=== PATIENT | female | born 1970 | race Caucasian/White ===

== ENCOUNTER 2017-12-19 11:21 | Emergency (ER) | payer OTHER ==
--- NOTE | 2017-12-19 12:16 | RAD REPORT ---
EXAM DESCRIPTION: RAD - Chest Single View - 12/19/2017 11:56 am CLINICAL HISTORY: Syncope COMPARISON: None. TECHNIQUE: AP portable chest image was obtained 1145 hours . FINDINGS: Lungs are clear. Heart and vasculature are normal. No measurable pleural effusion and no p neumothorax. No acute bone finding. Prominent thoracolumbar scoliosis is present only partially asses sed on this study. No acute aortic findings suspected. IMPRESSION: No acute cardiopulmonary process.
[2017-12-19 12:32] LABS: Absolute Lymphocytes (CBC) 1.4 K/uL (0.7-4.9); Absolute Monocytes 0.3 K/uL (0.1-1.3); Absolute Neutrophil 1.3 K/uL (1.8-8.0); Basophils % 1.4 % (0-1.3); Eosinophils % 1.2 % (0-4.4); Hematocrit 42.4 % (36.0-45.0); Lymphocytes % 44.2 % (15.3-44.8); MCV 96.6 fL (80-100); Monocytes % 9.7 % (3.3-12.3); RBC Red Blood Cell Count 4.39 M/uL (3.86-4.86)
[2017-12-19 12:33] LABS: Protime INR 0.95
[2017-12-19 12:41] LABS: Bicarbonate 27 mEq/L (21-31); Glucose Level 103 mg/dL (65-120); Potassium 3.7 mEq/L (3.6-5.0); Sodium Level 138 mEq/L (135-145)
[2017-12-19 12:47] LABS: ALT/SGPT 37 IU/L (10-60); AST/SGOT 40 IU/L (10-42); Albumin 3.5 g/dL (3.2-5.5); Alkaline Phosphatase 79 IU/L (42-121); BUN Blood Urea Nitrogen 8 mg/dL (6-20); Bilirubin Direct 0.1 mg/dL (0-0.2); Bilirubin Total 0.9 mg/dL (0.3-1.2); Magnesium 1.6 mg/dL (1.8-2.5); Protein, Total 6.9 g/dL (6.0-8.3)
[2017-12-19] MEDS ORDERED: MAGNESIUM SULFATE 1 gm IVPB 1 GM/100 ML BAG IV ONE (13:32)
--- NOTE | 2017-12-19 13:36 | RAD REPORT ---
EXAM DESCRIPTION: CT - Head Brain W/Wo Con - 12/19/2017 1:23 pm CLINICAL HISTORY: Seizures COMPARISON: None. TECHNIQUE: Axial 5 mm thick images of the head were obtained prior to and following non-ionic IV con trast. All CT scans are performed using dose optimization technique as appropriate and may include automated exposure control or mA/KV adjustment according to patient size. FINDINGS: No intracranial hemorrhage, mass, edema or shift of mid-line structures. No acute cortical based infarction identified. No cortical edema or sulcal effacement. Patient has mild to moderate at rophy changes for the patient's age. There are chronic ischemic type attenuation changes in the cereb ral white matter. Patient has ventriculomegaly asymmetrically prominent to the left. Third ventricle is mildly prominent to a much lesser degree. No definitive fourth ventricle enlargement. No abnormal extra-axial fluid collections. Post-contrast images show no abnormal enhancement. Mastoid air cells and visualized portions of the paranasal sinuses are clear. No acute bony findings. IMPRESSION: No hemorrhage, mass or other acute intracranial finding. Abnormal ventriculomegaly without evidence for transependymal migration of CSF. Patient has mild to moderate atrophy and chronic ischemic type changes both advanced for a patient th is age. Ventricular size is out of proportion to the amount of volume loss.
--- NOTE | 2017-12-19 13:51 | EKG ---
Test Date: 2017-12-19 Test Time: 11:50:28 Joint Cutter Machine: CONSTANCE MEASUREMENT RESULTS: Intervals: Rate: 84 AR: 160 QRSD: 86 QT: 374 QTc: 441 [place]: P: 62 AR: 160 QRS: 67 T: 26 INTERPRETIVE STATEMENTS: Normal sinus rhythm Normal ECG No previous ECG available for comparison Electronically Signed On 12-19-17 13:50:51 CDT by [place]
--- NOTE | 2017-12-19 14:23 | EDPHYS ---
Physician Documentation [facility] Name: Andie Castro Age: 47 yrs Sex: Female : 1970 Arrival Date: 12/19/2017 Time: 11:24 Bed 28 Private MD: ED Physician Severiano Vazquez HPI: 12/19 14:32 This 47 yrs old Female presents to ER via EMS with complaints of Seizure. gs 14:32 The patient presents after having a single isolated seizure. Character of seizure(s): gs Motor activity: generalized. Seizure onset: just prior to arrival. Context: the seizure(s) was witnessed, by family, occurred at home, occurred while the patient was walking, with assistance. Seizure Hx: the patient has no previous seizure history. Associated injury: Other: tongue, abrasion. Current symptoms: confusion. The patient has not experienced similar symptoms in the past. Historical: - Allergies: 11:44 No Known Allergies; dm5 - Home Meds: 11:44 levothyroxine oral [Active]; dm5 - PMHx: 11:44 Down syndrome; Hypothyroidism; dm5 - PSHx: 11:44 None; dm5 - Immunization history:: Adult Immunizations up to date. - Social history:: Smoking status: Patient/guardian denies using tobacco. ROS: 14:32 All other systems are negative. gs Exam: 14:32 Head/Face: Normocephalic, atraumatic. Eyes: Pupils equal round and reactive to light, gs extra-ocular motions intact. Lids and lashes normal. Conjunctiva and sclera are non-icteric and not injected. Cornea within normal limits. Periorbital areas with no swelling, redness, or edema. ENT: Nares patent. No nasal discharge, no septal abnormalities noted. Tympanic membranes are normal and external auditory canals are clear. Oropharynx with no redness, swelling, or masses, exudates, or evidence of obstruction, uvula midline. Mucous membranes moist. Neck: Trachea midline, no thyromegaly or masses palpated, and no cervical lymphadenopathy. Supple, full range of motion without nuchal rigidity, or vertebral point tenderness. No Meningismus. Chest/axilla: Normal chest wall appearance and motion. Nontender with no deformity. No lesions are appreciated. Cardiovascular: Regular rate and rhythm with a normal S1 and S2. No gallops, murmurs, or rubs. Normal PMI, no JVD. No pulse deficits. Respiratory: Lungs have equal breath sounds bilaterally, clear to auscultation and percussion. No rales, rhonchi or wheezes noted. No increased work of breathing, no retractions or nasal flaring. Abdomen/GI: Soft, non-tender, with normal bowel sounds. No distension or tympany. No guarding or rebound. No evidence of tenderness throughout. Back: No spinal tenderness. No costovertebral tenderness. Full range of motion. Skin: Warm, dry with normal turgor. Normal color with no rashes, no lesions, and no evidence of cellulitis. MS/ Extremity: Pulses equal, no cyanosis. Neurovascular intact. Full, normal range of motion. 14:32 Constitutional: The patient appears alert, awake. 14:32 ENT: Mouth: Tongue: abrasion mild. 14:32 Neuro: Orientation: no acute changes, Mentation: no acute changes, Cranial nerves: CN II- XII are normal as tested, Motor: moves all fours, strength is normal, Sensation: no obvious gross deficits, seizure activity, is not displayed by the patient. 14:32 ECG was reviewed by the Attending Physician. gs Vital Signs: 11:36 BP 116 / 77; Pulse 88; Resp 18; Temp 97.4; Pulse Ox 98% on R/A; dm5 12:26 BP 112 / 81; Pulse 72; Resp 16; Temp 98(TE); Pulse Ox 98% on R/A; dm5 12:54 BP 132 / 94; Pulse 87; Resp 16; Temp 97.4; Pulse Ox 97% on R/A; dm5 13:43 BP 111 / 67; Pulse 86; Resp 22; Pulse Ox 100% on R/A; tl3 15:25 BP 116 / 88; Pulse 91; Resp 18; Pulse Ox 100% on R/A; tl3 Yassine Coma Score: 11:37 Eye Response: spontaneous(4). Verbal Response: confused(4). Motor Response: localizes dm5 pain(5). Total: 13. 12:26 Eye Response: spontaneous(4). Verbal Response: confused(4). Motor Response: obeys dm5 commands(6). Total: 14. 14:18 Eye Response: spontaneous(4). Verbal Response: oriented(5). Motor Response: obeys tl3 commands(6). Total: 15. MDM: 11:37 Patient medically screened. 14:32 Differential diagnosis: cerebral vascular accident, cardiac arrhythmia, seizure, tumor. Data reviewed: vital signs, nurses notes. Response to treatment: the patient's symptoms have markedly improved after treatment. 12/19 11:38 Order name: Basic Metabolic Panel; Complete Time: 13:15 12/19 11:38 Order name: CBC with Diff; Complete Time: 13:15 12/19 11:38 Order name: LFT's; Complete Time: 13:15 12/19 11:38 Order name: Magnesium; Complete Time: 13:15 12/19 11:38 Order name: PT-INR; Complete Time: 13:15 12/19 11:38 Order name: Troponin (emerg Dept Use Only); Complete Time: 13:15 12/19 11:38 Order name: XRAY Chest (1 view); Complete Time: 13:15 12/19 11:38 Order name: EKG; Complete Time: 11:39 12/19 11:38 Order name: Cardiac monitoring; Complete Time: 12:22 12/19 11:38 Order name: EKG - Nurse/Tech; Complete Time: 12:22 12/19 11:38 Order name: IV Saline Lock; Complete Time: 12:22 12/19 11:38 Order name: CT Head Brain w/wo Con; Complete Time: 13:41 12/19 11:38 Order name: Test, Serum; Complete Time: 13:15 12/19 11:38 Order name: Labs collected and sent; Complete Time: 12:23 12/19 11:38 Order name: O2 Per Protocol; Complete Time: 12:23 12/19 11:38 Order name: O2 Sat Monitoring; Complete Time: 12:23 12/19 11:38 Order name: Urine Dipstick-Ancillary (obtain specimen); Complete Time: 15:31 gs EC:32 Rate is 84 beats/min. Rhythm is regular. DC interval is normal. QRS interval is normal. gs T waves are Normal. No ST changes noted. Clinical impression: Normal ECG. Interpreted by me. Administered Medications: 13:43 Drug: Magnesium Sulfate 1 grams Route: IVPB; Infused Over: 1 hrs; Site: left tl3 antecubital; Delivery: Primary tubing; 14:43 Follow up: IV Status: Completed infusion; IV Intake: 100ml tl3 Disposition: 12/19/17 14:22 Transfer ordered to [facility]. Diagnosis is Epilepsy, unspecified, not intractable, without status epilepticus. - Reason for transfer: Higher level of care. - Accepting physician is . - Condition is Stable. - Problem is new. - Symptoms have improved. Signatures: Dispatcher [employer] Lakeisha Pederson, RN RN dm5 Severiano Vazquez MD MD gs Lowrey, Tammy, RN RN tl3
--- NOTE | 2017-12-19 14:23 | ER ---
Nurse's Notes [facility] Name: Andie Castro Age: 47 yrs Sex: Female : 1970 Arrival Date: 12/19/2017 Time: 11:24 Bed 28 Private MD: Diagnosis: Epilepsy, unspecified, not intractable, without status epilepticus Presentation: 12/19 11:37 Presenting complaint: EMS states: pt was walking down the luu when she started shaking dm5 and fell to the floor. Pt is reported to appear "post ictal" by EMS. Pt does not have a history of seizure. Transition of care: patient was not received from another setting of care. Onset of symptoms was December 19, 2017 at 10:15. Initial Sepsis Screen: Does the patient meet any 2 criteria? Altered Mental Status. No. Patient's initial sepsis screen is negative. Does the patient have a suspected source of infection? No. Patient's initial sepsis screen is negative. Care prior to arrival: IV initiated. 20 GA, in the right antecubital area. 11:37 Method Of Arrival: EMS: [facility] dm5 11:37 Acuity: MARCEL 3 dm5 Triage Assessment: 11:37 General: Appears in no apparent distress. Behavior is calm, flat. Pain: Unable to use dm5 pain scale. Does not appear to understand pain scale. Neuro: Level of Consciousness is awake, confused, lethargic, Oriented to person, Brick Setter are equal bilaterally Moves all extremities. Full function. Respiratory: Airway is patent Respiratory effort is even, unlabored, relaxed, Respiratory pattern is regular, symmetrical. Derm: Skin is pink, warm \\T\\ dry. Historical: - Allergies: 11:44 No Known Allergies; dm5 - Home Meds: 11:44 levothyroxine oral [Active]; dm5 - PMHx: 11:44 Down syndrome; Hypothyroidism; dm5 - PSHx: 11:44 None; dm5 - Immunization history:: Adult Immunizations up to date. - Social history:: Smoking status: Patient/guardian denies using tobacco. Screenin:26 Abuse screen: Denies threats or abuse. Nutritional screening: No deficits noted. dm5 Tuberculosis screening: No symptoms or risk factors identified. Fall Risk Fall in past 12 months (25 points). No secondary diagnosis (0 pts). No IV (0 pts). Ambulatory Aid- None/Bed Rest/Nurse Assist (0 pts). Gait- Weak (10 pts.). Mental Status- Overestimates/Forgets Limitations (15 pts.). Total Hodgson Fall Scale indicates High Risk Score (45 or more points). Fall prevention measures have been instituted. Side Rails Up X 2 Placed Close to Nursing Station Family Present and informed to notify staff if the need to leave the bedside. Assessment: 12:26 Reassessment: Patient appears in no apparent distress at this time. No changes from dm5 previously documented assessment. Patient and/or family updated on plan of care and expected duration. Pain level reassessed. Neuro: pt appears to be more alert than when she arrived but still is not talking a lot. 13:43 General: Appears in no apparent distress. comfortable, well groomed, well developed, tl3 well nourished, Behavior is calm, cooperative, pt has downs syndrome, verbalizes no discomfort at this time. Pain: Denies pain. Cardiovascular: Heart tones S1 S2 present Capillary refill < 3 seconds in bilateral fingers. Respiratory: Airway is patent Trachea midline Breath sounds are clear bilaterally. GI: No signs and/or symptoms were reported involving the gastrointestinal system. : No signs and/or symptoms were reported regarding the genitourinary system. EENT: No signs and/or symptoms were reported regarding the EENT system. Derm: No signs and/or symptoms reported regarding the dermatologic system. Musculoskeletal: No signs and/or symptoms reported regarding the musculoskeletal system. 14:18 Reassessment: report given to Corry at [facility]. tl3 15:25 Reassessment: Patient appears in no apparent distress at this time. No changes from tl3 previously documented assessment. Patient and/or family updated on plan of care and expected duration. Pain level reassessed. brought in food for patient per family request. 15:30 Reassessment: called report to Sha Luu RN at [facility] in [place]. tl3 Vital Signs: 11:36 BP 116 / 77; Pulse 88; Resp 18; Temp 97.4; Pulse Ox 98% on R/A; dm5 12:26 BP 112 / 81; Pulse 72; Resp 16; Temp 98(TE); Pulse Ox 98% on R/A; dm5 12:54 BP 132 / 94; Pulse 87; Resp 16; Temp 97.4; Pulse Ox 97% on R/A; dm5 13:43 BP 111 / 67; Pulse 86; Resp 22; Pulse Ox 100% on R/A; tl3 15:25 BP 116 / 88; Pulse 91; Resp 18; Pulse Ox 100% on R/A; tl3 Gibbon Coma Score: 11:37 Eye Response: spontaneous(4). Verbal Response: confused(4). Motor Response: localizes dm5 pain(5). Total: 13. 12:26 Eye Response: spontaneous(4). Verbal Response: confused(4). Motor Response: obeys dm5 commands(6). Total: 14. 14:18 Eye Response: spontaneous(4). Verbal Response: oriented(5). Motor Response: obeys tl3 commands(6). Total: 15. ED Course: 11:24 Patient arrived in ED. dm5 11:29 Severiano Vazquez MD is Attending Physician. gs 11:42 Triage completed. dm5 11:55 X-ray completed. Portable x-ray completed in exam room. Patient tolerated procedure ml well. 11:56 XRAY Chest (1 view) In Process Unspecified. EDMS 12:02 EKG done, by fire control technician b. reviewed by Severiano Vazquez MD. at1 12:07 Lakeisha Granda, RN is Primary Nurse. dm5 12:26 Resting quietly. dm5 12:26 No provider procedures requiring assistance completed. Maintain EMS IV. Dressing dm5 intact. Good blood return noted. Site clean \\T\\ dry. Gauge \\T\\ site: 20 gauge R AC. 12:26 Arm band placed on right wrist. Patient placed in an exam room, on a stretcher, on dm5 security monitor, on pulse oximetry. 12:26 Patient has correct armband on for positive identification. Side rails up X2. Seizure dm5 precautions initiated. security monitor on. Pulse ox on. NIBP on. 13:23 CT Head Brain w/wo Con In Process Unspecified. EDMS 15:25 Maintain EMS IV. IV is intact. tl3 Administered Medications: 13:43 Drug: Magnesium Sulfate 1 grams Route: IVPB; Infused Over: 1 hrs; Site: left tl3 antecubital; Delivery: Primary tubing; 14:43 Follow up: IV Status: Completed infusion; IV Intake: 100ml tl3 Intake: 14:43 IV: 100ml; Total: 100ml. tl3 Outcome: 14:22 ER care complete, transfer ordered by MD. tate 16:39 Patient left the ED. tl3 Signatures: Dispatcher [employer] EDLakeisha Clarke, RN RN Erna Soriano Amanda, vice president quality assurance EKG Tat1 Severiano Vazquez MD MD gs Lowrey, Tammy, RN RN tl3 Corrections: (The following items were deleted from the chart) 12:26 11:37 BP 112 / 81; Pulse 72bpm; Resp 16bpm; Pulse Ox 98% RA; Temp 98F Temporal; dm5 dm5
== END 2017-12-19 16:39 | disposition short-term general hospital (02) ==
LOC: ER 11:21
DX: G40.909 Epilepsy, unspecified, not intractable, without status epilepticus (principal); E03.9 Hypothyroidism, unspecified
CPT/HCPCS: 36415; 71045; 80048; 80076; 83735; 84484; 84703; 85025; 85610; 93005; 96365; 99284; J3475

== ENCOUNTER 2018-01-26 10:53 | Emergency (ER) | payer OTHER ==
--- OUTSIDE RECORDS SUMMARY | 2018-01-26 11:02 | XMS REPORT | Clinical Summary ---
:1970 Author Organization [facility] Address [address] [place] [address] Phone Care Team Providers Name Role Phone Unavailable Primary Care Provider Unavailable Allergies No Known Allergies Current Medications Prescription Sig. Disp. Refills Start Date End Date Status levothyroxine (SYNTHROID, Take 125 mcg by Active LEVOTHROID) 125 MCG mouth Every morning tablet on an empty stomach. Active Problems Problem Noted Date Seizure (HCC) 12/19/2017 Cerebral ventriculomegaly 12/19/2017 Acquired hypothyroidism 12/19/2017 Down syndrome 12/19/2017 Encounters Date Type Specialty Care Team Description 12/19/2017 [facility] Ac[facility] 12/23/2017 Delilah Lee MD hypothyroidism;Cerebra izabela Oseguera MD ventriculomegaly;Down syndrome;Seizure (HCC) after 01/25/2017 Social History Tobacco Use Types Packs/Day Years Used Date Never Smoker Smokeless Tobacco: Never Used Alcohol Use Drinks/Week oz/Week Comments No Sex Assigned at Date Recorded Not on file Last Filed Vital Signs Vital Sign Reading Time Taken Blood Pressure 108/64 12/23/2017 8:05 AM CDT Pulse 73 12/23/2017 8:05 AM CDT Temperature 36.7 C (98 F) 12/23/2017 8:05 AM CDT Respiratory Rate 18 12/23/2017 8:05 AM CDT Oxygen Saturation 97% 12/23/2017 8:05 AM CDT Inhaled Oxygen Concentration - - Weight 81.4 kg (179 lb 8 oz) 12/23/2017 7:00 AM CDT Height 144.8 cm (4' 9") 12/19/2017 6:22 PM CDT Body Mass Index 38.84 12/23/2017 7:00 AM CDT Plan of Treatment Not on file Results RHYTHM STRIP - SCAN (12/27/2017 8:13 AM)MR brain without IV contrast (2017 3:19 PM) Specimen Performing Laboratory [facility] Narrative FINAL REPORT MRI Brain without contrast Clinical History: Seizures, hydrocephalus Technique: MRI of the brain utilizing axial T2, FLAIR, GRE, DWI; sagittal and coronal T1-weighted images. Comparisons: None Findings: There is no evidence of acute infarct or hemorrhage. 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 There is generalized parenchymal volume loss with disproportionate ventriculomegaly. The hydrocephalus is likely long-standing as there is no significant appearing transependymal resorption of CSF. There is no midline shift. There is periventricular and subcortical white matter T2 hyperintensity, which is nonspecific but compatible with chronic microvascular ischemic change. There are no extra-axial fluid collections. The craniocervical junction is preserved. The major intracranial flow-voids appear patent. IMPRESSION: No evidence of acute infarct or hemorrhage. Communicating hydrocephalus. Signed: Irwin Leblanc MD Report Verified Date/Time:12/22/2017 17:54:57 Reading Location: [facility] Radiology Reading Room Procedure Note Interface, External Ris In - 12/22/2017 5:57 PM CDT FINAL REPORT MRI Brain without contrast Clinical History: Seizures, hydrocephalus Technique: MRI of the brain utilizing axial T2, FLAIR, GRE, DWI; sagittal and coronal T1-weighted images. Comparisons: None Findings: There is no evidence of acute infarct or hemorrhage. 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 There is generalized parenchymal volume loss with disproportionate ventriculomegaly. The hydrocephalus is likely long-standing as there is no significant appearing transependymal resorption of CSF. There is no midline shift. There is periventricular and subcortical white matter T2 hyperintensity, which is nonspecific but compatible with chronic microvascular ischemic change. There are no extra-axial fluid collections. The craniocervical junction is preserved. The major intracranial flow-voids appear patent. IMPRESSION: No evidence of acute infarct or hemorrhage. Communicating hydrocephalus. Signed: Irwin Leblanc MD Report Verified Date/Time: 12/22/2017 17:54:57 Reading Location: [facility] Radiology Reading Room AWAKE AND DROWSY (12/21/2017 8:59 AM) Specimen Performing Laboratory GE RIS Narrative Date(s) of EE12/21/17 ACC: [id number] EEG Number: [id number] Test Location: Inpatient Room Start time: 08:38 Stop time: 08:59 ICD-10: R56.9 CPT Code: 65750 HISTORY:47 y.o. female who presented with a history of Down's syndrome and a witnessed seizure that occurred at home today. She apparently was in the [place] when suddenly the right leg faltered and then she began to shake violently MEDICATIONS THAT COULD AFFECT EEG: Xanax TECHNICAL SUMMARY: This is a digital video-EEG recorded with 32 input channels reviewed with bipolar and referential montages using the modified combinatorial system nomenclature. DESCRIPTION OF RECORD: During the stimulated state, the background is generally symmetric, continuous, and demonstrates spontaneous variabilities. The frequency spectrum consists primarily of diffuse, moderate amplitude 4-5 Hz theta, 1.5-3 Hz delta, which are further admixed with some diffuse beta. There are occasional broad based, bi-synchronous discharges with a triphasic morphology, and occur either singly or in brief periodic trains. These discharges demonstrate an anterior predominance, with anterior to posterior phase lag. Neither an occipital dominant rhythm, nor an organized frequency amplitude gradient is well demonstrable. SLEEP:There is no evidence of sleep architectures in this study. SIGNIFICANT VIDEO EVENTS: None SIGNIFICANT ELECTROCARDIOGRAM EVENTS: None IMPRESSION: Abnormal Awake EEG 1. Moderate diffuse slowing There is no evidence for epileptiform abnormality, including absence of electrographic seizure. CLINICAL CORRELATION: The composite findings of diffuse slowingand tirphasic sharp transients as evident in this record support an underlying moderate encephalopathy, possibly with metabolic contribution. The absence of epileptiform abnormality does not necessarily preclude the clinical diagnosis of epilepsy. Gary Tejeda M.D. Neurophysiology Fellow, PGY5 Fernando Méndez M.D. Clinical Neurophysiology/Epilepsy Attending Procedure Note Interface, External Ris In - 12/21/2017 1:47 PM CDT Date(s) of EE12/21/17 ACC: [id number] EEG Number: [id number] Test Location: Inpatient Room Start time: 08:38 Stop time: 08:59 ICD-10: R56.9 CPT Code: 16519 HISTORY: 47 y.o. female who presented with a history of Down's syndrome and a witnessed seizure that occurred at home today. She apparently was in the [place] when suddenly the right leg faltered and then she began to shake violently MEDICATIONS THAT COULD AFFECT EEG: Xanax TECHNICAL SUMMARY: This is a digital video-EEG recorded with 32 input channels reviewed with bipolar and referential montages using the modified combinatorial system nomenclature. DESCRIPTION OF RECORD: During the stimulated state, the background is generally symmetric, continuous, and demonstrates spontaneous variabilities. The frequency spectrum consists primarily of diffuse, moderate amplitude 4-5 Hz theta, 1.5-3 Hz delta, which are further admixed with some diffuse beta. There are occasional broad based, bi-synchronous discharges with a triphasic morphology, and occur either singly or in brief periodic trains. These discharges demonstrate an anterior predominance, with anterior to posterior phase lag. Neither an occipital dominant rhythm, nor an organized frequency amplitude gradient is well demonstrable. SLEEP: There is no evidence of sleep architectures in this study. SIGNIFICANT VIDEO EVENTS: None SIGNIFICANT ELECTROCARDIOGRAM EVENTS: None IMPRESSION: Abnormal Awake EEG 1. Moderate diffuse slowing There is no evidence for epileptiform abnormality, including absence of electrographic seizure. CLINICAL CORRELATION: The composite findings of diffuse slowing and tirphasic sharp transients as evident in this record support an underlying moderate encephalopathy, possibly with metabolic contribution. The absence of epileptiform abnormality does not necessarily preclude the clinical diagnosis of epilepsy. Gary Tejeda M.D. Neurophysiology Fellow, PGY5 Fernando Méndez M.D. Clinical Neurophysiology/Epilepsy Attending /Free T4 If Indicated (12/20/2017 5:43 AM) Component Value Ref Range TSH 0.15 (L) 0.35 - 4.94 uIU/mL Specimen Performing Laboratory Blood [facility] [address] [address] Calcium, Ionized (12/20/2017 5:43 AM) Component Value Ref Range Calcium, Ion 1.01 (L) 1.12 - 1.27 mmol/L pH, Blood 7.49 Specimen Performing Laboratory Blood [address] [address] CBC with platelet count + automated diff (12/20/2017 5:43 AM) Component Value Ref Range WBC 3.7 3.5 - 10.5 K/L RBC 3.92 (L) 3.93 - 5.22 M/L Hemoglobin 13.0 11.2 - 15.7 GM/DL Hematocrit 37.7 34.1 - 44.9 % MCV 96.2 (H) 79.4 - 94.8 fL MCH 33.2 (H) 25.6 - 32.2 pg MCHC 34.5 32.2 - 35.5 GM/DL RDW 13.8 11.7 - 14.4 % Platelets 163 150 - 450 K/CU MM MPV 9.8 9.4 - 12.3 fL nRBC 0 0 - 0 /100 WBC % Neutros 41 % % Lymphs 46 % % Monos 11 % % Eos 1 % % Baso 1 % # Neutros 1.52 (L) 1.56 - 6.13 K/L # Lymphs 1.72 1.18 - 3.74 K/L # Monos 0.40 (H) 0.24 - 0.36 K/L # Eos 0.04 0.04 - 0.36 K/L # Baso 0.04 0.01 - 0.08 K/L Immature Granulocytes-Relative 0 0 - 1 % Specimen Performing Laboratory Blood [address] [address] CBC with platelet count + automated diff (12/20/2017 5:43 AM) Specimen Performing Laboratory Blood Narrative The following orders were created for panel order CBC with platelet count + automated diff. Procedure Abnormality Status --------- ------ CBC with platelet count ...[[id number]]AbnormalFinal result Please view results for these tests on the individual orders. T4, free (12/20/2017 5:43 AM) Component Value Ref Range Free T4 1.46 0.70 - 1.48 ng/dL Specimen Performing Laboratory Blood [address] [address] Phosphorus (12/20/2017 5:43 AM) Component Value Ref Range Phosphorus 4.1 2.3 - 4.7 mg/dL Specimen Performing Laboratory Blood [address] [address] Magnesium (12/20/2017 5:43 AM) Component Value Ref Range Magnesium 2.3 1.6 - 2.6 mg/dL Specimen Performing Laboratory Blood [address] [address] Hemoglobin A1c (12/20/2017 5:43 AM) Component Value Ref Range Hemoglobin A1C 4.5 4.3 - 6.1 % Specimen Performing Laboratory Blood [address] [address] Lipid panel (12/20/2017 5:43 AM) Component Value Ref Range Triglycerides 86 mg/dL Cholesterol 246 mg/dL HDL 54 mg/dL LDL Calculated 175 mg/dL Specimen Performing Laboratory Blood [address] [address] Narrative Triglyceride Reference Range: Low Risk <150 [id number] High Risk 200-499 Very High Risk>=500 Cholesterol Reference Range: Low Risk <200 [id number] High Risk>240 HDL Cholesterol Reference Range: Low Risk >=60 High Risk <40 LDL Cholesterol Reference Range: Optimal<100 Near [id number] Zjsadcmsev788-522 Ivgl147-141 Very High >=190 Basic Metabolic Panel (12/20/2017 5:43 AM) Component Value Ref Range Sodium 139 136 - 145 meq/L Potassium 3.9 3.5 - 5.1 meq/L Chloride 107 98 - 107 meq/L CO2 26 22 - 29 meq/L BUN 11 7 - 21 mg/dL Creatinine 0.79 0.57 - 1.25 mg/dL Glucose 97 70 - 105 mg/dL Calcium 8.8 8.4 - 10.2 mg/dL EGFR 78Comment: ESTIMATED GFR IS NOT ACCURATE mL/min/1.73 sq m CREATININE CLEARANCE IN PREDICTING GLOMERULAR FILTRATION RATE. ESTIMATED GFR IS NOT APPLICABLE FOR DIALYSIS PATIENTS. Specimen Performing Laboratory Blood [address] [address] after 01/25/2017
--- OUTSIDE RECORDS SUMMARY | 2018-01-26 11:02 | XMS REPORT ---
:1970 Author Organization [facility] Address [address] [place] [address] Dr. Foster [address] [place] [address] Care Team Providers Name Role Phone YESSENIA DANIELSON Unavailable Unavailable Problems This patient has no known problems. Allergies, Adverse Reactions, Alerts This patient has no known allergies or adverse reactions. Medications This patient has no known medications. Results Test Description Test Time Test Comments Text Results Atomic Results Result Comments , BRAIN, 2017-12-22 Reason for FINAL REPORT PATIENT WITHOUT 17:54:00 exam:->sseizures/hydrocephalusWhat is ID: [id number] MRI CONTRAST the patient's sedation Brain without requirement?->No SedationIs the contrast Clinical patient claustrophobic?->NoIs the History: Seizures, patient ?->Unknown hydrocephalus Technique: MRI of the brain utilizing [...] or hemorrhage. Communicating hydrocephalus. Signed: Irwin Leblanc MDReport Verified Date/Time: 12/22/2017 17:54:57 Reading Location: [facility] Radiology Reading Room AWAKE 2017-12-21 Reason for exam:->seizuresShould this Date(s) of EEG: AND DROWSY 13:47:00 be performed at the bedside?->Yes 12/21/17ACC: [id number] Number: [id number] Location: Inpatient RoomStart time: 08:38Stop time: 08:59ICD-10: R56.9CPT Code: 69924 HISTORY: 47 y.o. female who presented with [...] IMPRESSION: Abnormal Awake EEG 1. Moderate diffuse slowingThere is no evidence for epileptiform abnormality, including absence of electrographic seizure. CLINICAL CORRELATION: The composite findings of diffuse slowing and tirphasic sharp transients as evident in this record support an underlying moderate encephalopathy, possibly with metabolic contribution. The absence of epileptiform abnormality does not necessarily preclude the clinical diagnosis of epilepsy. Gary Tejeda M.D.Neurophysiology Fellow, PGY5 Fernando Méndez M.D.Clinical Neurophysiology/Epil epsy Attending GLOBIN A1C 2017-12-20 16:10:00 Test Item Value Reference Range Comments HEMOGLOBIN A1C (BEAKER) (test uaxh=817) 4.5 % 4.3-6.1 T4, [id number] 07:45:00 Test Item Value Reference Range Comments FREE T4 (BEAKER) (test khqs=103) 1.46 ng/dL 0.70-1.48 TSH/FREE T4 IF [id number] 06:53:00 Test Item Value Reference Range Comments THYROID STIMULATING HORMONE (BEAKER) (test 0.15 uIU/mL 0.35-4.94 tulj=013) CALCIUM, [id number] 06:51:00 Test Item Value Reference Range Comments CALCIUM IONIZED (BEAKER) (test nfre=379) 1.01 mmol/L 1.12-1.27 PH, BLOOD (BEAKER) (test buva=1789) 7.49 [id number] 06:31:00 Test Item Value Reference Range Comments PHOSPHORUS (BEAKER) (test gjcs=335) 4.1 mg/dL 2.3-4.7 [id number] 06:31:00 Test Item Value Reference Range Comments MAGNESIUM (BEAKER) (test hovi=444) 2.3 mg/dL 1.6-2.6 BASIC METABOLIC [id number] 06:31:00 Test Item Value Reference Range Comments SODIUM (BEAKER) (test 139 meq/L 136-145 waqj=779) POTASSIUM (BEAKER) (test 3.9 meq/L 3.5-5.1 bzgi=139) CHLORIDE (BEAKER) (test 107 meq/L 98-107 oiyv=870) CO2 (BEAKER) (test 26 meq/L 22-29 wcoo=124) BLOOD UREA NITROGEN 11 mg/dL 7-21 (BEAKER) (test bilu=428) CREATININE (BEAKER) (test 0.79 mg/dL 0.57-1.25 lkdz=739) GLUCOSE RANDOM (BEAKER) 97 mg/dL 70-105 (test xosh=278) CALCIUM (BEAKER) (test 8.8 mg/dL 8.4-10.2 acpr=509) EGFR (BEAKER) (test 78 mL/min/1.73 sq m ESTIMATED GFR IS NOT sjum=7481) ACCURATE CREATININE CLEARANCE IN PREDICTING GLOMERULAR FILTRATION RATE. ESTIMATED GFR IS NOT APPLICABLE FOR DIALYSIS PATIENTS. LIPID [id number] 06:31:00 Test Item Value Reference Range Comments TRIGLYCERIDES (BEAKER) (test ahgq=061) 86 mg/dL CHOLESTEROL (BEAKER) (test pzgf=828) 246 mg/dL HDL CHOLESTEROL (BEAKER) (test jqod=144) 54 mg/dL LDL CHOLESTEROL CALCULATED (BEAKER) (test 175 mg/dL nylt=146) Triglyceride Reference Range: Low Risk <150 Borderline 150- 199 High Risk 200-499 Very High Risk >=500Cholesterol Reference Range: Low Risk <200 Borderline 200-239 High Risk > 240HDL Cholesterol Reference Range: Low Risk >=60 High Risk <40LDL Cholesterol Reference Range: Optimal <100 Near Optimal 100-129 Borderline 130-159 High 160-189 Very High >=190CBC W/PLT COUNT & AUTO [id number] 06:09:00 Test Item Value Reference Range Comments WHITE BLOOD CELL COUNT (BEAKER) (test hylo=379) 3.7 K/ L 3.5-10.5 RED BLOOD CELL COUNT (BEAKER) (test yalt=954) 3.92 M/ L 3.93-5.22 HEMOGLOBIN (BEAKER) (test szez=832) 13.0 GM/DL 11.2-15.7 HEMATOCRIT (BEAKER) (test xzzq=798) 37.7 % 34.1-44.9 MEAN CORPUSCULAR VOLUME (BEAKER) (test lrzi=450) 96.2 fL 79.4-94.8 MEAN CORPUSCULAR HEMOGLOBIN (BEAKER) (test 33.2 pg 25.6-32.2 pwda=852) MEAN CORPUSCULAR HEMOGLOBIN CONC (BEAKER) (test 34.5 GM/DL 32.2-35.5 jgwd=204) RED CELL DISTRIBUTION WIDTH (BEAKER) (test 13.8 % 11.7-14.4 uhbt=054) PLATELET COUNT (BEAKER) (test gktm=020) 163 K/CU MM 150-450 MEAN PLATELET VOLUME (BEAKER) (test dzhd=369) 9.8 fL 9.4-12.3 NUCLEATED RED BLOOD CELLS (BEAKER) (test 0 /100 WBC 0-0 rklh=280) NEUTROPHILS RELATIVE PERCENT (BEAKER) (test 41 % yifk=162) LYMPHOCYTES RELATIVE PERCENT (BEAKER) (test 46 % ysia=244) MONOCYTES RELATIVE PERCENT (BEAKER) (test 11 % cbwp=114) EOSINOPHILS RELATIVE PERCENT (BEAKER) (test 1 % umvo=019) BASOPHILS RELATIVE PERCENT (BEAKER) (test 1 % mfub=382) NEUTROPHILS ABSOLUTE COUNT (BEAKER) (test 1.52 K/ L 1.56-6.13 nrar=607) LYMPHOCYTES ABSOLUTE COUNT (BEAKER) (test 1.72 K/ L 1.18-3.74 mcyw=965) MONOCYTES ABSOLUTE COUNT (BEAKER) (test 0.40 K/ L 0.24-0.36 lxdq=094) EOSINOPHILS ABSOLUTE COUNT (BEAKER) (test 0.04 K/ L 0.04-0.36 ivyj=421) BASOPHILS ABSOLUTE COUNT (BEAKER) (test 0.04 K/ L 0.01-0.08 pkzi=081) IMMATURE GRANULOCYTES-RELATIVE PERCENT (BEAKER) 0 % 0-1 (test emog=1936)
--- NOTE | 2018-01-26 11:39 | RAD REPORT ---
EXAM DESCRIPTION: CT - Head C Spine Mpr Wo Con - 01/26/2018 11:20 am CLINICAL HISTORY: Seizure Head and neck injury status post fall. Head and neck pain COMPARISON: November [address] TECHNIQUE: Computed axial tomography of the head and cervical spine was obtained. Sagittal and coronal reconstruction was performed. All CT scans are performed using dose optimization technique as appropriate and may include automated exposure control or mA/KV adjustment according to patient size. FINDINGS: A right frontal scalp swelling is seen without an underlying skull fracture. An intracranial bleed is not seen. The ventricles remain dilated. Mild to moderate low-density areas are present in periventricular deep white matter. An extra-axial fluid collection is not noted.Fluid within the visualized sinuses and mastoids is not seen A cervical fracture is not visualized. Mild anterior subluxation of C 5 on C6 is seen. Mild anterior subluxation of C7 on T1 is noted. Significant soft tissue swelling is not seen. IMPRESSION: Dilatation of the ventricles without change from the prior exam may indicate normal pres sure hydrocephalus. White matter atrophy is another consideration. This should be correlated clinical ly. A cervical fracture is not visualized. If the patient continues to have symptoms to suggest intracra nial /spinal cord/ligamentous pathology then MRI would be recommended
[2018-01-26 11:45] LABS: Absolute Lymphocytes (CBC) 2.3 K/uL (0.7-4.9); Absolute Monocytes 0.4 K/uL (0.1-1.3); Absolute Neutrophil 1.3 K/uL (1.8-8.0); Basophils % 1.1 % (0-1.3); Eosinophils % 1.2 % (0-4.4); Hematocrit 43.4 % (36.0-45.0); Lymphocytes % 56.1 % (15.3-44.8); MCH 32.4 pg (27.0-35.0); MCV 99.2 fL (80-100); MPV 8.5 fL (7.6-11.3); Monocytes % 10.8 % (3.3-12.3); RBC Red Blood Cell Count 4.37 M/uL (3.86-4.86)
[2018-01-26 11:50] LABS: Potassium 3.7 mEq/L (3.6-5.0)
--- NOTE | 2018-01-26 13:00 | ER ---
Nurse's Notes [facility] Name: Andie Castro Age: 47 yrs Sex: Female : 1970 Arrival Date: 01/26/2018 Time: 10:56 Bed 2 Private MD: Mesha Hopper Z Diagnosis: Epilepsy and recurrent seizures Presentation: 01/26 10:57 Presenting complaint: EMS states: pt has hx of Downs syndrome, had first seizure at the iw beginning of December, was seen at [facility], was not put on seizure medication, pt had tonic clonic seizure, lasting approx 3 minutes according to application spec while pt was in bathroom, pt fell to ground and hit head, hematoma noted to right side of forehead, pt was incontinent of urine, pt arrives to ER, not verbal but normally is verbal, tracking with eyes, alert, VSS. Care prior to arrival: IV initiated. 18 GA, in the right antecubital area, Glucose check: 113. Mechanism of Injury: Fall Trauma event details: Injury occurred in the [facility], Injury occurred: at home. Injury occurred: January 26, 2018 Injury occurred at: 10:05. 10:57 Acuity: MARCEL 2 iw 10:57 Method Of Arrival: EMS: [facility] iw 11:02 Transition of care: patient was not received from another setting of care. Onset of iw symptoms was January 26, 2018. Risk Assessment: Do you want to hurt yourself or someone else? Patient reports no desire to harm self or others. Initial Sepsis Screen: Does the patient meet any 2 criteria? No. Patient's initial sepsis screen is negative. Does the patient have a suspected source of infection? No. Patient's initial sepsis screen is negative. CONVEYOR MAN: 13:35 LMP N/A - iw Trauma Activation: Alert Physician: ED Physician; Name: ; Notified At: ; Arrived At: Physician: General Surgeon; Name: ; Notified At: ; Arrived At: Physician: Radiology; Name: ; Notified At: ; Arrived At: Physician: Respiratory; Name: ; Notified At: ; Arrived At: Physician: Lab; Name: ; Notified At: ; Arrived At: Historical: - Allergies: 11:05 NKA; iw - PMHx: 11:05 down syndrome; Hypothyroidism; Seizures; iw - PSHx: 11:05 None; iw - Immunization history: Last tetanus immunization: unknown. - Social history:: Smoking status: Patient/guardian denies using tobacco. - Ebola Screening: : Patient negative for fever greater than or equal to 101.5 degrees Fahrenheit, and additional compatible Ebola Virus Disease symptoms Patient denies exposure to infectious person Patient denies travel to an Ebola-affected area in the 21 days before illness onset No symptoms or risks identified at this time. Screenin:16 Abuse screen: Denies threats or abuse. Denies injuries from another. Tuberculosis iw screening: No symptoms or risk factors identified. 11:16 Nutritional screening: No deficits noted. Fall Risk Fall in past 12 months (25 points). iw IV access (20 points). Primary Survey: 11:00 A: Airway: patent. Breathing/Chest: Respiratory pattern: regular, Respiratory effort: iw spontaneous, unlabored, Breath sounds: clear, bilaterally. Chest inspection: symmetrical rise and fall of the chest. Circulation: Cardiac rhythm: sinus rhythm Heart tones present. Pulses: palpable right radial artery and left radial artery. Skin color:. Disability Alert. 12:00 Reassessment Breathing/Chest Respiratory pattern Regular Respiratory effort Spontaneous iw Unlabored Breath sounds Clear Chest inspection Symmetrical. Assessment: 11:00 General: Appears in no apparent distress. well developed, Behavior is quiet. Pain: iw Unable to use pain scale. Does not appear to understand pain scale. FLACC scale score is 4 out of 10. Neuro: Level of Consciousness is awake, confused, Oriented to none Mixing Roll Operator are equal bilaterally pt gripping hand rails but does not follow command to squeeze my hand. EENT: fried blood noted to mouth, pt very resistant to opening mouth at this time . Cardiovascular: Patient's skin is warm and dry. Respiratory: Respiratory effort is even, unlabored, Respiratory pattern is regular, symmetrical, Breath sounds are clear bilaterally. GI: Abdomen is non-distended. Derm: Skin is normal. Injury Description: Bruise sustained to forehead is purple. 11:12 Reassessment: pt transported to CT via stretcher, with Devan EVANS and airplane technician. iw 11:24 Reassessment: pt transported back to ER bed 2, via stretcher, family at bedside. iw 12:03 Reassessment: Patient and/or family updated on plan of care and expected duration. Pain sg level reassessed. pt and pt family updated on POC, awaiting results at this time. 12:40 Reassessment: pt sitting up, awake, alert, pt smiling, making eye contact, kissing iw mother, awaiting dispo. Vital Signs: 11:01 BP 120 / 70; Pulse 80; Resp 18 S; Temp 98.2; Pulse Ox 100% on R/A; Weight 74.84 kg; iw Height 5 ft. 2 in. (157.48 cm); Pain 0/10; 11:52 BP 112 / 79; Pulse 88; Resp 15 S; Pulse Ox 100% on R/A; Pain 0/10; iw 11:01 Body Mass Index 30.18 (74.84 kg, 157.48 cm) iw [place] Coma Score: 11:01 Eye Response: spontaneous(4). Verbal Response: inappropriate words(3). Motor Response: iw localizes pain(5). Total: 12. 11:16 Eye Response: spontaneous(4). Verbal Response: none(1). Motor Response: localizes iw pain(5). Total: 10. 11:16 Eye Response: spontaneous(4). Verbal Response: incomprehensible(2). Motor Response: iw localizes pain(5). Total: 11. Trauma Score (Adult): 11:01 Eye Response: spontaneous(1); Verbal Response: incomprehensible(0); Motor Response: iw localizes pain(1); Systolic BP: > 89 mm Hg(4); Respiratory Rate: 10 to 29 per min(4); Yassine Score: 11; Trauma Score: 10 ED Course: 10:56 Patient arrived in ED. iw 11:00 Thermoregulation: warm blanket given to patient. iw 11:00 Arm band placed on. iw 11:00 Seizure precautions initiated. iw 11:01 Triage completed. iw 11:02 Harley Strong MD is Attending Physician. kdr 11:04 Ale Marquez RN is Primary Nurse. iw 11:13 Maintain EMS IV. Dressing intact. Good blood return noted. Site clean \T\ dry. Gauge \T\ iw site: 18 RAC. Patient maintains SpO2 saturation greater than 95% on room air. 11:16 Patient has correct armband on for positive identification. Placed in gown. Bed in low iw position. Call light in reach. Side rails up X2. Adult w/ patient. 11:20 Head C Spine Mpr Wo Con In Process Unspecified. EDMS 11:50 Mesha Hopper MD is Private Physician. rg4 12:03 Awaiting re-evaluation by ER provider. sg 12:59 Eduardo Medina MD is Referral Physician. kdr 13:34 No provider procedures requiring assistance completed. IV discontinued, intact, iw bleeding controlled, No redness/swelling at site. Pressure dressing applied. Administered Medications: No medications were administered Intake: 13:35 PO: 0ml; Total: 0ml. iw Outcome: 12:59 Discharge ordered by MD. kdr 13:34 Discharged to home via wheelchair, with family. iw 13:34 Condition: good 13:34 Patient's length of stay in the Emergency Department was greater than 2 hours. Patient's length of stay extended due to 13:34 Discharge instructions given to family, Instructed on discharge instructions, follow up iw and referral plans. Demonstrated understanding of instructions, follow-up care. 13:36 Patient left the ED. iw Signatures: Dispatcher [employer] EDMS Devan Yun, CRISTINA RN Harley Alcocer MD MD kdr Williams, Irene, RN RN Carmelita Nguyen rg4
--- NOTE | 2018-01-26 13:00 | EDPHYS ---
Physician Documentation [facility] Name: Andie Castro Age: 47 yrs Sex: Female : 1970 Arrival Date: 01/26/2018 Time: 10:56 Bed 2 Private MD: Mesha Hopper Z ED Physician Harley Strong HPI: 01/26 14:35 This 47 yrs old Female presents to ER via EMS with complaints of Seizure, kdr Fall Injury. 14:35 The patient presents with a history of multiple seizures, a total of 2. Character of kdr seizure(s): Loss of consciousness: the patient experienced loss of consciousness, Motor activity: generalized, shaking all over, Incontinence: none, Apnea: the patient did not experience apnea, Circulation: the patient did not experience evidence of pulse disturbance. Seizure onset: just prior to arrival, today. Context: the seizure(s) was witnessed, by family, occurred at home, occurred while the patient was sitting, On toilet. Seizure Hx: Last seizure: The patient's last seizure was approximately 1 month(s) ago, Seizure medications: none, This si the second seizure. Associated injury: Head/face: forehead. Current symptoms: confusion, The patient has Downs Syndrome and appears to be at or near baseline per family. The patient has experienced a previous episode, last month. The patient has been recently seen by a physician: the patient's primary care provider. BALANCE WHEEL HAND FILER: 13:35 LMP N/A - iw Historical: - Allergies: 11:05 NKA; iw - PMHx: 11:05 down syndrome; Hypothyroidism; Seizures; iw - PSHx: 11:05 None; iw - Immunization history: Last tetanus immunization: unknown. - Social history:: Smoking status: Patient/guardian denies using tobacco. - Ebola Screening: : Patient negative for fever greater than or equal to 101.5 degrees Fahrenheit, and additional compatible Ebola Virus Disease symptoms Patient denies exposure to infectious person Patient denies travel to an Ebola-affected area in the 21 days before illness onset No symptoms or risks identified at this time. ROS: 14:35 Constitutional: Unobtainable secondary tothe patient's prior medical issues kdr Exam: 21:29 Constitutional: This is a well developed, well nourished patient who is awake and kdr appears to be at baseline but in no acute distress. Head/Face: Normocephalic, atraumatic except for small contusion to the left forehead Eyes: Pupils equal round and reactive to light, extra-ocular motions intact. Lids and lashes normal. Conjunctiva and sclera are non-icteric and not injected. Cornea within normal limits. Periorbital areas with no swelling, redness, or edema. Neck: Trachea midline, no thyromegaly or masses palpated, and no cervical lymphadenopathy. Supple, full range of motion without nuchal rigidity, or vertebral point tenderness. No Meningismus. Chest/axilla: Normal chest wall appearance and motion. Nontender with no deformity. No lesions are appreciated. Cardiovascular: Regular rate and rhythm with a normal S1 and S2. No gallops, murmurs, or rubs. Normal PMI, no JVD. No pulse deficits. Respiratory: Lungs have equal breath sounds bilaterally, clear to auscultation and percussion. No rales, rhonchi or wheezes noted. No increased work of breathing, no retractions or nasal flaring. Abdomen/GI: Soft, non-tender, with normal bowel sounds. No distension or tympany. No guarding or rebound. No evidence of tenderness throughout. Back: No spinal tenderness. No costovertebral tenderness. Full range of motion. Skin: Warm, dry with normal turgor. Normal color with no rashes, no lesions, and no evidence of cellulitis. MS/ Extremity: Pulses equal, no cyanosis. Neurovascular intact. Full, normal range of motion. Vital Signs: 11:01 BP 120 / 70; Pulse 80; Resp 18 S; Temp 98.2; Pulse Ox 100% on R/A; Weight 74.84 kg; iw Height 5 ft. 2 in. (157.48 cm); Pain 0/10; 11:52 BP 112 / 79; Pulse 88; Resp 15 S; Pulse Ox 100% on R/A; Pain 0/10; iw 11:01 Body Mass Index 30.18 (74.84 kg, 157.48 cm) iw [place] Coma Score: 11:01 Eye Response: spontaneous(4). Verbal Response: inappropriate words(3). Motor Response: iw localizes pain(5). Total: 12. 11:16 Eye Response: spontaneous(4). Verbal Response: none(1). Motor Response: localizes iw pain(5). Total: 10. 11:16 Eye Response: spontaneous(4). Verbal Response: incomprehensible(2). Motor Response: iw localizes pain(5). Total: 11. Trauma Score (Adult): 11:01 Eye Response: spontaneous(1); Verbal Response: incomprehensible(0); Motor Response: iw localizes pain(1); Systolic BP: > 89 mm Hg(4); Respiratory Rate: 10 to 29 per min(4); [place] Score: 11; Trauma Score: 10 MDM: 12:59 Patient medically screened. kdr 21:29 Data reviewed: vital signs, nurses notes, lab test result(s), radiologic studies. kdr Counseling: I had a detailed discussion with the patient and/or guardian regarding: the historical points, exam findings, and any diagnostic results supporting the discharge/admit diagnosis, lab results, radiology results, the need for outpatient follow up. 01/26 11:16 Order name: CBC with Diff; Complete Time: 12:18 kdr 01/26 11:16 Order name: Chem 7; Complete Time: 12:18 kdr 01/26 11:14 Order name: Head C Spine Mpr Wo Con; Complete Time: 12:18 EDMS Administered Medications: No medications were administered Disposition: 01/26/18 12:59 Discharged to Home. Impression: Epilepsy and recurrent seizures. - Condition is Stable. - Discharge Instructions: Seizure, Adult, [id number]. - Medication Reconciliation Form, Thank You Letter form. - Follow up: Private Physician; When: 2 - 3 days; Reason: If symptoms return, Further diagnostic work-up, Recheck today's complaints, Continuance of care, Re-evaluation by your physician. Follow up: Eduardo Medina MD; When: 2 - 3 days; Reason: If symptoms return, Further diagnostic work-up, Recheck today's complaints, Continuance of care, Re-evaluation by your physician. - Problem is an acute exacerbation. - Symptoms are resolved. Signatures: Dispatcher [employer] EDMS Harley Strong MD MD kdr Ale Marquez RN RN iw Corrections: (The following items were deleted from the chart) 13:36 12:59 01/26/2018 12:59 Discharged to Home. Impression: Epilepsy and recurrent seizures. iw Condition is Stable. Forms are Medication Reconciliation Form, Thank You Letter, Antibiotic Education, Prescription Opioid Use. Follow up: Private Physician; When: 2 - 3 days; Reason: If symptoms return, Further diagnostic work-up, Recheck today's complaints, Continuance of care, Re-evaluation by your physician. Follow up: Eduardo Medina; When: 2 - 3 days; Reason: If symptoms return, Further diagnostic work-up, Recheck today's complaints, Continuance of care, Re-evaluation by your physician. Problem is an acute exacerbation. Symptoms are resolved. kdr
== END 2018-01-26 13:36 | disposition home or self-care (01) ==
LOC: ER 10:53
DX: G40.802 Other epilepsy, not intractable, without status epilepticus (principal); Q90.9 Down syndrome, unspecified; W18.11XA Fall from or off toilet without subsequent striking against object, initial encounter; Y93.9 Activity, unspecified; Y92.002 Bathroom of unspecified non-institutional (private) residence as the place of occurrence of the external cause
CPT/HCPCS: 36415; 70450; 72125; 80048; 85025; 99284

== ENCOUNTER 2018-02-05 11:15 | Emergency (ER) | payer OTHER ==
--- OUTSIDE RECORDS SUMMARY | 2018-02-05 11:16 | XMS REPORT | Clinical Summary ---
:1970 [facility] Address [address] [place] [address] Phone Care Team Providers Name Role Phone [...] Team Description 12/19/2017 - [facility] Ac[facility] 12/23/2017 Delilah Lee MD hypothyroidism;Cerebra izabela Oseguera MD ventriculomegaly;Down syndrome;Seizure (HCC) after 02/04/2017 Social History Tobacco Use Types Packs/Day Years [...] contrast (2017 3:19 PM) Specimen Performing Laboratory [facility] Narrative FINAL REPORT MRI Brain without contrast [...] MD Report Verified Date/Time:12/22/2017 17:54:57 Reading Location: [facility] Radiology Reading Room Procedure Note Interface, External [...] Report Verified Date/Time: 12/22/2017 17:54:57 Reading Location: [facility] Radiology Reading Room AWAKE AND DROWSY (12/21/2017 8:59 AM) Specimen Performing Laboratory GE RIS Narrative Date(s) of EE12/21/17 ACC: [id number] EEG Number: [id number] Test Location: Inpatient Room Start time: 08:38 Stop time: 08:59 ICD-10: R56.9 CPT Code: 82854 HISTORY:47 y.o. female who presented with a [...] 1:47 PM CDT Date(s) of EE12/21/17 ACC: [id number] EEG Number: [id number] Test Location: Inpatient Room Start time: 08:38 Stop time: 08:59 ICD-10: R56.9 CPT Code: 90557 HISTORY: 47 y.o. female who presented with [...] 4.94 uIU/mL Specimen Performing Laboratory Blood [facility] [address] [address] Calcium, Ionized (12/20/2017 5:43 AM) Component Value Ref Range Calcium, Ion 1.01 (L) 1.12 - 1.27 mmol/L pH, Blood 7.49 Specimen Performing Laboratory Blood [address] [address] CBC with platelet count + automated diff [...] - 1 % Specimen Performing Laboratory Blood [address] [address] CBC with platelet count + automated diff (12/20/2017 5:43 AM) Specimen Performing Laboratory Blood Narrative The following orders were created for panel order CBC with platelet count + automated diff. Procedure Abnormality Status --------- ------ CBC with platelet count ...[[id number]]AbnormalFinal result Please view results for these tests on the individual orders. T4, free (12/20/2017 5:43 AM) Component Value Ref Range Free T4 1.46 0.70 - 1.48 ng/dL Specimen Performing Laboratory Blood [address] [address] Phosphorus (12/20/2017 5:43 AM) Component Value Ref Range Phosphorus 4.1 2.3 - 4.7 mg/dL Specimen Performing Laboratory Blood [address] [address] Magnesium (12/20/2017 5:43 AM) Component Value Ref Range Magnesium 2.3 1.6 - 2.6 mg/dL Specimen Performing Laboratory Blood [address] [address] Hemoglobin A1c (12/20/2017 5:43 AM) Component Value Ref Range Hemoglobin A1C 4.5 4.3 - 6.1 % Specimen Performing Laboratory Blood [address] [address] Lipid panel (12/20/2017 5:43 AM) Component Value Ref Range Triglycerides 86 mg/dL Cholesterol 246 mg/dL HDL 54 mg/dL LDL Calculated 175 mg/dL Specimen Performing Laboratory Blood [address] [address] Narrative Triglyceride Reference Range: Low Risk <150 Kwbxualhma050-148 High Risk 200-499 Very High Risk>=500 Cholesterol Reference Range: Low Risk <200 Ahzevbhmwk935-482 High Risk>240 HDL Cholesterol Reference Range: Low Risk >=60 High Risk <40 LDL Cholesterol Reference Range: Optimal<100 Near Wrffvui602-560 Glbfkvaltn768-330 Rcfm908-538 Very High >=190 Basic Metabolic Panel (12/20/2017 [...] FOR DIALYSIS PATIENTS. Specimen Performing Laboratory Blood [address] [address] after 02/04/2017
--- OUTSIDE RECORDS SUMMARY | 2018-02-05 11:16 | XMS REPORT ---
:1970 [facility] [address] [place] [address] Dr. Foster [address] [place] [id number] Care Team Providers Name Role Phone YESSENIA DANIELSON Unavailable Unavailable Problems This patient has no known problems. Allergies, Adverse Reactions, Alerts This patient has no known allergies or adverse reactions. Medications This patient has no known medications. Results Test Description Test Time Test Comments Text Results Atomic Results Result Comments , BRAIN, 2017-12-22 Reason for FINAL REPORT PATIENT WITHOUT 17:54:00 exam:->sseizures/hydrocephalusWhat is ID: [id number] MRI CONTRAST the patient's sedation Brain without [...] MDReport Verified Date/Time: 12/22/2017 17:54:57 Reading Location: [facility] Radiology Reading Room AWAKE 2017-12-21 Reason for exam:->seizuresShould this Date(s) of EEG: AND DROWSY 13:47:00 be performed at the bedside?->Yes 12/21/17ACC: [id number] Number: [id number] Location: Inpatient RoomStart time: 08:38Stop time: 08:59ICD-10: R56.9CPT Code: 91187 HISTORY: 47 y.o. female who presented with [...] Reference Range Comments HEMOGLOBIN A1C (BEAKER) (test hece=838) 4.5 % 4.3-6.1 T4, [id number] 07:45:00 Test Item Value Reference Range Comments FREE T4 (BEAKER) (test imyb=159) 1.46 ng/dL 0.70-1.48 TSH/FREE T4 IF [id number] 06:53:00 Test Item Value Reference Range Comments THYROID STIMULATING HORMONE (BEAKER) (test 0.15 uIU/mL 0.35-4.94 ioma=925) CALCIUM, [id number] 06:51:00 Test Item Value Reference Range Comments CALCIUM IONIZED (BEAKER) (test ktop=532) 1.01 mmol/L 1.12-1.27 PH, BLOOD (BEAKER) (test dnbm=4193) 7.49 [id number] 06:31:00 Test Item Value Reference Range Comments PHOSPHORUS (BEAKER) (test iwmn=614) 4.1 mg/dL 2.3-4.7 [id number] 06:31:00 Test Item Value Reference Range Comments MAGNESIUM (BEAKER) (test mvjc=679) 2.3 mg/dL 1.6-2.6 BASIC METABOLIC [id number] 06:31:00 Test Item Value Reference Range Comments SODIUM (BEAKER) (test 139 meq/L 136-145 koeo=958) POTASSIUM (BEAKER) (test 3.9 meq/L 3.5-5.1 puwl=812) CHLORIDE (BEAKER) (test 107 meq/L 98-107 iuic=015) CO2 (BEAKER) (test 26 meq/L 22-29 vdan=385) BLOOD UREA NITROGEN 11 mg/dL 7-21 (BEAKER) (test zwdh=173) CREATININE (BEAKER) (test 0.79 mg/dL 0.57-1.25 kdfa=146) GLUCOSE RANDOM (BEAKER) 97 mg/dL 70-105 (test vscf=674) CALCIUM (BEAKER) (test 8.8 mg/dL 8.4-10.2 nhag=627) EGFR (BEAKER) (test 78 mL/min/1.73 sq m ESTIMATED GFR IS NOT oman=6383) ACCURATE CREATININE CLEARANCE IN PREDICTING GLOMERULAR FILTRATION RATE. ESTIMATED GFR IS NOT APPLICABLE FOR DIALYSIS PATIENTS. LIPID [id number] 06:31:00 Test Item Value Reference Range Comments TRIGLYCERIDES (BEAKER) (test sxsq=520) 86 mg/dL CHOLESTEROL (BEAKER) (test gfpi=054) 246 mg/dL HDL CHOLESTEROL (BEAKER) (test rdsw=773) 54 mg/dL LDL CHOLESTEROL CALCULATED (BEAKER) (test 175 mg/dL qezj=409) Triglyceride Reference Range: Low Risk <150 Borderline 150- 199 High Risk 200-499 Very High Risk >=500Cholesterol Reference Range: Low Risk <200 Borderline 200-239 High Risk > 240HDL Cholesterol Reference Range: Low Risk >=60 High Risk <40LDL Cholesterol Reference Range: Optimal <100 Near Optimal 100-129 Borderline 130-159 High 160-189 Very High >=190CBC W/PLT COUNT & AUTO [id number] 06:09:00 Test Item Value Reference Range Comments WHITE BLOOD CELL COUNT (BEAKER) (test edji=578) 3.7 K/ L 3.5-10.5 RED BLOOD CELL COUNT (BEAKER) (test jqsq=308) 3.92 M/ L 3.93-5.22 HEMOGLOBIN (BEAKER) (test sedk=947) 13.0 GM/DL 11.2-15.7 HEMATOCRIT (BEAKER) (test xsco=863) 37.7 % 34.1-44.9 MEAN CORPUSCULAR VOLUME (BEAKER) (test vqjw=729) 96.2 fL 79.4-94.8 MEAN CORPUSCULAR HEMOGLOBIN (BEAKER) (test 33.2 pg 25.6-32.2 jmiu=417) MEAN CORPUSCULAR HEMOGLOBIN CONC (BEAKER) (test 34.5 GM/DL 32.2-35.5 eylr=734) RED CELL DISTRIBUTION WIDTH (BEAKER) (test 13.8 % 11.7-14.4 etbs=406) PLATELET COUNT (BEAKER) (test ftts=459) 163 K/CU MM 150-450 MEAN PLATELET VOLUME (BEAKER) (test opmx=981) 9.8 fL 9.4-12.3 NUCLEATED RED BLOOD CELLS (BEAKER) (test 0 /100 WBC 0-0 pieu=696) NEUTROPHILS RELATIVE PERCENT (BEAKER) (test 41 % iegr=352) LYMPHOCYTES RELATIVE PERCENT (BEAKER) (test 46 % llue=470) MONOCYTES RELATIVE PERCENT (BEAKER) (test 11 % jchf=016) EOSINOPHILS RELATIVE PERCENT (BEAKER) (test 1 % yqqn=459) BASOPHILS RELATIVE PERCENT (BEAKER) (test 1 % doob=802) NEUTROPHILS ABSOLUTE COUNT (BEAKER) (test 1.52 K/ L 1.56-6.13 vhfe=554) LYMPHOCYTES ABSOLUTE COUNT (BEAKER) (test 1.72 K/ L 1.18-3.74 ymcw=167) MONOCYTES ABSOLUTE COUNT (BEAKER) (test 0.40 K/ L 0.24-0.36 gbfr=246) EOSINOPHILS ABSOLUTE COUNT (BEAKER) (test 0.04 K/ L 0.04-0.36 zdhz=304) BASOPHILS ABSOLUTE COUNT (BEAKER) (test 0.04 K/ L 0.01-0.08 rhxi=398) IMMATURE GRANULOCYTES-RELATIVE PERCENT (BEAKER) 0 % 0-1 (test mmgg=8618)
[2018-02-05 12:00] LABS: Absolute Lymphocytes (CBC) 1.4 K/uL (0.7-4.9); Absolute Monocytes 0.3 K/uL (0.1-1.3); Absolute Neutrophil 1.1 K/uL (1.8-8.0); Basophils % 1.8 % (0-1.3); Eosinophils % 1.2 % (0-4.4); Hematocrit 41.8 % (36.0-45.0); Lymphocytes % 49.5 % (15.3-44.8); MCV 98.6 fL (80-100); MPV 8.6 fL (7.6-11.3); Monocytes % 10.8 % (3.3-12.3); RBC Red Blood Cell Count 4.24 M/uL (3.86-4.86)
[2018-02-05 12:08] LABS: Potassium 3.9 mEq/L (3.6-5.0)
[2018-02-05 12:09] LABS: Barbiturates NEGATIVE (NEGATIVE); Benzodiazepines NEGATIVE (NEGATIVE); Cocaine NEGATIVE (NEGATIVE); METHAMPHETAM NEGATIVE (NEGATIVE); Opiates NEGATIVE (NEGATIVE); Phencyclidine NEGATIVE (NEGATIVE); THC Cannibis NEGATIVE (NEGATIVE)
[2018-02-05 12:14] LABS: Albumin 3.5 g/dL (3.2-5.5); Bilirubin Direct 0.1 mg/dL (0-0.2); Bilirubin Total 0.9 mg/dL (0.3-1.2); Protein, Total 6.8 g/dL (6.0-8.3)
[2018-02-05] MEDS ORDERED: levETIRAcetam 500 MG in NA CHLORIDE 0.9% 100 ML IV SCH (12:15)
--- NOTE | 2018-02-05 12:55 | ER ---
Nurse's Notes [facility] Name: Andie Castro Age: 47 yrs Sex: Female : 1970 Arrival Date: 02/05/2018 Time: 11:20 Bed 6 Private MD: Diagnosis: Epilepsy and recurrent seizures Presentation: 02/05 11:20 Presenting complaint: EMS states: Pt does not have a hx of seizures but has had 3 now jl7 in the past 60 days. Pt did bite her tongue. Postictal on arrival. Transition of care: patient was not received from another setting of care. Onset of symptoms was February 05, 2018 at 10:55. Risk Assessment: Do you want to hurt yourself or someone else? Patient reports no desire to harm self or others. Initial Sepsis Screen: Does the patient meet any 2 criteria? No. Patient's initial sepsis screen is negative. Does the patient have a suspected source of infection? No. Patient's initial sepsis screen is negative. Care prior to arrival: IV initiated. 20 GA, in the left hand. 11:20 Method Of Arrival: EMS: [facility] 11:20 Acuity: MARCEL 3 jl7 Triage Assessment: 11:23 General: Appears in no apparent distress. uncomfortable, Behavior is calm, cooperative. jl7 Pain: Denies pain. EENT: No signs and/or symptoms were reported regarding the EENT system. Neuro: Level of Consciousness is awake, alert, obeys commands. Cardiovascular: Patient's skin is warm and dry. Respiratory: Airway is patent Respiratory effort is even, unlabored, Respiratory pattern is regular, symmetrical. GI: No signs and/or symptoms were reported involving the gastrointestinal system. : No signs and/or symptoms were reported regarding the genitourinary system. Derm: Skin is pink, warm \T\ dry. Historical: - Allergies: 11:23 NKA; jl7 - Home Meds: 11:23 levothyroxine oral [Active]; jl7 - PMHx: 11:23 down syndrome; Hypothyroidism; Seizures; jl7 - PSHx: 11:23 None; jl7 - Immunization history:: Adult Immunizations up to date. - Social history:: Smoking status: Patient/guardian denies using tobacco. - Ebola Screening: : No symptoms or risks identified at this time. Screenin:27 Abuse screen: Denies threats or abuse. Denies injuries from another. Nutritional jl7 screening: No deficits noted. Tuberculosis screening: No symptoms or risk factors identified. Fall Risk Fall in past 12 months (25 points). Secondary diagnosis (15 points) seizures, IV access (20 points). Ambulatory Aid- None/Bed Rest/Nurse Assist (0 pts). Gait- Weak (10 pts.). Mental Status- Overestimates/Forgets Limitations (15 pts.). Total Hodgson Fall Scale indicates High Risk Score (45 or more points). Fall prevention measures have been instituted. Side Rails Up X 2 Placed Close to Nursing Station Frequent Obs/Assessments Occuring Family Present and informed to notify staff if the need to leave the bedside As available patient and family educated on Fall Prevention Program and Strategies. Assessment: 11:27 General: See triage assessment. jl7 12:30 Reassessment: No changes from previously documented assessment. Patient and/or family jl7 updated on plan of care and expected duration. Pain level reassessed. Patient is alert, oriented x 3, equal unlabored respirations, skin warm/dry/pink. Family remains at bedside. 13:04 Reassessment: Pt will be discharged once Keppra infusion is complete. jl7 14:00 Reassessment: No changes from previously documented assessment. Patient and/or family jl7 updated on plan of care and expected duration. Pain level reassessed. Vital Signs: 11:23 BP 111 / 88; Pulse 76; Resp 18; Pulse Ox 98% ; jl7 11:32 Temp 98.8(TE); jl7 14:00 BP 113 / 85; Pulse 71; Resp 16; Pulse Ox 98% ; jl7 [place] Coma Score: 11:23 Eye Response: spontaneous(4). Verbal Response: none(1). Motor Response: obeys jl7 commands(6). Total: 11. 11:23 Per family pt is more sluggish but near baseline at this time. jl7 ED Course: 11:20 Patient arrived in ED. jl7 11:20 Aston Diaz PA is PHCP. jr8 11:20 Dipesh Kc MD is Attending Physician. jr8 11:22 Triage completed. jl7 11:23 Arm band placed on right wrist. jl7 11:27 Patient has correct armband on for positive identification. Placed in gown. Bed in low jl7 position. Call light in reach. Side rails up X2. Adult w/ patient. Seizure precautions initiated. shelter monitor on. Pulse ox on. NIBP on. Warm blanket given. 11:27 Maintain EMS IV. Dressing intact. Good blood return noted. Site clean \T\ dry. Gauge \T\ jl 7 site: 20 L hand. 11:30 Aguila Abel, RN is Primary Nurse. jl7 11:37 EKG done, by ED staff, reviewed by Aston ALBERTS. jb1 11:50 Straight cath inserted, using sterile technique, 16 Fr. Specimen obtained. Returned aa5 annabel urine. Patient tolerated well. 12:55 Eduardo Medina MD is Referral Physician. jr8 14:14 No provider procedures requiring assistance completed. IV discontinued, intact, jl7 bleeding controlled, No redness/swelling at site. Pressure dressing applied. Administered Medications: 12:58 Drug: Keppra 500 mg Route: IV; Rate: calculated rate; Site: left hand; jl7 14:00 Follow up: Response: No adverse reaction; IV Status: Completed infusion jl7 Point of Care Testing: Blood Glucose: 11:40 Blood Glucose: 84 mg/dL; aa5 Ranges: Outcome: 12:55 Discharge ordered by MD. jr8 14:14 Discharged to home ambulatory. jl7 14:14 Condition: stable 14:14 Discharge instructions given to patient, family, Instructed on discharge instructions, follow up and referral plans. medication usage, Demonstrated understanding of instructions, follow-up care, medications, Prescriptions given X 1. 14:16 Patient left the ED. jl7 Signatures: Quintin Tomas jb1 Marybeth Gaspar, RN RN aa5 Aston Diaz PA PA jr8 Aguila Abel, CRISTINA EVANS jl7
[2018-02-05 12:56] LABS: Urine Blood NEGATIVE (NEG); Urine Glucose NEGATIVE (NEG); Urine Protein NEGATIVE (NEG)
--- NOTE | 2018-02-05 12:56 | EDPHYS ---
Physician Documentation [facility] Name: Andie Castro Age: 47 yrs Sex: Female : 1970 Arrival Date: 02/05/2018 Time: 11:20 Bed 6 Private MD: ED Physician Dipesh Kc HPI: 02/05 11:38 This 47 yrs old Female presents to ER via EMS with complaints of Probable jr8 Seizure. 11:38 The patient presents after having a single isolated seizure, the episode(s) was jr8 witnessed, by family, mother. Character of seizure(s): Loss of consciousness: the patient experienced loss of consciousness, Motor activity: generalized, Incontinence: none, Apnea: the patient did not experience apnea, Circulation: the patient did not experience evidence of pulse disturbance, Eye movements: are unknown. Seizure onset: just prior to arrival. Current symptoms: Currently, the patient is not experiencing any symptoms. The patient has experienced similar episodes in the past, a few times. The patient has not recently seen a physician. Family stated that patient up until about 6 weeks ago has never had seizure history. Noted to have slow mental decline from her baseline over the past 6 months. History of Down syndrome. Since 6 weeks ago has now had a total of three seizures. Has yet to be able to see a neurologist . Historical: - Allergies: 11:23 NKA; jl7 - Home Meds: 11:23 levothyroxine oral [Active]; jl7 - PMHx: 11:23 down syndrome; Hypothyroidism; Seizures; jl7 - PSHx: 11:23 None; jl7 - Immunization history:: Adult Immunizations up to date. - Social history:: Smoking status: Patient/guardian denies using tobacco. - Ebola Screening: : No symptoms or risks identified at this time. ROS: 11:38 Unable to obtain ROS due to patient's speech is incomprehensible, Developmentally jr8 Delayed . Exam: 11:35 Head/Face: Normocephalic. Old bruising noted to right side of face from previous fall jr8 from seizure two weeks ago Eyes: Pupils equal round and reactive to light, extra-ocular motions intact. Lids and lashes normal. Conjunctiva and sclera are non-icteric and not injected. Cornea within normal limits. Periorbital areas with no swelling, redness, or edema. ENT: Nares patent. No nasal discharge, no septal abnormalities noted. Tympanic membranes are normal and external auditory canals are clear. Oropharynx with no redness, swelling, or masses, exudates, or evidence of obstruction, uvula midline. Mucous membranes moist. Neck: Trachea midline, no thyromegaly or masses palpated, and no cervical lymphadenopathy. Supple, full range of motion without nuchal rigidity, or vertebral point tenderness. No Meningismus. Chest/axilla: Normal chest wall appearance and motion. Nontender with no deformity. No lesions are appreciated. Cardiovascular: Regular rate and rhythm with a normal S1 and S2. No gallops, murmurs, or rubs. Normal PMI, no JVD. No pulse deficits. Respiratory: Lungs have equal breath sounds bilaterally, clear to auscultation and percussion. No rales, rhonchi or wheezes noted. No increased work of breathing, no retractions or nasal flaring. Abdomen/GI: Soft, non-tender, with normal bowel sounds. No distension or tympany. No guarding or rebound. No evidence of tenderness throughout. Back: No spinal tenderness. No costovertebral tenderness. Full range of motion. Skin: Warm, dry with normal turgor. Normal color with no rashes, no lesions, and no evidence of cellulitis. MS/ Extremity: Pulses equal, no cyanosis. Neurovascular intact. Full, normal range of motion. 11:35 ECG was reviewed by the Attending Physician. 11:35 Neuro: Orientation: unable to test, the patient is developmentally delayed, Mentation: able to follow commands, slow to respond, Memory: unable to test, the patient is developmentally delayed, Cranial nerves: extraocular movements are intact, Tongue strength is normal, Motor: moves all fours, Sensation: no obvious gross deficits, seizure activity, is not currently displayed, but the patient is post-ictal, Abnormal movements: there are no abnormal movements. Vital Signs: 11:23 BP 111 / 88; Pulse 76; Resp 18; Pulse Ox 98% ; jl7 11:32 Temp 98.8(TE); jl7 14:00 BP 113 / 85; Pulse 71; Resp 16; Pulse Ox 98% ; jl7 [place] Coma Score: 11:23 Eye Response: spontaneous(4). Verbal Response: none(1). Motor Response: obeys jl7 commands(6). Total: 11. 11:23 Per family pt is more sluggish but near baseline at this time. jl7 MDM: 11:20 Patient medically screened. jr8 11:53 ED course: Spoke to mother who just arrived. Witnessed seizure. Patient was in bed. No jr8 trauma. Had CT about 10 days ago with no acute finding. Talked to Dr. Haynes. Agrees that we should start on Keppra 250 mg BID . 12:54 Data reviewed: vital signs, nurses notes, lab test result(s), and as a result, I will jr8 discharge patient. Data interpreted: Pulse oximetry: on room air is 98 %. Interpretation: normal. Counseling: I had a detailed discussion with the patient and/or guardian regarding: the historical points, exam findings, and any diagnostic results supporting the discharge/admit diagnosis, lab results, the need for outpatient follow up, a neurologist, to return to the emergency department if symptoms worsen or persist or if there are any questions or concerns that arise at home. ED course: No seizures while in ED. To follow up with Dr. Medina . 02/05 11:30 Order name: Basic Metabolic Panel; Complete Time: 12:52 02/05 11:30 Order name: CBC with Diff; Complete Time: 13:02/05 11:30 Order name: Hepatic Function; Complete Time: 12:52 02/05 11:30 Order name: PT-INR; Complete Time: 12:52 02/05 11:30 Order name: Urine Drug Screen; Complete Time: 12:52 02/05 11:31 Order name: Magnesium; Complete Time: 12:52 02/05 11:30 Order name: EKG; Complete Time: 11:30 02/05 11:30 Order name: EKG - Nurse/Tech; Complete Time: 11:38 02/05 11:30 Order name: IV Saline Lock; Complete Time: 11:02/05 12:04 Order name: Manual Differential; Complete Time: 13:17 EDMS 02/05 12:12 Order name: Urine Dipstick--Ancillary (enter results); Complete Time: 13: bd 02/05 12:54 Order name: Urine --Ancillary (enter results); Complete Time: 13: bd 02/05 11:30 Order name: Labs collected and sent; Complete Time: 11:38 02/05 11:30 Order name: Urine Dipstick-Ancillary (obtain specimen); Complete Time: :48 02/05 11:30 Order name: Straight Cath - Urine; Complete Time: 48 02/05 11:31 Order name: Glucose Level; Complete Time: 48 EC:35 Rate is 76 beats/min. Rhythm is regular, Normal Sinus Rhythm. QRS [place] is Normal. MD jr8 interval is normal at 166 msec. QRS interval is normal at 80 msec. QT interval is normal at 425 msec. No Q waves. T waves are Flattened in lead III. No ST changes noted. Clinical impression: Normal ECG. Interpreted by me. Reviewed by me. Administered Medications: 12:58 Drug: Keppra 500 mg Route: IV; Rate: calculated rate; Site: left hand; [facility] 14:00 Follow up: Response: No adverse reaction; IV Status: Completed infusion jl7 Point of Care Testing: Blood Glucose: 11:40 Blood Glucose: 84 mg/dL; aa5 Ranges: Critical Glucose Levels:Adult <50 mg/dl or >400 mg/dl <40 mg/dl or >180 mg/dl Disposition: 02/06 09:06 Co-signature as Attending Physician, Dipesh Kc MD I agree with the assessment and [facility] plan of care. Disposition: 02/05/18 12:55 Discharged to Home. Impression: Epilepsy and recurrent seizures. - Condition is Stable. - Discharge Instructions: Seizure, Adult. - Prescriptions for Keppra 250 mg Oral tablet - take 1 tablet by ORAL route 2 times per day; 30 tablet. - Medication Reconciliation Form, Thank You Letter, Antibiotic Education, Prescription Opioid Use form. - Follow up: Eduardo Medina MD; When: 2 - 3 days; Reason: Recheck today's complaints, Continuance of care, Re-evaluation by your physician. - Problem is new. - Symptoms have improved. Signatures: Dispatcher [employer] Dipesh Gill MD MD cha Roszak, Josh, PA PA jr8 Aguila Abel, RN RN jl7 Corrections: (The following items were deleted from the chart) 02/05 11:57 11:31 Head C Spine MPR Wo Con+CT.RAD.BRZ ordered. [facility] 14:16 12:55 02/05/2018 12:55 Discharged to Home. Impression: Epilepsy and recurrent seizures. jl7 Condition is Stable. Forms are Medication Reconciliation Form, Thank You Letter, Antibiotic Education, Prescription Opioid Use. Follow up: Eduardo Medina; When: 2 - 3 days; Reason: Recheck today's complaints, Continuance of care, Re-evaluation by your physician. Problem is new. Symptoms have improved. jr8
[2018-02-05 13:13] LABS: Blood Morphology Comment NOT SEEN (NOT SEEN); Platelet Estimate ADEQ
--- NOTE | 2018-02-06 06:31 | EKG ---
Test Date: 2018-02-05 Test Time: 11:30:32 Vacuum Furnace Operator: OBBO MEASUREMENT RESULTS: Intervals: Rate: 76 MO: 166 QRSD: 80 QT: 378 QTc: 425 [place]: P: 65 MO: 166 QRS: 75 T: 43 INTERPRETIVE STATEMENTS: Normal sinus rhythm Normal ECG Compared to ECG 12/19/2017 11:50:28 No significant changes Electronically Signed On 02-06-18 06:29:51 CDT by [place]
== END 2018-02-05 14:16 | disposition home or self-care (01) ==
LOC: ER 11:15
DX: G40.909 Epilepsy, unspecified, not intractable, without status epilepticus (principal)
CPT/HCPCS: 36415; 51702; 80048; 80076; 80307; 81003; 81025; 82962; 83735; 85025; 85610; 93005; 96365; 99284; J1953

== ENCOUNTER 2018-07-07 13:00 | Emergency (ER) | payer OTHER ==
--- OUTSIDE RECORDS SUMMARY | 2018-07-07 13:02 | XMS REPORT | Clinical Summary ---
:1970 Author Organization [facility] Address [address] [place] [address] Care Team Providers Name Role Phone Unavailable Primary Care Provider Unavailable Allergies No Known Allergies Medications Medication Sig Dispensed Refills Start Date End Date Status levothyroxine Take 125 mcg by 0 Active (SYNTHROID, LEVOTHROID) mouth Every 125 MCG tablet morning on an empty stomach. Active Problems Problem Noted Date Seizure 12/19/2017 Cerebral ventriculomegaly 12/19/2017 Acquired hypothyroidism 12/19/2017 Down syndrome 12/19/2017 Encounters Date Type Specialty Care Team Description 12/19/2017 - Hospital Encounter Cardiology Chelo Mcduffie, Acquired hypothyroidism; 12/23/2017 Delilah Lee MD Cerebral ventriculomegaly; Oumar, Down syndrome; MD Evangelista Seizure (HCC) after 07/06/2017 Social History Tobacco Use Types Packs/Day Years Used Date Never Smoker Smokeless Tobacco: Never Used Alcohol Use Drinks/Week oz/Week Comments No Sex Assigned at Date Recorded Not on file Job Start Date Occupation Industry Not on file Not on file Not on file Travel History Travel Start Travel End No recent travel history available. Last Filed Vital Signs Vital Sign Reading [...] CDT Plan of Treatment Not on file Procedures Procedure Name Priority Date/Time Associated Comments Diagnosis RHYTHM STRIP - SCAN 12/27/2017 8:13 AM CDT MR BRAIN WITHOUT IV Routine 12/22/2017 3:19 Results for this CONTRAST PM CDT procedure are in the results section. EEG AWAKE AND DROWSY Routine 12/21/2017 8:59 Results for this AM CDT procedure are in the results section. CBC W/PLT COUNT & Routine 12/20/2017 5:43 Results for this AUTO DIFFERENTIAL AM CDT procedure are in the results section. T4, FREE Routine 12/20/2017 5:43 Results for this AM CDT procedure are in the results section. TSH/FREE T4 IF Routine 12/20/2017 5:43 Results for this INDICATED AM CDT procedure are in the results section. CBC W/PLT COUNT & Routine 12/20/2017 5:43 Results for this AUTO DIFFERENTIAL AM CDT procedure are in the results section. CALCIUM, IONIZED Routine 12/20/2017 5:43 Results for this AM CDT procedure are in the results section. BASIC METABOLIC PANEL Routine 12/20/2017 5:43 Results for this (7) AM CDT procedure are in the results section. PHOSPHORUS Routine 12/20/2017 5:43 Results for this AM CDT procedure are in the results section. MAGNESIUM Routine 12/20/2017 5:43 Results for this AM CDT procedure are in the results section. LIPID PANEL Routine 12/20/2017 5:43 Results for this AM CDT procedure are in the results section. HEMOGLOBIN A1C AP Routine 12/20/2017 5:43 Results for this AM CDT procedure are in the results section. after 07/06/2017 Results RHYTHM STRIP - SCAN (12/27/2017 8:13 AM CDT) Narrative Performed At MR brain without IV contrast (12/22/2017 3:19 PM CDT) Narrative Performed At FINAL REPORT [facility] MRI Brain without contrast Clinical History: Seizures, [...] MD Report Verified Date/Time:12/22/2017 17:54:57 Reading Location: [facility] Radiology Reading Room Procedure Note Interface, [...] Report Verified Date/Time: 12/22/2017 17:54:57 Reading Location: [facility] Radiology Reading Room Performing Organization Address City/State/Zipcode Phone Number Context Relevant EEG AWAKE AND DROWSY (12/21/2017 8:59 AM CDT) Narrative Performed At Date(s) of EE12/21/17 Zoondy RIS ACC: [id number] EEG Number: [id number] Test Location: Inpatient Room Start time: 08:38 Stop time: 08:59 ICD-10: R56.9 CPT Code: 65951 HISTORY:47 y.o. female who presented with a [...] 1:47 PM CDT Date(s) of EE12/21/17 ACC: [id number] EEG Number: [id number] Test Location: Inpatient Room Start time: 08:38 Stop time: 08:59 ICD-10: R56.9 CPT Code: 22592 HISTORY: 47 y.o. female who presented with [...] PGY5 Fernando Méndez M.D. Clinical Neurophysiology/Epilepsy Attending Performing Organization Address [facility] Phone Number GE RIS TSH/Free T4 If Indicated (12/20/2017 5:43 AM CDT) TSH 0.15 (L) 0.35 - 4.94 uIU/mL [facility] Specimen Blood Performing Organization Address [facility] Cent[facility]ode Phone Number [address] [address] [phone] CENTER Calcium, Ionized (12/20/2017 5:43 AM CDT) Calcium, Ion 1.01 (L) 1.12 - 1.27 mmol/L [facility] pH, Blood 7.49 [facility] Specimen Blood Performing Organization Address [facility] Centercomt Phone Number [address] [place] [address] CENTER CBC with platelet count + automated diff (12/20/2017 5:43 AM CDT) WBC 3.7 3.5 - 10.5 K/L [facility] RBC 3.92 (L) 3.93 - 5.22 M/L [facility] Hemoglobin 13.0 11.2 - 15.7 GM/DL [facility] Hematocrit 37.7 34.1 - 44.9 % [facility] MCV 96.2 (H) 79.4 - 94.8 fL [facility] MCH 33.2 (H) 25.6 - 32.2 pg [facility] MCHC 34.5 32.2 - 35.5 GM/DL [facility] RDW 13.8 11.7 - 14.4 % [facility] Platelets 163 150 - 450 K/CU MM [facility] MPV 9.8 9.4 - 12.3 fL [facility] nRBC 0 0 - 0 /100 WBC [facility] % Neutros 41 % [facility] % Lymphs 46 % [facility] % Monos 11 % [facility] % Eos 1 % [facility] % Baso 1 % [facility] # Neutros 1.52 (L) 1.56 - 6.13 K/L [facility] # Lymphs 1.72 1.18 - 3.74 K/L [facility] # Monos 0.40 (H) 0.24 - 0.36 K/L [facility] # Eos 0.04 0.04 - 0.36 K/L [facility] # Baso 0.04 0.01 - 0.08 K/L [facility] Immature Granulocytes-Relative 0 0 - 1 % [facility] Specimen Blood Performing Organization Address City/[facility]/Zipcode Phone Number [address] [address] [place] T4, free (12/20/2017 5:43 AM CDT) Free T4 1.46 0.70 - 1.48 ng/dL [facility] Specimen Blood Performing Organization Address City/[facility] Centercode Phone Number [address] [address] [place] Phosphorus (12/20/2017 5:43 AM CDT) Phosphorus 4.1 2.3 - 4.7 mg/dL [facility] Specimen Blood Performing Organization Address City/[facility] Centercode Phone Number [address] [address] [phone] CENTER Magnesium (12/20/2017 5:43 AM CDT) Magnesium 2.3 1.6 - 2.6 mg/dL [facility] Specimen Blood Performing Organization Address City/[facility] Centercode Phone Number [address] [address] [phone] [place] Hemoglobin A1c (12/20/2017 5:43 AM CDT) Hemoglobin A1C 4.5 4.3 - 6.1 % [facility] Specimen Blood Performing Organization Address City/[facility]/Zipcode Phone Number [address] [address] [phone] [place] Lipid panel (12/20/2017 5:43 AM CDT) Triglycerides 86 mg/dL [facility] Cholesterol 246 mg/dL [facility] HDL 54 mg/dL [facility] LDL Calculated 175 mg/dL [facility] Specimen Blood Narrative Performed At [facility] Triglyceride Reference Range: Low Risk <150 [id number] High Risk 200-499 Very High Risk>=500 Cholesterol Reference Range: Low Risk <200 [id number] High Risk>240 HDL Cholesterol Reference Range: Low Risk >=60 High Risk <40 LDL Cholesterol Reference Range: Optimal<100 Near [id number] [id number] Very High >=190 Performing Organization Address City/State/Zipcode Phone Number [facility] [address] [place] [address] [place] Basic Metabolic Panel (12/20/2017 5:43 AM CDT) Sodium 139 136 - 145 meq/L [facility] Potassium 3.9 3.5 - 5.1 meq/L [facility] Chloride 107 98 - 107 meq/L [facility] CO2 26 22 - 29 meq/L [facility] BUN 11 7 - 21 mg/dL [facility] Creatinine 0.79 0.57 - 1.25 mg/dL [facility] Glucose 97 70 - 105 mg/dL [facility] Calcium 8.8 8.4 - 10.2 mg/dL [facility] EGFR 78Comment: ESTIMATED GFR IS mL/min/1.73 sq m [facility] NOT ACCURATE CREATININE [facility] CENTER CLEARANCE IN PREDICTING GLOMERULAR FILTRATION RATE. ESTIMATED GFR IS NOT APPLICABLE FOR DIALYSIS PATIENTS. Specimen Blood Performing Organization Address City/[facility]/Zipcode Phone Number [address] [address] [place] after 07/06/2017 Insurance Payer Benefit Plan / Group Subscriber ID Type Phone Address [employer] - [employer] CARE C[employer] HMO/POS/OPEN ACCESS xxxxxxxxx HMO/POS (Home) [place] [address] Advance Directives For more information, please contact:[address] [phone] Code Status Date Activated Date Inactivated Comments Full Code 12/19/2017 7:03 PM 12/23/2017 4:14 PM This code status was determined by: Patient
--- OUTSIDE RECORDS SUMMARY | 2018-07-07 13:02 | XMS REPORT ---
:1970 Author Organization [facility] Address [address] [place] [address] Dr. Foster [address] [place] [id number] Care Team Providers Name Role Phone YESSENIA DANIELSON Unavailable Unavailable Problems This patient has no known problems. Allergies, Adverse Reactions, Alerts This patient has no known allergies or adverse reactions. Medications This patient has no known medications. Results Test Description Test Time Test Comments Text Results Atomic Results Result Comments , BRAIN, 2017-12-22 Reason for FINAL REPORT PATIENT WITHOUT 17:54:00 exam:->sseizures/hydrocephalusWhat is ID: [id number] MRI CONTRAST the patient's sedation Brain without [...] MDReport Verified Date/Time: 12/22/2017 17:54:57 Reading Location: [facility] Radiology Reading Room AWAKE 2017-12-21 Reason for exam:->seizuresShould this Date(s) of EEG: AND DROWSY 13:47:00 be performed at the bedside?->Yes 12/21/17ACC: [id number] Number: [id number] Location: Inpatient RoomStart time: 08:38Stop time: 08:59ICD-10: R56.9CPT Code: 60643 HISTORY: 47 y.o. female who presented with [...] Reference Range Comments HEMOGLOBIN A1C (BEAKER) (test ywtt=761) 4.5 % 4.3-6.1 T4, [id number] 07:45:00 Test Item Value Reference Range Comments FREE T4 (BEAKER) (test dcih=841) 1.46 ng/dL 0.70-1.48 TSH/FREE T4 IF [id number] 06:53:00 Test Item Value Reference Range Comments THYROID STIMULATING HORMONE (BEAKER) (test 0.15 uIU/mL 0.35-4.94 wzpr=519) CALCIUM, [id number] 06:51:00 Test Item Value Reference Range Comments CALCIUM IONIZED (BEAKER) (test cpct=029) 1.01 mmol/L 1.12-1.27 PH, BLOOD (BEAKER) (test npsr=1146) 7.49 [id number] 06:31:00 Test Item Value Reference Range Comments PHOSPHORUS (BEAKER) (test psos=218) 4.1 mg/dL 2.3-4.7 [id number] 06:31:00 Test Item Value Reference Range Comments MAGNESIUM (BEAKER) (test iabz=071) 2.3 mg/dL 1.6-2.6 BASIC METABOLIC [id number] 06:31:00 Test Item Value Reference Range Comments SODIUM (BEAKER) (test 139 meq/L 136-145 unnm=780) POTASSIUM (BEAKER) (test 3.9 meq/L 3.5-5.1 advr=823) CHLORIDE (BEAKER) (test 107 meq/L 98-107 ktht=638) CO2 (BEAKER) (test 26 meq/L 22-29 qgaz=512) BLOOD UREA NITROGEN 11 mg/dL 7-21 (BEAKER) (test eogo=753) CREATININE (BEAKER) (test 0.79 mg/dL 0.57-1.25 glly=923) GLUCOSE RANDOM (BEAKER) 97 mg/dL 70-105 (test stgc=371) CALCIUM (BEAKER) (test 8.8 mg/dL 8.4-10.2 ttmu=595) EGFR (BEAKER) (test 78 mL/min/1.73 sq m ESTIMATED GFR IS NOT hpnw=6701) ACCURATE CREATININE CLEARANCE IN PREDICTING GLOMERULAR FILTRATION RATE. ESTIMATED GFR IS NOT APPLICABLE FOR DIALYSIS PATIENTS. LIPID [id number] 06:31:00 Test Item Value Reference Range Comments TRIGLYCERIDES (BEAKER) (test psbw=293) 86 mg/dL CHOLESTEROL (BEAKER) (test aocv=468) 246 mg/dL HDL CHOLESTEROL (BEAKER) (test qwwl=695) 54 mg/dL LDL CHOLESTEROL CALCULATED (BEAKER) (test 175 mg/dL kgre=661) Triglyceride Reference Range: Low Risk <150 Borderline 150- 199 High Risk 200-499 Very High Risk >=500Cholesterol Reference Range: Low Risk <200 Borderline 200-239 High Risk > 240HDL Cholesterol Reference Range: Low Risk >=60 High Risk <40LDL Cholesterol Reference Range: Optimal <100 Near Optimal 100-129 Borderline 130-159 High 160-189 Very High >=190CBC W/PLT COUNT & AUTO [id number] 06:09:00 Test Item Value Reference Range Comments WHITE BLOOD CELL COUNT (BEAKER) (test rfuy=220) 3.7 K/ L 3.5-10.5 RED BLOOD CELL COUNT (BEAKER) (test iedo=921) 3.92 M/ L 3.93-5.22 HEMOGLOBIN (BEAKER) (test towb=052) 13.0 GM/DL 11.2-15.7 HEMATOCRIT (BEAKER) (test lldv=972) 37.7 % 34.1-44.9 MEAN CORPUSCULAR VOLUME (BEAKER) (test sozl=234) 96.2 fL 79.4-94.8 MEAN CORPUSCULAR HEMOGLOBIN (BEAKER) (test 33.2 pg 25.6-32.2 frjn=143) MEAN CORPUSCULAR HEMOGLOBIN CONC (BEAKER) (test 34.5 GM/DL 32.2-35.5 wock=004) RED CELL DISTRIBUTION WIDTH (BEAKER) (test 13.8 % 11.7-14.4 mvsm=907) PLATELET COUNT (BEAKER) (test jpjj=466) 163 K/CU MM 150-450 MEAN PLATELET VOLUME (BEAKER) (test mdeh=273) 9.8 fL 9.4-12.3 NUCLEATED RED BLOOD CELLS (BEAKER) (test 0 /100 WBC 0-0 psxl=038) NEUTROPHILS RELATIVE PERCENT (BEAKER) (test 41 % ofkq=158) LYMPHOCYTES RELATIVE PERCENT (BEAKER) (test 46 % muow=689) MONOCYTES RELATIVE PERCENT (BEAKER) (test 11 % yjux=082) EOSINOPHILS RELATIVE PERCENT (BEAKER) (test 1 % ezuf=872) BASOPHILS RELATIVE PERCENT (BEAKER) (test 1 % rzdf=631) NEUTROPHILS ABSOLUTE COUNT (BEAKER) (test 1.52 K/ L 1.56-6.13 ysry=379) LYMPHOCYTES ABSOLUTE COUNT (BEAKER) (test 1.72 K/ L 1.18-3.74 fggw=183) MONOCYTES ABSOLUTE COUNT (BEAKER) (test 0.40 K/ L 0.24-0.36 fgmj=193) EOSINOPHILS ABSOLUTE COUNT (BEAKER) (test 0.04 K/ L 0.04-0.36 mpcu=724) BASOPHILS ABSOLUTE COUNT (BEAKER) (test 0.04 K/ L 0.01-0.08 fsbf=401) IMMATURE GRANULOCYTES-RELATIVE PERCENT (BEAKER) 0 % 0-1 (test mwnd=4786)
[2018-07-07] MEDS ORDERED: LORAZEPAM 1 MG TABLET ONE (13:56)
[2018-07-07 14:56] LABS: Absolute Lymphocytes (CBC) 1.1 K/uL (0.7-4.9); Absolute Monocytes 0.4 K/uL (0.1-1.3); Absolute Neutrophil 3.4 K/uL (1.8-8.0); Basophils % 0.3 % (0-1.3); Eosinophils % 0.3 % (0-4.4); Hematocrit 44.8 % (36.0-45.0); Lymphocytes % 22.1 % (15.3-44.8); MCH 34.4 pg (27.0-35.0); MCV 98.7 fL (80-100); MPV 8.9 fL (7.6-11.3); Monocytes % 7.6 % (3.3-12.3); RBC Red Blood Cell Count 4.54 M/uL (3.86-4.86)
[2018-07-07] MEDS ORDERED: NA CHLORIDE 0.9% 1,000 ML ONE (14:57)
[2018-07-07 15:14] LABS: Albumin 3.5 g/dL (3.4-5.0); Bilirubin Direct 0.2 mg/dL (0-0.2); Bilirubin Total 0.7 mg/dL (0.2-1.0); Potassium 4.2 mmol/L (3.5-5.1); Protein, Total 7.5 g/dL (6.4-8.2)
[2018-07-07 15:35] LABS: Urine Blood NEGATIVE (NEG); Urine Glucose NEGATIVE (NEG); Urine Protein NEGATIVE (NEG); Urine pH 5.5 (5.0-7.0)
[2018-07-07 15:48] LABS: Urine Culture Reflex Order NOT NEEDED; Urine RBC <5 /HPF (NONE SEEN)
[2018-07-07 15:49] LABS: Urine Bacteria <20 /HPF (<20); Urine Mucus 1+ /HPF (NONE SEEN)
--- NOTE | 2018-07-07 16:45 | RAD REPORT ---
EXAM DESCRIPTION: CT - Abdomen Pelvis W Contrast - 07/07/2018 4:10 pm CLINICAL HISTORY: Abdominal pain, decreased bowel activity COMPARISON: None. TECHNIQUE: Biphasic, helical CT imaging of the abdomen and pelvis was performed following 100 ml non -ionic IV contrast. Oral contrast was given. All CT scans are performed using dose optimization technique as appropriate and may include automated exposure control or mA/KV adjustment according to patient size. FINDINGS: No suspicious findings in the lung bases. The liver, spleen, and pancreas show no suspicious findings. Gallbladder and biliary tree are also wi thout suspicious finding. Symmetric renal function is seen with no hydronephrosis or suspicious renal mass. Contracted urinary bladder shows no suspicious finding. Atrophic uterus is present. No ovarian abnormality. No acute gastric or small bowel finding. A large amount of stool is present dilating the rectum. Ther e is moderate stool volume elsewhere in the colon. No colon wall thickening or mass. No free air, free fluid or inflammatory stranding. No hernia, mass or bulky lymphadenopathy. The u rinary bladder is without significant finding. No adrenal abnormality. No acute bony findings. Prominent scoliotic changes are present. IMPRESSION: Large stool volume causing mild dilation of the rectum. No bowel obstruction, free air or surgically emergent finding.
[2018-07-07] MEDS ORDERED: FLEET ENEMA ADULT PR ONE (16:58)
[2018-07-07] MEDS ORDERED: LORazepam 2 MG/ML VIAL ONE (18:05)
--- NOTE | 2018-07-07 18:46 | ER ---
Nurse's Notes [facility] Name: Andie Castro Age: 47 yrs Sex: Female : 1970 Arrival Date: 07/07/2018 Time: 13:08 Bed 26 Private MD: Diagnosis: Constipation Presentation: 07/07 13:08 Presenting complaint: EMS states: no BM in 2 weeks. Caregiver reports that it is ss patient's baseline to only have a BM once a week. Transition of care: patient was not received from another setting of care. Onset of symptoms was July 24, 2018. Risk Assessment: Do you want to hurt yourself or someone else? Patient reports no desire to harm self or others. Initial Sepsis Screen: Does the patient meet any 2 criteria? No. Patient's initial sepsis screen is negative. Does the patient have a suspected source of infection? No. Patient's initial sepsis screen is negative. Care prior to arrival: None. 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 - Social history:: Smoking status: Patient/guardian denies using tobacco. - Ebola Screening: : Patient denies exposure to infectious person Patient denies travel to an Ebola-affected area in the 21 days before illness onset. Screenin:11 Abuse screen: Denies threats or abuse. Nutritional screening: No deficits noted. tl3 Tuberculosis screening: No symptoms or risk factors identified. Fall Risk Secondary diagnosis (15 points) seizures, down syndrome. Assessment: 13:30 General: Appears in no apparent distress. uncomfortable, well groomed, well developed, tl3 well nourished, Behavior is appropriate for age. Pain: Complains of pain in abdomen. Neuro: Level of Consciousness is awake, alert, down syndrome. Cardiovascular: Patient's skin is warm and dry. Respiratory: Airway is patent. GI: Bowel sounds diminished in right upper quadrant, left upper quadrant, right lower quadrant and left lower quadrant. : No signs and/or symptoms were reported regarding the genitourinary system. EENT: No signs and/or symptoms were reported regarding the EENT system. Derm: No signs and/or symptoms reported regarding the dermatologic system. Musculoskeletal: No signs and/or symptoms reported regarding the musculoskeletal system. 15:11 Reassessment: No changes from previously documented assessment. Patient and/or family tl3 updated on plan of care and expected duration. Pain level reassessed. Patient is alert, oriented x 3, equal unlabored respirations, skin warm/dry/pink. pt tolerated straight cath well. 18:31 Reassessment: Patient and/or family updated on plan of care and expected duration. Pain tl3 level reassessed. Patient is alert, oriented x 3, equal unlabored respirations, skin warm/dry/pink. positive results from enema, large amount of stool passed, VP BIOLOGY digitally removed several smaller balls of stool, pt tolerated very well, pt cleaned and new brief put on. 18:35 Reassessment: EMS called for pt transport. tl3 19:24 GI: Abd is non tender X 4 quads. tl3 Vital Signs: 13:09 BP 140 / 87; Pulse 120; Resp 17; Temp 98.6(A); Pulse Ox 100% on R/A; Weight 57.15 kg; ss Height 4 ft. 10 in. (147.32 cm); 13:30 BP 108 / 84; Pulse 84; Resp 18; Pulse Ox 99% ; tl3 15:11 BP 104 / 52; Pulse 99; Resp 16; Pulse Ox 100% on R/A; tl3 18:31 BP 91 / 61; Pulse 97; Resp 18; Pulse Ox 100% on R/A; tl3 13:09 Body Mass Index 26.33 (57.15 kg, 147.32 cm) ED Course: 13:08 Patient arrived in ED. ss 13:09 Triage completed. ss 13:09 Arm band placed on left wrist. ss 13:10 Aston Diaz PA is PHCP. jr8 13:10 Dipesh Kc MD is Attending Physician. jr8 13:46 X-ray completed. Portable x-ray completed in exam room. Patient tolerated procedure ml well. 13:48 XRAY Abdomen 1 View (KUB) In Process Unspecified. EDMS 14:45 Inserted saline lock: 22 gauge in right antecubital area, using aseptic technique. tl3 Blood collected. 14:46 Jossie, Brooklynn, RN is Primary Nurse. tl3 15:11 Patient has correct armband on for positive identification. Bed in low position. Side tl3 rails up X2. Adult w/ patient. compliance monitor on. Pulse ox on. NIBP on. Warm blanket given. Pillow given. 15:11 No provider procedures requiring assistance completed. tl3 16:34 CT Abd/Pelvis - W/Contrast In Process Unspecified. EDMS 19:17 IV discontinued, intact, bleeding controlled, No redness/swelling at site. Pressure tl3 dressing applied. Administered Medications: 13:53 CANCELLED (other route used): Ativan 1 mg IVP once dm5 13:54 Drug: Ativan 1 mg Route: PO; dm5 15:06 Follow up: Response: Marked relief of symptoms tl3 14:50 Drug: NS 0.9% 1000 ml Route: IV; Rate: 1000 ml; Site: right antecubital; Delivery: tl3 Primary tubing; 16:00 Follow up: IV Intake: 1000ml tl3 16:25 Drug: Fleet Enema 133 ml Route: AL; tl3 18:34 Follow up: Response: Marked relief of symptoms tl3 18:34 Not Given (not required): Ativan 1 mg IVP once tl3 Intake: 16:00 IV: 1000ml; Total: 1000ml. tl3 Outcome: 18:45 Discharge ordered by . pm1 19:17 Discharged to home via ambulance. tl3 19:17 Condition: improved 19:17 Discharge instructions given to family, Instructed on discharge instructions, follow up and referral plans. medication usage, Demonstrated understanding of instructions, follow-up care, medications, Prescriptions given X 1. 19:25 Patient left the ED. tl3 Signatures: Dispatcher [employer] EDMS Lakeisha Granda, RN RN Erna Soriano Shelby, RN RN ss Aston Diaz PA PA jr8 Esteban Dover, VP BIOLOGY VP BIOLOGY pm1 Brooklynn Sethi, CRISTINA RN tl3
--- NOTE | 2018-07-07 18:46 | EDPHYS ---
Physician Documentation [facility] Name: Andie Castro Age: 47 yrs Sex: Female : 1970 Arrival Date: 07/07/2018 Time: 13:08 Bed 26 Private MD: ED Physician Dipesh Kc HPI: 07/07 16:35 This 47 yrs old Female presents to ER via Ambulatory with complaints of jr8 Constipation. 16:35 Patient with history of Down Syndrome. Family stated that she has not had a bowel jr8 movement in two weeks. Normally goes at least one time in a week. Feels that she has not been eating as much and has been more withdrawn . Severity of symptoms: At their worst the symptoms were moderate in the emergency department the symptoms are unchanged. It is unknown whether or not the patient has had similar symptoms in the past. The patient has not recently seen a physician. 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 - Social history:: Smoking status: Patient/guardian denies using tobacco. - Ebola Screening: : Patient denies exposure to infectious person Patient denies travel to an Ebola-affected area in the 21 days before illness onset. ROS: 16:35 Eyes: Negative for injury, pain, redness, and discharge, ENT: Negative for injury, jr8 pain, and discharge, Neck: Negative for injury, pain, and swelling, Cardiovascular: Negative for chest pain, palpitations, and edema, Respiratory: Negative for shortness of breath, cough, wheezing, and pleuritic chest pain, Back: Negative for injury and pain, MS/Extremity: Negative for injury and deformity, Skin: Negative for injury, rash, and discoloration, Neuro: Negative for headache, weakness, numbness, tingling, and seizure. 16:35 Abdomen/GI: Positive for constipation, Negative for diarrhea, hematemesis, black/tarry stool, rectal bleeding, bowel incontinence, flatulence. Exam: 17:00 Eyes: Pupils equal round and reactive to light, extra-ocular motions intact. Lids and jr8 lashes normal. Conjunctiva and sclera are non-icteric and not injected. Cornea within normal limits. Periorbital areas with no swelling, redness, or edema. ENT: Nares patent. No nasal discharge, no septal abnormalities noted. Tympanic membranes are normal and external auditory canals are clear. Oropharynx with no redness, swelling, or masses, exudates, or evidence of obstruction, uvula midline. Mucous membranes moist. Neck: Trachea midline, no thyromegaly or masses palpated, and no cervical lymphadenopathy. Supple, full range of motion without nuchal rigidity, or vertebral point tenderness. No Meningismus. Cardiovascular: Regular rate and rhythm with a normal S1 and S2. No gallops, murmurs, or rubs. Normal PMI, no JVD. No pulse deficits. Respiratory: Lungs have equal breath sounds bilaterally, clear to auscultation and percussion. No rales, rhonchi or wheezes noted. No increased work of breathing, no retractions or nasal flaring. Abdomen/GI: Soft, non-tender, with normal bowel sounds. No distension or tympany. No guarding or rebound. No evidence of tenderness throughout. Back: No spinal tenderness. No costovertebral tenderness. Full range of motion. Skin: Warm, dry with normal turgor. Normal color with no rashes, no lesions, and no evidence of cellulitis. MS/ Extremity: Pulses equal, no cyanosis. Neurovascular intact. Full, normal range of motion. Neuro: Awake and alert, GCS 15, oriented to person, place, time, and situation. Cranial nerves II-XII grossly intact. Motor strength 5/5 in all extremities. Sensory grossly intact. Cerebellar exam normal. Normal gait. Vital Signs: 13:09 BP 140 / 87; Pulse 120; Resp 17; Temp 98.6(A); Pulse Ox 100% on R/A; Weight 57.15 kg; ss Height 4 ft. 10 in. (147.32 cm); 13:30 BP 108 / 84; Pulse 84; Resp 18; Pulse Ox 99% ; tl3 15:11 BP 104 / 52; Pulse 99; Resp 16; Pulse Ox 100% on R/A; tl3 18:31 BP 91 / 61; Pulse 97; Resp 18; Pulse Ox 100% on R/A; tl3 13:09 Body Mass Index 26.33 (57.15 kg, 147.32 cm) Procedures: 18:47 Fecal disimpaction: digital disimpaction was performed, with a large amount of stool pm1 expressed. The patient tolerated the intervention well, Patient with large bowel movement after enema. After bowel movement, Carmen DOLL WIG MAKER student examined rectum and 5 small balls of stool removed and no further stool felt in the rectum. MDM: 13:10 Patient medically screened. [facility] 18:43 Data reviewed: vital signs. Data interpreted: Pulse oximetry: on room air is 100 %. pm1 Interpretation: normal. Counseling: I had a detailed discussion with the patient and/or guardian regarding: the historical points, exam findings, and any diagnostic results supporting the discharge/admit diagnosis, lab results, radiology results, the need for outpatient follow up, to return to the emergency department if symptoms worsen or persist or if there are any questions or concerns that arise at home. 07/07 13:33 Order name: Basic Metabolic Panel; Complete Time: 15:39 [facility] 07/07 13:33 Order name: CBC with Diff; Complete Time: 15:39 [facility] 07/07 13:33 Order name: Creatinine for Radiology; Complete Time: 15:39 [facility] 07/07 13:33 Order name: Hepatic Function; Complete Time: 15:39 [facility] 07/07 13:33 Order name: Lipase; Complete Time: 15:39 [facility] 07/07 13:33 Order name: Urine Microscopic Only; Complete Time: 16:04 [facility] 07/07 13:13 Order name: XRAY Abdomen 1 View (KUB) [facility] 07/07 15:32 Order name: Urine Dipstick--Ancillary (enter results); Complete Time: 15:39 07/07 15:32 Order name: Urine --Ancillary (enter results); Complete Time: 15:39 07/07 15:41 Order name: CT Abd/Pelvis - W/Contrast; Complete Time: 17:00 [facility] 07/07 13:33 Order name: IV Saline Lock; Complete Time: 14:47 [facility] 07/07 13:33 Order name: Labs collected and sent; Complete Time: 14:47 [facility] 07/07 13:33 Order name: Urine Test (obtain specimen); Complete Time: 15:07 [facility] 07/07 13:33 Order name: Urine Dipstick-Ancillary (obtain specimen); Complete Time: 15:07 [facility] 07/07 13:33 Order name: Straight Cath - Urine; Complete Time: 15:06 jr8 Administered Medications: 13:53 CANCELLED (other route used): Ativan 1 mg IVP once dm5 13:54 Drug: Ativan 1 mg Route: PO; dm5 15:06 Follow up: Response: Marked relief of symptoms tl3 14:50 Drug: NS 0.9% 1000 ml Route: IV; Rate: 1000 ml; Site: right antecubital; Delivery: tl3 Primary tubing; 16:00 Follow up: IV Intake: 1000ml tl3 16:25 Drug: Fleet Enema 133 ml Route: CO; tl3 18:34 Follow up: Response: Marked relief of symptoms tl3 18:34 Not Given (not required): Ativan 1 mg IVP once tl3 Disposition: 07/07/18 18:45 Discharged to Home. Impression: Constipation. - Condition is Stable. - Discharge Instructions: Constipation, Adult. - Prescriptions for Miralax 17 gram/dose Oral - take 1 packet by ORAL route once daily dilute powder in 8 ounces of water or juice; 1 box. - Medication Reconciliation Form, Thank You Letter, Antibiotic Education, Prescription Opioid Use form. - Follow up: Emergency Department; When: As needed; Reason: Worsening of condition. Follow up: Private Physician; When: 2 - 3 days; Reason: Recheck today's complaints, Continuance of care, Re-evaluation by your physician. - Problem is new. - Symptoms have improved. Addendum: 07/10/2018 09:38 Co-signature as Attending Physician, Dipesh Kc MD I agree with the assessment and c bobby plan of care. Signatures: Dispatcher [employer] Lakeisha Pederson, RN RN dm5 Dipesh Kc MD MD cha Smirch, Shelby, RN RN Aston Levy PA PA jr8 Esteban Dover, DOLL WIG MAKER DOLL WIG MAKER pm1 Brooklynn Sethi RN RN tl3 Corrections: (The following items were deleted from the chart) 07/07 13:53 13:34 Ativan 1 mg IVP once ordered. jr8 dm5 19:25 18:45 07/07/2018 18:45 Discharged to Home. Impression: Constipation. Condition is tl3 Stable. Discharge Instructions: Constipation, Adult. Prescriptions for Miralax 17 gram/dose Oral - take 1 packet by ORAL route once daily dilute powder in 8 ounces of water or juice; 1 box. and Forms are Medication Reconciliation Form, Thank You Letter, Antibiotic Education, Prescription Opioid Use. Follow up: Emergency Department; When: As needed; Reason: Worsening of condition. Follow up: Private Physician; When: 2 - 3 days; Reason: Recheck today's complaints, Continuance of care, Re-evaluation by your physician. Problem is new. Symptoms have improved. pm1
--- NOTE | 2018-07-08 09:20 | RAD REPORT ---
EXAM DESCRIPTION: RAD - Abdomen 1 View (KUB) - 07/07/2018 1:47 pm CLINICAL HISTORY: Abdomen pain. Constipation FINDINGS: The bowel gas pattern is unremarkable. A large amount stool is present throughout the colon. Marked rotoscoliosis of the thoracolumbar spine
== END 2018-07-07 19:25 | disposition home or self-care (01) ==
LOC: ER 13:00
DX: K59.00 Constipation, unspecified (principal); Q90.9 Down syndrome, unspecified; Z88.0 Allergy status to penicillin; Z88.2 Allergy status to sulfonamides
CPT/HCPCS: 36415; 74018; 74177; 80048; 80076; 81003; 81015; 81025; 83690; 85025; 99284; J7030; Q9967

== ENCOUNTER 2019-02-06 11:44 | Emergency (ER) | payer OTHER ==
--- OUTSIDE RECORDS SUMMARY | 2019-02-06 11:47 | XMS REPORT | Clinical Summary ---
:1970 Author Organization [facility] Address [address] [place] [id number] Care Team Providers Name Role Phone Unavailable Primary Care Provider Unavailable Allergies No Known Allergies Medications Medication Sig Dispensed Refills Start Date End Date Status levothyroxine Take 125 mcg by 0 Active (SYNTHROID, LEVOTHROID) mouth Every 125 MCG tablet morning on an empty stomach. Active Problems Problem Noted Date Seizure 12/19/2017 Cerebral ventriculomegaly 12/19/2017 Acquired hypothyroidism 12/19/2017 Down syndrome 12/19/2017 Social History Tobacco Use Types Packs/Day Years Used Date Never Smoker Smokeless Tobacco: Never Used Alcohol Use Drinks/Week oz/Week Comments No Sex Assigned at Date Recorded Not on file Job Start Date Occupation Industry Not on file Not on file Not on file Travel History Travel Start Travel End No recent travel history available. Last Filed Vital Signs Not on file Plan of Treatment Not on file Results Not on fileafter 02/05/2018 Insurance Payer Benefit Plan / Group Subscriber ID Type Phone Address [employer] - [employer] CARE CIGNA HMO/POS/OPEN ACCESS xxxxxxxxx HMO/POS [place] (Home) [place] [address] Advance Directives For more information, please contact:[facility] [employer] [address] [phone] Code Status Date Activated Date Inactivated Comments Full Code 12/19/2017 7:03 PM 12/23/2017 4:14 PM This code status was determined by: Patient
--- OUTSIDE RECORDS SUMMARY | 2019-02-06 11:47 | XMS REPORT ---
:1970 [facility] Address [address] [place] [address] Dr. Foster [address] [place] [id number] Care Team Providers Name Role Phone YESSENIA DANIELSONArmani Unavailable Unavailable Problems This patient has no known problems. Allergies, Adverse Reactions, Alerts This patient has no known allergies or adverse reactions. Medications This patient has no known medications. Results Test Description Test Time Test Comments Text Results Atomic Results Result Comments MR, BRAIN, 2017-12-22 Reason for FINAL REPORT PATIENT WITHOUT 17:54:00 exam:->sseizures/hydrocephalusWhat is ID: [id number] MRI CONTRAST the patient's sedation Brain without [...] MDReport Verified Date/Time: 12/22/2017 17:54:57 Reading Location: [facility] Radiology Reading Room AWAKE 2017-12-21 Reason for exam:->seizuresShould this Date(s) of EEG: AND DROWSY 13:47:00 be performed at the bedside?->Yes 12/21/17ACC: [id number] Number: [id number] Location: Inpatient RoomStart time: 08:38Stop time: 08:59ICD-10: R56.9CPT Code: 02876 HISTORY: 47 y.o. female who presented with [...] Reference Range Comments HEMOGLOBIN A1C (BEAKER) (test ppsa=068) 4.5 % 4.3-6.1 T4, [id number] 07:45:00 Test Item Value Reference Range Comments FREE T4 (BEAKER) (test pcsa=748) 1.46 ng/dL 0.70-1.48 TSH/FREE T4 IF [id number] 06:53:00 Test Item Value Reference Range Comments THYROID STIMULATING HORMONE (BEAKER) (test 0.15 uIU/mL 0.35-4.94 grsm=144) CALCIUM, [id number] 06:51:00 Test Item Value Reference Range Comments CALCIUM IONIZED (BEAKER) (test vyea=390) 1.01 mmol/L 1.12-1.27 PH, BLOOD (BEAKER) (test ptqn=3171) 7.49 [id number] 06:31:00 Test Item Value Reference Range Comments PHOSPHORUS (BEAKER) (test ljjw=950) 4.1 mg/dL 2.3-4.7 [id number] 06:31:00 Test Item Value Reference Range Comments MAGNESIUM (BEAKER) (test fkcw=694) 2.3 mg/dL 1.6-2.6 BASIC METABOLIC [id number] 06:31:00 Test Item Value Reference Range Comments SODIUM (BEAKER) (test 139 meq/L 136-145 gqpr=571) POTASSIUM (BEAKER) (test 3.9 meq/L 3.5-5.1 jebz=670) CHLORIDE (BEAKER) (test 107 meq/L 98-107 ogis=451) CO2 (BEAKER) (test 26 meq/L 22-29 jbld=310) BLOOD UREA NITROGEN 11 mg/dL 7-21 (BEAKER) (test mpvi=691) CREATININE (BEAKER) (test 0.79 mg/dL 0.57-1.25 khfc=503) GLUCOSE RANDOM (BEAKER) 97 mg/dL 70-105 (test niog=797) CALCIUM (BEAKER) (test 8.8 mg/dL 8.4-10.2 dhpo=756) EGFR (BEAKER) (test 78 mL/min/1.73 sq m ESTIMATED GFR IS NOT lhps=6521) ACCURATE CREATININE CLEARANCE IN PREDICTING GLOMERULAR FILTRATION RATE. ESTIMATED GFR IS NOT APPLICABLE FOR DIALYSIS PATIENTS. LIPID [id number] 06:31:00 Test Item Value Reference Range Comments TRIGLYCERIDES (BEAKER) (test dcsb=968) 86 mg/dL CHOLESTEROL (BEAKER) (test vvxf=978) 246 mg/dL HDL CHOLESTEROL (BEAKER) (test khmb=936) 54 mg/dL LDL CHOLESTEROL CALCULATED (BEAKER) (test 175 mg/dL cbon=732) Triglyceride Reference Range: Low Risk <150 Borderline 150- 199 High Risk 200-499 Very High Risk >=500Cholesterol Reference Range: Low Risk <200 Borderline 200-239 High Risk > 240HDL Cholesterol Reference Range: Low Risk >=60 High Risk <40LDL Cholesterol Reference Range: Optimal <100 Near Optimal 100-129 Borderline 130-159 High 160-189 Very High >=190CBC W/PLT COUNT & AUTO [id number] 06:09:00 Test Item Value Reference Range Comments WHITE BLOOD CELL COUNT (BEAKER) (test hjsz=533) 3.7 K/ L 3.5-10.5 RED BLOOD CELL COUNT (BEAKER) (test cwxt=550) 3.92 M/ L 3.93-5.22 HEMOGLOBIN (BEAKER) (test kulu=823) 13.0 GM/DL 11.2-15.7 HEMATOCRIT (BEAKER) (test lnyj=591) 37.7 % 34.1-44.9 MEAN CORPUSCULAR VOLUME (BEAKER) (test hvip=053) 96.2 fL 79.4-94.8 MEAN CORPUSCULAR HEMOGLOBIN (BEAKER) (test 33.2 pg 25.6-32.2 utye=643) MEAN CORPUSCULAR HEMOGLOBIN CONC (BEAKER) (test 34.5 GM/DL 32.2-35.5 yvgt=848) RED CELL DISTRIBUTION WIDTH (BEAKER) (test 13.8 % 11.7-14.4 rdbs=556) PLATELET COUNT (BEAKER) (test jbyt=524) 163 K/CU MM 150-450 MEAN PLATELET VOLUME (BEAKER) (test wusp=980) 9.8 fL 9.4-12.3 NUCLEATED RED BLOOD CELLS (BEAKER) (test 0 /100 WBC 0-0 nrpp=829) NEUTROPHILS RELATIVE PERCENT (BEAKER) (test 41 % qpcd=698) LYMPHOCYTES RELATIVE PERCENT (BEAKER) (test 46 % vjkj=327) MONOCYTES RELATIVE PERCENT (BEAKER) (test 11 % vsiw=600) EOSINOPHILS RELATIVE PERCENT (BEAKER) (test 1 % owts=406) BASOPHILS RELATIVE PERCENT (BEAKER) (test 1 % mool=593) NEUTROPHILS ABSOLUTE COUNT (BEAKER) (test 1.52 K/ L 1.56-6.13 eycl=859) LYMPHOCYTES ABSOLUTE COUNT (BEAKER) (test 1.72 K/ L 1.18-3.74 nhln=303) MONOCYTES ABSOLUTE COUNT (BEAKER) (test 0.40 K/ L 0.24-0.36 ootl=962) EOSINOPHILS ABSOLUTE COUNT (BEAKER) (test 0.04 K/ L 0.04-0.36 xnau=735) BASOPHILS ABSOLUTE COUNT (BEAKER) (test 0.04 K/ L 0.01-0.08 yixc=062) IMMATURE GRANULOCYTES-RELATIVE PERCENT (BEAKER) 0 % 0-1 (test cwan=5723)
--- NOTE | 2019-02-06 12:02 | EKG ---
Test Date: 2019-02-06 Test Time: 11:54:23 Digital Color Press Operator: ARIEL MEASUREMENT RESULTS: Intervals: Rate: 92 DE: 168 QRSD: 80 QT: 344 QTc: 425 [place]: P: 62 DE: 168 QRS: 84 T: 61 INTERPRETIVE STATEMENTS: Normal sinus rhythm Normal ECG Compared to ECG 02/05/2018 11:30:32 No significant changes Electronically Signed On 02-06-19 12:01:55 CDT by Harpreet Minor
[2019-02-06] MEDS ORDERED: NA CHLORIDE 0.9% 1,000 ML ONE (12:13)
[2019-02-06] MEDS ORDERED: levETIRAcetam 1,000 MG in NA CHLORIDE 0.9% 100 ML IV ONE (12:15)
--- NOTE | 2019-02-06 12:48 | RAD REPORT ---
EXAM DESCRIPTION: RAD - Chest Single View - 02/06/2019 12:43 pm CLINICAL HISTORY: Cough, shortness of breath COMPARISON: November 2017 TECHNIQUE: AP portable chest image was obtained 1237 hours . FINDINGS: Lungs are clear. Heart and vasculature are normal. No measurable pleural effusion and no p neumothorax. No acute bone finding. Very pronounced thoracolumbar scoliotic curvature again noted. No acute aortic findings suspected. IMPRESSION: No acute cardiopulmonary process.
[2019-02-06 13:36] LABS: ALT/SGPT 59 U/L (12-78); AST/SGOT 38 U/L (15-37); Alkaline Phosphatase 90 U/L (45-117); BUN Blood Urea Nitrogen 12 mg/dL (7-18); Bicarbonate 30 mmol/L (21-32); Bilirubin Direct 0.2 mg/dL (0-0.2); Bilirubin Total 0.5 mg/dL (0.2-1.0); Glucose Level 84 mg/dL (74-106); Potassium 4.1 mmol/L (3.5-5.1); Sodium Level 141 mmol/L (136-145)
--- NOTE | 2019-02-06 14:08 | EDPHYS ---
Physician Documentation [facility] Name: Andie Castro Age: 48 yrs Sex: Female : 1970 Arrival Date: 02/06/2019 Time: 11:42 Bed 7 Private MD: LINA Physician Dipesh Kc HPI: 02/06 13:16 This 48 yrs old Female presents to ER via EMS with complaints of Seizure. sreedhar 13:16 The patient presents after having a single isolated seizure, that lasted 2 minute(s). sreedhar Character of seizure(s): Motor activity: generalized, Incontinence: none, Apnea: the patient did not experience apnea, Circulation: the patient did not experience evidence of pulse disturbance. Seizure onset: just prior to arrival. Context: the seizure(s) was witnessed, by a daycare worker. Seizure Hx: the patient has no previous seizure history. Associated injury: The patient did not suffer any apparent associated injury. The patient has not experienced similar symptoms in the past. 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 - Social history:: Smoking status: Patient/guardian denies using tobacco. - Ebola Screening: : No symptoms or risks identified at this time. - Family history:: not pertinent. ROS: 13:16 Constitutional: Negative for fever, chills, and weight loss, Eyes: Negative for injury, sreedhar pain, redness, and discharge, ENT: Negative for injury, pain, and discharge, Neck: Negative for injury, pain, and swelling, Cardiovascular: Negative for chest pain, palpitations, and edema, Respiratory: Negative for shortness of breath, cough, wheezing, and pleuritic chest pain, Abdomen/GI: Negative for abdominal pain, nausea, vomiting, diarrhea, and constipation, Back: Negative for injury and pain, : Negative for injury, bleeding, discharge, and swelling, MS/Extremity: Negative for injury and deformity, Skin: Negative for injury, rash, and discoloration, Psych: Negative for depression, anxiety, suicide ideation, homicidal ideation, and hallucinations, Allergy/Immunology: Negative for hives, rash, and allergies, Endocrine: Negative for neck swelling, polydipsia, polyuria, polyphagia, and marked weight changes. 13:16 Neuro: Positive for seizure activity. Exam: 13:16 Constitutional: This is a well developed, well nourished patient who is awake, alert, sreedhar and in no acute distress. Head/Face: Normocephalic, atraumatic. Eyes: Pupils equal round and reactive to light, extra-ocular motions intact. Lids and lashes normal. Conjunctiva and sclera are non-icteric and not injected. Cornea within normal limits. Periorbital areas with no swelling, redness, or edema. ENT: Nares patent. No nasal discharge, no septal abnormalities noted. Tympanic membranes are normal and external auditory canals are clear. Oropharynx with no redness, swelling, or masses, exudates, or evidence of obstruction, uvula midline. Mucous membranes moist. Neck: Trachea midline, no thyromegaly or masses palpated, and no cervical lymphadenopathy. Supple, full range of motion without nuchal rigidity, or vertebral point tenderness. No Meningismus. Chest/axilla: Normal chest wall appearance and motion. Nontender with no deformity. No lesions are appreciated. Cardiovascular: Regular rate and rhythm with a normal S1 and S2. No gallops, murmurs, or rubs. Normal PMI, no JVD. No pulse deficits. Respiratory: Lungs have equal breath sounds bilaterally, clear to auscultation and percussion. No rales, rhonchi or wheezes noted. No increased work of breathing, no retractions or nasal flaring. Abdomen/GI: Soft, non-tender, with normal bowel sounds. No distension or tympany. No guarding or rebound. No evidence of tenderness throughout. Back: No spinal tenderness. No costovertebral tenderness. Full range of motion. Skin: Warm, dry with normal turgor. Normal color with no rashes, no lesions, and no evidence of cellulitis. MS/ Extremity: Pulses equal, no cyanosis. Neurovascular intact. Full, normal range of motion. Neuro: Awake and alert, GCS 15, oriented to person, place, time, and situation. Cranial nerves II-XII grossly intact. Motor strength 5/5 in all extremities. Sensory grossly intact. Cerebellar exam normal. Normal gait. Psych: Awake, alert, with orientation to person, place and time. Behavior, mood, and affect are within normal limits. Vital Signs: 11:48 BP 119 / 56; Pulse 96; Resp 18; Temp 98(A); Pulse Ox 96% ; Weight 57 kg; Height 4 ft. sv 10 in. (147.32 cm); Pain 0/10; 12:47 BP 118 / 89; Pulse 73; Resp 16; Pulse Ox 98% ; sv 14:44 BP 136 / 80; Pulse 91; Resp 18; Temp 98.0(TE); Pulse Ox 98% on R/A; mh5 15:04 BP 100 / 72; Pulse 94; Resp 19; Pulse Ox 96% on R/A; ae4 11:48 Body Mass Index 26.26 (57.00 kg, 147.32 cm) sv Erie Coma Score: 11:37 Eye Response: spontaneous(4). Verbal Response: confused(4). Motor Response: obeys sv commands(6). Total: 14. MDM: 11:44 Patient medically screened. [facility] 13:18 Data reviewed: vital signs, nurses notes, lab test result(s), EKG, radiologic studies, [facility] CT scan, plain films. 02/06 11:47 Order name: Acetaminophen [facility] 02/06 11:47 Order name: Basic Metabolic Panel [facility] 02/06 11:47 Order name: CBC with Diff [facility] 02/06 11:47 Order name: ETOH Level; Complete Time: 15:10 [facility] 02/06 11:47 Order name: Hepatic Function; Complete Time: 14:05 [facility] 02/06 11:47 Order name: Salicylate; Complete Time: 15:10 [facility] 02/06 11:47 Order name: Urine Drug Screen; Complete Time: 15:10 [facility] 02/06 11:48 Order name: Urine Culture [facility] 02/06 11:50 Order name: Acetaminophen Level; Complete Time: 14:05 EDOR 02/06 11:50 Order name: Basic Metabolic Panel; Complete Time: 14:05 EDOR 02/06 11:50 Order name: CBC with Automated Diff; Complete Time: 15:10 EDMS 02/06 11:51 Order name: Blood Culture Adult (2) [facility] 02/06 11:47 Order name: EKG; Complete Time: 11:51 [facility] 02/06 11:47 Order name: EKG - Nurse/Tech; Complete Time: 11:55 [facility] 02/06 11:47 Order name: IV Saline Lock; Complete Time: 11:54 [facility] 02/06 11:47 Order name: Labs collected and sent; Complete Time: 11:54 [facility] 02/06 11:47 Order name: Urine Dipstick-Ancillary (obtain specimen); Complete Time: 15:04 [facility] 02/06 11:47 Order name: Seizure Precautions; Complete Time: 11:54 [facility] 02/06 11:51 Order name: Chest Single View XRAY; Complete Time: 13:16 [facility] 02/06 12:35 Order name: Labs - recollect needed; Complete Time: 14:03 02/06 13:19 Order name: CT Head Brain wo Cont; Complete Time: 15:10 [facility] 02/06 13:19 Order name: TSH; Complete Time: 15:10 [facility] 02/06 13:38 Order name: Diet Soft; Complete Time: 13:41 sv 02/06 15:12 Order name: Urinalysis ae4 Administered Medications: 12:18 Drug: NS 0.9% 1000 ml Route: IV; Rate: 1 bolus; Site: right antecubital; sv 14:10 Follow up: Response: No adverse reaction; IV Status: Completed infusion; IV Intake: sv 1000ml 12:19 Drug: Keppra 1000 mg Route: IV; Rate: per protocol; Site: right antecubital; sv 12:35 Follow up: Response: No adverse reaction; IV Status: Completed infusion; IV Intake: sv 100ml Disposition: 02/06/19 14:05 Discharged to Home. Impression: Epileptic seizures related to external causes, Down syndrome. - Condition is Stable. - Discharge Instructions: Seizure, Adult, Seizure, Adult, [id number]. - Prescriptions for Keppra 500 mg Oral Tablet - take 1 tablet by ORAL route every 12 hours; 40 tablet. - Medication Reconciliation Form, Thank You Letter, Antibiotic Education, Prescription Opioid Use form. - Follow up: Private Physician; When: 2 - 3 days; Reason: Recheck today's complaints, Continuance of care, Re-evaluation by your physician. Follow up: Eduardo Medina; When: 2 - 3 days; Reason: Recheck today's complaints, Continuance of care, Re-evaluation by your physician. - Problem is new. - Symptoms have improved. Signatures: Dispatcher [employer] EDMS camille TramInés Caruso RN RN sv Anderson, Corey, MD MD cha Vicente, Ronaldo, RN RN rv Corrections: (The following items were deleted from the chart) 13:56 11:51 PROTIME (+INR)+COAG.LAB.BRZ ordered. EDMS EDMS 13:56 11:51 PTT, ACTIVATED+COAG.LAB.BRZ ordered. EDOR EDMS 15:47 14:05 02/06/2019 14:05 Discharged to Home. Impression: Epileptic seizures related to rv external causes; Down syndrome. Condition is Stable. Discharge Instructions: Seizure, Adult, Seizure, Adult, [id number]. Prescriptions for Keppra 500 mg Oral Tablet - take 1 tablet by ORAL route every 12 hours; 40 tablet. and Forms are Medication Reconciliation Form, Thank You Letter, Antibiotic Education, Prescription Opioid Use. Follow up: Private Physician; When: 2 - 3 days; Reason: Recheck today's complaints, Continuance of care, Re-evaluation by your physician. Follow up: Eduardo Medina; When: 2 - 3 days; Reason: Recheck today's complaints, Continuance of care, Re-evaluation by your physician. Problem is new. Symptoms have improved. sreedhar
--- NOTE | 2019-02-06 14:08 | ER ---
Nurse's Notes [facility] Name: Andie Castro Age: 48 yrs Sex: Female : 1970 Arrival Date: 02/06/2019 Time: 11:42 Bed 7 Private MD: Diagnosis: Epileptic seizures related to external causes;Down syndrome Presentation: 02/06 11:37 Presenting complaint: EMS states: tonic clonic seizure witnessed by family, lasted sv about 2 mins, normally her seizures are a mild shaking. On EMS arrival pt was post ictal. BP 125/70 HR-90 SR, RR-14 98.3 96% RA, BS-114 20 G R AC started. Transition of care: patient was not received from another setting of care. Onset of symptoms was February 06, 2019. Risk Assessment: Do you want to hurt yourself or someone else? Patient reports no desire to harm self or others. Initial Sepsis Screen: Does the patient meet any 2 criteria? No. Patient's initial sepsis screen is negative. Does the patient have a suspected source of infection? No. Patient's initial sepsis screen is negative. Care prior to arrival: IV initiated. 20 GA, in the right antecubital area, Glucose check: 114. 11:37 Method Of Arrival: EMS: [facility] sv 11:37 Acuity: MARCEL 3 sv Triage Assessment: 11:37 General: Appears in no apparent distress. well developed, Behavior is cooperative, sv anxious. Pain: Denies pain. Neuro: Level of Consciousness is awake, confused, Oriented to none will look at you when name is called. Respiratory: Respiratory effort is even, unlabored, Respiratory pattern is regular, symmetrical. Derm: Skin is pink, warm \T\ dry. 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 - Social history:: Smoking status: Patient/guardian denies using tobacco. - Ebola Screening: : No symptoms or risks identified at this time. - Family history:: not pertinent. Screenin:51 Abuse screen: Denies threats or abuse. Denies injuries from another. Nutritional sv screening:. Tuberculosis screening: No symptoms or risk factors identified. Fall Risk No fall in past 12 months (0 pts). Secondary diagnosis (15 points) seizures, impaired mobility, IV access (20 points). Ambulatory Aid- None/Bed Rest/Nurse Assist (0 pts). Gait- Impaired (20 pts.). Mental Status- Overestimates/Forgets Limitations (15 pts.). Total Hodgson Fall Scale indicates High Risk Score (45 or more points). Fall prevention measures have been instituted. Side Rails Up X 2 Placed Close to Nursing Station Frequent Obs/Assessments Occuring Family Present and informed to notify staff if the need to leave the bedside As available patient and family educated on Fall Prevention Program and Strategies. Assessment: 12:18 Reassessment: Patient appears in no apparent distress at this time. No changes from sv previously documented assessment. Patient and/or family updated on plan of care and expected duration. Pain level reassessed. 13:02 Reassessment: Sara from inside lab at the bedside attempting to recollect bloodwork. sv 13:35 Reassessment: Patient appears in no apparent distress at this time. No changes from sv previously documented assessment. Patient and/or family updated on plan of care and expected duration. Pain level reassessed. Inside lab remains at bedside attempting to get labs redrawn. 15:04 Reassessment: Patient appears in no apparent distress at this time. Patient and/or ae4 family updated on plan of care and expected duration. Pain level reassessed. Vital Signs: 11:48 BP 119 / 56; Pulse 96; Resp 18; Temp 98(A); Pulse Ox 96% ; Weight 57 kg; Height 4 ft. sv 10 in. (147.32 cm); Pain 0/10; 12:47 BP 118 / 89; Pulse 73; Resp 16; Pulse Ox 98% ; sv 14:44 BP 136 / 80; Pulse 91; Resp 18; Temp 98.0(TE); Pulse Ox 98% on R/A; mh5 15:04 BP 100 / 72; Pulse 94; Resp 19; Pulse Ox 96% on R/A; ae4 11:48 Body Mass Index 26.26 (57.00 kg, 147.32 cm) sv Yassine Coma Score: 11:37 Eye Response: spontaneous(4). Verbal Response: confused(4). Motor Response: obeys sv commands(6). Total: 14. ED Course: 11:37 Maintain EMS IV. Dressing intact. Site clean \T\ dry. Gauge \T\ site: 20G R AC. sv 11:42 Patient arrived in ED. sv 11:44 Dipesh Kc MD is Attending Physician. sreedhar 11:44 Triage completed. sv 11:49 Arm band placed on. sv 11:49 Patient has correct armband on for positive identification. Bed in low position. Call sv light in reach. Adult w/ patient. 11:51 Seizure precautions initiated. sv 11:51 Warm blanket given. cafeteria monitor on. Pulse ox on. NIBP on. mh5 11:53 Inés Lopez RN is Primary Nurse. sv 12:05 EKG done, by strain technician. reviewed by Dipesh Kc MD. sm3 12:09 Radiology exam delayed due to IV insertion attempt and/or patient not having ls3 appropriate IV at this time. 12:45 Chest Single View XRAY In Process Unspecified. EDMS 13:29 Acetaminophen Sent. sv 13:29 Basic Metabolic Panel Sent. sv 13:29 CBC with Diff Sent. sv 13:[address] Scan. sv 14:05 Eduardo Medina MD is Referral Physician. sreedhar 14:19 CT Head Brain wo Cont In Process Unspecified. EDMS 15:02 Report given to Allen EVANS. sv 15:08 Primary Nurse role handed off by Inés Lopez RN sv 15:15 Allen Henley RN is Primary Nurse. rv 15:16 No provider procedures requiring assistance completed. IV discontinued, intact, rv bleeding controlled, No redness/swelling at site. Pressure dressing applied. Administered Medications: 12:18 Drug: NS 0.9% 1000 ml Route: IV; Rate: 1 bolus; Site: right antecubital; sv 14:10 Follow up: Response: No adverse reaction; IV Status: Completed infusion; IV Intake: sv 1000ml 12:19 Drug: Keppra 1000 mg Route: IV; Rate: per protocol; Site: right antecubital; sv 12:35 Follow up: Response: No adverse reaction; IV Status: Completed infusion; IV Intake: sv 100ml Intake: 12:35 IV: 100ml; Total: 100ml. sv 14:10 IV: 1000ml; Total: 1100ml. sv Outcome: 14:05 Discharge ordered by MD. eli 15:17 Discharged to home via ambulance. rv 15:17 Condition: good 15:17 Discharge instructions given to family, lei seller, Instructed on discharge instructions, follow up and referral plans. medication usage, Demonstrated understanding of instructions, follow-up care, medications, Prescriptions given X 1. 15:47 Patient left the ED. rv Signatures: Dispatcher [employer] EDMS Inés Lopez RN RN sv Anderson, Corey, MD MD cha Martinez, Maria 5 Marlyn tSerling 3 Allen Henley RN RN rv Pool Christensen 3 Humberto Thorpe RN RN ae4 Corrections: (The following items were deleted from the chart) 13:37 11:48 BP 119 / 56; Pulse 96bpm; Resp 18bpm; Pulse Ox 96%; Temp 98F Axillary; Pain 0/10; sv sv
[2019-02-06 14:22] LABS: Absolute Lymphocytes (CBC) 1.5 K/uL (0.7-4.9); Absolute Monocytes 0.3 K/uL (0.1-1.3); Absolute Neutrophil 1.3 K/uL (1.8-8.0); Basophils % 1.1 % (0-1.3); Eosinophils % 0.8 % (0-4.4); Lymphocytes % 48.5 % (15.3-44.8); MPV 8.8 fL (7.6-11.3); Monocytes % 10.2 % (3.3-12.3); RBC Red Blood Cell Count 4.19 M/uL (3.86-4.86)
--- NOTE | 2019-02-06 14:31 | RAD REPORT ---
EXAM DESCRIPTION: CT - Head Brain Wo Cont - 02/06/2019 2:09 pm CLINICAL HISTORY: Seizure COMPARISON: November 2017 TECHNIQUE: Computed axial tomography of the head was obtained. IV contrast was not requested. All CT scans are performed using dose optimization technique as appropriate and may include automated exposure control or mA/KV adjustment according to patient size. FINDINGS: An intracranial bleed is not seen . Moderate hydrocephalus is unchanged. Fourth, third and lateral ventricles are all dilated. No extra-axial fluid collection is noted. Mild low-density areas within periventricular, deep and sub cortical white matter Fluid within the sinuses/ mastoids is not seen. IMPRESSION: Moderate communicating hydrocephalus without significant change from the prior exam. No acute abnormality displayed
[2019-02-06 15:05] LABS: Barbiturates NEGATIVE (NEGATIVE); Benzodiazepines NEGATIVE (NEGATIVE); Cocaine NEGATIVE (NEGATIVE); METHAMPHETAM NEGATIVE (NEGATIVE); Methadone NEGATIVE (NEGATIVE); Opiates NEGATIVE (NEGATIVE); Phencyclidine NEGATIVE (NEGATIVE); THC Cannibis NEGATIVE (NEGATIVE)
[2019-02-06 15:20] LABS: Urine Appearance CLEAR; Urine Bilirubin NEGATIVE (NEG); Urine Blood NEGATIVE (NEG); Urine Color YELLOW; Urine Glucose NEGATIVE (NEG); Urine Protein NEGATIVE (NEG); Urine Urobilinogen 0.2 mg/dL (0.2-1.0); Urine pH 6.5 (5.0-7.0)
[2019-02-06 15:27] LABS: Urine Microscopic Reflex NO UMIC
== END 2019-02-06 15:47 | disposition home or self-care (01) ==
LOC: ER 11:44
DX: G40.509 Epileptic seizures related to external causes, not intractable, without status epilepticus (principal); Q90.9 Down syndrome, unspecified; E03.9 Hypothyroidism, unspecified; Z88.0 Allergy status to penicillin; Z88.1 Allergy status to other antibiotic agents; Z88.2 Allergy status to sulfonamides; Z88.3 Allergy status to other anti-infective agents; Z88.8 Allergy status to other drugs, medicaments and biological substances
CPT/HCPCS: 36415; 70450; 71045; 80048; 80076; 80307; 80320; 80329; 81003; 84443; 85025; 87040; 87086; 87088; 93005; 96361; 96365; 99285; J1953; J7030

== ENCOUNTER 2019-05-14 11:30 | Emergency (ER) | payer OTHER ==
--- OUTSIDE RECORDS SUMMARY | 2019-05-14 11:50 | XMS REPORT | Clinical Summary ---
:1970 Author [facility] Address [address] [place] [id number] Care Team Providers Name Role Phone Unavailable [...] Not on file Results Not on fileafter 05/13/2018 Insurance Payer Benefit Plan / Group Subscriber ID Type Phone Address [employer] - [employer] CARE CIGNA HMO/POS/OPEN ACCESS xxxxxxxxx HMO/POS [place] (Home) [place] [address] Advance Directives For more information, please contact:[facility] [employer] [address] [phone] Code Status Date Activated Date Inactivated Comments Full Code 12/19/2017 7:03 PM 12/23/2017 4:14 PM This code status was determined by: Patient
--- OUTSIDE RECORDS SUMMARY | 2019-05-14 11:50 | XMS REPORT ---
:1970 [facility] Address [address] [place] [address] Dr. Foster [address] [place] [id number] Care Team Providers Name Role Phone YESSENIA DANIELSONArmani Unavailable Unavailable Problems This patient has no known problems. Allergies, Adverse Reactions, Alerts This patient has no known allergies or adverse reactions. Medications This patient has no known medications. Results Test Description Test Time Test Comments Text Results Atomic Results Result Comments MR, BRAIN, 2017-12-22 Reason for FINAL REPORT PATIENT WITHOUT 17:54:00 exam:->sseizures/hydrocephalusWhat is ID: [id number] MRI CONTRAST the patient's sedation Brain without [...] MDReport Verified Date/Time: 12/22/2017 17:54:57 Reading Location: [facility] Radiology Reading Room AWAKE 2017-12-21 Reason for exam:->seizuresShould this Date(s) of EEG: AND DROWSY 13:47:00 be performed at the bedside?->Yes 12/21/17ACC: [id number] Number: [id number] Location: Inpatient RoomStart time: 08:38Stop time: 08:59ICD-10: R56.9CPT Code: 59096 HISTORY: 47 y.o. female who presented with [...] Reference Range Comments HEMOGLOBIN A1C (BEAKER) (test zgne=928) 4.5 % 4.3-6.1 T4, [id number] 07:45:00 Test Item Value Reference Range Comments FREE T4 (BEAKER) (test aotz=774) 1.46 ng/dL 0.70-1.48 TSH/FREE T4 IF [id number] 06:53:00 Test Item Value Reference Range Comments THYROID STIMULATING HORMONE (BEAKER) (test 0.15 uIU/mL 0.35-4.94 xfkk=732) CALCIUM, [id number] 06:51:00 Test Item Value Reference Range Comments CALCIUM IONIZED (BEAKER) (test ggxr=421) 1.01 mmol/L 1.12-1.27 PH, BLOOD (BEAKER) (test ogxz=7596) 7.49 [id number] 06:31:00 Test Item Value Reference Range Comments PHOSPHORUS (BEAKER) (test yehr=974) 4.1 mg/dL 2.3-4.7 [id number] 06:31:00 Test Item Value Reference Range Comments MAGNESIUM (BEAKER) (test bseq=834) 2.3 mg/dL 1.6-2.6 BASIC METABOLIC [id number] 06:31:00 Test Item Value Reference Range Comments SODIUM (BEAKER) (test 139 meq/L 136-145 zeps=506) POTASSIUM (BEAKER) (test 3.9 meq/L 3.5-5.1 errw=825) CHLORIDE (BEAKER) (test 107 meq/L 98-107 yzmi=158) CO2 (BEAKER) (test 26 meq/L 22-29 zgii=278) BLOOD UREA NITROGEN 11 mg/dL 7-21 (BEAKER) (test ytxc=696) CREATININE (BEAKER) (test 0.79 mg/dL 0.57-1.25 sxva=404) GLUCOSE RANDOM (BEAKER) 97 mg/dL 70-105 (test npxb=882) CALCIUM (BEAKER) (test 8.8 mg/dL 8.4-10.2 bcim=805) EGFR (BEAKER) (test 78 mL/min/1.73 sq m ESTIMATED GFR IS NOT ymmp=0964) ACCURATE CREATININE CLEARANCE IN PREDICTING GLOMERULAR FILTRATION RATE. ESTIMATED GFR IS NOT APPLICABLE FOR DIALYSIS PATIENTS. LIPID [id number] 06:31:00 Test Item Value Reference Range Comments TRIGLYCERIDES (BEAKER) (test bwlt=950) 86 mg/dL CHOLESTEROL (BEAKER) (test dmks=925) 246 mg/dL HDL CHOLESTEROL (BEAKER) (test lcio=126) 54 mg/dL LDL CHOLESTEROL CALCULATED (BEAKER) (test 175 mg/dL ahty=352) Triglyceride Reference Range: Low Risk <150 Borderline 150- 199 High Risk 200-499 Very High Risk >=500Cholesterol Reference Range: Low Risk <200 Borderline 200-239 High Risk > 240HDL Cholesterol Reference Range: Low Risk >=60 High Risk <40LDL Cholesterol Reference Range: Optimal <100 Near Optimal 100-129 Borderline 130-159 High 160-189 Very High >=190CBC W/PLT COUNT & AUTO [id number] 06:09:00 Test Item Value Reference Range Comments WHITE BLOOD CELL COUNT (BEAKER) (test pwgq=661) 3.7 K/ L 3.5-10.5 RED BLOOD CELL COUNT (BEAKER) (test lhpu=062) 3.92 M/ L 3.93-5.22 HEMOGLOBIN (BEAKER) (test eqae=883) 13.0 GM/DL 11.2-15.7 HEMATOCRIT (BEAKER) (test wmul=848) 37.7 % 34.1-44.9 MEAN CORPUSCULAR VOLUME (BEAKER) (test uwud=298) 96.2 fL 79.4-94.8 MEAN CORPUSCULAR HEMOGLOBIN (BEAKER) (test 33.2 pg 25.6-32.2 xjur=141) MEAN CORPUSCULAR HEMOGLOBIN CONC (BEAKER) (test 34.5 GM/DL 32.2-35.5 qscq=495) RED CELL DISTRIBUTION WIDTH (BEAKER) (test 13.8 % 11.7-14.4 wnzw=416) PLATELET COUNT (BEAKER) (test jqtf=491) 163 K/CU MM 150-450 MEAN PLATELET VOLUME (BEAKER) (test nnmy=737) 9.8 fL 9.4-12.3 NUCLEATED RED BLOOD CELLS (BEAKER) (test 0 /100 WBC 0-0 ekma=876) NEUTROPHILS RELATIVE PERCENT (BEAKER) (test 41 % dqib=430) LYMPHOCYTES RELATIVE PERCENT (BEAKER) (test 46 % tcdo=505) MONOCYTES RELATIVE PERCENT (BEAKER) (test 11 % qkdf=042) EOSINOPHILS RELATIVE PERCENT (BEAKER) (test 1 % bbkk=440) BASOPHILS RELATIVE PERCENT (BEAKER) (test 1 % rdgw=801) NEUTROPHILS ABSOLUTE COUNT (BEAKER) (test 1.52 K/ L 1.56-6.13 ryvu=591) LYMPHOCYTES ABSOLUTE COUNT (BEAKER) (test 1.72 K/ L 1.18-3.74 hijt=826) MONOCYTES ABSOLUTE COUNT (BEAKER) (test 0.40 K/ L 0.24-0.36 gnhl=067) EOSINOPHILS ABSOLUTE COUNT (BEAKER) (test 0.04 K/ L 0.04-0.36 vmdz=601) BASOPHILS ABSOLUTE COUNT (BEAKER) (test 0.04 K/ L 0.01-0.08 hjks=054) IMMATURE GRANULOCYTES-RELATIVE PERCENT (BEAKER) 0 % 0-1 (test bupd=2509)
[2019-05-14] MEDS ORDERED: CEFTRIAXONE/SWI 1gm 1 GM/10 ML SYR ONE (12:12)
[2019-05-14] MEDS ORDERED: NA CHLORIDE 0.9% 1,000 ML ONE (12:12)
[2019-05-14] MEDS ORDERED: levETIRAcetam 1,000 MG in NA CHLORIDE 0.9% 100 ML IV ONE (12:15)
[2019-05-14 12:35] LABS: Absolute Lymphocytes (CBC) 1.4 K/uL (0.7-4.9); Basophils % 1.4 % (0-1.3); Hematocrit 41.6 % (36.0-45.0); Lymphocytes % 41.7 % (15.3-44.8); MPV 8.4 fL (7.6-11.3); RBC Red Blood Cell Count 4.19 M/uL (3.86-4.86)
[2019-05-14 12:47] LABS: Albumin 3.2 g/dL (3.4-5.0); Bilirubin Direct 0.2 mg/dL (0-0.2); Bilirubin Total 0.6 mg/dL (0.2-1.0); Potassium 4.2 mmol/L (3.5-5.1); Protein, Total 7.3 g/dL (6.4-8.2)
[2019-05-14 13:01] LABS: Blood Morphology Comment NOT SEEN (NOT SEEN); Platelet Estimate ADEQ; Urine White Blood Cell Casts OK
[2019-05-14 13:48] LABS: Urine Blood TRACE (NEG); Urine Glucose NEGATIVE (NEG); Urine Protein NEGATIVE (NEG); Urine Specific Gravity 1.025 (1.005-1.030); Urine pH 5.5 (5.0-7.0)
--- NOTE | 2019-05-14 14:44 | ER ---
Nurse's Notes [facility] Name: Andie Castro Age: 48 yrs Sex: Female : 1970 Arrival Date: 05/14/2019 Time: 11:33 Bed 16 Private MD: Diagnosis: Epilepsy and recurrent seizures Presentation: 05/14 11:38 Presenting complaint: EMS states: Has hx of seizures, takes levetiracetam, caregiver ph did not give pt morning dose because she was asleep, pt then had seizure, VSS, post-ictal on scene. Transition of care: patient was not received from another setting of care. Onset of symptoms was May 14, 2019. Risk Assessment: Do you want to hurt yourself or someone else? Patient reports no desire to harm self or others. Initial Sepsis Screen: Does the patient meet any 2 criteria? No. Patient's initial sepsis screen is negative. Does the patient have a suspected source of infection? No. Patient's initial sepsis screen is negative. Care prior to arrival: None. 11:38 Method Of Arrival: EMS: [facility] 11:38 Acuity: MARCEL 3 ph Triage Assessment: 15:59 General: Appears in no apparent distress. Behavior is calm. iw 16:00 Pain: Unable to use pain scale. FLACC scale score is 0 out of 10. Neuro: Level of iw Consciousness is awake, alert. 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 - Social history:: Smoking status: Patient/guardian denies using tobacco, Patient/guardian denies using alcohol, street drugs, The patient lives with family. - Ebola Screening: : Patient negative for fever greater than or equal to 101.5 degrees Fahrenheit, and additional compatible Ebola Virus Disease symptoms Patient denies exposure to infectious person Patient denies travel to an Ebola-affected area in the 21 days before illness onset No symptoms or risks identified at this time. - Family history:: not pertinent. Screenin:09 Abuse screen: Denies threats or abuse. Denies injuries from another. Tuberculosis iw screening: No symptoms or risk factors identified. Fall Risk Secondary diagnosis (15 points) seizures, impaired mobility. 15:36 Nutritional screening: No deficits noted. iw Assessment: 12:40 Reassessment: Patient appears in no apparent distress at this time. caregiver at iw bedside, states she appears to be coming around more, pt is NAD, VSS, pt making eye contact, urine specimen obtain via straight cath, pt tolerated procedure well, family at bedside. 15:36 Reassessment: Patient appears in no apparent distress at this time. Patient and/or iw family updated on plan of care and expected duration. Pain level reassessed. no seizure activity noted during visit Patient states symptoms have improved. Vital Signs: 11:41 BP 95 / 75; Pulse 71; Resp 18; Temp 97.8; Pulse Ox 100% on R/A; iw 13:18 BP 97 / 65; Pulse 72; Resp 16; Pulse Ox 100% on R/A; Pain 0/10; iw 14:38 BP 91 / 57; Pulse 72; Resp 16; Pulse Ox 97% on R/A; Pain 0/10; iw 15:36 BP 95 / 73; Pulse 69; Resp 16; Pulse Ox 98% on R/A; Pain 0/10; iw [place] Coma Score: 16:00 Eye Response: spontaneous(4). Verbal Response: oriented(5). Motor Response: localizes iw pain(5). Total: 14. ED Course: 11:33 Patient arrived in ED. ph 11:38 Ale Marquez, RN is Primary Nurse. iw 11:41 Triage completed. ph 11:41 Arm band placed on. iw 11:41 Seizure precautions initiated. iw 11:46 Diana Tidwell MD is Attending Physician. ma2 12:20 Initial lab(s) drawn, by ca, sent to lab. Inserted saline lock: 22 gauge in right 5 antecubital area, using aseptic technique. Blood collected. 12:21 Basic Metabolic Panel Sent. 5 12:21 CBC with Diff Sent. m[facility]5 12:21 Creatinine for Radiology Sent. [facility] 12:21 Hepatic Function Sent. [facility] 12:21 Lipase Sent. [facility] 12:22 Patient has correct armband on for positive identification. Bed in low position. Call [facility] light in reach. Side rails up X2. Adult w/ patient. Warm blanket given. child monitor on. Pulse ox on. NIBP on. 15:39 No provider procedures requiring assistance completed. IV discontinued, intact, iw bleeding controlled, No redness/swelling at site. Pressure dressing applied. Administered Medications: 12:27 Drug: NS 0.9% 1000 ml Route: IV; Rate: 1 bolus; Site: right antecubital; 12:27 Drug: Rocephin 1 grams Route: IV; Rate: calculated rate; Site: right antecubital; 12:55 Drug: Keppra 1000 mg Route: IV; Rate: calculated rate; Site: right antecubital; Outcome: 14:44 Discharge ordered by MD. sandoval 15:58 Discharged to home via ambulance, with family. 15:58 Condition: good 15:58 Discharge instructions given to family, Instructed on discharge instructions, follow up and referral plans. Demonstrated understanding of instructions, follow-up care. 15:59 Patient left the ED. Signatures: Ale Marquez RN RN Marybeth Gaspar RN RN aa5 Hall, Patricia, RN RN ph Martinez, Maria [facility] Diana Tidwell MD MD ma2 Corrections: (The following items were deleted from the chart) 12: 11:41 Allergies: EES; iw 12:08 11:41 BP 95 / 7; Pulse 71bpm; Resp 18bpm; Pulse Ox 100% RA; Temp 97.8F; ph iw
--- NOTE | 2019-05-14 14:45 | EDPHYS ---
Physician Documentation [facility] Name: Andie Castro Age: 48 yrs Sex: Female : 1970 Arrival Date: 05/14/2019 Time: 11:33 Bed 16 Private MD: ED Physician Diana Tidwell HPI: 05/14 13:04 This 48 yrs old Female presents to ER via EMS with complaints of Seizure. ma2 13:04 The patient presents after having a single isolated seizure. Context: occurred. Seizure ma2 Hx: the patient has no previous seizure history. Associated injury: The patient did not suffer any apparent associated injury. Current symptoms: Currently, the patient is not experiencing any symptoms. The patient has experienced similar episodes in the past. 1 episode of usual seizure lasted 1 min, no other symptoms . 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 - Social history:: Smoking status: Patient/guardian denies using tobacco, Patient/guardian denies using alcohol, street drugs, The patient lives with family. - Ebola Screening: : Patient negative for fever greater than or equal to 101.5 degrees Fahrenheit, and additional compatible Ebola Virus Disease symptoms Patient denies exposure to infectious person Patient denies travel to an Ebola-affected area in the 21 days before illness onset No symptoms or risks identified at this time. - Family history:: not pertinent. ROS: 13:04 Constitutional: Negative for fever, chills, and weight loss. ma2 13:04 All other systems are negative. Exam: 13:04 Constitutional: This is a well developed, well nourished patient who is awake, alert, ma2 and in no acute distress. ENT: Nares patent. No nasal discharge, no septal abnormalities noted. Tympanic membranes are normal and external auditory canals are clear. Oropharynx with no redness, swelling, or masses, exudates, or evidence of obstruction, uvula midline. Mucous membranes moist. Neck: Trachea midline, no thyromegaly or masses palpated, and no cervical lymphadenopathy. Supple, full range of motion without nuchal rigidity, or vertebral point tenderness. No Meningismus. Chest/axilla: Normal chest wall appearance and motion. Nontender with no deformity. No lesions are appreciated. Cardiovascular: Regular rate and rhythm with a normal S1 and S2. No gallops, murmurs, or rubs. Normal PMI, no JVD. No pulse deficits. Respiratory: Lungs have equal breath sounds bilaterally, clear to auscultation and percussion. No rales, rhonchi or wheezes noted. No increased work of breathing, no retractions or nasal flaring. Abdomen/GI: Soft, non-tender, with normal bowel sounds. No distension or tympany. No guarding or rebound. No evidence of tenderness throughout. Skin: Warm, dry with normal turgor. Normal color with no rashes, no lesions, and no evidence of cellulitis. MS/ Extremity: Pulses equal, no cyanosis. Neurovascular intact. Full, normal range of motion. Neuro: unchanged from baseline she is Awake and alert, GCS 15, MR and does not follow commands at baseline, yet moving all 4 extremities unable to test gait. Vital Signs: 11:41 BP 95 / 75; Pulse 71; Resp 18; Temp 97.8; Pulse Ox 100% on R/A; iw 13:18 BP 97 / 65; Pulse 72; Resp 16; Pulse Ox 100% on R/A; Pain 0/10; iw 14:38 BP 91 / 57; Pulse 72; Resp 16; Pulse Ox 97% on R/A; Pain 0/10; iw 15:36 BP 95 / 73; Pulse 69; Resp 16; Pulse Ox 98% on R/A; Pain 0/10; iw [place] Coma Score: 16:00 Eye Response: spontaneous(4). Verbal Response: oriented(5). Motor Response: localizes iw pain(5). Total: 14. MDM: 11:47 Patient medically screened. ma2 13:04 Differential diagnosis: seizure, uti, cap . ma2 14:36 Data reviewed: vital signs, nurses notes. Counseling: I had a detailed discussion with [facility] the patient and/or guardian regarding: the historical points, exam findings, and any diagnostic results supporting the discharge/admit diagnosis, the presence of at least one elevated blood pressure reading (>120/80) during this emergency department visit, the need for outpatient follow up. Response to treatment: the patient's symptoms have resolved after treatment. ED course: Due to a diagnosis of down syndrome and dementia the patient is bed bound. Transfer between a bed and chair, wheelchair, or commode are required. without the use of a lift the patient would be bed confined. Due to neuromuscular condition affecting motor strength and balance the patient requires supine positioning for transfers. A sling lift was considered and ruled out. a supine patient transfer system is required. In my medical openion that Andie Castro would benefit from supine transfer as the suffers from balance issue dementia, she is bed bound. . ED course: dr. Kc, has seen the patient within the last 6 months and saw her today. He is working clinically with me and has confirmed to me that her clinical condition today has not changed. . 15:43 ED course: I recommend a Human Care Convertible Chair with no lift lateral patient [facility] transfer sustem due to: as above . 05/14 12:00 Order name: Basic Metabolic Panel [facility] 05/14 12:00 Order name: CBC with Diff [facility] 05/14 12:00 Order name: Creatinine for Radiology [facility] 05/14 12:00 Order name: Hepatic Function [facility] 05/14 12:00 Order name: Lipase [facility] 05/14 12:49 Order name: Basic Metabolic Panel; Complete Time: 13: [facility] 05/14 12:49 Order name: Liver (Hepatic) Function; Complete Time: 13:01 [facility] 05/14 12:49 Order name: Lipase; Complete Time: 13:01 [facility] 05/14 12:49 Order name: Urine Dipstick--Ancillary (enter results) mo 05/14 12:50 Order name: Creatinine (Radiology Only); Complete Time: 13:01 [facility] 05/14 13:01 Order name: CBC with Automated Diff; Complete Time: 13:02 [facility] 05/14 13:02 Order name: CBC Smear Scan; Complete Time: 13: [facility] 05/14 13:51 Order name: Urine Dipstick-Ancillary [facility] 05/14 12:00 Order name: IV Saline Lock; Complete Time: 12:21 [facility] 05/14 12:00 Order name: Labs collected and sent; Complete Time: 12:21 [facility] 05/14 12:00 Order name: Urine Dipstick-Ancillary (obtain specimen); Complete Time: 12:40 [facility] 05/14 13:05 Order name: Diet Regular; Complete Time: 13:06 Administered Medications: 12:27 Drug: NS 0.9% 1000 ml Route: IV; Rate: 1 bolus; Site: right antecubital; 12:27 Drug: Rocephin 1 grams Route: IV; Rate: calculated rate; Site: right antecubital; 12:55 Drug: Keppra 1000 mg Route: IV; Rate: calculated rate; Site: right antecubital; Disposition: 05/14/19 14:44 Discharged to Home. Impression: Epilepsy and recurrent seizures. - Condition is Stable. - Discharge Instructions: Seizure, Adult. - Medication Reconciliation Form, Thank You Letter, Antibiotic Education, Prescription Opioid Use form. - SBAR form (05/14/19 17:10). aa5 - Follow up: Private Physician; When: Tomorrow; Reason: Continuance of care. Signatures: Dispatcher [employer] Ale Villafuerte RN RN Marybeth Gaspar RN RN aa5 Diana Tidwell MD MD ma2 Corrections: (The following items were deleted from the chart) 12:08 11:41 Allergies: EES; iw 15:59 14:44 05/14/2019 14:44 Discharged to Home. Impression: Epilepsy and recurrent seizures. iw Condition is Stable. Forms are Medication Reconciliation Form, Thank You Letter, Antibiotic Education, Prescription Opioid Use. Follow up: Private Physician; When: Tomorrow; Reason: Continuance of care. ma2
[2019-05-14 16:15] VITALS: TEMP 97.8
[2019-05-14 16:20] VITALS: BP 95/73; O2SAT 98
== END 2019-05-14 15:59 | disposition home or self-care (01) ==
LOC: ER 11:30
DX: G40.802 Other epilepsy, not intractable, without status epilepticus (principal); E03.9 Hypothyroidism, unspecified; Z88.0 Allergy status to penicillin; Z88.1 Allergy status to other antibiotic agents; Z88.2 Allergy status to sulfonamides; Z88.3 Allergy status to other anti-infective agents; Z88.8 Allergy status to other drugs, medicaments and biological substances; Z91.030 Bee allergy status
CPT/HCPCS: 85025; 80048; 36415; 80076; 81003; 83690; 96375; 96374; 99284; J1953; J0696; J7030

== ENCOUNTER 2020-04-23 16:21 | Inpatient (IN) | payer BC, OTHER ==
--- OUTSIDE RECORDS SUMMARY | 2020-04-23 16:23 | XMS REPORT | Clinical Summary ---
:1970 Author Organization [facility] Address [address] [place] [id number] Care Team Providers Name Role Phone Unavailable [...] Not on file Results Not on fileafter 04/23/2019 Insurance Payer Benefit Plan / Group Subscriber ID Type Phone A ddress [employer] - MGD CARE CIGNA HMO/POS/OPEN ACCESS xxxxxxxxx HMO/POS Advance Directives For more information, please contact[facility] [address] [phone] Code Status Date Activated Date Inactivated Comments Full Code 12/19/2017 7:03 PM 12/23/2017 4:14 PM This code status was determined by: Patient
--- OUTSIDE RECORDS SUMMARY | 2020-04-23 16:24 | XMS REPORT | Continuity of Care Document ---
:1970 Author Organization [facility] t Address [address] [place] [address] Care Team Providers Name Role Phone EDWARDO DANIELSON Attending Clinician Unavailable EDWARDO DANIELSON Admitting Clinician Unavailable Problems Condition Condition Condition Status Onset Resolution Last Treating Co mments Source Name Details Category Date Date Treatment Clinician Date Seizure Seiz[facility] Disease [facility] [place] Cerebral [facility]bral [facility]ika kes - megaly megaly [facility]:00: Medical 00 [place] Acquired Acquired Disease [facility] hyp[facility]roi [facility] Tamika kes - dism dism 00:00: Medical 00 [place] Down Down Disease Active [facility] syndrome syndrome [facility] 00 [place] Allergies, Adverse Reactions, Alerts This patient has no known allergies or adverse reactions. Social History Social Habit Start Date Stop Date Quantity Comments Source Sex Assigned At [facility] Smoking Status Start Date Stop Date Source [place] [facility] [place] Ordered Filled Start Stop Current Ordering Indication Dosage Frequency Signature Comments Components Source Medication Medication Date Date Medication? Clinician (SIG) Name Name levothyroxi Yes 125ug Take [address] ne 4-23 mcg by [facility] - (SYNTHROID, 18:42: mouth Medic al LEVOTHROID) 42 Every [facility] 125 MCG morning on tablet an empty stomach. Procedures This patient has no known procedures. Results Test Description Test Time Test Comments Results Result [facility] e Comments MR, BRAIN, 2017-12-22 Reason for FINAL REPORT PATIENT WITHOUT CONTRAST 17:54:00 exam:->sseizures ID: [id number] MRI /hydrocephalusWh Brain without contrast at is the Clinical History: patient's Seizures, sedation hydrocephalus requirement?->No Technique: MRI of the SedationIs the brain utilizing axial patient T2, FLAIR, GRE, DWI; claustrophobic?- sagittal and coronal >NoIs the T1-weighted images. patient Comparisons: None ?->Unkno Findings: There is no wn evidence of acute infarct or hemorrhage. There [...] MDReport Verified Date/Time: 12/22/2017 17:54:57 Reading Location: [facility] Radiology Reading Room AWAKE AND 2017-12-21 Reason for Date(s) of EEG: DROWSY 13:47:00 exam:->seizuresS 12/21/17ACC: hould this be [id number] Number: performed at the 2017-730Test Location: bedside?->Yes Inpatient RoomStart time: 08:38Stop time: 08:59ICD-10: R56.9CPT Code: 65692 HISTORY: 47 y.o. female who presented with [...] Tejeda M.D.Neurophysiology Fellow, PGY5 Fernando Méndez M.D.Clinical Neurophysiology/Epilep sy Attending GLOBIN A1C 2017-12-20 16:10:00 Test Item Value Reference Range Interpretation Comme nts HEMOGLOBIN A1C (BEAKER) (test code = 368) 4.5 % 4.3-6.1 T4, [id number] 07:45:00 Test Item Value Reference Range Interpretation Comments FREE T4 (BEAKER) (test code = 655) 1.46 ng/dL 0.70-1.48 TSH/FREE T4 IF [id number] 06:53:00 Test Item Value Reference Range Interpretation Comments THYROID STIMULATING HORMONE 0.15 uIU/mL 0.35-4.94 L (BEAKER) (test code = 772) CALCIUM, [id number] 06:51:00 Test Item Value Reference Range Interpretation Comments CALCIUM IONIZED (BEAKER) (test 1.01 mmol/L 1.12-1.27 L code = 698) PH, BLOOD (BEAKER) (test code = 7.49 1810) [id number] 06:31:00 Test Item Value Reference Range Interpretation Comments PHOSPHORUS (BEAKER) (test code = 4.1 mg/dL 2.3-4.7 604) [id number] 06:31:00 Test Item Value Reference Range Interpretation Comments MAGNESIUM (BEAKER) (test code = 2.3 mg/dL 1.6-2.6 627) BASIC METABOLIC [id number] 06:31:00 Test Item Value Reference Range Interpretation Comments SODIUM (BEAKER) 139 meq/L 136-145 (test code = 381) POTASSIUM (BEAKER) 3.9 meq/L 3.5-5.1 (test code = 379) CHLORIDE (BEAKER) 107 meq/L 98-107 (test code = 382) CO2 (BEAKER) (test 26 meq/L 22-29 code = 355) BLOOD UREA NITROGEN 11 mg/dL 7-21 (BEAKER) (test code = 354) CREATININE (BEAKER) 0.79 mg/dL 0.57-1.25 (test code = 358) GLUCOSE RANDOM 97 mg/dL 70-105 (BEAKER) (test code = 652) CALCIUM (BEAKER) 8.8 mg/dL 8.4-10.2 (test code = 697) EGFR (BEAKER) (test 78 mL/min/1.73 ESTIMA RASHEED GFR IS code = 1092) sq m NOT ACCURATE CREATININE CLEARANCE IN PREDICTING GLOMERULAR FILTRATION RATE . ESTIMATED GFR I S NOT APPLICABLE FOR DIALYSIS PATIEN TS. LIPID [id number] 06:31:00 Test Item Value Reference Range Interpretation Comments TRIGLYCERIDES (BEAKER) (test code = 86 mg/dL 540) CHOLESTEROL (BEAKER) (test code = 246 mg/dL 631) HDL CHOLESTEROL (BEAKER) (test code 54 mg/dL = 976) LDL CHOLESTEROL CALCULATED (BEAKER) 175 mg/dL (test code = 633) Triglyceride Reference Range: Low Risk <150 Borderline 150-199 High Risk 200-499 Very High Risk >=500Cholesterol Reference Range: Low Risk <200 Borderline 200-239 High Risk >240HDL Cholesterol Reference Range: Low Risk >=60 High Risk <40LDL Cholesterol Reference Range: Optimal <100 Near Optimal 100-129 Borderline 130-159 High 160-189 Very High >=190CBC W/PLT COUNT & AUTO [id number] 06:09:00 Test Item Value Reference Range Interpretation Comments WHITE BLOOD CELL COUNT (BEAKER) 3.7 K/ L 3.5-10.5 (test code = 775) RED BLOOD CELL COUNT (BEAKER) 3.92 M/ L 3.93-5.22 L (test code = 761) HEMOGLOBIN (BEAKER) (test code = 13.0 GM/DL 11.2-15.7 410) HEMATOCRIT (BEAKER) (test code = 37.7 % 34.1-44.9 411) MEAN CORPUSCULAR VOLUME (BEAKER) 96.2 fL 79.4-94.8 H (test code = 753) MEAN CORPUSCULAR HEMOGLOBIN 33.2 pg 25.6-32.2 H (BEAKER) (test code = 751) MEAN CORPUSCULAR HEMOGLOBIN CONC 34.5 GM/DL 32.2-35.5 (BEAKER) (test code = 752) RED CELL DISTRIBUTION WIDTH 13.8 % 11.7-14.4 (BEAKER) (test code = 412) PLATELET COUNT (BEAKER) (test 163 K/CU MM 150-450 code = 756) MEAN PLATELET VOLUME (BEAKER) 9.8 fL 9.4-12.3 (test code = 754) NUCLEATED RED BLOOD CELLS 0 /100 WBC 0-0 (BEAKER) (test code = 413) NEUTROPHILS RELATIVE PERCENT 41 % (BEAKER) (test code = 429) LYMPHOCYTES RELATIVE PERCENT 46 % (BEAKER) (test code = 430) MONOCYTES RELATIVE PERCENT 11 % (BEAKER) (test code = 431) EOSINOPHILS RELATIVE PERCENT 1 % (BEAKER) (test code = 432) BASOPHILS RELATIVE PERCENT 1 % (BEAKER) (test code = 437) NEUTROPHILS ABSOLUTE COUNT 1.52 K/ L 1.56-6.13 L (BEAKER) (test code = 670) LYMPHOCYTES ABSOLUTE COUNT 1.72 K/ L 1.18-3.74 (BEAKER) (test code = 414) MONOCYTES ABSOLUTE COUNT (BEAKER) 0.40 K/ L 0.24-0.36 H (test code = 415) EOSINOPHILS ABSOLUTE COUNT 0.04 K/ L 0.04-0.36 (BEAKER) (test code = 416) BASOPHILS ABSOLUTE COUNT (BEAKER) 0.04 K/ L 0.01-0.08 (test code = 417) IMMATURE GRANULOCYTES-RELATIVE 0 % 0-1 PERCENT (BEAKER) (test code = 2801)
--- NOTE | 2020-04-23 18:13 | RAD REPORT ---
EXAM DESCRIPTION: Efrain Single View04/23/2020 5:59 pm CLINICAL HISTORY: Chest pain COMPARISON: 2018 FINDINGS: The lungs appear clear of acute infiltrate. The heart is normal size IMPRESSION: No acute abnormalities displayed
[2020-04-23 18:16] LABS: Absolute Lymphocytes (CBC) 1.4 K/uL (0.7-4.9); Basophils % 0.3 % (0-1.3); Hematocrit 37.3 % (36.0-45.0); Lymphocytes % 12.6 % (15.3-44.8); RBC Red Blood Cell Count 3.76 M/uL (3.86-4.86)
[2020-04-23 18:41] LABS: ALT/SGPT 60 U/L (12-78); AST/SGOT 35 U/L (15-37); Albumin 1.9 g/dL (3.4-5.0); Alkaline Phosphatase 93 U/L (45-117); BUN Blood Urea Nitrogen 13 mg/dL (7-18); Bicarbonate 31 mmol/L (21-32); Bilirubin Direct 0.2 mg/dL (0-0.2); Bilirubin Total 0.4 mg/dL (0.2-1.0); Creatine Phosphokinase 22 U/L (26-192); Glucose Level 108 mg/dL (74-106); Potassium 3.5 mmol/L (3.5-5.1); Protein, Total 7.8 g/dL (6.4-8.2); Sodium Level 145 mmol/L (136-145)
[2020-04-23 19:34] LABS: Urine Blood NEGATIVE (NEG); Urine Glucose NEGATIVE (NEG); Urine Protein NEGATIVE (NEG); Urine Specific Gravity >1.030 (1.005-1.030); Urine pH 5.5 (5.0-7.0)
[2020-04-23] MEDS ORDERED: VANCOMYCIN 1 GM/VIAL ONE (20:12)
[2020-04-23] MEDS ORDERED: NA CHLORIDE 0.9% 250 ML ONE (20:12)
[2020-04-23] MEDS ORDERED: ACETAMINOPHEN 500 MG TAB PO PRN (20:22)
--- NOTE | 2020-04-23 20:37 | P.HP ---
Certification for Inpatient With expected LOS: >2 Midnights Patient will require the following post-hospital care: Long Term Practitioner: I am a practitioner with admitting privileges, knowledge of patient current condition, hospital course, and medical plan of care. Services: Services provided to patient in accordance with Admission requirements found in Title 42 Section 412.3 of the Code of Federal Regulations <Marshall Bolanos - Last Filed: 04/23/20 20:31> Patient History Date of Service: 04/23/20 Reason for admission: Cellulitis of sacral pressure ulcer History of Present Illness: 49-year-old female with a past medical history of seizures, Down syndrome, bed ridden since 2017 and hypothyroidism who is brought to the emergency room by her brother who is her main adolescent counselor with complaints of worsening sacral pressure ulcer. Brother states that he has taking care of his sister his whole life. Approximately a year ago he noticed a small skin tear on the sacral region. That has developed into a large pressure ulcer and it looks infected. Also states that it is getting increasingly difficult to take care of his sister and would like to have case management help with transitioning patient in to a longterm facility. In the emergency room patient is alert. She does not communicate due to her Down syndrome. She is at her baseline per her brother. She is pleasant and cooperative and in no distress. Blood work shows slightly elevated white cell count at 11.4. Patient has been on oral antibiotics for the last 2 weeks. Pressure ulcer on the sacral region is large and extensive. Has significant eschar and will likely require surgical debridement. There may be osteomyelitis as well. Patient will be admitted and further evaluated. - Past Medical/Surgical History Diabetic: No -: History of seizures -: Down syndrome -: Bed ridden since 2016 -: Sacral pressure ulcer present on admission -: Hypothyroidism Past Surgical History: Unable to obtain Psychosocial/ Personal History: Taking care of by her brother at home, has a night adolescent counselor - Social History Smoking Status: Never smoker Alcohol use: No CD- Drugs: No Caffeine use: No Place of Residence: Home <Marshall Bolanos - Last Filed: 04/23/20 20:31> Date of Service: 04/24/20 <Stone Bhatti - Last Filed: 04/24/20 15:42> Allergies erythromycin base Allergy (Verified 04/23/20 22:37) unknown Sulfa (Sulfonamide Antibiotics) Allergy (Verified 04/23/20 22:37) unknown sulfamethoxazole [From Bactrim] Allergy (Verified 04/23/20 22:37) eye swelling trimethoprim [From Bactrim] Allergy (Verified 04/23/20 22:37) eye swelling peliosole Allergy (Uncoded 04/23/20 22:37) unknown Home Medications: Atorvastatin Calcium [Lipitor*] 20 mg PO BEDTIME 04/24/20 Levetiracetam [Keppra] 500 mg PO BID 04/24/20 Levocetirizine Dihydrochloride [Allergy Relief] 1 tab PO BEDTIME 04/24/20 Levothyroxine [Synthroid*] 0.075 mg PO DAILY 04/24/20 Review of Systems is unable to be obtained <Marshall Bolanos - Last Filed: 04/23/20 20:31> Physical Examination - Physical Exam General: Alert, In no apparent distress, Cooperative, Other (Mental retardation, nonverbal) HEENT: Atraumatic, Normocephalic, PERRLA, Mucous membr. moist/pink Neck: Supple, Other (Trachea midline) Respiratory: Clear to auscultation bilaterally, Normal air movement Cardiovascular: No edema, Normal pulses, Regular rate/rhythm, Normal S1 S2 Capillary refill: <2 Seconds Gastrointestinal: Normal bowel sounds, Soft and benign, Non-distended Musculoskeletal: No clubbing, No swelling, Contractures Integumentary: Pressure ulcer (Sacral stage III) Neurological: Other (Generalized muscle atrophy), Abnormal gait, Abnormal speech, Abnormal strength, Abnormal tone - Studies Laboratory Data (last 24 hrs) 04/23/20 18:07: WBC 11.4 H, Hgb 12.2, Hct 37.3, Plt Count 253 04/23/20 18:07: Sodium 145, Potassium 3.5, BUN 13, Creatinine 0.66, Glucose 108 H, Total Bilirubin 0.4, AST 35, ALT 60, Alkaline Phosphatase 93 <Marshall Bolanos - Last Filed: 04/23/20 20:31> - Studies Laboratory Data (last 24 hrs) 04/23/20 18:07: WBC 11.4 H, Hgb 12.2, Hct 37.3, Plt Count 253 04/23/20 18:07: Sodium 145, Potassium 3.5, BUN 13, Creatinine 0.66, Glucose 108 H, Total Bilirubin 0.4, AST 35, ALT 60, Alkaline Phosphatase 93 Microbiology Data (last 24 hrs): 04/23/20 18:17 Blood - Blood Anaerobic Blood Culture - Final <Stone Bhatti - Last Filed: 04/24/20 15:42> Assessment and Plan - Plan Impression: Sacral ulcer cellulitis: Sacral pressure ulcer, stage IV present on admission: History of seizures: Hypothyroidism: Down syndrome: Severe protein calorie malnutrition: Plan: Sacral ulcer cellulitis: Patient has a sacral pressure ulcer that is red and erythematous. Patient has been on oral antibiotics as an outpatient. Lab work shows a slightly elevated white cell count and a brother who is patient's main caregiver states patient was riding a fever at home. Will start IV vancomycin. Patient will need a wound care consult and a surgical consult for debridement. Continue gentle IV hydration P Sacral pressure ulcer, stage IV present on admission: Pressure ulcer has progressively worsened over the past year. Patient is bed ridden since 2017. Pressure ulcer require likely surgical debridement and wound care. History of seizures: Patient takes Keppra at home. Will resume home medications once verified. Hypothyroidism: Tsh elevated at 6.45. Will resume home medications once verified. Down syndrome: Patient is bed ridden. Her brother has been taking care of her her whole life. States that he is not able to care for the patient adequately and would like case management to help with transitioning patient to a longterm facility. Severe protein calorie malnutrition: Patient has generalized muscle atrophy, weakness and body fat loss. Dietary console recommended. Discharge Plan: Group Home Plan to discharge in: Greater than 2 days - Advance Directives Does patient have a Living Will: No Does patient have a Durable POA for Healthcare: No - Code Status/Comfort Care Code Status Assessed: Yes Time Spent Managing Pts Care (In Minutes): 55 <Marshall Bolanos - Last Filed: 04/23/20 20:31> Physician Review Additional Text: Plan of care was reviewed with Marshall Bolanos, I agree with the management as noted above. Consult general surgery for debridement and ID for osteomyelitis. <Stone Bhatti - Last Filed: 04/24/20 15:42>
--- NOTE | 2020-04-23 20:40 | ER ---
Nurse's Notes [facility] Name: Andie Castro Age: 49 yrs Sex: Female : 1970 Arrival Date: 04/23/2020 Time: 16:24 Bed 16 Private MD: Diagnosis: Infected decubitus - failed outpatient therapy Presentation: 04/23 16:31 Chief complaint: EMS states: Pt has Down Syndrome and other developmental delays. ca1 Baseline: Pt's is awake but only responds to pain and sometimes on verbal. On bedrest for some time, has a 10-inch bedsore at the sacral region, debrided 3x and receiving wound car 2x a week. Last wound care by HH done on Tuesday. Bedsore has drainage. Coronavirus screen: Client denies travel out of the [place] in the last 14 days. At this time, the client does not indicate any symptoms associated with coronavirus-19. Ebola Screen: Patient negative for fever greater than or equal to 101.5 degrees Fahrenheit, and additional compatible Ebola Virus Disease symptoms Patient denies exposure to infectious person. Patient denies travel to an Ebola-affected area in the 21 days before illness onset. No symptoms or risks identified at this time. Risk Assessment: Do you want to hurt yourself or someone else? Patient reports no desire to harm self or others. Onset of symptoms was April 23, 2020. 16:31 Method Of Arrival: EMS: [facility] ca1 16:31 Acuity: MARCEL 3 ca1 16:41 Initial Sepsis Screen: Does the patient meet any 2 criteria? No. Patient's initial ca1 sepsis screen is negative. Does the patient have a suspected source of infection? No. Patient's initial sepsis screen is negative. 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 - Social history:: Smoking status: Patient denies any tobacco usage or history of. Screenin:00 Abuse screen: Denies threats or abuse. Denies injuries from another. Nutritional ca1 screening: No deficits noted. Tuberculosis screening: No symptoms or risk factors identified. Fall Risk Secondary diagnosis (15 points) seizures, IV access (20 points). Ambulatory Aid- None/Bed Rest/Nurse Assist (0 pts). Total Hodgson Fall Scale indicates High Risk Score (45 or more points). Fall prevention measures have been instituted. Side Rails Up X 2 Family Present and informed to notify staff if the need to leave the bedside As available patient and family educated on Fall Prevention Program and Strategies. Assessment: 17:00 General: Appears in no apparent distress. slender, Behavior is inappropriate for age. ca1 Pain: Unable to use pain scale. Does not appear to understand pain scale. 17:00 Neuro: Level of Consciousness is awake, Oriented to none. ca1 17:00 Cardiovascular: Heart tones S1 S2 present Capillary refill < 3 seconds Patient's skin ca1 is warm and dry. Rhythm is sinus rhythm. Respiratory: Airway is patent Respiratory effort is even, unlabored, Respiratory pattern is regular, symmetrical, Breath sounds are clear bilaterally. GI: Abdomen is flat, non-distended, Bowel sounds present X 4 quads. Abd is soft and non tender X 4 quads. : No signs and/or symptoms were reported regarding the genitourinary system. EENT: No signs and/or symptoms were reported regarding the EENT system. Derm: Skin is intact, is healthy with good turgor, Skin is pink, warm \T\ dry. Decubitus located on sacrum approximately 7.6 cm to 20 cm is stage IV. Musculoskeletal: Circulation, motion, and sensation intact. Capillary refill < 3 seconds. 17:12 Reassessment: cleaned of bowel incontinence. Repositioned with total assist. Family ss member remains at bedside. JUDY Dean at bedside to assess patient. 18:00 Reassessment: Patient appears in no apparent distress at this time. No changes from ca1 previously documented assessment. Patient and/or family updated on plan of care and expected duration. Pain level reassessed. 18:58 Reassessment: Patient appears in no apparent distress at this time. No changes from ca1 previously documented assessment. Patient and/or family updated on plan of care and expected duration. Pain level reassessed. 19:11 General: Appears comfortable, Behavior is calm. Neuro: Level of Consciousness is awake. mg2 Cardiovascular: Capillary refill < 3 seconds Patient's skin is warm and dry. Respiratory: Airway is patent Respiratory effort is even, unlabored, Respiratory pattern is regular, symmetrical. 19:40 Reassessment: meal served to the patient assisted by the brother. mg2 20:32 Reassessment: hospitalist came and advised for admission. family agreed. mg2 20:33 Derm: Decubitus located on sacrum approximately 7.6 cm to 20 cm is stage IV has denuded mg2 edges bed has eschar present is draining moderate amount green purulent serosanguinous. 20:40 Reassessment: patient sent to ct scan via stretcher. mg2 Vital Signs: 16:41 Pulse 111; Resp 17 S; Temp 98.6(TE); Pulse Ox 100% on R/A; ca1 16:53 BP 106 / 78; ss 18:00 BP 90 / 66; Pulse 95; Resp 16 S; Pulse Ox 99% on R/A; ca1 19:04 BP 96 / 75; Pulse 73; Resp 16 S; Pulse Ox 97% on R/A; ca1 20:20 Temp 99.8(A); mg2 21:10 BP 129 / 91; Pulse 71; Resp 18; Temp 99.5(A); Pulse Ox 100% on R/A; mg2 ED Course: 16:24 Patient arrived in ED. ca1 16:29 Dianne Arteaga FNP-C is PHCP. snw 16:29 Shaun Bhatti MD is Attending Physician. snw 16:29 Arm band placed on right wrist. ca1 16:35 Triage completed. ca1 16:48 Sharon Thompson, CRISTINA is Primary Nurse. ca1 17:00 Patient has correct armband on for positive identification. Placed in gown. Bed in low ca1 position. Call light in reach. Side rails up X2. welder machine operator on. Pulse ox on. NIBP on. Warm blanket given. 18:00 Chest Single View XRAY In Process Unspecified. EDMS 18:00 Inserted saline lock: 22 gauge in right antecubital area, using aseptic technique. ca1 ,using aseptic technique. harvey Sheehan RN Blood collected. 18:00 Initial lab(s) drawn, by ED staff, sent to lab. ca1 18:56 No provider procedures requiring assistance completed. ca1 20:36 Marshall Bolanos PA is Hospitalizing Provider. snw 20:44 CT Pelvis wo Cont In Process Unspecified. EDMS 21:34 Patient admitted, IV remains in place. mg2 Administered Medications: 20:20 Drug: vancoMYCIN 1 grams Route: IVPB; Infused Over: 2 hrs; Site: left hand; mg2 Outcome: 20:40 Decision to Hospitalize by Provider. snw 21:34 Admitted to Med/surg accompanied by tech, via wheelchair, room 204, with chart, Report mg2 called to CRISTINA Estes 21:34 Condition: stable 21:34 Instructed on the need for admit, Demonstrated understanding of instructions. 21:35 Patient left the ED. mg2 Signatures: Dispatcher [employer] EDNE Dianne Arteaga, CAR DRIVER-C CAR DRIVER-Csnw Alena Scott RN RN Dread Valdivia RN RN mg2 Sharon Thompson RN RN ca1 Corrections: (The following items were deleted from the chart) 16:31 16:29 Allergies: NKA; ca1 ca1 18:58 17:00 Neuro: Level of Consciousness is awake, ca1 ca1 19:02 17:00 Derm: Skin is intact, is healthy with good turgor, Skin is pink, warm \T\ dry. ca1 ca1 21:34 21:10 BP 129 / 91; Pulse 71bpm; Resp 18bpm; Pulse Ox 100% RA; mg2 mg2
--- NOTE | 2020-04-23 20:40 | EDPHYS ---
[facility] Name: Andie Castro Age: 49 yrs Sex: Female : 1970 Arrival Date: 04/23/2020 Time: 16:24 Bed 16 Private MD: ED Physician Shaun Bhatti HPI: 04/23 17:27 This 49 yrs old Female presents to ER via EMS with complaints of Decubitus. snw 17:27 Onset: The symptoms/episode began/occurred 1 month(s) ago, and became worse and became snw persistent. Modifying factors: The patient symptoms are alleviated by nothing. The patient has not experienced similar symptoms in the past. pt saw Dr. Hopper x 28yrs. Has seen Dr. Burrell x 2yrs. Brother story reader is having an increasingly difficult time getting help for his Sister and is considering [facility]. . 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 - Social history:: Smoking status: Patient denies any tobacco usage or history of. ROS: 17:27 Constitutional: Negative for fever, chills, and weight loss, Eyes: Negative for injury, snw pain, redness, and discharge, ENT: Negative for injury, pain, and discharge, Neck: Negative for injury, pain, and swelling, Cardiovascular: Negative for chest pain, palpitations, and edema, Respiratory: Negative for shortness of breath, cough, wheezing, and pleuritic chest pain, Abdomen/GI: Negative for abdominal pain, nausea, vomiting, diarrhea, and constipation, Back: Negative for injury and pain, : Negative for injury, bleeding, discharge, and swelling, MS/Extremity: Negative for injury and deformity, Neuro: Negative for headache, weakness, numbness, tingling, and seizure, Psych: Negative for depression, anxiety, suicide ideation, homicidal ideation, and hallucinations. 17:27 Skin: Positive for sacral decub. Exam: 17:23 Constitutional: This is a well developed, well nourished patient who is awake, alert, snw and in no acute distress. Head/Face: Normocephalic, atraumatic. Eyes: Pupils equal round and reactive to light, extra-ocular motions intact. Lids and lashes normal. Conjunctiva and sclera are non-icteric and not injected. Cornea within normal limits. Periorbital areas with no swelling, redness, or edema. ENT: Nares patent. No nasal discharge, no septal abnormalities noted. Tympanic membranes are normal and external auditory canals are clear. Oropharynx with no redness, swelling, or masses, exudates, or evidence of obstruction, uvula midline. Mucous membranes moist. Neck: Trachea midline, no thyromegaly or masses palpated, and no cervical lymphadenopathy. Supple, full range of motion without nuchal rigidity, or vertebral point tenderness. No Meningismus. Chest/axilla: Normal chest wall appearance and motion. Nontender with no deformity. No lesions are appreciated. 17:23 Respiratory: Lungs have equal breath sounds bilaterally, clear to auscultation and percussion. No rales, rhonchi or wheezes noted. No increased work of breathing, no retractions or nasal flaring. Abdomen/GI: Soft, non-tender, with normal bowel sounds. No distension or tympany. No guarding or rebound. No evidence of tenderness throughout. Back: No spinal tenderness. No costovertebral tenderness. Scoliosis MS/ Extremity: Pulses equal, no cyanosis. Neurovascular intact. Full, normal range of motion. 17:23 Cardiovascular: Rate: tachycardic, Rhythm: regular, Pulses: no pulse deficits are appreciated, Heart sounds: normal. 17:23 Skin: Appearance: Color: pale, Temperature: warm, Moisture: normal moisture, lesion(s), noted, and can be described as sacral decubitus with depth to bone, x 1 month. Pt has had IPH 2/wk x 2 wks, finished course of abx. Area began to have an odor and story reader states the area looks larger and less viable than before.. 17:23 Neuro: Exam negative for acute changes. Vital Signs: 16:41 Pulse 111; Resp 17 S; Temp 98.6(TE); Pulse Ox 100% on R/A; ca1 16:53 BP 106 / 78; ss 18:00 BP 90 / 66; Pulse 95; Resp 16 S; Pulse Ox 99% on R/A; ca1 19:04 BP 96 / 75; Pulse 73; Resp 16 S; Pulse Ox 97% on R/A; ca1 20:20 Temp 99.8(A); mg2 21:10 BP 129 / 91; Pulse 71; Resp 18; Temp 99.5(A); Pulse Ox 100% on R/A; mg2 MDM: 16:29 Patient medically screened. snw 20:00 Physician consultation: Marshall ALBERTS was called at 20:00, was contacted at snw 20:00, regarding admission, to the medical/surgical unit. patient's condition, would like medications started, Vancomycin. 20:40 Data reviewed: vital signs, nurses notes. Data interpreted: Pulse oximetry: on room air snw is 97 %. Interpretation: normal. Counseling: I had a detailed discussion with the patient and/or guardian regarding: the historical points, exam findings, and any diagnostic results supporting the discharge/admit diagnosis, lab results, radiology results, the need for further work-up and treatment in the hospital. 04/23 17:21 Order name: T\T\S; Complete Time: 19:27 snw 04/23 17:21 Order name: Basic Metabolic Panel; Complete Time: 19:06 snw 04/23 17:21 Order name: Blood Culture Adult (2) snw 04/23 17:21 Order name: CBC with Diff; Complete Time: 18:22 snw 04/23 17:21 Order name: CPK; Complete Time: 19:06 snw 04/23 17:21 Order name: Lactate; Complete Time: 18:33 snw 04/23 17:21 Order name: LFT's; Complete Time: 19:06 snw 04/23 17:21 Order name: Procalcitonin; Complete Time: 18:59 snw 04/23 17:21 Order name: TSH; Complete Time: 19:07 snw 04/23 18:47 Order name: T4 Free; Complete Time: 19:07 EDMS 04/23 18:50 Order name: Glucose, Ancillary Testing; Complete Time: 18:51 EDMS 04/23 19:28 Order name: Urine Dipstick--Ancillary (enter results); Complete Time: 19:53 ar5 04/23 19:58 Order name: ABO/RH no charge; Complete Time: 20:21 EDMS 04/23 20:24 Order name: Lactate EDMS 04/23 17:21 Order name: Chest Single View XRAY; Complete Time: 18:15 snw 04/23 17:21 Order name: Accucheck; Complete Time: 18:18 snw 04/23 17:21 Order name: Cardiac monitoring; Complete Time: 18:18 snw 04/23 20:24 Order name: [facility] Cons EDMS 04/23 20:24 Order name: Regular EDMS 04/23 20:25 Order name: Urinalysis EDMS 04/23 20:25 Order name: Basic Metabolic Panel EDMS 04/23 20:25 Order name: Basic Metabolic Panel EDMS 04/23 20:25 Order name: CBC with Automated Diff EDMS 04/23 20:25 Order name: CBC with Automated Diff EDMS 04/23 20:25 Order name: Magnesium EDMS 04/23 20:25 Order name: Magnesium EDMS 04/23 20:26 Order name: Vancomycin Level Trough EDMS 04/23 20:27 Order name: CT Pelvis wo Cont; Complete Time: 21:11 snw 04/23 17:21 Order name: EKG - Nurse/Tech; Complete Time: 18:18 snw 04/23 17:21 Order name: IV Saline Lock - Large Bore; Complete Time: 18:18 snw 04/23 17:21 Order name: Labs collected and sent; Complete Time: 18:18 snw 04/23 17:21 Order name: O2 Per Protocol; Complete Time: 18:18 snw 04/23 17:21 Order name: O2 Sat Monitoring; Complete Time: 18:18 snw 04/23 17:21 Order name: Urine Dipstick-Ancillary (obtain specimen); Complete Time: 18:56 snw EC:15 Rate is 113 beats/min. Rhythm is regular. QRS [place] is Normal. Clinical impression: NSR snw w/ Non-specific ST/T Changes. Administered Medications: 20:20 Drug: vancoMYCIN 1 grams Route: IVPB; Infused Over: 2 hrs; Site: left hand; mg2 Disposition: 04/24 06:57 Co-signature as Attending Physician, Shaun Bhatti MD. rn Disposition: 04/23/20 20:40 Hospitalization ordered by Marshall Bolanos for Inpatient Admission. Preliminary diagnosis is Infected decubitus - failed outpatient therapy. - Bed requested for Telemetry/MedSurg (Inpatient). - Status is Inpatient Admission. mg2 - Condition is Stable. - Problem is an acute exacerbation. - Symptoms have worsened. Signatures: Dispatcher [employer] EDMS Dianne Arteaga, 911 EMERGENCY SERVICES DISPATCHER-C 911 EMERGENCY SERVICES DISPATCHER-Csnw Shaun Bhatti MD MD rn Radha Hernandez RN RN tl1 Dread Valdivia RN RN mg2 Sharon Thompson RN RN ca1 Corrections: (The following items were deleted from the chart) 04/23 16:31 16:29 Allergies: NKA; ca1 ca1 20:43 20:26 Vancomycin Peak ordered. EDOR EDMS 21:00 20:40 Hospitalization Ordered by Marshall ALBERTS for Inpatient Admission. tl1 Preliminary diagnosis is Infected decubitus - failed outpatient therapy. Bed requested for Telemetry/MedSurg (Inpatient). Status is Inpatient Admission. Condition is Stable. Problem is an acute exacerbation. Symptoms have worsened. snw 21:35 21:00 04/23/2020 20:40 Hospitalization Ordered by Marshall ALBERTS for Inpatient mg2 Admission. Preliminary diagnosis is Infected decubitus - failed outpatient therapy. Bed requested for Telemetry/MedSurg (Inpatient). Status is Inpatient Admission. Condition is Stable. Problem is an acute exacerbation. Symptoms have worsened. tl1
--- NOTE | 2020-04-23 21:08 | RAD REPORT ---
EXAM DESCRIPTION: CT - Pelvis Wo Cont - 04/23/2020 8:45 pm CLINICAL HISTORY: Pelvic pain. Ulceration COMPARISON: None. TECHNIQUE: Computed axial tomography of the pelvis was obtained. Coronal and sagittal reconstruction performed All CT scans are performed using dose optimization technique as appropriate and may include automated exposure control or mA/KV adjustment according to patient size. FINDINGS: An ulceration involves the right posterior soft tissue. Cortical irregularity and lucency is present within the right posterior sacrum compatible with osteomyelitis. A fluid-filled soft tissue abscess is not seen. The rectum is distended with stool measuring 8 centimeters IMPRESSION: Osteomyelitis involving the lower sacrum
[2020-04-23 22:19] VITALS: BMI 17.4
[2020-04-23] MEDS: NA CHLORIDE 0.9% 1,000 ML IV SCH (23:18)
[2020-04-24 02:55] LABS: Urine Appearance CLEAR; Urine Blood NEGATIVE (NEG); Urine Color DK YELLOW; Urine Glucose NEGATIVE (NEG); Urine Protein NEGATIVE (NEG); Urine Specific Gravity >=1.030 (1.005-1.030); Urine pH 5.5 (5.0-7.0)
[2020-04-24 03:41] LABS: Urine Microscopic Reflex NO UMIC
[2020-04-24 03:47] LABS: Urine Bilirubin NEGATIVE (NEG)
[2020-04-24 05:13] LABS: Absolute Lymphocytes (CBC) 1.9 K/uL (0.7-4.9); Basophils % 0.6 % (0-1.3); Hematocrit 31.4 % (36.0-45.0); Lymphocytes % 21.2 % (15.3-44.8); MPV 8.9 fL (7.6-11.3)
[2020-04-24 05:36] LABS: BUN Blood Urea Nitrogen 13 mg/dL (7-18); Bicarbonate 28 mmol/L (21-32); Glucose Level 111 mg/dL (74-106); Magnesium 1.9 mg/dL (1.8-2.4); Potassium 3.4 mmol/L (3.5-5.1); Sodium Level 149 mmol/L (136-145)
[2020-04-24] MEDS: ENOXAPARIN 40 MG/0.4 ML SQ SCH ×2 (09:00→09:02)
[2020-04-24] MEDS: NA CHLORIDE 0.9% 1,000 ML IV SCH ×2 (09:06→17:57)
[2020-04-24] MEDS: KCL 20 MEQ/100 mL IVPB 20 MEQ/100 ML BAG IV SCH ×2 (09:06→12:28)
[2020-04-24] MEDS: VANCOMYCIN 750 MG in NA CHLORIDE 0.9% 150 ML IVPB SCH ×2 (10:04→21:49)
--- NOTE | 2020-04-24 11:08 | RAD REPORT ---
EXAM DESCRIPTION: MRI - Sacrum/Coccyx Wo Cont - 04/24/2020 10:59 am CLINICAL HISTORY: Back pain/ulceration COMPARISON: Cat scan April 23, 2020 TECHNIQUE: Axial, sagittal coronal magnetic resonance imaging sacrum obtained FINDINGS: Buttock ulceration is present Abnormal signal is present within the distal sacrum/coccyx compatible with osteomyelitis. A soft tissue abscess is not seen IMPRESSION: Osteomyelitis involving the distal sacrum/coccyx
--- NOTE | 2020-04-24 12:04 | CON ---
Date of Consultation: 04/24/2020 Brief History Of Present Illness: The patient is a 49-year-old female with past medical history of s eizures, Down syndrome bed ridden since 2017, hypothyroidism, brought to the emergency room by her br other who is her main transitional care liaison with complaints of worsening sacral pressure ulcer. He has been taki ng care of his sister's whole life. She had a skin tear to the sacral region over a year ago, which is getting progressively worse. She has been transition to a snf facility due to her sig nificant increased nursing requirements. The patient is alert but not communicating due to her basel ine Down syndrome, which is her baseline per her brother report. Nobody is available for my consulta tion other than the patient and as such the information is obtained from the chart. Past Medical History: Significant for Down syndrome, history of seizures, bedridden since 2017, sacr al pressure ulcer on admission, hypothyroidism. Past Surgical History: Unable to obtain. Review of Systems: 10-point review of systems is unable to obtain. Psychosocial History: As above. Otherwise, unable to obtain, but from chart no smoking, no alcohol, no recreational drug use. Physical Examination: Vital Signs: At the time of my examination her BMI is 17.5. Her blood pressure 195/51, pulse 92, re spiratory rate 16, temperature 98.0, sats are 97% on room air. General: She is awake, alert, non-conversive. Psychiatric: Unable to obtain. HEENT: She appears to have a Down's appearance. Chest: Normal expansion and excursion. Cardiovascular: Regular rate and rhythm. Pulmonary: Clear to auscultation bilaterally. Skin: Focused examination of her sacral area shows a necrotic sacral wound with obvious exposed bone and cellulitic changes in the surrounding soft tissues. This appears to be an osteomyelitic appeara nce by gross examination. Laboratory Data: Reveals a white blood count of 11.4 on admission, now 8.8, hemoglobin 10.6, hematoc rit 31.4, platelet count is 197, neutrophils are 70%, her sodium 149, potassium 3.4, chloride 114, ca rbon dioxide 28, BUN 13, creatinine 0.4, glucose is 111, lactic acid 0.8, calcium 7.9, magnesium 1.9. Her UA was essentially negative. She had imaging performed, which included a pelvic CT, which was officially read osteomyelitis involving the lower sacrum. She had a chest x-ray performed as well, o fficially read as no acute abnormalities displayed. Assessment And Plan: This is a 49-year-old female who comes in with a necrotic sacral ulcer down to bone, indicative and consistent with osteomyelitis. 1.Medical management. 2.Antibiotic coverage. 3.The patient will likely require a PICC line and long-term antibiotics to help treat this infected chronic sacral wound. 4.I recommend debridement of the necrotic tissue on her sacrum. 5.Ongoing wound care. 6.Pressure reduction with rolling every 2 hours. 7.We will discuss wound care going forward with the patient's family. It was unable to obtain conse nt. As such, we will reach out the family's medical power of health care attorney to discuss surgical interventi on and the above stated plan of the patient. Thank you for this interesting consult. VARINDER Voice ID: [id number] Report ID: [id number]
--- NOTE | 2020-04-24 12:25 | P.CNS ---
Date of Consult: 04/24/20 Subjective: Patient is a 49 year old female with history of down syndrome who presents with worsening sacral ulcer. 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 Brother reports patient has been bed ridden since 2016 and developed a pressure ulcer in February of this year. Patient completed a 10 day course of PO antibiotics one week ago for sacral ulcer with no improvement. I was consulted for sacral coccyx ulcer. - Past Medical/Surgical History Diabetic: No -: History of seizures -: Down syndrome -: Bed ridden since 2016 -: Sacral pressure ulcer present on admission -: Hypothyroidism Past Surgical History: Unable to obtain Psychosocial/ Personal History: Taking care of by her brother at home, has a night lucerne farmer - Social History Smoking Status: Never smoker Alcohol use: No CD- Drugs: No Caffeine use: No Place of Residence: Home Allergies: Erythomycin, Sulfa, peliosole Active Medications Acetaminophen (Tylenol -Extra Strength) 500 mg PO Q4HP PRN PRN Reason: TEMP > 101' F Stop: 05/23/20 20:23 Enoxaparin Sodium (Lovenox 40 Mg Inj) 40 mg SQ DAILY [facility] Stop: 05/24/20 09:01 Last Admin: 04/24/20 09:00 Dose: Not Given Documented by: Sodium Chloride (Ns 1000 Ml Ivbag) 1,000 mls @ 100 mls/hr IV .Q10H [facility] Stop: 05/23/20 21:01 Last Admin: 04/24/20 09:06 Dose: 1,000 mls Documented by: Vancomycin HCl 750 mg/ Sodium (Chloride) 150 mls @ 150 mls/hr IVPB Q12HR [facility]; Protocol Stop: 05/24/20 09:01 Last Admin: 04/24/20 10:04 Dose: 150 mls Documented by: Sodium Chloride (Normal Saline Flush) 10 ml IV BID [facility] Stop: 05/23/20 21:01 Last Admin: 04/24/20 09:06 Dose: 10 ml Documented by: ROS: General: Brother reports good oral intake, takes PO medications if crushed GI: Brother denies diarrhea Objective: Temp Pulse Resp BP Pulse Ox 98 F 92 H 16 95/51 L 97 04/24/20 08:00 04/24/20 08:00 04/24/20 08:00 04/24/20 08:00 04/24/20 08:00 Labs: Na 149, K 3.4, BUN 13, Creat 0.48, Albumin, 1.9, WBC 8.8, Hgb 10.6, Hct 31.4 Sacral coccyx MRI 04/24: EXAM DESCRIPTION: MRI - Sacrum/Coccyx Wo Cont - 04/24/2020 10:59 am CLINICAL HISTORY: Back pain/ulceration COMPARISON: Cat scan April 23, 2020 TECHNIQUE: Axial, sagittal coronal magnetic resonance imaging sacrum obtained FINDINGS: Buttock ulceration is present Abnormal signal is present within the distal sacrum/coccyx compatible with osteomyelitis. A soft tissue abscess is not seen IMPRESSION: Osteomyelitis involving the distal sacrum/coccyx ROS: General: Awake, alert, nonverbal which is her baseline CV: S1,S2 RESP: Good breath sounds Skin: Sacral coccyx unstageable pressure ulcer with large amount of slough and necrotic tissue, lamar area with erythema Assessment and plan: Leukocytosis improved Sacral coccyx unstageable pressure ulcer, can do wet to dry dressing changes for now, I&D today Xray shows osteomyelitis Wound and blood cultures pending Anemia, likely from chronic wound Vancomycin day 1, will add Merrem 1g IV Q8h Will continue to monitor Thank you for consult Patient discussed with Dr. Lundberg
[2020-04-24] MEDS ORDERED: BUPIVACA 0.25%/EPI 0.0005%/PF 30 ML VIAL ONE (14:53)
[2020-04-24] MEDS ORDERED: LIDOCAINE 1% MPF 5 ML VIAL ONE (15:00)
[2020-04-24] MEDS ORDERED: propofoL 200 MG/20 ML VIAL IV ONE (15:00)
[2020-04-24] MEDS ORDERED: FENTANYL CITR 100 MCG/2 ML ONE (15:00)
[2020-04-24] MEDS ORDERED: MIDAZOLAM HCL 2 MG/2 ML INJ ONE (15:00)
[2020-04-24] MEDS ORDERED: ONDANSETRON 4 MG/2 ML VIAL ONE (15:00)
[2020-04-24] MEDS ORDERED: dexAMETHasone 4 MG/ML VIAL ONE (15:01)
[2020-04-24] MEDS ORDERED: EPHEDRINE SULF 50 MG/ML VIAL ONE (15:35)
[2020-04-24] MEDS ORDERED: SODIUM HYPOCHLORITE 0.25% 473 ML TOP SCH (15:45)
--- NOTE | 2020-04-24 15:49 | P.PN ---
Subjective Date of Service: 04/24/20 Chief Complaint: Cellulitis of sacral pressure ulcer nonverbal, does not appear in pain Review of Systems is unable to be obtained Physical Examination - Vital Signs Temperature: 98.1 F Blood Pressure: 135/67 Pulse: 107 Respirations: 14 Pulse Ox (%): 95 - Physical Exam General: In no apparent distress, Cachectic, Other (nonverbal) HEENT: Sclerae nonicteric Respiratory: Clear to auscultation bilaterally Cardiovascular: No edema, Regular rate/rhythm, Normal S1 S2 Gastrointestinal: Normal bowel sounds, Soft and benign, No tenderness Integumentary: Other (~8x7 sacral decubitus ulcer with exposed bone) - Studies Laboratory Data (last 24 hrs) 04/23/20 18:07: WBC 11.4 H, Hgb 12.2, Hct 37.3, Plt Count 253 04/23/20 18:07: Sodium 145, Potassium 3.5, BUN 13, Creatinine 0.66, Glucose 108 H, Total Bilirubin 0.4, AST 35, ALT 60, Alkaline Phosphatase 93 Microbiology Data (last 24 hrs): 04/23/20 18:17 Blood - Blood Anaerobic Blood Culture - Final Assessment & Plan Physician Review Additional Text: Sacral pressure ulcer, stage IV present on admission / cellulitis History of seizures: Hypothyroidism: Down syndrome: Severe protein calorie malnutrition: Plan: Sacral pressure ulcer, stage IV present on admission: / cellulitis: -consistent with osteomyelitis on CT pelvis and on exam. bedridden since 2017 -Seen with Dr. Chong (general surgery) - to go to OR for debridement today -consulted ID for osteomyelitis, pt current on IV Vanc, recommended adding Meropenem as well -may need further surgical debridement, ?possible benefit from wound vac -will need SNF placement after acute stay - / notified History of seizures: continue home keppra Hypothyroidism: TSH elevated at 6.45. continue home synthroid Down syndrome: Patient is bed ridden. Her brother has been taking care of her her whole life. States that he is not able to care for the patient adequately and would like case management to help with transitioning patient to a detention facility. Severe protein calorie malnutrition: Patient has generalized muscle atrophy, weakness and body fat loss. Dietary consult recommended. Dispo: anticipate discharge in >72hrs given severity of ulcer, will need SNF placement Time Spent Managing Pts Care (In Minutes): 35
--- NOTE | 2020-04-24 15:50 | P.OP ---
Revolving Field Assembler: NONE,NONE Preoperative diagnosis: Stage IV Sacral Decubitus Ulcer with Ostoemyelitis Postoperative diagnosis: Stage IV Sacral Decubitus Ulcer with Ostoemyelitis Primary procedure: Excisional Debridement of Soft tissue including bone of sacrum Anesthesia: GETA + Local Estimated blood loss: <10cc Specimen: Debridement Tissue Findings: Osteomyelitis with bone necrosis of sacrococcygeal bone Complications: None Transferred to: Recovery Room Condition: Good
[2020-04-24] MEDS ORDERED: Meropenem 1000 MG/VIAL IV SCH (17:00)
[2020-04-24] MEDS: Meropenem 1,000 MG in NA CHLORIDE 0.9% 100 ML IV SCH (17:58)
[2020-04-24] MEDS ORDERED: VANCOMYCIN 0.75 GM in NA CHLORIDE 0.9% 250 ML IVPB SCH (21:00)
[2020-04-24] MEDS: levETIRAcetam 500 MG TAB PO SCH (21:48)
[2020-04-24] MEDS: ATORVASTATIN 20 MG TAB PO SCH (21:48)
--- NOTE | 2020-04-25 01:20 | OP ---
Date of Procedure: 04/24/2020 Surgeon: Rian Chong MD, Preoperative Diagnosis: Stage IV sacral decubitus ulcer with osteomyelitis. Postoperative Diagnosis: Stage IV sacral decubitus ulcer with osteomyelitis. Procedure Performed: Excisional debridement of soft tissue including bone of sacrum and coccygeal ar ea. Anesthesia: General endotracheal plus local with 0.25% Marcaine with epinephrine. Estimated Blood Loss: Less than 10 cc. Specimen: Debridement tissue. Findings: Osteomyelitis with bone necrosis of the sacrococcygeal bone. Complication: None. Disposition: Transferred to recovery room in good condition. Procedure In Detail: After informed consent was obtained by the patient's medical power of aesthetics instructor, the patient was brought to the operating room, prepped and draped in the usual sterile fashion. Aft er adequate anesthesia was achieved, I used a 15 blade to circumferentially dissect out all necrotic tissue as well as a combination of sharp and blunt dissection using scissors, pickups, and simple cur ette to remove all necrotic tissue. Bone chips were evident upon examination and these bone chips we re already flaking off an obviously necrotic. These were removed using sharp dissection of the sacro coccygeal area. These were also sent off for debridement tissue. After all necrotic tissue was bryan mykel, the area was copiously irrigated multiple times and repacked with sterile dressing, damp to dry with Dakin solution and a sterile dressing placed over top. The patient tolerated the procedure well without evidence of complication, transferred to PACU in good condition. All counts were correct at the end of the case. Size of wound was 13 x 14 down to bone of the sacrum. TK/MODL Voice ID: [id number] Report ID: [id number]
[2020-04-25] MEDS: Meropenem 1,000 MG in NA CHLORIDE 0.9% 100 ML IV SCH ×3 (01:24→15:56)
[2020-04-25 04:32] LABS: Absolute Lymphocytes (CBC) 0.9 K/uL (0.7-4.9); Basophils % 0.1 % (0-1.3); Hematocrit 26.2 % (36.0-45.0); Lymphocytes % 15.7 % (15.3-44.8); MPV 9.4 fL (7.6-11.3); RBC Red Blood Cell Count 2.65 M/uL (3.86-4.86)
[2020-04-25 04:44] LABS: BUN Blood Urea Nitrogen 11 mg/dL (7-18); Bicarbonate 26 mmol/L (21-32); Glucose Level 125 mg/dL (74-106); Potassium 3.8 mmol/L (3.5-5.1); Sodium Level 149 mmol/L (136-145)
[2020-04-25] MEDS: NA CHLORIDE 0.9% 1,000 ML IV SCH ×3 (05:40→23:00)
[2020-04-25] MEDS: LEVOTHYROXINE SOD 0.075 MG TAB PO SCH (05:44)
[2020-04-25] MEDS: VANCOMYCIN 750 MG in NA CHLORIDE 0.9% 150 ML IVPB SCH (09:00)
[2020-04-25] MEDS: ENOXAPARIN 40 MG/0.4 ML SQ SCH (09:04)
[2020-04-25] MEDS: levETIRAcetam 500 MG TAB PO SCH ×2 (09:04→21:46)
[2020-04-25] MEDS: CETIRIZINE HCL 5 MG TABLET PO SCH (09:04)
--- NOTE | 2020-04-25 10:53 | P.PN ---
Date of Service: 04/25/20 Subjective: Patient is a 49 year old female with history of down syndrome who presents with worsening sacral ulcer. Patients brother at bedside and is the patients principal network engineer. Brother reports patient has been bed ridden since 2016 and developed a pressure ulcer in February of this year. Patient completed a 10 day course of PO antibiotics one week ago for sacral ulcer with no improvement. I was consulted for sacral coccyx ulcer. Patient examined at bedside. Plans for SNF. Currently being treated for osteomyelitis to sacral coccyx region s/p debridement 04/24 Objective: Temp Pulse Resp BP Pulse Ox 97.3 F 76 16 89/59 L 96 04/25/20 08:00 04/25/20 08:00 04/25/20 08:00 04/25/20 08:00 04/25/20 08:00 Labs: Na 149, K 3.8, BUN 11, Creat 0.36, Albumin, 1.9, WBC 5.8, Hgb 8.6, Hct 26.2 Sacral coccyx MRI 04/24: EXAM DESCRIPTION: MRI - Sacrum/Coccyx Wo Cont - 04/24/2020 10:59 am CLINICAL HISTORY: Back pain/ulceration COMPARISON: Cat scan April 23, 2020 TECHNIQUE: Axial, sagittal coronal magnetic resonance imaging sacrum obtained FINDINGS: Buttock ulceration is present Abnormal signal is present within the distal sacrum/coccyx compatible with osteomyelitis. A soft tissue abscess is not seen IMPRESSION: Osteomyelitis involving the distal sacrum/coccyx ROS: General: Awake, alert, nonverbal which is her baseline CV: S1,S2 RESP: Good breath sounds Skin: Sacral coccyx unstageable pressure ulcer with granulation tissue, slough and exposed bone Assessment and plan: Leukocytosis improved Sacral coccyx unstageable pressure ulcer, continue with wound care orders per Dr. Chong Xray shows osteomyelitis Wound cultures show gram negative rods Blood cultures show no growth to date Anemia, likely from chronic wound Vancomycin and Merrem day 2, continue for total of 6 weeks Will continue to monitor Patient discussed with Dr. Lundberg
[2020-04-25] MEDS: VANCOMYCIN 500 MG in NA CHLORIDE 0.9% 100 ML IVPB SCH (17:24)
--- NOTE | 2020-04-25 20:49 | P.PN ---
Subjective Date of Service: 04/25/20 Chief Complaint: Cellulitis of sacral pressure ulcer nonverbal, does not appear in pain, no new changes. s/p debridement yesterday Review of Systems is unable to be obtained Physical Examination - Vital Signs Temperature: 98 F Blood Pressure: 107/53 Pulse: 97 Respirations: 16 Pulse Ox (%): 98 - Physical Exam General: Other (does not respond to verbal commands) HEENT: Sclerae nonicteric Neck: Supple, No LAD Respiratory: Clear to auscultation bilaterally, Normal air movement Cardiovascular: No edema, Regular rate/rhythm, Normal S1 S2 Gastrointestinal: Soft and benign, Non-distended, No tenderness Musculoskeletal: No tenderness Integumentary: Other (sacral ulcer with dressing intact) - Studies Microbiology Data (last 24 hrs): 04/23/20 18:17 Blood - Blood Anaerobic Blood Culture - Final Assessment & Plan Physician Review Additional Text: Sacral pressure ulcer, stage IV present on admission / cellulitis History of seizures: Hypothyroidism: Down syndrome: Severe protein calorie malnutrition: Plan: Sacral pressure ulcer, stage IV present on admission: / cellulitis: -consistent with osteomyelitis on CT pelvis and on exam. bedridden since 2016 -Seen with Dr. Chong (general surgery) - s/p debridement 04/24 -consulted ID for osteomyelitis, pt current on IV Vanc, added Meropenem as well -will need SNF placement after acute stay - SW/CM notified History of seizures: continue home keppra Hypothyroidism: TSH elevated at 6.45. continue home synthroid Down syndrome: Patient is bed ridden. Her brother has been taking care of her her whole life. States that he is not able to care for the patient adequately and would like case management to help with transitioning patient to a alf facility. Severe protein calorie malnutrition: Patient has generalized muscle atrophy, weakness and body fat loss. Dispo: anticipate discharge in >72hrs given severity of ulcer, will need SNF placement Time Spent Managing Pts Care (In Minutes): 35
--- NOTE | 2020-04-25 21:14 | RAD REPORT ---
EXAM DESCRIPTION: RAD - Chest Single View - 04/25/2020 9:06 pm CLINICAL HISTORY: picc line insertion verification COMPARISON: Chest Single View dated 04/23/2020; Chest Single View dated 02/06/2019; Abdomen 1 View ([facility]) dated 07/07/2018; Chest Single View dated 12/19/2017 FINDINGS: Portable chest was obtained following placement of a right upper extremity PICC line. The catheter tip projects over the SVC.
[2020-04-25] MEDS: ATORVASTATIN 20 MG TAB PO SCH (21:46)
[2020-04-25] MEDS: JUVEN PACKET PO SCH (21:47)
[2020-04-25] MEDS: ENSURE ENLIVE 237 ML CAN PO SCH (21:47)
[2020-04-26] MEDS: Meropenem 1,000 MG in NA CHLORIDE 0.9% 100 ML IV SCH ×3 (00:37→16:32)
[2020-04-26 05:16] LABS: Hematocrit 27.3 % (36.0-45.0); RBC Red Blood Cell Count 2.78 M/uL (3.86-4.86)
[2020-04-26] MEDS: NA CHLORIDE 0.9% 1,000 ML IV SCH ×4 (05:23→19:00)
[2020-04-26] MEDS: LEVOTHYROXINE SOD 0.075 MG TAB PO SCH (05:31)
[2020-04-26] MEDS: VANCOMYCIN 500 MG in NA CHLORIDE 0.9% 100 ML IVPB SCH ×3 (05:35→16:53)
[2020-04-26 05:47] LABS: BUN Blood Urea Nitrogen 9 mg/dL (7-18); Bicarbonate 28 mmol/L (21-32); Glucose Level 87 mg/dL (74-106); Potassium 3.2 mmol/L (3.5-5.1); Sodium Level 145 mmol/L (136-145)
[2020-04-26] MEDS ORDERED: CALCIUM GLUC 10% INJ 4.65 MEQ in NA CHLORIDE 0.9% 100 ML IV ONE ×2 (06:49→09:00)
[2020-04-26] MEDS: KCL 20 MEQ/100 mL IVPB 20 MEQ/100 ML BAG IV SCH ×2 (06:58→10:00)
--- NOTE | 2020-04-26 09:56 | P.PN ---
Subjective Date of Service: 04/26/20 Chief Complaint: Cellulitis of sacral pressure ulcer Subjective: No new changes Review of Systems is unable to be obtained Physical Examination - Vital Signs Temperature: 98.0 F Blood Pressure: 118/67 Pulse: 81 Respirations: 18 Pulse Ox (%): 100 - Physical Exam General: Alert, In no apparent distress HEENT: Atraumatic, Normocephalic Neck: Supple Respiratory: Clear to auscultation bilaterally Cardiovascular: Normal pulses, Regular rate/rhythm Capillary refill: <2 Seconds Gastrointestinal: Soft and benign, W/out hepatosplenomegaly Musculoskeletal: Contractures Integumentary: Pressure ulcer Neurological: Abnormal gait, Abnormal speech, Abnormal strength Lymphatics: No axilla or inguinal lymphadenopathy Assessment & Plan Physician Review Additional Text: Osteomyelitis distal sacrum/coccyx Sacral pressure ulcer, stage IV present on admission / cellulitis History of seizures: Hypothyroidism: Down syndrome: Severe protein calorie malnutrition: Plan: Sacral pressure ulcer, stage IV present on admission: / cellulitis: MRI of the LS spine consistent with osteomyelitis of distal sacrum/coccyx Patient is bedridden since [address] Dr[address] Chong (general surgery) s/p debridement 04/24 ID consult appreciated for osteomyelitis, Currently on IV Vanc, and Meropenem Need SNF placement after acute stay - SW/CM consulted History of seizures: continue home keppra Hypothyroidism: TSH elevated at 6.45. continue home synthroid Down syndrome: Patient is bed ridden. Her brother has been taking care of her her whole life. States that he is not able to care for the patient adequately and would like case management to help with transitioning patient to a senior living facility. Severe protein calorie malnutrition: Patient has generalized muscle atrophy, weakness and body fat loss. Dispo: anticipate discharge in >72hrs given severity of ulcer, will need SNF placement Time Spent Managing Pts Care (In Minutes): 42
[2020-04-26] MEDS: levETIRAcetam 500 MG TAB PO SCH ×2 (09:59→20:47)
[2020-04-26] MEDS: CETIRIZINE HCL 5 MG TABLET PO SCH (09:59)
[2020-04-26] MEDS: ENSURE ENLIVE 237 ML CAN PO SCH ×2 (10:00→20:48)
[2020-04-26] MEDS: ENOXAPARIN 40 MG/0.4 ML SQ SCH (10:01)
[2020-04-26] MEDS: JUVEN PACKET PO SCH ×2 (10:01→20:48)
[2020-04-26] MEDS: ATORVASTATIN 20 MG TAB PO SCH (20:47)
[2020-04-27] MEDS: Meropenem 1,000 MG in NA CHLORIDE 0.9% 100 ML IV SCH ×3 (00:30→16:09)
[2020-04-27] MEDS: NA CHLORIDE 0.9% 1,000 ML IV SCH ×3 (03:58→15:44)
[2020-04-27] MEDS: VANCOMYCIN 500 MG in NA CHLORIDE 0.9% 100 ML IVPB SCH (06:12)
[2020-04-27] MEDS: LEVOTHYROXINE SOD 0.075 MG TAB PO SCH (06:13)
[2020-04-27] MEDS: levETIRAcetam 500 MG TAB PO SCH ×2 (08:51→21:22)
[2020-04-27] MEDS: CETIRIZINE HCL 5 MG TABLET PO SCH (08:51)
[2020-04-27] MEDS: ENOXAPARIN 40 MG/0.4 ML SQ SCH (08:51)
[2020-04-27] MEDS: ENSURE ENLIVE 237 ML CAN PO SCH ×2 (08:52→21:22)
[2020-04-27] MEDS: JUVEN PACKET PO SCH ×2 (08:52→21:22)
--- NOTE | 2020-04-27 09:34 | P.PN ---
Subjective Date of Service: 04/27/20 Chief Complaint: Cellulitis of sacral pressure ulcer Subjective: No new changes Review of Systems is unable to be obtained Physical Examination - Vital Signs Temperature: 97.4 F Blood Pressure: 97/47 Pulse: 74 Respirations: 16 Pulse Ox (%): 97 - Physical Exam General: Alert, In no apparent distress HEENT: Atraumatic, Normocephalic Neck: Supple Respiratory: Clear to auscultation bilaterally Cardiovascular: Regular rate/rhythm, Normal S1 S2 Capillary refill: <2 Seconds Gastrointestinal: Soft and benign, W/out hepatosplenomegaly Musculoskeletal: No clubbing, Contractures Integumentary: Pressure ulcer Neurological: Other (Alert,Awake ,bed bound ) Lymphatics: No axilla or inguinal lymphadenopathy Assessment & Plan Physician Review Additional Text: Osteomyelitis distal sacrum/coccyx Sacral pressure ulcer, stage IV present on admission / cellulitis History of seizures: Hypothyroidism: Down syndrome: Severe protein calorie malnutrition: Plan: Sacral pressure ulcer, stage IV present on admission: / cellulitis: MRI of the LS spine consistent with osteomyelitis of distal sacrum/coccyx Patient is bedridden since [address] Chong (general surgery) s/p debridement 04/24 ID consult appreciated for osteomyelitis, Currently on IV Vanc, and Meropenem Need SNF placement after acute stay - SW/CM consulted History of seizures: continue home keppra Hypothyroidism: TSH elevated at 6.45. continue home synthroid Down syndrome: Patient is bed ridden. Her brother has been taking care of her her whole life. States that he is not able to care for the patient adequately and would like case management to help with transitioning patient to a long-term facility. Severe protein calorie malnutrition: Patient has generalized muscle atrophy, weakness and body fat loss. Disposition : Continue IV antibiotics Wound care Case management consult for placement to SNF for IV antibiotic and wound care Possible Dc to SNF once placement is arranged Time Spent Managing Pts Care (In Minutes): 42
[2020-04-27] MEDS: VANCOMYCIN 750 MG in NA CHLORIDE 0.9% 150 ML IVPB SCH (17:03)
[2020-04-27] MEDS: ATORVASTATIN 20 MG TAB PO SCH (21:22)
[2020-04-28] MEDS: Meropenem 1,000 MG in NA CHLORIDE 0.9% 100 ML IV SCH ×3 (00:57→16:02)
[2020-04-28] MEDS: NA CHLORIDE 0.9% 1,000 ML IV SCH ×3 (00:58→21:00)
[2020-04-28] MEDS: LEVOTHYROXINE SOD 0.075 MG TAB PO SCH (05:42)
[2020-04-28] MEDS: VANCOMYCIN 750 MG in NA CHLORIDE 0.9% 150 ML IVPB SCH ×2 (05:43→17:08)
[2020-04-28] MEDS: ENOXAPARIN 40 MG/0.4 ML SQ SCH (09:25)
[2020-04-28] MEDS: levETIRAcetam 500 MG TAB PO SCH ×2 (09:25→22:15)
[2020-04-28] MEDS: CETIRIZINE HCL 5 MG TABLET PO SCH (09:25)
[2020-04-28] MEDS: ENSURE ENLIVE 237 ML CAN PO SCH ×2 (09:26→22:15)
[2020-04-28] MEDS: JUVEN PACKET PO SCH ×2 (09:26→22:15)
--- NOTE | 2020-04-28 16:15 | P.PN ---
Date of Service: 04/28/20 Subjective: Patient is a 49 year old female with history of down syndrome who presents with worsening sacral ulcer. Patients brother at bedside and is the patients solutions operator. Brother reports patient has been bed ridden since 2016 and developed a pressure ulcer in February of this year. Patient completed a 10 day course of PO antibiotics one week ago for sacral ulcer with no improvement. I was consulted for sacral coccyx ulcer. Patient examined at bedside. Plans for SNF. Currently being treated for osteomyelitis to sacral coccyx region s/p debridement 04/24. No new changes Objective: Temp Pulse Resp BP Pulse Ox 97.7 F 95 H 18 112/53 L 98 04/28/20 12:00 04/28/20 12:00 04/28/20 12:00 04/28/20 12:00 04/28/20 12:00 Labs: Na 145, K 3.2, BUN 9, Creat 0.30, Albumin, 1.9, WBC 5.3, Hgb 9.1, Hct 27.3 Sacral coccyx MRI 04/24: EXAM DESCRIPTION: MRI - Sacrum/Coccyx Wo Cont - 04/24/2020 10:59 am CLINICAL HISTORY: Back pain/ulceration COMPARISON: Cat scan April 23, 2020 TECHNIQUE: Axial, sagittal coronal magnetic resonance imaging sacrum obtained FINDINGS: Buttock ulceration is present Abnormal signal is present within the distal sacrum/coccyx compatible with osteomyelitis. A soft tissue abscess is not seen IMPRESSION: Osteomyelitis involving the distal sacrum/coccyx ROS: General: Awake, alert CV: S1,S2 RESP: Good breath sounds Skin: Sacral coccyx unstageable pressure ulcer with granulation tissue, slough and exposed bone Assessment and plan: Leukocytosis resolved Sacral coccyx unstageable pressure ulcer, continue with Dakins daily Xray shows osteomyelitis Wound culture shows MRSA, Enterococcus Faecalis, E.coli and Pseudomonas aeruginosa Blood cultures show no growth to date Anemia, likely from chronic wound Vancomycin and Merrem day 5, continue for total of 6 weeks Will continue to monitor Patient discussed with Dr. Lundberg
--- NOTE | 2020-04-28 16:53 | P.PN ---
Subjective Date of Service: 04/28/20 Chief Complaint: Cellulitis of sacral pressure ulcer Subjective: Improving nonverbal, does not appear in pain, no new changes Review of Systems is unable to be obtained Physical Examination - Vital Signs Temperature: 97.7 F Blood Pressure: 112/53 Pulse: 95 Respirations: 18 Pulse Ox (%): 98 - Physical Exam General: In no apparent distress HEENT: Mucous membr. moist/pink Neck: Supple, No LAD Respiratory: Clear to auscultation bilaterally, Normal air movement Cardiovascular: No edema, Regular rate/rhythm, Normal S1 S2 Gastrointestinal: Soft and benign, Non-distended, No tenderness Musculoskeletal: No tenderness Integumentary: Pressure ulcer (dressing in place on sacral decubitus, c/d/i) Neurological: Other (nonverbal, does not follow my commands, but interacts with brother) Assessment & Plan Physician Review Additional Text: Osteomyelitis distal sacrum/coccyx Sacral pressure ulcer, stage IV present on admission / cellulitis History of seizures: Hypothyroidism: Down syndrome: Severe protein calorie malnutrition: Plan: Sacral pressure ulcer, stage IV present on admission: / cellulitis: MRI of the LS spine consistent with osteomyelitis of distal sacrum/coccyx Patient is bedridden since [address] Chong (general surgery) s/p debridement 04/24 ID consult appreciated for osteomyelitis, Currently on IV Vanc, and Meropenem - will need 6wks total discussed with brother - does not want SNF or LTAC, interested in [facility] - SW/CM consulted History of seizures: continue home keppra Hypothyroidism: TSH elevated at 6.45. continue home synthroid Down syndrome: Patient is bed ridden. Her brother has been taking care of her her whole life. States that he is not able to care for the patient adequately and would like case management to help with transitioning patient to a personal [facility] Severe protein calorie malnutrition: Patient has generalized muscle atrophy, weakness and body fat loss. Disposition : Continue IV antibiotics Wound care Case management consult for placement DC once placement is arranged Time Spent Managing Pts Care (In Minutes): 35
[2020-04-28] MEDS: ATORVASTATIN 20 MG TAB PO SCH (22:15)
[2020-04-29] MEDS: Meropenem 1,000 MG in NA CHLORIDE 0.9% 100 ML IV SCH ×3 (00:24→16:35)
[2020-04-29] MEDS: NA CHLORIDE 0.9% 1,000 ML IV SCH ×3 (03:26→16:36)
[2020-04-29 05:18] LABS: BUN Blood Urea Nitrogen 7 mg/dL (7-18); Bicarbonate 27 mmol/L (21-32); Glucose Level 90 mg/dL (74-106); Magnesium 1.7 mg/dL (1.8-2.4); Potassium 3.2 mmol/L (3.5-5.1); Sodium Level 146 mmol/L (136-145)
[2020-04-29] MEDS: VANCOMYCIN 750 MG in NA CHLORIDE 0.9% 150 ML IVPB SCH ×2 (05:55→17:44)
[2020-04-29] MEDS: LEVOTHYROXINE SOD 0.075 MG TAB PO SCH (06:01)
[2020-04-29] MEDS ORDERED: MAGNESIUM SULFATE 1 gm IVPB 1 GM/100 ML BAG IV ONE (08:00)
[2020-04-29] MEDS: KCL 20 MEQ/100 mL IVPB 20 MEQ/100 ML BAG IV SCH ×2 (09:40→11:40)
[2020-04-29] MEDS: ENSURE ENLIVE 237 ML CAN PO SCH ×2 (09:40→23:01)
[2020-04-29] MEDS: JUVEN PACKET PO SCH ×2 (09:40→23:01)
[2020-04-29] MEDS: CETIRIZINE HCL 5 MG TABLET PO SCH (09:42)
[2020-04-29] MEDS: levETIRAcetam 500 MG TAB PO SCH ×2 (09:42→23:01)
[2020-04-29] MEDS: ENOXAPARIN 40 MG/0.4 ML SQ SCH (09:43)
--- NOTE | 2020-04-29 10:53 | P.DS ---
Admission Date: 04/23/20 Discharge Date: 05/01/20 Disposition: [place] [facility]/HOME HEALTH CARE Discharge Condition: FAIR Reason for Admission: Cellulitis of sacral pressure ulcer Consultations: General Surgery Procedures: Excisional debridement of soft tissue including bone of sacrum (04/24/20) Problem List Osteomyelitis distal sacrum/coccyx Sacral pressure ulcer, stage IV present on admission / cellulitis History of seizures: Hypothyroidism: Down syndrome: Severe protein calorie malnutrition: Brief History of Present Illness: 49-year-old female with a past medical history of seizures, Down syndrome, bed ridden since 2017 and hypothyroidism who is brought to the emergency room by her brother who is her main wire bender with complaints of worsening sacral pressure ulcer. Brother states that he has taking care of his sister his whole life. Approximately a year ago he noticed a small skin tear on the sacral region. That has developed into a large pressure ulcer and it looks infected. Also states that it is getting increasingly difficult to take care of his sister and would like to have case management help with transitioning patient in to a [place] [facility] facility. In the emergency room patient is alert. She does not communicate due to her Down syndrome. She is at her baseline per her brother. She is pleasant and cooperative and in no distress. Blood work shows slightly elevated white cell count at 11.4. Patient has been on oral antibiotics for the last 2 weeks. Pressure ulcer on the sacral region is large and extensive. Has significant eschar and will likely require surgical debridement. Hospital Course: Patient was admitted and underwent excisional debridement by Dr. Rian Chong without complications. Her decubitus ulcer was managed with wet to dry dressings. Her brother felt he could no longer provide the appropriate level of care for her and recommended discharge to a personal shelter. Unfortunately the discharge was delayed twice due to her personal shelter not being ready for her - cleaning the bedroom, getting furniture, etc. Of note, patient kept mandel after surgery to help her decubitus ulcer stay dry. It was removed prior to transfer. Vital Signs/Physical Exam: Temp Pulse Resp BP Pulse Ox 97.5 F 86 16 116/56 L 100 04/29/20 08:00 04/29/20 08:00 04/29/20 08:00 04/29/20 08:00 04/29/20 08:00 General: In no apparent distress HEENT: EOMI, Sclerae nonicteric Neck: Supple Respiratory: Clear to auscultation bilaterally, Normal air movement Cardiovascular: Regular rate/rhythm, Normal S1 S2 Gastrointestinal: Normal bowel sounds, No tenderness Musculoskeletal: No tenderness Integumentary: No rashes Lymphatics: No axilla or inguinal lymphadenopathy Laboratory Data at Discharge: WBC 5.3 K/uL (4.3-10.9) 04/26/20 04:40 Hgb 9.1 g/dL (12.0-15.0) L 04/26/20 04:40 Hct 27.3 % (36.0-45.0) L 04/26/20 04:40 Plt Count 174 K/uL (152-406) 04/26/20 04:40 Sodium 146 mmol/L (136-145) H 04/29/20 04:45 Potassium 3.2 mmol/L (3.5-5.1) L 04/29/20 04:45 BUN 7 mg/dL (7-18) 04/29/20 04:45 Creatinine 0.28 mg/dL (0.55-1.3) L 04/29/20 04:45 Glucose 90 mg/dL (74-106) 04/29/20 04:45 Magnesium Cancelled 04/29/20 05:00 Total Bilirubin 0.4 mg/dL (0.2-1.0) 04/23/20 18:07 AST 35 U/L (15-37) 04/23/20 18:07 ALT 60 U/L (12-78) 04/23/20 18:07 Alkaline Phosphatase 93 U/L (45-117) 04/23/20 18:07 Home Medications: Atorvastatin Calcium [Lipitor*] 20 mg PO BEDTIME 04/24/20 Levetiracetam [Keppra] 500 mg PO BID 04/24/20 Levocetirizine Dihydrochloride [Allergy Relief] 1 tab PO BEDTIME 04/24/20 Levothyroxine [Synthroid*] 0.075 mg PO DAILY 04/24/20 Ensure Enlive 237 ml PO BID 30 Days #60 can 04/29/20 Jamie [Jamie*] 1 pkt PO BID 30 Days #60 powd.pack 04/29/20 Meropenem-0.9% Sodium Chloride [Meropenem-0.9% NaCl 1 Gram/50] 1 gm IV Q8HR 42 Days piggyback 04/29/20 Vancomycin 750 mg IV Q12HR 42 Days vial 04/29/20 New Medications: Meropenem-0.9% Sodium Chloride [Meropenem-0.9% NaCl 1 Gram/50] 1 gm IV Q8HR 42 Days piggyback Vancomycin 750 mg IV Q12HR 42 Days vial Ensure Enlive 237 ml PO BID 30 Days #60 can Jamie [Jamie*] 1 pkt PO BID 30 Days #60 powd.pack Patient Discharge Instructions: Follow up with PCP within 1 week. Follow up with general surgery-Dr. Vivar within 1-2 weeks. Diet: Regular (Ensure & Jamie ordered to help supplement) Activity: Ad bernardo Followup: Rian Chong MD [ACTIVE - CAN ADMIT] - (Call to make an appointment. ) Time spent managing pt's care (in minutes): 32
--- NOTE | 2020-04-29 15:32 | P.PN ---
Date of Service: 04/29/20 Subjective: Patient is a 49 year old female with history of down syndrome who presents with worsening sacral ulcer. Patients brother at bedside and is the patients jail officer. Brother reports patient has been bed ridden since 2016 and developed a pressure ulcer in February of this year. Patient completed a 10 day course of PO antibiotics one week ago for sacral ulcer with no improvement. I was consulted for sacral coccyx ulcer. Patient examined at bedside. Plans for SNF. Currently being treated for osteomyelitis to sacral coccyx region s/p debridement 04/24. No new changes Objective: Temp Pulse Resp BP Pulse Ox 97.3 F 81 14 118/56 L 94 04/29/20 12:00 04/29/20 12:00 04/29/20 12:04/29/20 12:04/29/20 12:00 Labs: Na 146, K 3.2, BUN 7, Creat 0.28, Albumin, 1.9, WBC 5.3, Hgb 9.1, Hct 27.3 Sacral coccyx MRI 04/24: EXAM DESCRIPTION: MRI - Sacrum/Coccyx Wo Cont - 04/24/2020 10:59 am CLINICAL HISTORY: Back pain/ulceration COMPARISON: Cat scan April 23, 2020 TECHNIQUE: Axial, sagittal coronal magnetic resonance imaging sacrum obtained FINDINGS: Buttock ulceration is present Abnormal signal is present within the distal sacrum/coccyx compatible with osteomyelitis. A soft tissue abscess is not seen IMPRESSION: Osteomyelitis involving the distal sacrum/coccyx ROS: General: Awake, alert CV: S1,S2 RESP: Good breath sounds Skin: Sacral coccyx unstageable pressure ulcer with granulation tissue, slough and exposed bone Assessment and plan: Leukocytosis resolved Sacral coccyx unstageable pressure ulcer, continue with Dakins daily Xray shows osteomyelitis Wound culture shows MRSA, Enterococcus Faecalis, E.coli and Pseudomonas aeruginosa Blood cultures show no growth to date Anemia, likely from chronic wound Vancomycin and Merrem day 6, continue for total of 6 weeks Will continue to monitor Patient discussed with Dr. Lundberg
--- NOTE | 2020-04-29 16:25 | P.PN ---
Subjective Date of Service: 04/29/20 Chief Complaint: Cellulitis of sacral pressure ulcer nonverbal, appears comfortable, no new changes Review of Systems is unable to be obtained Physical Examination - Vital Signs Temperature: 97.3 F Blood Pressure: 118/56 Pulse: 81 Respirations: 14 Pulse Ox (%): 94 - Physical Exam General: In no apparent distress HEENT: Atraumatic, PERRLA, Sclerae nonicteric Neck: Supple, JVD not distended Respiratory: Clear to auscultation bilaterally, Normal air movement Cardiovascular: Regular rate/rhythm, Normal S1 S2 Gastrointestinal: Soft and benign, Non-distended, No tenderness Musculoskeletal: No erythema, No tenderness Integumentary: Pressure ulcer (dressing in place c/d/i) - Studies Microbiology Data (last 24 hrs): 04/23/20 18:15 Blood - Blood Aerobic Blood Culture - Final No growth in 5 days. 04/23/20 18:15 Blood - Blood Anaerobic Blood Culture - Final No growth in 5 days. 04/23/20 18:17 Blood - Blood Aerobic Blood Culture - Final No growth in 5 days. 04/23/20 18:17 Blood - Blood Anaerobic Blood Culture - Final Assessment & Plan Physician Review Additional Text: Osteomyelitis distal sacrum/coccyx Sacral pressure ulcer, stage IV present on admission / cellulitis History of seizures: Hypothyroidism: Down syndrome: Severe protein calorie malnutrition: Plan: Sacral pressure ulcer, stage IV present on admission: / cellulitis: MRI of the LS spine consistent with osteomyelitis of distal sacrum/coccyx Patient is bedridden since [address] Chong (general surgery) s/p debridement 04/24 ID consult appreciated for osteomyelitis, Currently on IV Vanc, and Meropenem - will need 6wks total discussed with brother - does not want SNF or LTAC, [facility] - SW/CM consulted History of seizures: continue home keppra Hypothyroidism: TSH elevated at 6.45. continue home synthroid Down syndrome: Patient is bed ridden. Her brother has been taking care of her her whole life. States that he is not able to care for the patient adequately and would like case management to help with [facility]ing [facility] Severe protein calorie malnutrition: Patient has generalized muscle atrophy, weakness and body fat loss. Disposition : [facility], should have everything set up for discharge tomorrow Time Spent Managing Pts Care (In Minutes): 35
[2020-04-29] MEDS: ATORVASTATIN 20 MG TAB PO SCH (23:01)
[2020-04-30] MEDS: Meropenem 1,000 MG in NA CHLORIDE 0.9% 100 ML IV SCH ×3 (00:57→16:31)
[2020-04-30] MEDS: VANCOMYCIN 750 MG in NA CHLORIDE 0.9% 150 ML IVPB SCH ×2 (05:12→17:49)
[2020-04-30] MEDS: LEVOTHYROXINE SOD 0.075 MG TAB PO SCH (05:17)
[2020-04-30] MEDS: NA CHLORIDE 0.9% 1,000 ML IV SCH ×3 (05:18→23:00)
[2020-04-30 05:27] LABS: BUN Blood Urea Nitrogen 9 mg/dL (7-18); Bicarbonate 31 mmol/L (21-32); Glucose Level 92 mg/dL (74-106); Magnesium 2.3 mg/dL (1.8-2.4); Potassium 3.6 mmol/L (3.5-5.1); Sodium Level 143 mmol/L (136-145)
[2020-04-30] MEDS ORDERED: KCL 20 MEQ/100 mL IVPB 20 MEQ/100 ML BAG IV SCH (07:00)
[2020-04-30] MEDS: CETIRIZINE HCL 5 MG TABLET PO SCH (08:16)
[2020-04-30] MEDS: levETIRAcetam 500 MG TAB PO SCH ×2 (08:17→21:18)
[2020-04-30] MEDS: ENSURE ENLIVE 237 ML CAN PO SCH ×2 (08:17→21:19)
[2020-04-30] MEDS: JUVEN PACKET PO SCH ×2 (08:17→21:19)
[2020-04-30] MEDS: ENOXAPARIN 40 MG/0.4 ML SQ SCH (08:17)
[2020-04-30] MEDS: CALCIUM CARBONATE 500 MG TAB PO SCH ×2 (11:47→21:18)
--- NOTE | 2020-04-30 14:12 | P.PN ---
Date of Service: 04/30/20 Subjective: Patient is a 49 year old female with history of down syndrome who presents with worsening sacral ulcer. Patients brother at bedside and is the patients child psychology teacher. Brother reports patient has been bed ridden since 2016 and developed a pressure ulcer in February of this year. Patient completed a 10 day course of PO antibiotics one week ago for sacral ulcer with no improvement. I was consulted for sacral coccyx ulcer. Patient examined at bedside. Plans for SNF. Currently being treated for osteomyelitis to sacral coccyx region s/p debridement 04/24. Objective: Temp Pulse Resp BP Pulse Ox 98.5 F 94 H 16 90/53 L 93 04/30/20 12:00 04/30/20 12:00 04/30/20 12:00 04/30/20 12:04/30/20 12:00 Labs: Na 143, K 3.6, BUN 9, Creat 0.31, Albumin, 1.9, WBC 5.3, Hgb 9.1, Hct 27.3 Sacral coccyx MRI 04/24: EXAM DESCRIPTION: MRI - Sacrum/Coccyx Wo Cont - 04/24/2020 10:59 am CLINICAL HISTORY: Back pain/ulceration COMPARISON: Cat scan April 23, 2020 TECHNIQUE: Axial, sagittal coronal magnetic resonance imaging sacrum obtained FINDINGS: Buttock ulceration is present Abnormal signal is present within the distal sacrum/coccyx compatible with osteomyelitis. A soft tissue abscess is not seen IMPRESSION: Osteomyelitis involving the distal sacrum/coccyx ROS: General: Awake, alert CV: S1,S2 RESP: Good breath sounds Skin: Sacral coccyx unstageable pressure ulcer with granulation tissue, slough and exposed bone Assessment and plan: Leukocytosis resolved Sacral coccyx unstageable pressure ulcer, continue with Dakins daily Xray shows osteomyelitis Wound culture shows MRSA, Enterococcus Faecalis, E.coli and Pseudomonas aeruginosa Blood cultures show no growth to date Anemia, likely from chronic wound Vancomycin and Merrem day 7, continue for total of 6 weeks Patient would benefit from wound vac Will continue to monitor Patient discussed with Dr. Lundberg
--- NOTE | 2020-04-30 19:43 | P.PN ---
Subjective Date of Service: 04/30/20 Chief Complaint: Cellulitis of sacral pressure ulcer Subjective: No new changes nonverbal, appears comfortable, no new changes Review of Systems is unable to be obtained Physical Examination - Vital Signs Temperature: 99.3 F Blood Pressure: 93/63 Pulse: 107 Respirations: 15 Pulse Ox (%): 97 - Physical Exam General: Alert, In no apparent distress HEENT: Mucous membr. moist/pink Neck: Supple, No LAD Respiratory: Clear to auscultation bilaterally, Normal air movement Cardiovascular: Regular rate/rhythm, Normal S1 S2 Gastrointestinal: Normal bowel sounds, No tenderness Musculoskeletal: No tenderness Integumentary: Other (Sacral decubitus ulcer dressing intact) Assessment & Plan Physician Review Additional Text: Osteomyelitis distal sacrum/coccyx Sacral pressure ulcer, stage IV present on admission / cellulitis History of seizures: Hypothyroidism: Down syndrome: Severe protein calorie malnutrition: Plan: Sacral pressure ulcer, stage IV present on admission: / cellulitis: MRI of the LS spine consistent with osteomyelitis of distal sacrum/coccyx Patient is bedridden since [address] Dr[address] Chong (general surgery) s/p debridement 04/24 ID consult appreciated for osteomyelitis, Currently on IV Vanc, and Meropenem - will need 6wks total History of seizures: continue home keppra Hypothyroidism: TSH elevated at 6.45. continue home synthroid Down syndrome: Patient is bed ridden. Her brother has been taking care of her her whole life. States that he is not able to care for the patient adequately and would like case management to help with transitioning patient to a [facility] Severe protein calorie malnutrition: Patient has generalized muscle atrophy, weakness and body fat loss. Disposition : patient accepted by [facility], plan was to discharge patient today, however [facility] was not ready yet. They are to receive a bed for her today or early tomorrow morning. Wound VAC ordered for patient's decubitus ulcer Time Spent Managing Pts Care (In Minutes): 35
[2020-04-30] MEDS: ATORVASTATIN 20 MG TAB PO SCH (21:18)
[2020-05-01] MEDS: Meropenem 1,000 MG in NA CHLORIDE 0.9% 100 ML IV SCH ×2 (00:32→07:31)
[2020-05-01 03:24] VITALS: O2SAT 96
[2020-05-01 05:10] LABS: ALT/SGPT 136 U/L (12-78); AST/SGOT 78 U/L (15-37); Albumin 1.2 g/dL (3.4-5.0); Alkaline Phosphatase 84 U/L (45-117); BUN Blood Urea Nitrogen 12 mg/dL (7-18); Bicarbonate 33 mmol/L (21-32); Bilirubin Total 0.2 mg/dL (0.2-1.0); Glucose Level 93 mg/dL (74-106); Magnesium 2.2 mg/dL (1.8-2.4); Potassium 3.9 mmol/L (3.5-5.1); Protein, Total 4.9 g/dL (6.4-8.2); Sodium Level 142 mmol/L (136-145)
[2020-05-01] MEDS: LEVOTHYROXINE SOD 0.075 MG TAB PO SCH (05:26)
[2020-05-01] MEDS: VANCOMYCIN 750 MG in NA CHLORIDE 0.9% 150 ML IVPB SCH (05:26)
[2020-05-01] MEDS: CETIRIZINE HCL 5 MG TABLET PO SCH (07:30)
[2020-05-01] MEDS: CALCIUM CARBONATE 500 MG TAB PO SCH (07:30)
[2020-05-01] MEDS: levETIRAcetam 500 MG TAB PO SCH (07:30)
[2020-05-01] MEDS: ENOXAPARIN 40 MG/0.4 ML SQ SCH (07:30)
[2020-05-01] MEDS: ENSURE ENLIVE 237 ML CAN PO SCH (07:46)
[2020-05-01] MEDS: JUVEN PACKET PO SCH (07:46)
[2020-05-01] MEDS: NA CHLORIDE 0.9% 1,000 ML IV SCH (07:49)
[2020-05-01] MEDS ORDERED: POTASSIUM CL SA 10 MEQ TAB PO ONE (09:00)
[2020-05-01 12:22] VITALS: BP 97/66; TEMP 97.6
== END 2020-05-01 13:15 | disposition home health service (06) | DRG 515 ==
LOC: ER 16:21 → ERHOLD 20:17 → 2ND 21:28
PROVIDERS: ADMIT Hospitalist; ATTEND Hospitalist
PROC: 0QB10ZZ Excision of Sacrum, Open Approach (ICD-10-PCS; principal; 2020-04-24 13:15)
PROC: 02HV33Z Insertion of Infusion Device into Superior Vena Cava, Percutaneous Approach (ICD-10-PCS; 2020-04-25)
DX: M86.8X8 Other osteomyelitis, other site (principal); L89.154 Pressure ulcer of sacral region, stage 4; E43 Unspecified severe protein-calorie malnutrition; L03.818 Cellulitis of other sites; Z68.1 Body mass index [BMI] 19.9 or less, adult; D64.9 Anemia, unspecified; E03.9 Hypothyroidism, unspecified; E83.51 Hypocalcemia; Q90.9 Down syndrome, unspecified; B96.20 Unspecified Escherichia coli [E. coli] as the cause of diseases classified elsewhere; B95.2 Enterococcus as the cause of diseases classified elsewhere; B96.5 Pseudomonas (aeruginosa) (mallei) (pseudomallei) as the cause of diseases classified elsewhere; B95.62 Methicillin resistant Staphylococcus aureus infection as the cause of diseases classified elsewhere; Z88.1 Allergy status to other antibiotic agents; Z91.030 Bee allergy status; Z79.890 Hormone replacement therapy; Z74.01 Bed confinement status; Z79.899 Other long term (current) drug therapy; Z88.0 Allergy status to penicillin; Z20.828 Contact with and (suspected) exposure to other viral communicable diseases
CPT/HCPCS: 36415; 71045; 72192; 72195; 80048; 80053; 80076; 80202; 81003; 82550; 82565; 82947; 83605; 83735; 84132; 84145; 84439; 84443; 85025; 85027; 85652; 86140; 86850; 86900; 86901; 87040; 87070; 87077; 87186; 87205; 88304; 88311; 92610; 93005; 96374; 99285; J0610; J1650; J2185; J2250; J2405; J2704; J3010; J3370; J3475; J3480; J7030; J7050; U0002

== ENCOUNTER 2020-07-06 17:05 | Observation (INO) | payer BC ==
--- OUTSIDE RECORDS SUMMARY | 2020-07-06 17:07 | XMS REPORT | Clinical Summary ---
:1970 Author Organization [facility] Address [address] [place] [address] Care Team Providers Name Role Phone Unavailable [...] Not on file Last Filed Vital Signs Not on file Plan of Treatment Health Maintenance Due Date Last Done Comments BREAST CANCER SCREENING 1970 COLON CANCER SCREENING COLONOSCOPY 1970 CERVICAL CANCER SCREENING PAP ONLY (Age 21-65) 1990 INFLUENZA VACCINE (#1) 2020 LIPID PANEL 12/20/2020 12/20/2017 Results Not on fileafter 07/06/2019 Insurance Payer Benefit Plan / Subscriber ID Effective Dates Phone Addre ss Type Group CIGNA - MGD CIGNA [id number] 2016-Present H MO/POS CARE HMO/POS/OPEN ACCESS Advance Directives For more information, please contact: [phone] Code Status Date Activated Date Inactivated Comments Full Code 12/19/2017 7:03 PM 12/23/2017 4:14 PM This code status was determined by: Patient
--- OUTSIDE RECORDS SUMMARY | 2020-07-06 17:08 | XMS REPORT | Continuity of Care Document ---
:1970 Author Organization [facility] t Address [address] [place] [id number] Care Team Providers Name Role Phone EDWARDO DANIELSON Attending Clinician Unavailable EDWARDO DANIELSON Admitting Clinician Unavailable Problems Condition Condition Condition Status Onset Resolution Last Treating Co mments Source Name Details Category Date Date Treatment Clinician Date Seizure Seizure Disease [facility] [place] Cerebral Cerebral Disease [facility] Tamika kes - megaly megaly 00:00: Medical 00 [place] Acquired Acquired Disease [facility] hyp[facility]roi hyp[facility]roi - Tamika kes - dism dism 00:00: Medical 00 [place] Down Down Disease Active [facility] syndrome syndrome -[facility] 00 [place] Allergies, Adverse Reactions, Alerts This patient has no known allergies or adverse reactions. Social History Social Habit Start Date Stop Date Quantity Comments Source Sex Assigned At [facility] Tobacco use and 2017-12-20 2017-12-20 Never [address] [facility] - exposure 00:00:00 00:00:00 [facility] Alcohol intake 2017-12-20 2017-12-20 Current [facility] es - 00:00:00 00:00:00 non-drinker of Medical Ce nter alcohol (finding) Smoking Status Start Date Stop Date Source Never smoker [facility] Medications Ordered Filled Start Stop Current Ordering Indication Dosage Frequency Signature Comments Components Source Medication Medication Date Date Medication? Clinician (SIG) Name Name levothyroxi Yes 125ug Take [address] ne 4-27 mcg [facility] - (SYNTHROID, 14:14: mouth Medic al LEVOTHROID) 05 [facility] 125 MCG morning on tablet an empty stomach. Procedures This patient has no known procedures. Plan of Care Planned Activity Planned Date Details Comments Source Future Scheduled 2020-12-[address] [facility] - Test 00:00:00 (procedure) [code = [facility] [id number]] Future Scheduled 2020-04-[address] [facility] - Test 00:00:00 (#1) [code = [facility] INFLUENZA VACCINE (#1)] Future Scheduled [address] [facility] - Test 00:00:00 malignant neoplasm Medical C enter of cervix (procedure) [code = 268517497] Future Scheduled [address] [facility] - Test 00:00:00 malignant neoplasm Medical C enter of breast (procedure) [code = 365506273] Future Scheduled [address] [facility] - Test 00:00:00 malignant neoplasm Medical C enter of colon (procedure) [code = 874019607] Results Test Description Test Time Test Comments Results Result Sour e Comments MR, BRAIN, 2017-12-22 Reason for FINAL REPORT PATIENT WITHOUT CONTRAST 17:54:00 exam:->sseizures ID: [id number] MRI /hydrocephalusWh Brain without contrast at is [...] MDReport Verified Date/Time: 12/22/2017 17:54:57 Reading Location: [facility] Radiology Reading Room AWAKE AND 2017-12-21 Reason for Date(s) of EEG: DROWSY 13:47:00 exam:->seizuresS 12/21/17ACC: hotom this be [id number] Number: performed at the 730Test Location: bedside?->Yes Inpatient RoomStart time: 08:38Stop time: 08:59ICD-10: R56.9CPT Code: 87817 HISTORY: 47 y.o. female who presented with [...] code = 368) 4.5 % 4.3-6.1 T4, [id number] 07:45:00 Test Item Value Reference Range Interpretation Comments FREE T4 (BEAKER) (test code = 655) 1.46 ng/dL 0.70-1.48 TSH/FREE T4 IF [id number] 06:53:00 Test Item Value Reference Range Interpretation Comments THYROID STIMULATING HORMONE 0.15 uIU/mL 0.35-4.94 L (BEAKER) (test code = 772) CALCIUM, [id number] 06:51:00 Test Item Value Reference Range Interpretation Comments CALCIUM IONIZED (BEAKER) (test 1.01 mmol/L 1.12-1.27 L code = 698) PH, BLOOD (BEAKER) (test code = 7.49 1810) [id number] 06:31:00 Test Item Value Reference Range Interpretation Comments PHOSPHORUS (BEAKER) (test code = 4.1 mg/dL 2.3-4.7 604) [id number] 06:31:00 Test Item Value Reference Range Interpretation Comments MAGNESIUM (BEAKER) (test code = 2.3 mg/dL 1.6-2.6 627) BASIC METABOLIC [id number] 06:31:00 Test Item Value Reference Range Interpretation [...] NOT APPLICABLE FOR DIALYSIS PATIEN TS. LIPID [id number] 06:31:00 Test Item Value Reference Range Interpretation [...] Very High >=190CBC W/PLT COUNT & AUTO [id number] 06:09:00 Test Item Value Reference Range Interpretation [...] % 0-1 PERCENT (BEAKER) (test code = 7609)
[2020-07-06] MEDS ORDERED: ACETAMINOPHEN 650MG/RECT SUPP PR ONE (17:34)
[2020-07-06 18:45] LABS: Basophils % 0.6 % (0-1.3); Lymphocytes % 18.2 % (15.3-44.8); MPV 8.2 fL (7.6-11.3); RBC Red Blood Cell Count 3.32 M/uL (3.86-4.86)
[2020-07-06 18:59] LABS: Protime INR 1.11
[2020-07-06 19:05] LABS: ALT/SGPT 23 U/L (12-78); AST/SGOT 20 U/L (15-37); Albumin 2.4 g/dL (3.4-5.0); Alkaline Phosphatase 82 U/L (45-117); Amylase 14 U/L (25-115); BUN Blood Urea Nitrogen 14 mg/dL (7-18); Bicarbonate 26 mmol/L (21-32); Bilirubin Direct 0.1 mg/dL (0-0.2); Bilirubin Total 0.3 mg/dL (0.2-1.0); CKMB Creatine Kinase MB 1.7 ng/mL (0.3-3.6); Creatine Phosphokinase 164 U/L (26-192); Glucose Level 108 mg/dL (74-106); Lipase 73 U/L (73-393); Potassium 3.6 mmol/L (3.5-5.1); Protein, Total 6.7 g/dL (6.4-8.2); Sodium Level 140 mmol/L (136-145); Troponin (Emerg Dept Use Only) 0.02 ng/mL (0.0-0.045)
--- NOTE | 2020-07-06 19:27 | RAD REPORT ---
EXAM DESCRIPTION: CT - Chest Abdomen Pelvis W Cont - 07/06/2020 6:51 pm CLINICAL HISTORY: Chest and abdomen pain. FEVER COMPARISON: No comparisons TECHNIQUE: Approximately 100 mL nonionic IV contrast was administered to the patient. All CT scans are performed using dose optimization technique as appropriate and may include automated exposure control or mA/KV adjustment according to patient size. FINDINGS: The lungs are clear.No pleural or pericardial effusion.No intrathoracic adenopathy. The liver, spleen, pancreas, adrenal glands and kidneys are within normal limits. No bowel obstruction, free air, free fluid or abscess. Significant stool is retained in the colon. Mi ld wall thickening of the rectum with trace fluid noted. The appendix is not identified as a discrete structure, however, no secondary findings of appendicitis are identified. No pathologic lymphadenop athy in the abdomen or pelvis. Severe scoliosis is present. IMPRESSION: Marked fecal retention is present throughout the colon. Stercoral colitis is a possibili ty.
[2020-07-06] MEDS ORDERED: NA CHLORIDE 0.9% 1,000 ML ONE (19:46)
[2020-07-06 20:19] LABS: Urine Bacteria <20 /HPF (<20); Urine Culture Reflex Order REFLEXED; Urine RBC NONE SEEN /HPF (NONE SEEN); Urine Yeast MANY (NONE SEEN)
[2020-07-06 20:21] LABS: Urine Blood NEGATIVE (NEG); Urine Glucose NEGATIVE (NEG); Urine Protein NEGATIVE (NEG); Urine Specific Gravity 1.025 (1.005-1.030); Urine pH 5.5 (5.0-7.0)
[2020-07-06] MEDS ORDERED: FLUCONAZOLE 100 MG TAB ONE (21:16)
[2020-07-06] MEDS ORDERED: levETIRAcetam 500 MG TAB ONE (21:16)
--- NOTE | 2020-07-06 21:24 | EDPHYS ---
Physician Documentation [facility] Name: Andie Castro Age: 49 yrs Sex: Female : 1970 Arrival Date: 07/06/2020 Time: 17:17 Bed 19 Private MD: ED Physician Dipesh Kc HPI: 07/06 18:03 This 49 yrs old Female presents to ER via EMS with complaints of Fever. pm1 18:03 The patient reports fever, 100.9 Fever according to paperwork provided from nursing pm1 home. No fever on ER arrival. Onset: The symptoms/episode began/occurred today. Modifying factors: there are no obvious modifying factors, Patient recently being treated for UTI for the past 3 days with cipro and cefadroxil. Patient sent to the ER from [facility] without any other complaints than fever. Patient is non-verbal with a history of down's syndrome. Brother is present at bedside to provide current antibiotic treatments for UTI. ROLL PANNER: 18:06 LMP N/A - Post-menopause jl7 Historical: - Allergies: 18:06 Bactrim; jl7 18:06 Bees; jl7 18:06 Erythromycin; jl7 18:06 Nystatin powder; jl7 18:06 Pediozole; jl7 18:06 PENICILLINS; jl7 18:06 Sulfa (Sulfonamide Antibiotics); jl7 - Home Meds: 18:06 levothyroxine 125 mcg tab once daily [Active]; levetiracetam 500 mg Oral tab nightly jl7 [Active]; atorvastatin 20 mg oral tab [Active]; - PMHx: 18:06 down syndrome; Hypothyroidism; Seizures; jl7 - Immunization history:: Adult Immunizations up to date. - Social history:: Smoking status: Patient denies any tobacco usage or history of. ROS: 18:03 Cardiovascular: Negative for chest pain, palpitations, and edema, Respiratory: Negative pm1 for shortness of breath, cough, wheezing, and pleuritic chest pain. 18:03 Back: Negative for injury and pain, MS/Extremity: Negative for injury and deformity, Skin: Negative for injury, rash, and discoloration, Neuro: Negative for headache, weakness, numbness, tingling, and seizure. 18:03 Constitutional: Positive for fever, Negative for poor PO intake. 18:03 Abdomen/GI: Positive for constipation, Negative for vomiting. 18:03 Unable to obtain ROS due to obtained from brother at bedside. Exam: 18:03 Constitutional: This is a well developed, well nourished patient who is awake, alert, pm1 and in no acute distress. Head/Face: Normocephalic, atraumatic. 18:03 Cardiovascular: Rate: normal, initially tachycardic and normal rate after digital pm1 disimpaction, Rhythm: regular, Pulses: no pulse deficits are appreciated, Edema: is not appreciated. 18:03 Respiratory: Exam negative for acute changes, respiratory distress, shortness of breath. 18:03 Abdomen/GI: Exam negative for acute changes, Inspection: abdomen appears normal, Palpation: abdomen is soft and non-tender, in all quadrants. 18:03 Skin: Appearance: normal except for affected area, sacral wound covered with wound vacuum dressing. 18:03 Neuro: Exam negative for acute changes, baseline per brother. Vital Signs: 17:17 BP 123 / 51; Pulse 136; Resp 17; Pulse Ox 100% ; jl7 17:45 Temp 97.6(R); jl7 18:24 Weight 36.29 kg (R); jl7 18:52 Pulse 87; Resp 17; Pulse Ox 100% ; jl7 19:30 BP 102 / 68; Pulse 75; Resp 16; Pulse Ox 98% on R/A; wh 20:30 BP 101 / 65; Pulse 71; Resp 18; Pulse Ox 99% on R/A; wh 22:00 BP 109 / 85; Pulse 70; Resp 18; Pulse Ox 98% on R/A; wh 23:30 BP 101 / 76; Pulse 75; Resp 18; Pulse Ox 96% on R/A; wh MDM: 17:18 Patient medically screened. pm1 17:45 ED course: Patient with wound vacuum tape over anal area and patient with stool trying pm1 to come out. Large hard stool digitally removed from the patient. Chaperoned by Aguila EVANS and Katiana Mattson. Patient's tachycardia resolved after removed and patient defecating on her own. 20:49 Data reviewed: vital signs. Data interpreted: Pulse oximetry: on room air is 100 %. pm1 Interpretation: normal. 20:49 ED course: Patient was not given antipyretic at skilled nursing per EMS and none given by pm1 EMS. Patient without fever in the ER. 21:20 Physician consultation: Rian Chong MD regarding consult, patient's condition, and will pm1 see patient tomorrow, due to wound vacuum dressing contamination, wants wound vacuum dressing removed and Dakin's solution with gauze applied to sacral decubitus. 21:22 Counseling: I had a detailed discussion with the patient and/or guardian regarding: the pm1 historical points, exam findings, and any diagnostic results supporting the discharge/admit diagnosis, lab results, the need for further work-up and treatment in the hospital. 21:24 Physician consultation: Azar De Jesus MD was called at 21:24, was contacted at 21:24, pm1 regarding admission, patient's condition, and will see patient would like medications started, Enema. 07/06 17:28 Order name: Flu pm1 07/06 17:28 Order name: Strep pm 07/06 17:28 Order name: COVID-19 1 07/06 17:29 Order name: Influenza Screen (A EDMD 07/06 17:29 Order name: Group A Streptococcus Rapid Sc EDMD 07/06 17:29 Order [facility]: [facility] 07/06 17:42 Order name: Amylase, Serum; Complete Time: 19:20 pm1 07/06 17:42 Order name: Basic Metabolic Panel; Complete Time: 19:20 pm1 07/06 17:42 Order name: Blood Culture Adult (2) pm1 07/06 17:42 Order name: CBC with Diff; Complete Time: 18:59 pm1 07/06 17:42 Order name: Ckmb; Complete Time: 19:20 pm1 07/06 17:42 Order name: CPK; Complete Time: 19:20 pm1 07/06 17:42 Order name: Lactate; Complete Time: 19:03 pm1 07/06 17:42 Order name: LFT's; Complete Time: 19:20 pm1 07/06 17:42 Order name: CT Chest, Abdomen, Pelvis - W/Contrast; Complete Time: 19:29 pm1 07/06 17:42 Order name: Lipase; Complete Time: 19:20 pm1 07/06 17:42 Order name: Procalcitonin; Complete Time: 19:41 pm1 07/06 17:42 Order name: Protime (+inr); Complete Time: 19:20 pm1 07/06 17:42 Order name: Ptt, Activated; Complete Time: 19:20 pm1 07/06 17:42 Order name: Troponin (emerg Dept Use Only); Complete Time: 19:20 pm1 07/06 17:42 Order name: Urine Microscopic Only; Complete Time: 20:27 pm1 07/06 20:04 Order name: Urine Dipstick--Ancillary (enter results); Complete Time: 20:27 tt3 07/06 20:21 Order name: Urine Culture EDMD 07/06 21:31 Order name: Comprehensive Metabolic Panel EDMD 07/06 22:48 Order name: Thyroid Stimulating Hormone EDMD 07/07 01:08 Order name: SARS-COV-2 RT PCR EDMD 07/07 05:04 Order name: T4 Free EDMD 07/06 17:42 Order name: Cardiac monitoring; Complete Time: 19:27 pm1 07/06 17:42 Order name: EKG - Nurse/Tech; Complete Time: 19:27 pm1 07/06 17:42 Order name: IV Saline Lock - Large Bore; Complete Time: 18:42 pm1 07/06 17:42 Order name: Labs collected and sent; Complete Time: 18:42 pm1 07/06 17:42 Order name: O2 Per Protocol; Complete Time: 18:54 pm1 07/06 17:42 Order name: O2 Sat Monitoring; Complete Time: 18:55 pm1 07/06 17:42 Order name: Urine Dipstick-Ancillary (obtain specimen); Complete Time: 20:00 pm1 07/06 21:31 Order name: CONS Pharmacy Consult EDMD 07/06 21:31 Order name: Regular EDMD 07/06 21:32 Order name: CONS Physician Consult EDMD Administered Medications: 19:32 Not Given (Physician Discretion): NS 0.9% (30 ml/kg) 30 ml/kg IV at bolus once; Sepsis pm1 Protocol 19:36 Drug: NS 0.9% 1000 ml Route: IV; Rate: 1000 ml; Site: right antecubital; wh 23:20 Follow up: Response: No adverse reaction; IV Status: Completed infusion wh 21:30 Drug: Keppra 500 mg Route: PO; rv 23:21 Follow up: Response: No adverse reaction 21:52 Drug: DiFLUcan 150 mg Route: PO; rv 23:20 Follow up: Response: No adverse reaction wh 23:35 Drug: Fleet Enema 133 ml Route: MT; wh 23:35 Follow up: Response: No adverse reaction Disposition: 07/06/20 21:23 Hospitalization ordered by Azar De Jesus for Observation. Preliminary diagnosis is Fecal impaction. - Bed requested for Telemetry/MedSurg (Inpatient). - Status is Observation. tw2 - Condition is Stable. - Problem is new. - Symptoms have improved. Addendum: 07/08/2020 13:45 Co-signature as Attending Physician, Dipesh Kc MD I agree with the assessment and c bobby plan of care. Signatures: Dispatcher [employer] EDMD Kellie Yo, RN CRISTINA Dipesh Kc MD MD cha Pena, Laura, RN RN lp1 Esteban Dover, CERTIFIED TRAVEL COUNSELOR CERTIFIED TRAVEL COUNSELOR pm1 Joan Ward RN RN tw2 Aguila Abel RN RN jl7 Rambo Schneider Allen Henley RN RN rv Corrections: (The following items were deleted from the chart) 07/06 19:08 17:43 Chest Single View+RAD.RAD.BRZ ordered. EDMS EDMS 19:20 17:42 Accucheck ordered. pm1 rv 22:42 21:23 Hospitalization Ordered by Azar De Jesus MD for Observation. Preliminary lp1 diagnosis is Fecal impaction. Bed requested for Telemetry/MedSurg (observation). Status is Observation. Condition is Stable. Problem is new. Symptoms have improved. pm1 23:20 21:28 Dressing - Wound ordered. pm1 07/07 06:02 07/06 22:42 07/06/2020 21:23 Hospitalization Ordered by Azar De Jesus MD for mw Observation. Preliminary diagnosis is Fecal impaction. Bed requested for [facility] ER HOLD. Status is Observation. Condition is Stable. Problem is new. Symptoms have improved. lp1 07/07 12:38 06:02 07/06/2020 21:23 Hospitalization Ordered by Azar De Jesus MD for Observation. tw2 Preliminary diagnosis is Fecal impaction. Bed requested for Telemetry/MedSurg (Inpatient). Status is Observation. Condition is Stable. Problem is new. Symptoms have improved.
--- NOTE | 2020-07-06 21:24 | ER ---
Nurse's Notes [facility] Name: Andie Castro Age: 49 yrs Sex: Female : 1970 Arrival Date: 07/06/2020 Time: 17:17 Bed 19 Private MD: Diagnosis: Fecal impaction Presentation: 07/06 17:17 Chief complaint: EMS states: Toned out for fever to [facility], pt does not have jl7 antipyretics ordered so none given on site. Faculty members reported not being aware of a sacral wound vac, reports currently being treated for a UTI with cipro since 07/01/20. Pt is non-verbal. Coronavirus screen: Client denies travel out of the [place] in the last 14 days. At this time, the client does not indicate any symptoms associated with coronavirus-19. Ebola Screen: No symptoms or risks identified at this time. 17:17 Method Of Arrival: EMS: [facility] 17:17 Initial Sepsis Screen: Does the patient meet any 2 criteria? No. Patient's initial jl7 sepsis screen is negative. Does the patient have a suspected source of infection? No. Patient's initial sepsis screen is negative. Risk Assessment: Do you want to hurt yourself or someone else? Patient reports no desire to harm self or others. Onset of symptoms is unknown. Care prior to arrival: IV initiated. 20 GA, in the right hand. Transition of care: patient was received from another setting of care (long-term care facility), [facility]. 17:17 Acuity: MARCEL 3 jl7 Triage Assessment: 17:17 General: Appears in no apparent distress. uncomfortable, Behavior is anxious. Pain: jl7 Unable to use pain scale. Does not appear to understand pain scale. Neuro: Level of Consciousness is awake, alert. Cardiovascular: Patient's skin is warm and dry. Respiratory: Airway is patent Respiratory effort is even, unlabored, Respiratory pattern is regular, symmetrical. Derm: Skin is pink, warm \T\ dry. MUD WORKER: 18:06 LMP N/A - Post-menopause jl7 Historical: - Allergies: 18:06 Bactrim; jl7 18:06 Bees; jl7 18:06 Erythromycin; jl7 18:06 Nystatin powder; jl7 18:06 Pediozole; jl7 18:06 PENICILLINS; jl7 18:06 Sulfa (Sulfonamide Antibiotics); jl7 - Home Meds: 18:06 levothyroxine 125 mcg tab once daily [Active]; levetiracetam 500 mg Oral tab nightly jl7 [Active]; atorvastatin 20 mg oral tab [Active]; - PMHx: 18:06 down syndrome; Hypothyroidism; Seizures; jl7 - Immunization history:: Adult Immunizations up to date. - Social history:: Smoking status: Patient denies any tobacco usage or history of. Screenin:15 Abuse screen: Denies threats or abuse. Denies injuries from another. Nutritional jl7 screening: No deficits noted. Tuberculosis screening: No symptoms or risk factors identified. Fall Risk No fall in past 12 months (0 pts). Secondary diagnosis (15 points) seizures, IV access (20 points). Ambulatory Aid- None/Bed Rest/Nurse Assist (0 pts). Gait- Normal/Bed Rest/Wheelchair (0 pts) Mental Status- Overestimates/Forgets Limitations (15 pts.). Total Hodgson Fall Scale indicates High Risk Score (45 or more points). Fall prevention measures have been instituted. Side Rails Up X 2 Placed Close to Nursing Station Frequent Obs/Assessments Occuring Family Present and informed to notify staff if the need to leave the bedside As available patient and family educated on Fall Prevention Program and Strategies. Assessment: 17:45 General: Wound vac noted to sacral area, Tegaderm noted to be covering the anus with jl7 stool on Tegaderm and wound vac without good suction. Hard stool noted to be in rectum. ERP called to bedside, dis-impacted pt of moderate amount of stool. Pt appeared to have immediate relief, HR decreased and pt's face relaxed.. 18:15 Reassessment: Pt's brother at bedside. jl7 19:20 Reassessment: Patient appears in no apparent distress at this time. Patient and/or wh family updated on plan of care and expected duration. Pain level reassessed. General: Appears in no apparent distress. Injury Description: WOund vac to sacral area. 21:00 Reassessment: Patient appears in no apparent distress at this time. Patient and/or wh family updated on plan of care and expected duration. Pain level reassessed. 22:15 Reassessment: Patient appears in no apparent distress at this time. Patient and/or wh family updated on plan of care and expected duration. Pain level reassessed. MD at bedside explaining POC Need for admit. Vital Signs: 17:17 BP 123 / 51; Pulse 136; Resp 17; Pulse Ox 100% ; jl7 17:45 Temp 97.6(R); jl7 18:24 Weight 36.29 kg (R); jl7 18:52 Pulse 87; Resp 17; Pulse Ox 100% ; jl7 19:30 BP 102 / 68; Pulse 75; Resp 16; Pulse Ox 98% on R/A; wh 20:30 BP 101 / 65; Pulse 71; Resp 18; Pulse Ox 99% on R/A; wh 22:00 BP 109 / 85; Pulse 70; Resp 18; Pulse Ox 98% on R/A; wh 23:30 BP 101 / 76; Pulse 75; Resp 18; Pulse Ox 96% on R/A; wh ED Course: 17:17 Patient arrived in ED. jl7 17:17 Maintain EMS IV. Dressing intact. Good blood return noted. Site clean \T\ dry. Gauge \T\ jl 7 site: 20 Right wrist. 17:18 Esteban Dover, JUDY is PHCP. pm1 17:18 Dipesh Kc MD is Attending Physician. pm1 17:58 Aguila Abel, RN is Primary Nurse. jl7 18:04 Triage completed. jl7 18:06 Arm band placed on right wrist. jl7 18:15 Patient has correct armband on for positive identification. Bed in low position. Call jl7 light in reach. Side rails up X2. Pulse ox on. NIBP on. 18:38 Initial lab(s) drawn, by mi, sent to lab. [facility] 18:52 CT Chest, Abdomen, Pelvis - W/Contrast In Process Unspecified. EDMS 19:16 Primary Nurse role handed off by Aguila Abel, CRISTINA jl7 19:19 Allen Henley, CRISTINA is Primary Nurse. rv 21:23 Azar De Jesus MD is Hospitalizing Provider. pm1 22:30 No provider procedures requiring assistance completed. Patient admitted, IV remains in place. Administered Medications: 19:32 Not Given (Physician Discretion): NS 0.9% (30 ml/kg) 30 ml/kg IV at bolus once; Sepsis pm1 Protocol 19:36 Drug: NS 0.9% 1000 ml Route: IV; Rate: 1000 ml; Site: right antecubital; 23:20 Follow up: Response: No adverse reaction; IV Status: Completed infusion 21:30 Drug: Keppra 500 mg Route: PO; rv 23:21 Follow up: Response: No adverse reaction 21:52 Drug: DiFLUcan 150 mg Route: PO; rv 23:20 Follow up: Response: No adverse reaction 23:35 Drug: Fleet Enema 133 ml Route: NM; 23:35 Follow up: Response: No adverse reaction Outcome: 21:23 Decision to Hospitalize by Provider. pm1 22:30 Admitted to ER Hold. Please see [facility] for further documentation. 22:30 Condition: stable 22:30 Instructed on the need for admit. 07/07 12:38 Patient left the ED. tw2 Signatures: Dispatcher [employer] EDMS Esteban Dover, JUDY TUBER HELPER pm1 Joan Ward RN RN tw2 Aguila Abel RN RN jl7 Katiana Bentley 3 Rambo Schneider Allen Henley RN RN rv
--- NOTE | 2020-07-06 21:34 | P.HP ---
Certification for Inpatient Patient admitted to: Observation With expected LOS: <2 Midnights Patient will require the following post-hospital care: None Practitioner: I am a practitioner with admitting privileges, knowledge of patient current condition, hospital course, and medical plan of care. Services: Services provided to patient in accordance with Admission requirements found in Title 42 Section 412.3 of the Code of Federal Regulations Patient History Date of Service: 07/06/20 Reason for admission: AW fever and fecal impaction History of Present Illness: Pt Hx of Downs AW fecal impaction. Disimpacted in ER . Doing better. non verbal Downs syndrome. Hx of debridement of sacral wound. No Fever. Tx for UTI by primary care Brother present at the bedside patient is nonverbal does not ambulate has a stroke before as been bed ridden and lives in a [facility] recently having small hard stools Note for ER Patient with wound vacuum tape over anal area and patient with stool trying to come out. Large hard stool digitally removed from the patient. Chaperoned by Aguila EVANS and Katiana Mattson. Patient's tachycardia resolved after removed and patient defecating on her own. Allergies erythromycin base Allergy (Verified 04/23/20 22:37) unknown Sulfa (Sulfonamide Antibiotics) Allergy (Verified 04/23/20 22:37) unknown sulfamethoxazole [From Bactrim] Allergy (Verified 04/23/20 22:37) eye swelling trimethoprim [From Bactrim] Allergy (Verified 04/23/20 22:37) eye swelling peliosole Allergy (Uncoded 04/23/20 22:37) unknown Home Medications: Atorvastatin Calcium [Lipitor*] 20 mg PO BEDTIME 04/24/20 Levetiracetam [Keppra] 500 mg PO BID 04/24/20 Levocetirizine Dihydrochloride [Allergy Relief] 1 tab PO BEDTIME 04/24/20 Levothyroxine [Synthroid*] 0.075 mg PO DAILY 04/24/20 Ensure Enlive 237 ml PO BID 30 Days #60 can 04/29/20 Jamie [Jamie*] 1 pkt PO BID 30 Days #60 powd.pack 04/29/20 Meropenem-0.9% Sodium Chloride [Meropenem-0.9% NaCl 1 Gram/50] 1 gm IV Q8HR 42 Days piggyback 04/29/20 Vancomycin 750 mg IV Q12HR 42 Days vial 04/29/20 - Past Medical/Surgical History Diabetic: No -: History of seizures -: Down syndrome -: Bed ridden since 2017 -: Sacral pressure ulcer present on admission -: Hypothyroidism -: Debridement of decubitus ulcer 03/2020 Psychosocial/ Personal History: Taking care of by her brother at home, 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 - Social History Alcohol use: No CD- Drugs: No Caffeine use: No Physical Examination - Vital Signs Temperature: 97.6 F Blood Pressure: 123/51 Pulse: 136 Respirations: 17 Pulse Ox (%): 100 - Physical Exam General: Alert, Other (Not cooperative) HEENT: Atraumatic Neck: Supple Respiratory: Clear to auscultation bilaterally, Diminished Cardiovascular: No edema, Normal S1 S2 Gastrointestinal: Normal bowel sounds, Soft and benign Musculoskeletal: No clubbing Integumentary: No rashes - Studies Laboratory Data (last 24 hrs) 07/06/20 18:37: PT 13.1 H, INR 1.11, APTT 27.8 07/06/20 18:37: WBC 5.6 D, Hgb 10.9 L, Hct 32.0 L, Plt Count 180 07/06/20 18:37: Sodium 140, Potassium 3.6, BUN 14, Creatinine 0.65, Glucose 108 H, Total Bilirubin 0.3, AST 20, ALT 23, Alkaline Phosphatase 82, Amylase 14 L, Lipase 73 Assessment and Plan - Problems (Diagnosis) (1) Fecal impaction Current Visit: Yes Status: Acute Plan: Patient is 49 years of age admitted with fecal impaction she was disimpacted in the emergency room is doing better her tachycardia resolved as no evidence of sepsis CT scan shows marked fecal impaction chemistries reviewed mildly anemic patient has a known another enema inserted she also had do collette meant of for sacral ulcer in March admit for observation consult Dr. Jose - Advance Directives Does patient have a Living Will: No Does patient have a Durable POA for Healthcare: Yes
[2020-07-06] MEDS ORDERED: FLEET ENEMA ADULT PR ONE (21:44)
[2020-07-06 22:49] VITALS: TEMP 97.6
[2020-07-06] MEDS ORDERED: D5 0.45 NS 1,000 ML IV SCH (23:00)
[2020-07-07] MEDS ORDERED: D5 0.45 NS 1,000 ML IV ONE (02:13)
[2020-07-07 04:19] VITALS: BMI 17.3
[2020-07-07 04:41] VITALS: BP 98/75
[2020-07-07 04:45] LABS: ALT/SGPT 19 U/L (12-78); AST/SGOT 20 U/L (15-37); Albumin 2.2 g/dL (3.4-5.0); Alkaline Phosphatase 72 U/L (45-117); BUN Blood Urea Nitrogen 8 mg/dL (7-18); Bicarbonate 27 mmol/L (21-32); Bilirubin Total 0.3 mg/dL (0.2-1.0); Glucose Level 109 mg/dL (74-106); Potassium 3.3 mmol/L (3.5-5.1); Protein, Total 5.7 g/dL (6.4-8.2); Sodium Level 142 mmol/L (136-145)
[2020-07-07 04:50] LABS: Thyroid Stimulating Hormone 8.38 uIU/mL (0.360-3.740)
[2020-07-07] MEDS ORDERED: levETIRAcetam 500 MG TAB ONE (08:33)
[2020-07-07] MEDS ORDERED: levETIRAcetam 500 MG TAB PO SCH (09:00)
--- NOTE | 2020-07-07 09:52 | P.DS ---
Admission Date: 07/06/20 Discharge Date: 07/07/20 [facility] Discharge Condition: FAIR Reason for Admission: AW fever and fecal impaction Consultations: General surgery-Dr. Chong. Brief History of Present Illness: 49-year-old woman with a history of Down syndrome, bed ridden, history of CVA in the past was brought from assisted to the emergency department due to reported fever and constipation. Patient had sacral decubitus ulcer debrided and the was a wound VAC in place around the anal area. CT abdomen and pelvis demonstrated marked fecal retention. The patient was hospitalized for further management. Hospital Course: She was placed under observation. The wound VAC was removed from the sacral and pelvic area. Manual stool disimpaction was done. Patient had subsequent bowel movement after a fleet enema. Patient was seen and evaluated Dr. Chong who recommended santyl ointment and Dakin solution for dressing and discontinue the wound VAC. Patient is therefore discharged to the assisted with the above recommendation. She is also prescribed senna and MiraLax for constipation prophylaxis. Vital Signs/Physical Exam: Temp Pulse Resp BP Pulse Ox 97.6 F 60 13 98/75 95 07/06/20 22:49 07/07/20 04:00 07/07/20 04:00 07/07/20 04:00 07/07/20 04:00 General: Cachectic, Other (Awake, nonverbal) HEENT: Mucous membr. moist/pink Neck: Supple Respiratory: Clear to auscultation bilaterally, Normal air movement Cardiovascular: No edema, Regular rate/rhythm, Normal S1 S2 Gastrointestinal: Normal bowel sounds, Soft and benign, No tenderness Neurological: Other (Contracted extremities.) Laboratory Data at Discharge: WBC 5.6 K/uL (4.3-10.9) D 07/06/20 18:37 Hgb 10.9 g/dL (12.0-15.0) L 07/06/20 18:37 Hct 32.0 % (36.0-45.0) L 07/06/20 18:37 Plt Count 180 K/uL (152-406) 07/06/20 18:37 PT 13.1 SECONDS (9.5-12.5) H 07/06/20 18:37 INR 1.11 07/06/20 18:37 APTT 27.8 SECONDS (24.3-36.9) 07/06/20 18:37 Sodium 142 mmol/L (136-145) 07/07/20 04:05 Potassium 3.3 mmol/L (3.5-5.1) L 07/07/20 04:05 BUN 8 mg/dL (7-18) 07/07/20 04:05 Creatinine 0.44 mg/dL (0.55-1.3) L 07/07/20 04:05 Glucose 109 mg/dL (74-106) H 07/07/20 04:05 Total Bilirubin 0.3 mg/dL (0.2-1.0) 07/07/20 04:05 AST 20 U/L (15-37) 07/07/20 04:05 ALT 19 U/L (12-78) 07/07/20 04:05 Alkaline Phosphatase 72 U/L (45-117) 07/07/20 04:05 Amylase 14 U/L (25-115) L 07/06/20 18:37 Lipase 73 U/L (73-393) 07/06/20 18:37 Home Medications: Atorvastatin Calcium [Lipitor*] 20 mg PO BEDTIME 04/24/20 Levocetirizine Dihydrochloride [Allergy Relief] 1 tab PO BEDTIME 04/24/20 Levothyroxine [Synthroid*] 0.075 mg PO DAILY 04/24/20 Jamie [Jamie*] 1 pkt PO BID 30 Days #60 powd.pack 04/29/20 Cholecalciferol (Vitamin D3) [Vitamin D 1000 Iu Tab*] 1,000 unit PO DAILY 07/07/20 Collagenase [Santyl Ointment*] 1 appl TOP DAILY #1 tube 07/07/20 Polyethylene Glycol 3350 [Miralax] 17 gm PO DAILY #30 powd.pack 07/07/20 Senosides [Senokot] 2 tab PO BID #120 tab 07/07/20 levETIRAcetam [Keppra*] 500 mg PO BID tab 07/07/20 New Medications: Polyethylene Glycol 3350 [Miralax] 17 gm PO DAILY #30 powd.pack Collagenase [Santyl Ointment*] 1 appl TOP DAILY #1 tube Senosides [Senokot] 2 tab PO BID #120 tab Activity: Fall precautions Followup: Rian Chong MD [ACTIVE - CAN ADMIT] - 1 Week NONE,NONE [Primary Care Provider] -
--- NOTE | 2020-07-07 10:58 | CON ---
Date of Consultation: 07/07/2020 Brief History Of Present Illness: The patient is a 49-year-old female known to me from previous admi ssion where she was admitted to the hospital with a sacral decubitus ulcer. I debrided her ulcer and she has been getting wound care as an outpatient with a wound VAC with successful treatment and good granulation tissue formation without any evidence of infection. However, yesterday she apparently h ad her wound VAC applied and the wound VAC covered her anus and she had a fecal impaction and swellin g of her wound as she had some anal leakage of stool material into her wound. She was therefore brou ght to the hospital with distention and constipation and concerns of wound contamination. Past Medical History: Significant for Down syndrome, seizure disorder. She is bed ridden, sacral pr essure ulcer, hypothyroidism. Past Surgical History: Includes a debridement of a decubitus ulcer on 04/17/2020 by myself. 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 She is unable to speak, is nonverbal a s such. Social History: Unable to obtain. Review of Systems: Unable to obtain. Home Medications: Include Lipitor, Keppra, Synthroid, Ensure, Jamie, meropenem. Allergies: INCLUDE ERYTHROMYCIN, SULFA, BACTRIM, . Physical Examination: Vital signs: At the time of my examination, her BMI is 17.3. Her blood pressure 98/75, pulse is 60, respiratory rate 16. She is approximately 80 pounds. Her SpO2 is 95% on room air. General: She is awake and alert, but nonverbal. HEENT: She has alopecia and appears slightly malnourished. Back: Focused examination of her sacrum shows the wound VAC remains in place without seal. It is so iled with stool material. I removed the wound VAC and inspected the wound. There was some fibrinous buildup and exudate and contamination. However, this was cleaned most of this out with simple clean sing. Good granulation tissue was evident. Skin: Essentially unremarkable. Laboratory Data: Reveals a white blood cell count of 5.6, hemoglobin 10.9, hematocrit of 32.0, plate let count is 180. PT 13.1, INR 1.11, PTT is 27.8. Her sodium is 142, potassium 3.3, chloride 110, c arbon dioxide 27, BUN 8, creatinine 0.4, glucose was 109, lactic acid is 1.2 on admission. Her UA bobby d 10-20 white blood cells. Yeast were present in her urine. She had imaging performed, which includ ed a CT scan of the chest, abdomen and pelvis, which was officially read as marked fecal retention pr esent throughout the colon, stercoral colitis is a possibility. Assessment And Plan: This is a 49-year-old female who came in with possible stercoral colitis and wo und contamination. 1.The patient received antibiotics and IV fluid hydration. 2.Remove wound VAC and go to Dakin's and Santyl solution for wound care daily. 3.The patient has had multiple bowel movements and does not have an evidence of fecal impaction at t his point. They have been large bowel movements by her description. 4.The patient to continue wound care as described and can follow up with me in 1 week. VIANNEY/JD Voice ID: [id number] Report ID: [id number]
[2020-07-07 13:59] VITALS: O2SAT 96
[2020-07-07] MEDS ORDERED: SODIUM HYPOCHLORITE 0.25% 473 ML TOP SCH (21:00)
[2020-07-08] MEDS ORDERED: COLLAGENASE 30 GM OINTMENT TOP SCH (09:00)
--- NOTE | 2020-07-08 12:08 | EKG ---
Test Date: 2020-07-06 Test Time: 19:29:44 Feathered[employer] And Reducer Machine: MATILDE MEASUREMENT RESULTS: Intervals: Rate: 89 ME: 150 QRSD: 74 QT: 350 QTc: 425 [place]: P: 73 ME: 150 QRS: 90 T: 64 INTERPRETIVE STATEMENTS: Normal sinus rhythm Rightward axis Borderline ECG Compared to ECG 04/23/2020 18:14:27 Sinus tachycardia no longer present ST (T wave) deviation no longer present Electronically Signed On 07-08-20 12:03:34 EVENT OPERATIONS MANAGER by Harpreet Minor
== END 2020-07-07 12:38 | disposition home health service (06) ==
LOC: ER 17:05 → ERHOLD 23:38
PROVIDERS: ADMIT Internal Medicine Sleep Medicine; ATTEND Internal Medicine
DX: K56.41 Fecal impaction (principal); Q90.9 Down syndrome, unspecified; L89.159 Pressure ulcer of sacral region, unspecified stage; Z86.73 Personal history of transient ischemic attack (TIA), and cerebral infarction without residual deficits; N39.0 Urinary tract infection, site not specified; Z20.828 Contact with and (suspected) exposure to other viral communicable diseases; G40.909 Epilepsy, unspecified, not intractable, without status epilepticus; E03.9 Hypothyroidism, unspecified
CPT/HCPCS: 36415; 71260; 74177; 80048; 80053; 80076; 81003; 81015; 82150; 82550; 82553; 83605; 83690; 84145; 84439; 84443; 84484; 85025; 85610; 85730; 87040; 87070; 87081; 87086; 87088; 87804; 93005; 96360; 96361; 99285; G0378; J7030; J7799; Q9967; U0003

== ENCOUNTER 2021-01-14 15:12 | Inpatient (IN) | payer BC ==
--- OUTSIDE RECORDS SUMMARY | 2021-01-14 15:15 | XMS REPORT | Continuity of Care Document ---
:[address] [facility] t Address [address] [place] [address] Dr. [address] [place] [address] Care Team Providers Name Role Phone EDWARDO DANIELSON Attending Clinician Unavailable EDWARDO DANIELSON Admitting Clinician Unavailable Problems Condition Condition Condition Status Onset Resolution Last Treating Co mments Source Name Details Category Date Date Treatment Clinician Date Down Down Disease [facility] Seizure Seizure Disease [facility] Cerebral Cerebral Disease [facility] Tamika kes - megaly megaly 00:00: Medical 00 [facility] Acquired Acquired [facility] hyp[facility]roi hyp[facility]roi [facility] Tamika kes - dism dism 00:00: Medical [address] [place] [address] Allergies, Adverse Reactions, Alerts This patient has no known allergies or adverse reactions. Social History Social Habit Start Date Stop Date Quantity Comments Source Sex Assigned At [facility] Tobacco use and 2017-12-20 2017-12-20 Never used [facility] - exposure 00:00:00 00:00:00 [facility] Alcohol intake 2017-12-20 2017-12-20 Current [facility] es - 00:00:00 00:00:00 non-drinker of Medical Ce nter alcohol (finding) Smoking Status Start Date Stop Date Source Never smoker [facility] Medications Ordered Filled Start Stop Current [...] Description Test Time Test Comments Results Result [facility] e Comments MR, BRAIN, 2017-12-22 Reason for FINAL REPORT PATIENT WITHOUT CONTRAST 17:54:00 exam:->sseizures ID: [id number] MRI /hydrocephalusWh Brain without contrast at is [...] MDReport Verified Date/Time: 12/22/2017 17:54:57 Reading Location: [facility] Reading Room AWAKE AND 2017-12-21 Reason for Date(s) of EEG: DROWSY 13:47:00 exam:->seizuresS 12/21/17ACC: esa this be [id number] Number: performed at the Test Location: bedside?->Yes Inpatient RoomStart time: 08:38Stop time: 08:59ICD-10: R56.9CPT Code: 24951 HISTORY: 47 y.o. female who presented with [...] code = 368) 4.5 % 4.3-6.1 T4, [id number] 07:45:00 Test Item Value Reference Range Interpretation Comments FREE T4 (BEAKER) (test code = 655) 1.46 ng/dL 0.70-1.48 TSH/FREE T4 IF [id number] 06:53:00 Test Item Value Reference Range Interpretation Comments THYROID STIMULATING HORMONE 0.15 uIU/mL 0.35-4.94 L (BEAKER) (test code = 772) CALCIUM, [id number] 06:51:00 Test Item Value Reference Range Interpretation Comments CALCIUM IONIZED (BEAKER) (test 1.01 mmol/L 1.12-1.27 L code = 698) PH, BLOOD (BEAKER) (test code = 7.49 1810) [id number] 06:31:00 Test Item Value Reference Range Interpretation Comments PHOSPHORUS (BEAKER) (test code = 4.1 mg/dL 2.3-4.7 604) [id number] 06:31:00 Test Item Value Reference Range Interpretation Comments MAGNESIUM (BEAKER) (test code = 2.3 mg/dL 1.6-2.6 627) BASIC METABOLIC [id number] 06:31:00 Test Item Value Reference Range Interpretation [...] NOT APPLICABLE FOR DIALYSIS PATIEN TS. LIPID [id number] 06:31:00 Test Item Value Reference Range Interpretation [...] Very High >=190CBC W/PLT COUNT & AUTO [id number] 06:09:00 Test Item Value Reference Range Interpretation [...]
[2021-01-14] MEDS ORDERED: NA CHLORIDE 0.9% 1,000 ML ONE (16:01)
[2021-01-14 16:16] LABS: Absolute Lymphocytes (CBC) 1.6 K/uL (0.7-4.9); Basophils % 0.7 % (0-1.3); Hematocrit 35.9 % (36.0-45.0); Lymphocytes % 31.9 % (15.3-44.8); MPV 8.7 fL (7.6-11.3); RBC Red Blood Cell Count 3.52 M/uL (3.86-4.86)
[2021-01-14 16:32] LABS: ALT/SGPT 132 U/L (12-78); AST/SGOT 72 U/L (15-37); Albumin 2.6 g/dL (3.4-5.0); Alkaline Phosphatase 95 U/L (45-117); BUN Blood Urea Nitrogen 14 mg/dL (7-18); Bicarbonate 28 mmol/L (21-32); Bilirubin Direct < 0.1 mg/dL (0-0.2); Bilirubin Total 0.3 mg/dL (0.2-1.0); Glucose Level 100 mg/dL (74-106); Lipase 86 U/L (73-393); Potassium 3.9 mmol/L (3.5-5.1); Protein, Total 6.4 g/dL (6.4-8.2); Sodium Level 141 mmol/L (136-145)
[2021-01-14 16:47] LABS: White Blood Cell Scan OK (OK)
[2021-01-14 16:48] LABS: Blood Morphology Comment NOT SEEN (NOT SEEN); Platelet Estimate DECR
--- NOTE | 2021-01-14 17:22 | RAD REPORT ---
EXAM DESCRIPTION: RAD - Chest Single View - 01/14/2021 4:52 pm CLINICAL HISTORY: reported fever, hypotension Chest pain. COMPARISON: Chest Single View dated 04/25/2020; Chest Single View dated 04/23/2020; Chest Single View dated 02/06/2019; Abdomen 1 View (KUB) dated 07/07/2018 FINDINGS: Portable technique limits examination quality. The lungs are grossly clear. The heart is normal in size. No displaced fractures. IMPRESSION: No acute intrathoracic process suspected.
--- NOTE | 2021-01-14 18:02 | RAD REPORT ---
EXAM DESCRIPTION: CTAbdomen Pelvis W Contrast - 01/14/2021 5:49 pm CLINICAL HISTORY: Abdominal pain. fever, hypotension COMPARISON: Abdomen Pelvis W Contrast dated 07/07/2018 TECHNIQUE: Biphasic CT imaging of the abdomen and pelvis was performed with 100 ml non-ionic IV cont rast. All CT scans are performed using dose optimization technique as appropriate and may include automated exposure control or mA/KV adjustment according to patient size. FINDINGS: The lung bases are clear. The liver, spleen, pancreas, adrenal glands are within normal limits. Significant distention of the u rinary bladder with mild bilateral hydronephrosis. Significant stool is retained throughout the colon. No bowel obstruction evident. No free air. No e vidence of significant lymphadenopathy. Significant scoliosis noted of the thoracolumbar spine. Decubitus ulceration is seen posteriorly lowe r back region with the underlying bone is very close to the skin surface and may be exposed. IMPRESSION: Moderate fecal retention. Distention of the urinary bladder is seen with mild bilateral hydronephrosis. Prominent decubitus ulceration posterior lower back region. The bone in this region of the sacrum is very close to the skin surface. Direct visualization would be suggested.
--- NOTE | 2021-01-14 18:39 | EDPHYS ---
Physician Documentation [facility] Name: Andie Castro Age: 50 yrs Sex: Female : 1970 Arrival Date: 01/14/2021 Time: 15:18 Bed 18 Private MD: ED Physician Shaun Bhatti HPI: 01/14 16:39 This 50 yrs old Female presents to ER via EMS with complaints of fever, low rn blood pressure. 16:39 EMS reports called to [facility] for fever, and low blood pressure. Did not report rn fever. EMS administered fluids with improvement of BP. Pt non-verbal Down's syndrome. Brother here and reports eats by mouth slowly, no hx of aspiration. . Onset: The symptoms/episode began/occurred at an unknown time. Severity of symptoms: At their worst the symptoms were moderate in the emergency department the symptoms have improved. It is unknown whether or not the patient has had similar symptoms in the past. It is unknown whether or not the patient has recently seen a physician. Historical: - Allergies: 15:33 Erythromycin; vg1 15:33 Sulfa (Sulfonamide Antibiotics); vg1 15:33 Bactrim; vg1 15:33 Bees; vg1 15:33 Nystatin powder; vg1 15:33 Pediozole; vg1 15:33 PENICILLINS; vg1 15:33 TRIMETHOPRIM; vg1 - Home Meds: 15:33 atorvastatin 20 mg Oral tab [Active]; levetiracetam 500 mg Oral tab nightly [Active]; vg1 Jamie oral oral [Active]; Miralax Oral [Active]; Vitamin D3 oral oral [Active]; Santyl Topical [Active]; - PMHx: 15:33 down syndrome; Hypothyroidism; Seizures; vg1 - Immunization history:: Adult Immunizations up to date. - Social history:: Smoking status: Patient denies any tobacco usage or history of. - Hospitalizations: : No recent hospitalization is reported. ROS: 16:39 Unable to obtain ROS due to non-verbal. rn Exam: 16:39 Constitutional: Thin female, sunken eyes Head/Face: Normocephalic, atraumatic. Eyes: rn Sunken orbits, no erythema or swelling ENT: dry MM Cardiovascular: Regular rate and rhythm. No pulse deficits. Respiratory: No increased work of breathing, no retractions or nasal flaring. Abdomen/GI: soft, non-tender Skin: Warm, dry MS/ Extremity: Pulses equal, no cyanosis. Neuro: Awake and alert, seems to communicate with brother non-verbally Vital Signs: 15:09 BP 110 / 66; Pulse 82; Resp 16; Temp 99.0(R); Pulse Ox 95% on R/A; Weight 36.29 kg; vg1 Height 4 ft. 9 in. (144.78 cm); 16:36 BP 114 / 70; Pulse 60; Resp 14; Pulse Ox 100% on R/A; vg1 17:00 BP 116 / 66; Pulse 58; Resp 14; Pulse Ox 99% on R/A; vg1 17:30 BP 114 / 76; Pulse 62; Resp 14; Pulse Ox 97% on R/A; vg1 19:00 BP 100 / 60; Pulse 58; Resp 16; Pulse Ox 100% on R/A; vg1 20:12 BP 110 / 68; Pulse 74; Resp 16; Pulse Ox 100% on R/A; ak2 15:09 Body Mass Index 17.31 (36.29 kg, 144.78 cm) vg1 MDM: 15:18 Patient medically screened. rn 18:18 Differential Diagnosis altered mental status, sepsis, dehydration, COVID, UTI. Data rn reviewed: vital signs, nurses notes, lab test result(s), radiologic studies, CT scan, and as a result, I will admit patient. Counseling: I had a detailed discussion with the patient and/or guardian regarding: the historical points, exam findings, and any diagnostic results supporting the discharge/admit diagnosis, lab results, radiology results, the need for further work-up and treatment in the hospital. Response to treatment: the patient's symptoms have mildly improved after treatment, and as a result, I will admit patient. Admission orders: after a detailed discussion of the patient's condition and case, the admit orders are written by me. ED course: Pt with BP improved, no direct source of infection noted at this time. Placing mandel for distended bladder that may reveal UTI, COVID pending. + moderate fecal retention in line with her clinical level of dehydration. Will admit to hospitalist service for IV fluids, and further w/u. Sacral decubitus is well appearing, no drainage, dressing is fresh, no skin erythema or warmth noted. . 18:59 ED course: Urine without signs of infection.. rn 01/14 15:20 Order name: Urine Culture rn 01/14 15:20 Order name: Basic Metabolic Panel rn 01/14 15:20 Order name: Blood Culture Adult (2) rn 01/14 15:20 Order name: CBC with Diff rn 01/14 15:20 Order name: Lactate rn 01/14 15:20 Order name: LFT's rn 01/14 15:20 Order name: Lipase rn 01/14 15:20 Order name: Urine Microscopic Only rn 01/14 15:21 Order name: COVID-19 : Document "Date of Symptom Onset" if Symptomatic. rn 01/14 16:18 Order name: CBC with Automated Diff; Complete Time: 17:32 EDWY 01/14 16:32 Order name: Basic Metabolic Panel; Complete Time: 16:38 EDWY 01/14 16:32 Order name: Liver (Hepatic) Function; Complete Time: 16:38 EDWY 01/14 16:32 Order name: Lipase; Complete Time: 16:38 EDWY 01/14 15:20 Order name: Chest Single View XRAY rn 01/14 15:20 Order name: Accucheck; Complete Time: 16:12 rn 01/14 15:20 Order name: Cardiac monitoring; Complete Time: 16:12 rn 01/14 16:34 Order name: Lactate; Complete Time: 16:38 EDWY 01/14 16:38 Order name: CT Abd/Pelvis - IV Contrast Only rn 01/14 16:48 Order name: CBC Smear Scan; Complete Time: 17:32 EDWY 01/14 17:23 Order name: RAD; Complete Time: 17:32 EDWY 01/14 18:03 Order name: CT; Complete Time: 18:12 EDWY 01/14 18:40 Order name: CORONAVIRUS EDWY 01/14 18:57 Order name: Urine Dipstick-Ancillary; Complete Time: 19:06 EDWY 01/14 19:00 Order name: Urine Dipstick--Ancillary (enter results) ms 01/14 19:11 Order name: Urine Microscopic Only EDWY 01/14 19:32 Order name: SARS-COV-2 RT PCR EDWY 01/14 20:54 Order name: Urine Dipstick-Ancillary EDWY 01/14 15:20 Order name: EKG - Nurse/Tech; Complete Time: 16:12 rn 01/14 15:20 Order name: Labs collected and sent; Complete Time: 16:12 rn 01/14 15:20 Order name: O2 Per Protocol; Complete Time: 15:38 rn 01/14 15:20 Order name: O2 Sat Monitoring; Complete Time: 15:38 rn 01/14 15:20 Order name: Urine Dipstick-Ancillary (obtain specimen); Complete Time: 20:34 rn 01/14 18:13 Order name: Mandel; Complete Time: 18:53 rn Administered Medications: 16:00 Drug: NS 0.9% (30 ml/kg) 30 ml/kg Route: IV; Rate: bolus; Site: left antecubital; vg1 19:19 Drug: Keppra (levETIRAcetam) 750 mg Route: PO; ak2 Disposition: 01/14/21 18:38 Hospitalization ordered by Diana Newberry for Observation. Preliminary diagnosis are Hypotension, unspecified, Dehydration, Fever of other and unknown origin, Fecal retention. - Bed requested for Telemetry/MedSurg (observation). - Status is Observation. ak2 - Condition is Stable. - Problem is new. - Symptoms have improved. Signatures: Dispatcher [employer] EDMS Smiley Larson RN RN Shaun Winn MD MD rn Garcia, Victoria RN CRISTINA vg1 Daniel Weldon ak2 Corrections: (The following items were deleted from the chart) 20:14 18:38 Hospitalization Ordered by Diana Newberry MD for Observation. Preliminary dw diagnosis is Hypotension, unspecified; Dehydration; Fever of other and unknown origin; Fecal retention. Bed requested for Telemetry/MedSurg (observation). Status is Observation. Condition is Stable. Problem is new. Symptoms have improved. rn 21:03 20:14 01/14/2021 18:38 Hospitalization Ordered by Diana Newberry MD for Observation. ak2 Preliminary diagnosis is Hypotension, unspecified; Dehydration; Fever of other and unknown origin; Fecal retention. Bed requested for Telemetry/MedSurg (observation). Status is Observation. Condition is Stable. Problem is new. Symptoms have improved. dw
--- NOTE | 2021-01-14 18:39 | ER ---
Nurse's Notes [facility] Name: Andie Castro Age: 50 yrs Sex: Female : 1970 Arrival Date: 01/14/2021 Time: 15:18 Bed 18 Private MD: Diagnosis: Hypotension, unspecified;Dehydration;Fever of other and unknown origin;Fecal retention Presentation: 01/14 15:09 Chief complaint: EMS states: Pt is from [facility] and they were called vg1 out due to pt having a fever and hypotensive. Arrival on scene pt BP was 88/55. EMS started IV fluids and BP increased to systolic 117. 15:09 Coronavirus screen: Client denies travel out of the [place] in the last 14 days. Ebola vg1 Screen: Patient negative for fever greater than or equal to 101.5 degrees Fahrenheit, and additional compatible Ebola Virus Disease symptoms. Initial Sepsis Screen: Does the patient meet any 2 criteria? No. Patient's initial sepsis screen is negative. Does the patient have a suspected source of infection? No. Patient's initial sepsis screen is negative. Risk Assessment: Do you want to hurt yourself or someone else? Patient reports no desire to harm self or others. Onset of symptoms was January 14, 2021. 15:09 Method Of Arrival: EMS: [facility] vg1 15:09 Acuity: MARCEL 3 vg1 Triage Assessment: 15:33 General: Appears in no apparent distress. comfortable, Behavior is calm, cooperative. vg1 Pain: Unable to use pain scale. Pt is nonverbal. EENT: No signs and/or symptoms were reported regarding the EENT system. Neuro: Level of Consciousness is awake, alert, Oriented to person. Cardiovascular: Capillary refill is > 3 seconds in bilateral fingers. Respiratory: Airway is patent Respiratory effort is even, unlabored. GI: No signs and/or symptoms were reported involving the gastrointestinal system. : No signs and/or symptoms were reported regarding the genitourinary system. Derm: Skin is thin, Skin is pale. Musculoskeletal: Capillary refill is > 3 seconds, in bilateral fingers. Historical: - Allergies: 15:33 Erythromycin; vg1 15:33 Sulfa (Sulfonamide Antibiotics); vg1 15:33 Bactrim; vg1 15:33 Bees; vg1 15:33 Nystatin powder; vg1 15:33 Pediozole; vg1 15:33 PENICILLINS; vg1 15:33 TRIMETHOPRIM; vg1 - Home Meds: 15:33 atorvastatin 20 mg Oral tab [Active]; levetiracetam 500 mg Oral tab nightly [Active]; vg1 Jamie oral oral [Active]; Miralax Oral [Active]; Vitamin D3 oral oral [Active]; Santyl Topical [Active]; - PMHx: 15:33 down syndrome; Hypothyroidism; Seizures; vg1 - Immunization history:: Adult Immunizations up to date. - Social history:: Smoking status: Patient denies any tobacco usage or history of. - Hospitalizations: : No recent hospitalization is reported. Screenin:36 Abuse screen: Denies threats or abuse. Nutritional screening: No deficits noted. vg1 Tuberculosis screening: No symptoms or risk factors identified. Fall Risk No fall in past 12 months (0 pts). No secondary diagnosis (0 pts). IV access (20 points). Ambulatory Aid- None/Bed Rest/Nurse Assist (0 pts). Gait- Normal/Bed Rest/Wheelchair (0 pts) Mental Status- Oriented to own ability (0 pts). Total Hodgson Fall Scale indicates No Risk (0-24 pts). Assessment: 15:36 Reassessment: See triage assessment. vg1 16:36 Reassessment: Patient appears in no apparent distress at this time. No changes from vg1 previously documented assessment. Patient and/or family updated on plan of care and expected duration. Pain level reassessed. Patient is alert, oriented x 3, equal unlabored respirations, skin warm/dry/pink. 17:35 Reassessment: Patient appears in no apparent distress at this time. No changes from vg1 previously documented assessment. Patient and/or family updated on plan of care and expected duration. Pain level reassessed. Patient is alert, oriented x 3, equal unlabored respirations, skin warm/dry/pink. 18:59 Reassessment: Patient appears in no apparent distress at this time. No changes from vg1 previously documented assessment. Patient and/or family updated on plan of care and expected duration. Pain level reassessed. Patient is alert, oriented x 3, equal unlabored respirations, skin warm/dry/pink. About 600 ml of urine collected in mandel bag at bedside. 20:54 General: report called to rn. ak2 Vital Signs: 15:09 BP 110 / 66; Pulse 82; Resp 16; Temp 99.0(R); Pulse Ox 95% on R/A; Weight 36.29 kg; vg1 Height 4 ft. 9 in. (144.78 cm); 16:36 BP 114 / 70; Pulse 60; Resp 14; Pulse Ox 100% on R/A; vg1 17:00 BP 116 / 66; Pulse 58; Resp 14; Pulse Ox 99% on R/A; vg1 17:30 BP 114 / 76; Pulse 62; Resp 14; Pulse Ox 97% on R/A; vg1 19:00 BP 100 / 60; Pulse 58; Resp 16; Pulse Ox 100% on R/A; vg1 20:12 BP 110 / 68; Pulse 74; Resp 16; Pulse Ox 100% on R/A; ak2 15:09 Body Mass Index 17.31 (36.29 kg, 144.78 cm) vg1 ED Course: 15:18 Patient arrived in ED. rn 15:18 Shaun Bhatti MD is Attending Physician. rn 15:28 Clarisa Schwartz RN is Primary Nurse. vg1 15:31 Triage completed. vg1 15:37 Patient has correct armband on for positive identification. Bed in low position. Call vg1 light in reach. Side rails up X2. Adult w/ patient. 15:37 Arm band placed on. vg1 15:56 Maintain EMS IV. Dressing intact. Good blood return noted. Site clean \T\ dry. Gauge \T\ vg 1 site: 18g Left AC.. 15:58 Initial lab(s) drawn, by me, sent to lab. First set of blood cultures drawn by me. vg1 16:13 EKG done, by ED staff, reviewed by Shaun Bhatti MD. vg1 16:15 Second set of blood cultures drawn. vg1 16:24 COVID swab sent to lab. vg1 18:37 Diana Newberry MD is Hospitalizing Provider. rn 18:53 Mandel cath inserted, using sterile technique, 16 Fr., by me, balloon inflated, to vg1 gravity drainage, urine specimen collected. 18:59 Urine collected: Mandel catheter specimen, clear. vg1 Administered Medications: 16:00 Drug: NS 0.9% (30 ml/kg) 30 ml/kg Route: IV; Rate: bolus; Site: left antecubital; vg1 19:19 Drug: Keppra (levETIRAcetam) 750 mg Route: PO; ak2 Outcome: 18:38 Decision to Hospitalize by Provider. rn 21:03 Patient left the ED. ak2 Signatures: Shaun Bhatti MD MD rn Efren, CRISTINA Mckenna RN vg1 Daniel Weldon ak2 Corrections: (The following items were deleted from the chart) 15:37 15:36 Nutritional screening: No deficits noted. vg1 vg1
[2021-01-14 18:56] LABS: Urine Blood Trace-intact (Negative); Urine Glucose Negative (Negative); Urine Protein Negative (Negative); Urine Specific Gravity 1.025 (1.005-1.030); Urine pH 6.5 (5.0-7.0)
[2021-01-14 19:10] LABS: Urine Bacteria <20 /HPF (<20); Urine RBC <5 /HPF (NONE SEEN)
[2021-01-14 19:11] LABS: Urine Yeast PRESENT (NONE SEEN)
[2021-01-14] MEDS ORDERED: levETIRAcetam 500 MG TAB ONE (19:38)
--- NOTE | 2021-01-14 19:57 | P.HP ---
Certification for Inpatient Patient admitted to: Inpatient With expected LOS: >2 Midnights Patient will require the following post-hospital care: None Practitioner: I am a practitioner with admitting privileges, knowledge of patient current condition, hospital course, and medical plan of care. Services: Services provided to patient in accordance with Admission requirements found in Title 42 Section 412.3 of the Code of Federal Regulations Patient History Date of Service: 01/14/21 Reason for admission: urinary retention History of Present Illness: Ms. Castro is a 50 yo F with Down Syndrome, h/o seizures, h/o CVA in 2017, and hypothyroidism brought in today from custodial for fever and hypotension, improved with fluids. She is bedridden and nonverbal. Brother says she is at baseline functioning. He says she had a seizure a month ago and her Keppra dose was increased and then she had two more seizures last week and a small seizure today. He says she had stool studies done for diarrhea last week that were negative. He said 8 months ago she was admitted for fecal retention and dehydration. She follows with wound care for her decubitus ulcer. CT of the Abdomen shows fecal retention, distension of the urinary bladder with mild bilateral hydronephrosis and a decubitus ulcer. AST 72, ALT 132. Urine positive for yeast. Allergies erythromycin base Allergy (Verified 07/07/20 04:20) unknown Sulfa (Sulfonamide Antibiotics) Allergy (Verified 07/07/20 04:20) unknown sulfamethoxazole [From Bactrim] Allergy (Verified 07/07/20 04:20) eye swelling trimethoprim [From Bactrim] Allergy (Verified 07/07/20 04:20) eye swelling peliosole Allergy (Uncoded 07/07/20 04:20) unknown Home Medications: Atorvastatin Calcium [Lipitor*] 20 mg PO BEDTIME 04/24/20 Levocetirizine Dihydrochloride [Allergy Relief] 1 tab PO BEDTIME 04/24/20 Levothyroxine [Synthroid*] 0.075 mg PO DAILY 04/24/20 Jamie [Jamie*] 1 pkt PO BID 30 Days #60 powd.pack 04/29/20 Cholecalciferol (Vitamin D3) [Vitamin D 1000 Iu Tab*] 1,000 unit PO DAILY 07/07/20 Collagenase [Santyl Ointment*] 1 appl TOP DAILY #1 tube 07/07/20 Polyethylene Glycol 3350 [Miralax] 17 gm PO DAILY #30 powd.pack 07/07/20 Senosides [Senokot] 2 tab PO BID #120 tab 07/07/20 levETIRAcetam [Keppra*] 500 mg PO BID tab 07/07/20 - Past Medical/Surgical History Diabetic: No -: History of seizures -: Down syndrome -: Bed ridden since 2017 -: Sacral pressure ulcer present on admission -: Hypothyroidism -: Debridement of decubitus ulcer 03/2020 Psychosocial/ Personal History: longterm - Social History Smoking Status: Never smoker Alcohol use: No CD- Drugs: No Caffeine use: No Place of Residence: Longterm Review of Systems is unable to be obtained General: Fever Genitourinary: Retention Physical Examination - Physical Exam General: Alert, In no apparent distress, Cachectic, Other (nonverbal) HEENT: Atraumatic, Normocephalic, PERRLA, EOMI, Sclerae nonicteric Neck: Supple, 2+ carotid pulse no bruit, JVD not distended, No Thyromegaly, No LAD Respiratory: Clear to auscultation bilaterally, Normal air movement Cardiovascular: No edema, Normal pulses, Regular rate/rhythm, Normal S1 S2, No gallops, No rubs, No murmurs Capillary refill: <2 Seconds Gastrointestinal: Normal bowel sounds, Soft and benign, Non-distended, No ascites, No tenderness, No masses, No rebound, No guarding Musculoskeletal: No clubbing, No swelling, No contractures, No erythema, No tend erness, No warmth Integumentary: No rashes, No breakdown, No significant lesion, No tenderness/swelling, No erythema, No warmth, No cyanosis Neurological: Normal strength at 5/5 x4 extr, Normal tone, Sensation intact, Normal reflexes 2+, Abnormal speech, Abnormal affect Lymphatics: No axilla or inguinal lymphadenopathy Urinary: Turner catheter - Studies Laboratory Data (last 24 hrs) 01/14/21 15:58: WBC 4.90, Hgb 11.6 L, Hct 35.9 L, Plt Count 166 01/14/21 15:58: Sodium 141, Potassium 3.9, BUN 14, Creatinine 0.70, Glucose 100, Total Bilirubin 0.3, AST 72 H, ALT 132 H, Alkaline Phosphatase 95, Lipase 86 Assessment and Plan - Problems (Diagnosis) (1) Down syndrome Current Visit: Yes Status: Chronic (2) History of CVA (cerebrovascular accident) Current Visit: Yes Status: Chronic (3) Seizures Current Visit: Yes Status: Chronic (4) Hypothyroidism Current Visit: Yes Status: Chronic Qualifiers: Hypothyroidism type: unspecified Qualified Code(s): E03.9 - Hypothyroidism, unspecified (5) Dehydration Current Visit: Yes Status: Acute (6) Candiduria Current Visit: Yes Status: Acute (7) Decubitus ulcer Current Visit: Yes Status: Acute Qualifiers: Pressure injury location: sacral region Pressure injury stage: unspecified pressure injury stage Qualified Code(s): L89.159 - Pressure ulcer of sacral region, unspecified stage (8) Fecal impaction Current Visit: No Status: Acute - Plan Neurology consulted for Keppra management, continue Keppra 750 BID fleet enema 1x, Senokot BID, and daily miralax continue with IVF, continue Turner, fluconazole 150x1, Urology consulted Surgery consulted for decubitus ulcer management, skin protection measures tylenol for fever B12 and folate pending reconcile and continue home medications Discharge Plan: Longterm Plan to discharge in: 48 Hours - Advance Directives Does patient have a Living Will: No Does patient have a Durable POA for Healthcare: Yes - Code Status/Comfort Care Code Status Assessed: Yes (full code) Critical Care: No Time Spent Managing Pts Care (In Minutes): 70
[2021-01-14 20:53] LABS: Urine Blood TRACE (Negative); Urine Glucose NEGATIVE (Negative); Urine Specific Gravity 1.025 (1.005-1.030)
[2021-01-14 20:54] LABS: Urine Protein NEGATIVE (Negative); Urine pH 6.5 (5.0-7.0)
[2021-01-14] MEDS ORDERED: ACETAMINOPHEN 500 MG TAB PO PRN (21:29)
[2021-01-14] MEDS ORDERED: FLEET ENEMA ADULT PR ONE (21:29)
[2021-01-14] MEDS ORDERED: FLUCONAZOLE 100 MG TAB PO ONE (21:29)
[2021-01-14] MEDS ORDERED: ONDANSETRON 4 MG/2 ML VIAL IV PRN (21:29)
[2021-01-14] MEDS: levETIRAcetam 500 MG TAB PO SCH (21:35)
[2021-01-14] MEDS: SENOSIDES 8.6 MG TAB PO SCH (21:46)
[2021-01-14] MEDS: NA CHLORIDE 0.9% 1,000 ML IV SCH (21:47)
[2021-01-15 04:43] LABS: Urine Appearance CLEAR (Clear); Urine Bilirubin NEGATIVE (Negataive); Urine Blood NEGATIVE (Negative); Urine Color YELLOW (Yellow); Urine Glucose NEGATIVE (Negative); Urine Protein NEGATIVE (Negative); Urine Specific Gravity 1.025 (1.005-1.030); Urine Urobilinogen 0.2 mg/dL (0.2-1.0); Urine pH 6.5 (5.0-7.0)
[2021-01-15 04:46] LABS: Urine Microscopic Reflex ORDER UMIC
[2021-01-15 05:28] LABS: Urine Bacteria <20 /HPF (<20); Urine RBC <5 /HPF (NONE SEEN); Urine Yeast MANY (NONE SEEN)
[2021-01-15 05:46] LABS: Absolute Lymphocytes (CBC) 1.3 K/uL (0.7-4.9); Basophils % 1.2 % (0-1.3); Hematocrit 31.7 % (36.0-45.0); MPV 8.9 fL (7.6-11.3); RBC Red Blood Cell Count 3.13 M/uL (3.86-4.86)
[2021-01-15] MEDS: NA CHLORIDE 0.9% 1,000 ML IV SCH ×2 (06:50→15:19)
[2021-01-15] MEDS: SENOSIDES 8.6 MG TAB PO SCH ×2 (07:53→20:41)
[2021-01-15] MEDS: ENOXAPARIN 40 MG/0.4 ML SQ SCH (07:53)
[2021-01-15] MEDS: levETIRAcetam 500 MG TAB PO SCH ×2 (07:53→20:41)
[2021-01-15] MEDS ORDERED: POLYETHYL GLY 3350 17 GM/DOSE PO SCH (09:00)
[2021-01-15 09:35] LABS: ALT/SGPT 114 U/L (12-78); Albumin 2.2 g/dL (3.4-5.0); Alkaline Phosphatase 80 U/L (45-117); BUN Blood Urea Nitrogen 9 mg/dL (7-18); Bicarbonate 25 mmol/L (21-32); Bilirubin Total 0.2 mg/dL (0.2-1.0); Folic Acid, (Folate) 5.6 ng/mL (3.1-17.5); Glucose Level 85 mg/dL (74-106); HDL Cholesterol 46 mg/dL (40-60); LDL Cholesterol, Calculated 77 (<130); Phosphorus 3.7 mg/dL (2.5-4.9); Protein, Total 5.7 g/dL (6.4-8.2); Sodium Level 142 mmol/L (136-145)
[2021-01-15 09:37] LABS: AST/SGOT 60 U/L (15-37); Potassium 3.8 mmol/L (3.5-5.1)
[2021-01-15] MEDS ORDERED: POTASSIUM 25 MEQ EFFERV TAB PO ONE (09:47)
[2021-01-15] MEDS: COLLAGENASE 30 GM OINTMENT TOP SCH (14:30)
--- NOTE | 2021-01-15 14:43 | CON ---
Date of Consultation: 01/15/2021 Brief History Of Present Illness: The patient is a 50-year-old female with Down syndrome, seizure di sorder, CVA in 2017, hypothyroidism, brought into the ER on 01/14 from senior living with fever, hypot ension, improved fluid. She was bedridden, nonverbal. Her brother was present during my examination . She was seen, evaluated, and I had performed a debridement of a sacral decubitus pressure ulcer a while back and the wound continues to improve. I am consulted for evaluation of the wound on the sac rum. Past Medical History: Significant for seizures, Down syndrome, CVA, hypothyroidism, bedridden, sacra l pressure ulcer. Past Surgical History: Debridement of sacral ulcer in 2019. Social History: She is in a senior living. She does not smoke, use alcohol, recreational drugs. Allergies: TO ERYTHROMYCIN, SULFA, AND Home Medications: Include Lipitor, Synthroid, Jamie, vitamin D, Santyl, MiraLAX, Senokot, and Keppra . Physical Examination: Vital Signs: At the time of my examination; temperature of 99.3, heart rate 62, respiratory rate 20, blood pressure 110/66, SpO2 98% on room air. General: She is awake, alert, but nonverbal. Cardiovascular: Regular rate and rhythm. Pulmonary: Clear to auscultation bilaterally. Abdomen: Soft, nontender. Focused examination of her sacral ulcer, she has a small approximately 5 cm x 4.5 cm sacral ulcer with good granulation tissue present. No evidence of infection. Minimal sl ough is present. Wound is significantly improved from surgical debridement. Extremities: No clubbing, cyanosis, or edema. Skin: Warm and dry. Laboratory Data: White blood cell count of 3.4, hemoglobin 10.8, hematocrit 31.7, platelet count is 146. Her chemistry; sodium 142, potassium 3.8, chloride 112, carbon dioxide 25, BUN 9, creatinine 0. 4, glucose is 85. Lactic acid 1.5 on admission. AST 60, ALT 114, alkaline phosphatase is 80. She h ad imaging performed, which included a CT scan of the abdomen and pelvis on 01/14, officially read as moderate fecal retention, bladder seen with mild bilateral hydronephrosis, prominent sacral decubitu s ulceration in posterior lower back region. The bone in this region of the sacrum is very close to the skin surface. Direct visualization would be suggested. Assessment And Plan: This is a 50-year-old female, who comes in with multiple issues as described ab ove. I have consulted to address her sacral decubitus ulcer. Continue Santyl today and damp to dry dressing changes. We will transition to collagen likely Elsi versus Stimulen powder and see if the patient qualifies for wound VAC with collagen and wound VAC placement. I have explained the risks, benefits, and alternatives to the patient's brother and they agreed to proceed as indicated. Thank you for this interesting consult. VIANNEY/JD Voice ID: [id number] Report ID: [id number]
--- NOTE | 2021-01-15 15:43 | P.PN ---
Subjective Date of Service: 01/15/21 Chief Complaint: urinary retention Patient seen awake and being fed with assistance. Nurse reports small bowel movement after enema overnight. Physical Examination - Vital Signs Temperature: 98.7 F Blood Pressure: 85/52 Pulse: 94 Respirations: 20 Pulse Ox (%): 96 - Physical Exam General: Cachectic, Other (Awake) HEENT: Mucous membr. moist/pink Neck: JVD not distended Respiratory: Clear to auscultation bilaterally, Normal air movement Cardiovascular: No edema, Regular rate/rhythm, Normal S1 S2 Gastrointestinal: Normal bowel sounds, Soft and benign, Non-distended, No tenderness Musculoskeletal: No swelling Neurological: Other (Moves all extremities) - Studies Laboratory Data (last 24 hrs) 01/14/21 15:58: WBC 4.90, Hgb 11.6 L, Hct 35.9 L, Plt Count 166 01/14/21 15:58: Sodium 141, Potassium 3.9, BUN 14, Creatinine 0.70, Glucose 100, Total Bilirubin 0.3, AST 72 H, ALT 132 H, Alkaline Phosphatase 95, Lipase 86 Assessment And Plan - Current Problems (Diagnosis) (1) UTI (urinary tract infection) Current Visit: Yes Status: Acute (2) Seizures Current Visit: Yes Status: Chronic (3) Candiduria Current Visit: Yes Status: Acute (4) Fecal impaction Current Visit: No Status: Acute (5) Decubitus ulcer Current Visit: Yes Status: Acute Qualifiers: Pressure injury location: sacral region Pressure injury stage: unspecified pressure injury stage Qualified Code(s): L89.159 - Pressure ulcer of sacral region, unspecified stage (6) Hypothyroidism Current Visit: Yes Status: Chronic Qualifiers: Hypothyroidism type: unspecified Qualified Code(s): E03.9 - Hypothyroidism, unspecified (7) Down syndrome Current Visit: Yes Status: Chronic - Plan Continue current antibiotics. Continue Diflucan for Candiduria. General surgery-Dr. Chong input appreciated. Wound dressing per his recommendation. Continue Keppra. Neurology consulted to adjust Keppra dose as needed. Ativan IV p.r.n. for breakthrough seizures. Soapsud enemas, laxatives for constipation and fecal impaction. Monitor and optimize electrolytes. Continue home medications.
--- NOTE | 2021-01-15 18:55 | CON ---
Reason For Consultation: Bilateral hydronephrosis. History Of Present Illness: Ms. Leahy is a 50-year-old female with Down syndrome and underlying sei zure disorder, who suffered a cerebrovascular accident in 2017 resulting in loss of her limited verba l status preexisting. She also has hypothyroidism and was seen in the emergency department after she was febrile and hypotensive in her care facility. Upon evaluation in the emergency department, a CT scan was performed revealing mild bilateral hydronephrosis and a distended bladder. Subsequently, a urethral Turner catheter was placed with over 600 mL draining from her bladder. She has since then a dmitted and is being managed expectantly. Laboratory analyses 01/14/2021 and 01/15/2021 with creatinine within normal limits, 01/15/2021 less t dominguez 0.5. Physical Examination: The patient is noncommunicative, but lying in the bed with eyes open. She is somewhat contracted. A urethral Turner catheter is in place within her bladder with drainage of clear yellow urine into a fl oor bag. A CT scan performed 01/14/2021, I reviewed myself and identified no point of ureteral obstruction rel ated to a calculus. Instead, her massively distended bladder is likely causing only a mild degree of hydronephrosis. Assessment And Recommendations: This is a 50-year-old female with Down syndrome, seizure disorder, h istory of cerebrovascular accident in 2017 with hypothyroidism, who has acute urinary retention of la rge volume causing mild bilateral hydronephrosis and malaise with the potential for underlying sepsis . Expectant management as appreciated by the hospitalist. Continue urethral Turner catheterization for at least 10-14 days and then have her follow up in the [facility] for a voiding trial and assessment of her underlying coordination of voiding, which like ly will require urodynamic assessment. I counseled the patient's brother, who was at the bedside with her, that patients who have strokes, e specially in the setting of an underlying neurologic debility, may have variability in terms of the a bility to manage the coordination of urination. It is likely that the constipation she experienced a month ago and had recurred on this visit and the urinary retention are related to an underlying neur ovascular compromise. Options for management of discoordinated voiding would include urethral Turner catheterization chronically, CIC which she is not eligible to perform herself, and consideration even tually of a suprapubic catheter placement. CARLOS/MODL Voice ID: [id number] Report ID: [id number]
[2021-01-15] MEDS: POLYETHYL GLY 3350 17 GM/DOSE PO SCH (20:42)
[2021-01-15] MEDS: ATORVASTATIN 20 MG TAB PO SCH (20:42)
[2021-01-15] MEDS: HOME MED 1 EA UNK (Levocetirizine Dihydrochloride [Allergy Relief] 5 MG Tablet) PO SCH (20:43)
--- NOTE | 2021-01-15 20:56 | RAD REPORT ---
EXAM DESCRIPTION: CT - Head Brain Wo Cont - 01/15/2021 8:18 pm CLINICAL HISTORY: seizures COMPARISON: Head Brain Wo Cont dated 02/06/2019; Head Brain W/Wo Con dated 12/19/2017 TECHNIQUE: Axial 5 mm thick images of the head were obtained without IV contrast. All CT scans are performed using dose optimization technique as appropriate and may include automated exposure control or mA/KV adjustment according to patient size. FINDINGS: No intracranial hemorrhage, mass, edema or shift of mid-line structures. No cortical edema or sulcal effacement. Prominent chronic ischemic pattern in the white matter. Pronounced ventriculom egaly is present slightly larger when comparing to the 2 prior studies. Patient appears to have more volume loss in the brain parenchyma during this interval as well. This could account for the ventricu lar enlargement. Arterial and physiologic calcifications are present. Mastoid air cells and visualized portions of the paranasal sinuses are clear. No acute bony findings. IMPRESSION: No hemorrhage, mass or focal brain parenchymal process identifiable. Patient has pronounced ventriculomegaly which has increased slightly from the 2009 study. Patient appears to have greater volume loss as well. This could account for the ventricular enlargeme nt. Correlation is needed with any clinical findings of ventricular obstruction.
[2021-01-15] MEDS ORDERED: LEVETIRACETAM 750 MG PO SCH (21:00)
[2021-01-15] MEDS: [UNRECOGNIZED DRUG - OTHER] PO SCH (21:00)
--- NOTE | 2021-01-15 23:54 | CON ---
Reason: Seizures. History: A 50-year-old, mentally retarded patient who has not been able to walk in years and is curr ently residing in [facility], which is an assisted living type of facility[place] [facility]. They have a physician who do house calls who will come to see the patient there. The patient as noted by harry goodman prior examiners is nonverbal. Does not walk, is bedfast, comes into the hospital with fever. W hat brings me into the cases is that for the last month or 2, she has been having increasing episodes of myoclonic jerks and has had a few breakthrough generalized seizures, which consist primarily of b ilateral upper extremity flexion and severe somnolence afterwards. She has been maintained on Keppra . She was on 500 b.i.d. when I had seen her over a year ago. It was increased about a month or so a go to 750 b.i.d. given the breakthrough seizures and then the myoclonus became prominent, and it was recommended that they actually come back to my office for re-evaluation, but before that appointment, which is apparently next week, she had the fever and was brought here. Therefore consultation was r equested. Past Medical History: History of Down syndrome, mental retardation, intractable epilepsy, hypothyroi dism, questionable prior stroke. Allergies: ERYTHROMYCIN, SULFA. Medications: Normally Lipitor, Senokot, MiraLAX, and Keppra 750 b.i.d. Social History: Patient needs assistance with all activities of daily living. Family History: Noncontributory. Review of Systems: Not obtainable per the patient. Fortunately the brother is there. She has not really been ill. She just had the fever. Eyes: Negative. Ears, Nose, Throat: Still taking p.o. Cardiovascular: Negative. Pulmonary: Negative. GI: Impaction. : Hydronephrosis. Currently being managed with Turner catheter. Neurologic: As noted. Psychiatric: Negative. Endocrine: Hypothyroidism. Hematologic: Negative. Skin: She has a decubitus ulcer. Physical Examination: Vital Signs: 98.7, 94, 20, 82/52. General: She is a thin lady with prominent megacephaly, lying in bed, not speaking, interacting some with her environment, although minimally. HEENT: Pupils are reactive. Does not track to voice. Does not track items. Dysconjugate gaze. Le ft gaze preference. Face symmetric. Extremities: Strength 4/5 with bilateral foot drops and ankle and knee contractures. Sensation intact to pain. Reflexes are generally brisk, 3/4, but toes are do wngoing. Patient does have some intermittent myoclonic jerking to the upper extremities and occasion ally the face. Pertinent Laboratory Data: White count 3.4, hemoglobin 10.8, platelets 146, creatinine is 0.47, it w as 0.7 on admission. Transaminases are elevated at 60 and 114 AST ALT respectively. Protein is 5.7 and TSH is 7.1. B12 is normal. COVID is negative. Impression: Intractable complex partial seizures, mental retardation, myoclonus. Plan: I think the first thing to sort out is if the myoclonus is a myoclonic seizure or if it is jus t a release phenomenon, benign myoclonus is the general terminology. So we will check a CT scan of t he brain and an EEG and a Keppra level. Unfortunately is to send out and so we will not be back in a ny type of timely fashion unless the patient is in the hospital for a prolonged period of time. Thank you for the consult. We will continue to follow with you. CORDELL/JD Voice ID: [id number] Report ID: [id number]
[2021-01-16] MEDS: NA CHLORIDE 0.9% 1,000 ML IV SCH ×3 (04:36→22:30)
[2021-01-16 07:20] LABS: Absolute Lymphocytes (CBC) 1.3 K/uL (0.7-4.9); Basophils % 0.9 % (0-1.3); Hematocrit 35.6 % (36.0-45.0); Lymphocytes % 47.9 % (15.3-44.8); MPV 8.9 fL (7.6-11.3); RBC Red Blood Cell Count 3.53 M/uL (3.86-4.86)
[2021-01-16 07:34] LABS: ALT/SGPT 83 U/L (12-78); Albumin 2.5 g/dL (3.4-5.0); Alkaline Phosphatase 83 U/L (45-117); BUN Blood Urea Nitrogen 5 mg/dL (7-18); Bicarbonate 27 mmol/L (21-32); Bilirubin Total 0.5 mg/dL (0.2-1.0); Glucose Level 81 mg/dL (74-106); Protein, Total 6.3 g/dL (6.4-8.2); Sodium Level 142 mmol/L (136-145)
[2021-01-16 07:36] LABS: AST/SGOT 37 U/L (15-37); Potassium 3.8 mmol/L (3.5-5.1)
[2021-01-16] MEDS: [UNRECOGNIZED DRUG - OTHER] PO SCH ×2 (09:00→20:49)
[2021-01-16] MEDS: VITAMIN D 1000 UNIT TAB PO SCH (09:00)
[2021-01-16] MEDS: COLLAGENASE 30 GM OINTMENT TOP SCH (09:00)
[2021-01-16] MEDS: ENOXAPARIN 40 MG/0.4 ML SQ SCH (09:00)
[2021-01-16 10:07] LABS: Blood Morphology Comment NOT SEEN (NOT SEEN); Platelet Estimate DECR
[2021-01-16] MEDS: levETIRAcetam 500 MG TAB PO SCH ×2 (10:07→20:48)
[2021-01-16] MEDS: SENOSIDES 8.6 MG TAB PO SCH ×2 (10:07→20:48)
[2021-01-16] MEDS: POLYETHYL GLY 3350 17 GM/DOSE PO SCH ×2 (10:08→20:49)
[2021-01-16] MEDS ORDERED: COLLAGENASE 30 GM OINTMENT TOP SCH (12:00)
--- NOTE | 2021-01-16 15:40 | P.PN ---
Subjective Date of Service: 01/16/21 Chief Complaint: urinary retention Nursing staff report small bowel movement this morning Patient is awake. No seizures overnight reported. No seizures since admission. Physical Examination - Vital Signs Temperature: 97.3 F Blood Pressure: 104/58 Pulse: 98 Respirations: 16 Pulse Ox (%): 94 - Physical Exam General: In no apparent distress, Other (Awake) Neck: JVD not distended Respiratory: Clear to auscultation bilaterally, Normal air movement Cardiovascular: Regular rate/rhythm, Normal S1 S2 Gastrointestinal: Normal bowel sounds, Soft and benign, Non-distended, No tenderness Musculoskeletal: No clubbing, No swelling Neurological: Other - Studies Microbiology Data (last 24 hrs): 01/14/21 15:58 Blood - Blood Blood Culture Gram Stain - Final Assessment And Plan - Current Problems (Diagnosis) (1) UTI (urinary tract infection) Current Visit: Yes Status: Acute (2) Seizures Current Visit: Yes Status: Chronic (3) Candiduria Current Visit: Yes Status: Acute (4) Fecal impaction Current Visit: No Status: Acute (5) Decubitus ulcer Current Visit: Yes Status: Acute Qualifiers: Pressure injury location: sacral region Pressure injury stage: unspecified pressure injury stage Qualified Code(s): L89.159 - Pressure ulcer of sacral region, unspecified stage (6) Hypothyroidism Current Visit: Yes Status: Chronic Qualifiers: Hypothyroidism type: unspecified Qualified Code(s): E03.9 - Hypothyroidism, unspecified (7) Down syndrome Current Visit: Yes Status: Chronic - Plan Urine culture:yeast Continue current antibiotics. Continue Diflucan for Candiduria. General surgery-Dr. Chong input appreciated. Wound dressing per his recommendation. Wound vac recommended by Dr. Chong Continue Keppra. Neurology consulted to adjust Keppra dose as needed. EEG requested by neuro. Ativan IV p.r.n. for breakthrough seizures. Soapsud enemas, laxatives for constipation and fecal impaction. Monitor and optimize electrolytes. Continue home medications.
--- NOTE | 2021-01-16 16:57 | RAD REPORT ---
EXAM DESCRIPTION: US - Renal Ultrasound-Complete - 01/16/2021 4:33 pm CLINICAL HISTORY: evaluation of hydronephrosis, abnormal CT study COMPARISON: Abdomen Pelvis W Contrast dated 01/14/2021 FINDINGS: Renal size has not changed since January 14 imaging. Renal cortical thickness and echogenicity are normal. No right-sided hydronephrosis confirmed on this study. Left-sided hydronephrosis has imp roved since January 14. No solid mass of either kidney. Urinary bladder is fully contracted around a Turner catheter. Exam is limited due to contracted state of the patient. IMPRESSION: No right-sided hydronephrosis confirmed on this study. Left-sided hydronephrosis has imp roved since January 14.
[2021-01-16] MEDS: ATORVASTATIN 20 MG TAB PO SCH (20:48)
[2021-01-16] MEDS: FLUCONAZOLE 100 MG TAB PO SCH (20:48)
[2021-01-16] MEDS: HOME MED 1 EA UNK (Levocetirizine Dihydrochloride [Allergy Relief] 5 MG Tablet) PO SCH (20:49)
--- NOTE | 2021-01-16 23:02 | PN ---
Date of Progress Note: 01/16/2021 Reason: Seizures. History: The patient's condition is static. No generalized seizures. EEG demonstrates frontal luisa nant generalized epileptiform abnormalities, primarily single spike and wave, occasionally followed b y body movement, presumptive myoclonic jerks, so I would presume that some of the myoclonic movements /striking that the patient is experiencing or myoclonic seizures. We will increase the Keppra to 100 0 b.i.d., may need to go to 1500 b.i.d., would prefer to just use 1 agent as the patient is normally in a structured environment and she does not routinely come to the clinic. CT scan of the brain demo nstrates ventriculomegaly and hydrocephalus, that has been present on prior scans, but is worse likel y accounting for some of the decline in the patient's status as well as potentially the lack of mobil ity that the patient has been experiencing. Physical Examination: The patient is awake, tracks to voice. Pupils react. She has dysconjugate gaze. Bilateral foot gena ps. Reflexes generally brisk. The toes are downgoing. Pertinent Laboratory Data: Keppra level is pending. Impression: Down syndrome, mental retardation, generalized seizures, hydrocephalus. Plan: Increase the Keppra to 1000 b.i.d. and if she tolerates that, I would favor increasing it to 1 500 b.i.d. on discharge. Thank you for the consult. We will continue to follow with you. Total time: 40 minutes. EBONIE Voice ID: [id number] Report ID: [id number]
[2021-01-17 07:04] LABS: Absolute Lymphocytes (CBC) 1.2 K/uL (0.7-4.9); BUN Blood Urea Nitrogen 5 mg/dL (7-18); Basophils % 1.2 % (0-1.3); Bicarbonate 25 mmol/L (21-32); Glucose Level 86 mg/dL (74-106); Hematocrit 33.5 % (36.0-45.0); Lymphocytes % 33.4 % (15.3-44.8); MPV 8.8 fL (7.6-11.3); Potassium 3.5 mmol/L (3.5-5.1); RBC Red Blood Cell Count 3.34 M/uL (3.86-4.86); Sodium Level 145 mmol/L (136-145)
[2021-01-17] MEDS: SENOSIDES 8.6 MG TAB PO SCH ×2 (08:43→20:51)
[2021-01-17] MEDS: levETIRAcetam 500 MG TAB PO SCH ×2 (08:44→20:50)
[2021-01-17] MEDS: POLYETHYL GLY 3350 17 GM/DOSE PO SCH ×2 (08:44→20:51)
[2021-01-17] MEDS: FLUCONAZOLE 100 MG TAB PO SCH (08:44)
[2021-01-17] MEDS: VITAMIN D 1000 UNIT TAB PO SCH (08:44)
[2021-01-17] MEDS: ENOXAPARIN 40 MG/0.4 ML SQ SCH (08:45)
[2021-01-17] MEDS: [UNRECOGNIZED DRUG - OTHER] PO SCH ×2 (08:45→20:52)
[2021-01-17] MEDS: COLLAGENASE 30 GM OINTMENT TOP SCH (09:00)
[2021-01-17] MEDS: NA CHLORIDE 0.9% 1,000 ML IV SCH ×2 (09:00→20:52)
--- NOTE | 2021-01-17 09:27 | P.PN ---
Subjective Date of Service: 01/17/21 Chief Complaint: urinary retention Subjective: Improving (Patient remains non-verbal, no acute issues) Physical Examination - Vital Signs Temperature: 97.1 F Blood Pressure: 103/57 Pulse: 65 Respirations: 16 Pulse Ox (%): 100 - Physical Exam General: Alert, In no apparent distress HEENT: Mucous membr. moist/pink Integumentary: Other (WVAC on Sacral wound, function well) - Studies Microbiology Data (last 24 hrs): 01/14/21 18:54 Catheterized Urine [place] Count - Final >100,000 CFU/ML. 01/14/21 18:54 Catheterized Urine - Final 01/14/21 15:58 Blood - Blood Blood Culture Gram Stain - Final Assessment And Plan - Current Problems (Diagnosis) (1) Decubitus ulcer Current Visit: Yes Status: Acute Plan: Patient is a 50 year old woman with Downs syndrome with chronic Sacal decubitus ulcer - continue WVAC - pressure reduction - continue medical management Qualifiers: Pressure injury location: sacral region Pressure injury stage: stage 3 Qualified Code(s): L89.153 - Pressure ulcer of sacral region, stage 3
[2021-01-17 11:10] LABS: Blood Morphology Comment NOTED (NOT SEEN); Platelet Estimate DECR
[2021-01-17 11:11] LABS: Anisocytosis 1+
--- NOTE | 2021-01-17 11:54 | P.PN ---
Subjective Date of Service: 01/17/21 Chief Complaint: urinary retention Subjective: Improving No major changes from yesterday Patient is awake. No seizures since admission. Has sacral wound culture grew Pseudomonas sensitive to multiple antibiotics. Physical Examination - Vital Signs Temperature: 97.1 F Blood Pressure: 103/57 Pulse: 65 Respirations: 16 Pulse Ox (%): 100 - Physical Exam General: In no apparent distress, Other (Awake) Neck: JVD not distended Respiratory: Clear to auscultation bilaterally, Normal air movement Cardiovascular: No edema, Regular rate/rhythm, Normal S1 S2 Gastrointestinal: Normal bowel sounds, Soft and benign, No tenderness Musculoskeletal: No swelling, No tenderness Integumentary: Other (Sacral decubitus ulcer) Neurological: Other (No focal motor deficit) - Studies Microbiology Data (last 24 hrs): 01/14/21 18:54 Catheterized Urine [place] Count - Final >100,000 CFU/ML. 01/14/21 18:54 Catheterized Urine - Final 01/14/21 15:58 Blood - Blood Blood Culture Gram Stain - Final Assessment And Plan - Current Problems (Diagnosis) (1) UTI (urinary tract infection) Current Visit: Yes Status: Acute (2) Seizures Current Visit: Yes Status: Chronic (3) Candiduria Current Visit: Yes Status: Acute (4) Fecal impaction Current Visit: No Status: Acute (5) Decubitus ulcer Current Visit: Yes Status: Acute Qualifiers: Pressure injury location: sacral region Pressure injury stage: stage 3 Qualified Code(s): L89.153 - Pressure ulcer of sacral region, stage 3 (6) Hypothyroidism Current Visit: Yes Status: Chronic Qualifiers: Hypothyroidism type: unspecified Qualified Code(s): E03.9 - Hypothyroidism, unspecified (7) Down syndrome Current Visit: Yes Status: Chronic - Plan Urine culture:yeast Continue Diflucan for Candiduria. Add oral Levaquin to cover Pseudomonas in the wound. General surgery-Dr. Chong input appreciated. Wound dressing per his recommendation. Wound vac recommended by Dr. Chong Continue Keppra. Neurology-Dr. Medina increased Keppra to 1000 mg b.i.d. Ativan IV p.r.n. for breakthrough seizures. Soapsud enemas, laxatives for constipation.. Monitor and optimize electrolytes. Continue home medications.
[2021-01-17] MEDS: HOME MED 1 EA UNK (Levocetirizine Dihydrochloride [Allergy Relief] 5 MG Tablet) PO SCH (20:51)
[2021-01-17] MEDS: ATORVASTATIN 20 MG TAB PO SCH (20:51)
[2021-01-17] MEDS: ENSURE ENLIVE 237 ML CAN PO SCH (20:52)
[2021-01-17] MEDS ORDERED: JUVEN PACKET PO SCH (21:00)
[2021-01-18 05:59] LABS: BUN Blood Urea Nitrogen 5 mg/dL (7-18); Bicarbonate 27 mmol/L (21-32); Glucose Level 97 mg/dL (74-106); Magnesium 1.8 mg/dL (1.8-2.4); Potassium 3.1 mmol/L (3.5-5.1); Sodium Level 143 mmol/L (136-145)
[2021-01-18] MEDS: ENSURE ENLIVE 237 ML CAN PO SCH ×2 (09:00→21:00)
[2021-01-18] MEDS: ENOXAPARIN 40 MG/0.4 ML SQ SCH (09:00)
[2021-01-18] MEDS: [UNRECOGNIZED DRUG - OTHER] PO SCH ×2 (09:00→21:00)
[2021-01-18] MEDS: COLLAGENASE 30 GM OINTMENT TOP SCH (09:00)
[2021-01-18] MEDS: NA CHLORIDE 0.9% 1,000 ML IV SCH ×2 (09:15→22:55)
[2021-01-18] MEDS: KCL 20 MEQ/100 mL IVPB 20 MEQ/100 ML BAG IV SCH ×2 (09:16→14:42)
[2021-01-18] MEDS: POLYETHYL GLY 3350 17 GM/DOSE PO SCH ×2 (09:19→20:53)
[2021-01-18] MEDS: SENOSIDES 8.6 MG TAB PO SCH ×2 (09:20→20:53)
[2021-01-18] MEDS: levETIRAcetam 500 MG TAB PO SCH ×2 (09:20→20:53)
[2021-01-18] MEDS: levoFLOXacin 750 MG TAB PO SCH (09:20)
[2021-01-18] MEDS: FLUCONAZOLE 100 MG TAB PO SCH (09:20)
[2021-01-18] MEDS: VITAMIN D 1000 UNIT TAB PO SCH (09:20)
--- NOTE | 2021-01-18 12:19 | P.PN ---
Subjective Date of Service: 01/18/21 Chief Complaint: urinary retention No major changes from yesterday Patient is awake. No seizures since admission. Patient had multiple bowel movements. Physical Examination - Vital Signs Temperature: 98.8 F Blood Pressure: 119/72 Pulse: 87 Respirations: 16 Pulse Ox (%): 98 - Physical Exam General: In no apparent distress, Other (Awake, nonverbal) HEENT: Mucous membr. moist/pink Neck: JVD not distended Respiratory: Clear to auscultation bilaterally, Normal air movement Cardiovascular: No edema Gastrointestinal: Normal bowel sounds, Soft and benign, Non-distended - Studies Microbiology Data (last 24 hrs): 01/14/21 15:58 Blood - Blood Aerobic Blood Culture - Final 01/14/21 15:58 Blood - Blood Blood Culture Gram Stain - Final 01/14/21 18:54 Catheterized Urine [place] Count - Final >100,000 CFU/ML. 01/14/21 18:54 Catheterized Urine - Final Assessment And Plan - Current Problems (Diagnosis) (1) UTI (urinary tract infection) Current Visit: Yes Status: Acute (2) Seizures Current Visit: Yes Status: Chronic (3) Candiduria Current Visit: Yes Status: Acute (4) Fecal impaction Current Visit: No Status: Acute (5) Decubitus ulcer Current Visit: Yes Status: Acute Qualifiers: Pressure injury location: sacral region Pressure injury stage: stage 3 Qualified Code(s): L89.153 - Pressure ulcer of sacral region, stage 3 (6) Hypothyroidism Current Visit: Yes Status: Chronic Qualifiers: Hypothyroidism type: unspecified Qualified Code(s): E03.9 - Hypothyroidism, unspecified (7) Down syndrome Current Visit: Yes Status: Chronic - Plan Continue Diflucan for Candiduria. Oral Levaquin for Pseudomonas in the wound. General surgery-Dr. Chong input appreciated. Wound dressing per his recommendation. Wound vac recommended by Dr. Chong. Awaiting for wound VAC application. Continue Keppra. Neurology-Dr. Medina increased Keppra to 1000 mg b.i.d. Ativan IV p.r.n. for breakthrough seizures. Senna and MiraLax for constipation Monitor and optimize electrolytes. Continue home medications.
[2021-01-18] MEDS ORDERED: KCL 20 MEQ/100 mL IVPB 20 MEQ/100 ML BAG IV SCH (15:00)
[2021-01-18] MEDS: ATORVASTATIN 20 MG TAB PO SCH (20:53)
[2021-01-18] MEDS: HOME MED 1 EA UNK (Levocetirizine Dihydrochloride [Allergy Relief] 5 MG Tablet) PO SCH (20:54)
[2021-01-19] MEDS: NA CHLORIDE 0.9% 1,000 ML IV SCH ×2 (01:29→10:16)
[2021-01-19 06:43] LABS: BUN Blood Urea Nitrogen 8 mg/dL (7-18); Bicarbonate 27 mmol/L (21-32); Glucose Level 101 mg/dL (74-106); Magnesium 1.7 mg/dL (1.8-2.4); Potassium 3.6 mmol/L (3.5-5.1); Sodium Level 145 mmol/L (136-145)
[2021-01-19] MEDS ORDERED: KCL 20 MEQ/100 mL IVPB 20 MEQ/100 ML BAG IV SCH (08:00)
[2021-01-19] MEDS ORDERED: MAGNESIUM SULFATE 1 gm IVPB 1 GM/100 ML BAG IV ONE (09:00)
[2021-01-19] MEDS: ENOXAPARIN 40 MG/0.4 ML SQ SCH (09:00)
[2021-01-19] MEDS: [UNRECOGNIZED DRUG - OTHER] PO SCH ×2 (09:00→21:00)
[2021-01-19] MEDS: COLLAGENASE 30 GM OINTMENT TOP SCH (09:00)
[2021-01-19] MEDS: ENSURE ENLIVE 237 ML CAN PO SCH ×2 (09:00→20:45)
[2021-01-19] MEDS: levETIRAcetam 500 MG TAB PO SCH ×2 (10:15→20:41)
[2021-01-19] MEDS: levoFLOXacin 750 MG TAB PO SCH (10:15)
[2021-01-19] MEDS: VITAMIN D 1000 UNIT TAB PO SCH (10:16)
[2021-01-19] MEDS: FLUCONAZOLE 100 MG TAB PO SCH (10:16)
[2021-01-19] MEDS: SENOSIDES 8.6 MG TAB PO SCH ×2 (10:16→20:41)
[2021-01-19] MEDS: POLYETHYL GLY 3350 17 GM/DOSE PO SCH ×2 (10:17→20:44)
--- NOTE | 2021-01-19 11:16 | EEG ---
CHART: [id number] TEST ID#: [id number] DATE OF STUDY: 01/16/2021 THE EEG WAS RECORDED PORTABLE IN THE PATIENT'S ROOM ON A 17 CHANNEL MACHINE. ELECTRODES WERE APPLIED IN THE USUAL MANNER USING THE INTERNATIONAL 10-20 SYSTEM. THE WAKING BACKGROUND RHYTHM IN THIS RECORD CONSISTS OF POORLY DEVELOPED AND POORLY ORGANIZED WAVES OF 7 HZ., MAXIMAL IN THE POSTERIOR HEAD REGIONS WHICH ATTENUATE NORMALLY WITH EYE OPENING. FREQUENT FRONTAL DOMINANT GENERALIZED SPIKE AND WAVE DISCHARGES ARE NOTED OCCASIOANLLY ASSOCIATED WITH MYOCLONIC JERK/ BODY MOVEMENT. SLEEP DID NOT OCCUR. HYPERVENTILATION WAS NOT PERFORMED. PHOTIC STIMULATION PRODUCED FAIR DRIVING BILATERALLY. IMPRESSION: ABNORMAL EEG BECAUSE OF FREQUENT GENERALIZED EPILEPTIFORM DISCHARGES AND GENERALIZED SLOWING OF THE BACKGROUND. THE ABOVE SUGGEST PATIENT IRRITABILITY EPILEPTOGENICITY.
--- NOTE | 2021-01-19 12:31 | P.PN ---
Subjective Date of Service: 01/19/21 Chief Complaint: urinary retention Patient is awake. She is nonverbal. She appear comfortable. No seizures since admission. Physical Examination - Vital Signs Temperature: 98 F Blood Pressure: 119/51 Pulse: 93 Respirations: 18 Pulse Ox (%): 97 - Physical Exam General: In no apparent distress, Other (Awake) HEENT: Mucous membr. moist/pink Neck: JVD not distended Respiratory: Clear to auscultation bilaterally, Normal air movement Cardiovascular: No edema, Regular rate/rhythm, Normal S1 S2 Gastrointestinal: Normal bowel sounds, Soft and benign, Non-distended, No tenderness Musculoskeletal: No swelling Integumentary: Other (Sacral decubitus ulcer) Neurological: Other (No focal motor deficit.) Assessment And Plan - Current Problems (Diagnosis) (1) UTI (urinary tract infection) Current Visit: Yes Status: Acute (2) Seizures Current Visit: Yes Status: Chronic (3) Candiduria Current Visit: Yes Status: Acute (4) Fecal impaction Current Visit: No Status: Acute (5) Decubitus ulcer Current Visit: Yes Status: Acute Qualifiers: Pressure injury location: sacral region Pressure injury stage: stage 3 Qualified Code(s): L89.153 - Pressure ulcer of sacral region, stage 3 (6) Hypothyroidism Current Visit: Yes Status: Chronic Qualifiers: Hypothyroidism type: unspecified Qualified Code(s): E03.9 - Hypothyroidism, unspecified (7) Down syndrome Current Visit: Yes Status: Chronic - Plan Continue Diflucan for Candiduria. Patient to complete 14 days of treatment. Oral Levaquin for Pseudomonas in the wound. General surgery-Dr. Chong input appreciated. Wound dressing per his recomm endation. Wound vac recommended by Dr. Chong. Awaiting for wound VAC application. Continue Keppra. Neurology-Dr. Medina increased Keppra to 1000 mg b.i.d. Ativan IV p.r.n. for breakthrough seizures. Senna and MiraLax for constipation Monitor and optimize electrolytes. Continue home medications. Disposition: Social service assisting with arrangement for outpatient wound VAC.
[2021-01-19] MEDS: ATORVASTATIN 20 MG TAB PO SCH (20:41)
[2021-01-19] MEDS: HOME MED 1 EA UNK (Levocetirizine Dihydrochloride [Allergy Relief] 5 MG Tablet) PO SCH (21:00)
[2021-01-19 21:05] VITALS: BMI 21.0
[2021-01-20 06:19] LABS: Absolute Lymphocytes (CBC) 1.6 K/uL (0.7-4.9); Basophils % 1.4 % (0-1.3); Hematocrit 34.5 % (36.0-45.0); Lymphocytes % 40.1 % (15.3-44.8); MPV 8.4 fL (7.6-11.3); RBC Red Blood Cell Count 3.41 M/uL (3.86-4.86)
[2021-01-20 06:40] LABS: BUN Blood Urea Nitrogen 8 mg/dL (7-18); Bicarbonate 29 mmol/L (21-32); Glucose Level 92 mg/dL (74-106); Potassium 3.9 mmol/L (3.5-5.1); Sodium Level 146 mmol/L (136-145)
[2021-01-20 06:46] LABS: White Blood Cell Scan OK (OK)
[2021-01-20 06:47] LABS: Anisocytosis SLIGHT; Blood Morphology Comment NOTED (NOT SEEN); Macrocytosis SLIGHT; Platelet Estimate DECR
[2021-01-20] MEDS: NA CHLORIDE 0.9% 1,000 ML IV SCH ×2 (07:29→08:59)
[2021-01-20 08:46] VITALS: O2SAT 96
[2021-01-20] MEDS: FLUCONAZOLE 100 MG TAB PO SCH (08:55)
[2021-01-20] MEDS: POLYETHYL GLY 3350 17 GM/DOSE PO SCH (08:55)
[2021-01-20] MEDS: SENOSIDES 8.6 MG TAB PO SCH (08:55)
[2021-01-20] MEDS: levoFLOXacin 750 MG TAB PO SCH (08:56)
[2021-01-20] MEDS: VITAMIN D 1000 UNIT TAB PO SCH (08:56)
[2021-01-20] MEDS: ENSURE ENLIVE 237 ML CAN PO SCH (08:56)
[2021-01-20] MEDS: levETIRAcetam 500 MG TAB PO SCH (08:56)
[2021-01-20] MEDS: ENOXAPARIN 40 MG/0.4 ML SQ SCH (09:00)
[2021-01-20] MEDS ORDERED: POTASSIUM 25 MEQ EFFERV TAB PO ONE (09:00)
[2021-01-20] MEDS: [UNRECOGNIZED DRUG - OTHER] PO SCH (09:00)
--- NOTE | 2021-01-20 11:15 | RAD REPORT ---
EXAM DESCRIPTION: RAD - Abdomen 1 View (KUB) - 01/20/2021 11:07 am CLINICAL HISTORY: Abdomen pain. FINDINGS: Mild gastric distention Air is present within nondilated large and small bowel in a nonspecific fashion.
--- NOTE | 2021-01-20 16:33 | P.DS ---
Admission Date: 01/14/21 Discharge Date: 01/20/21 Disposition: TRANSFR TO OTHER-PSY/CD/REHAB Discharge Condition: FAIR Reason for Admission: urinary retention Consultations: Urology - Dr. Grajeda General surgery - Dr. Chong Neurology - Dr. Medina Procedures: CXR (01/14): No acute intrathoracic process suspected. CT abdomen/pelvis (01/14): Moderate fecal retention. Distention of the urinary bladder is seen with mild bilateral hydronephrosis. Prominent decubitus ulceration posterior lower back region. The bone in this region of the sacrum is very close to the skin surface. Direct visualization would be suggested. CT head (01/15): No hemorrhage, mass or focal brain parenchymal process identifiable. Patient has pronounced ventriculomegaly which has increased slightly from the 2008 study. Patient appears to have greater volume loss as well. This could account for the ventricular enlargement. Correlation is needed with any clinical findings of ventricular obstruction. Renal U/S (01/16): No right-sided hydronephrosis confirmed on this study. Left- sided hydronephrosis has improved since January 14. KUB X-ray (01/20): Mild gastric distention. Air is present within nondilated large and small bowel in a nonspecific fashion. Problem List Urinary tract infection Urinary retention Increased seizure activity Fecal impaction. Decubitus ulcer, requiring wound VAC Hypothyroidism Down syndrome Brief History of Present Illness: Ms. Castro is a 50 yo F with Down Syndrome, h/o seizures, h/o CVA in 2017, and hypothyroidism brought in today from [facility] for fever and hypotension, improved with fluids. She is bedridden and nonverbal. Brother says she is at baseline functioning. He says she had a seizure a month ago and her Keppra dose was increased and then she had two more seizures last week and a small seizure today. He says she had stool studies done for diarrhea last week that were negative. He said 8 months ago she was admitted for fecal retention and dehydration. She follows with wound care for her decubitus ulcer. CT of the Abdomen shows fecal retention, distension of the urinary bladder with mild bilateral hydronephrosis and a decubitus ulcer. AST 72, ALT 132. Urine positive for yeast. Hospital Course: Patient was empirically treated with it's Diflucan and Levaquin for her Candiduria and for Pseudomonas that was cultured from her right sacral wound. General surgery was consulted patient was set up for wound VAC placement. Neurology was consulted for her increased frequency of seizures activity. Her Keppra was increased to 1000 mg b.i.d., and was recommended to increase to 1500 mg b.i.d. on discharge. Patient is fecal impaction prove/resolved with multiple enemas. It is recomme nded that patient continue her home bowel regimen, and in addition, he was enemas as needed. She was also noted to have distended bladder/urinary retention, felt secondary to her constipation. Urology, was consulted and recommended to maintain Turner catheter. Follow up in 2 weeks in the office. Vital Signs/Physical Exam: Physical Exam Gen: NAD, nonverbal HEENT: MMM, normal conjunctiva Resp: CTAB, normal air movement CV: no edema, regular rate/rhythm Abd: soft, NTND Integumentary: sacral decubitus ulcer Temp Pulse Resp BP Pulse Ox 98.6 F 87 18 102/62 93 01/20/21 12:00 01/20/21 12:00 01/20/21 12:00 01/20/21 12:00 01/20/21 12:00 Laboratory Data at Discharge: WBC 4.00 K/uL (4.3-10.9) L 01/20/21 05:47 Hgb 11.5 g/dL (12.0-15.0) L 01/20/21 05:47 Hct 34.5 % (36.0-45.0) L 01/20/21 05:47 Plt Count 144 K/uL (152-406) L 01/20/21 05:47 Sodium 146 mmol/L (136-145) H 01/20/21 05:47 Potassium 3.9 mmol/L (3.5-5.1) 01/20/21 05:47 BUN 8 mg/dL (7-18) 01/20/21 05:47 Creatinine 0.46 mg/dL (0.55-1.3) L 01/20/21 05:47 Glucose 92 mg/dL (74-106) 01/20/21 05:47 Phosphorus 3.7 mg/dL (2.5-4.9) 01/15/21 05:01 Magnesium 2.0 mg/dL (1.8-2.4) 01/20/21 05:47 Total Bilirubin 0.5 mg/dL (0.2-1.0) 01/16/21 06:37 AST 37 U/L (15-37) 01/16/21 06:37 ALT 83 U/L (12-78) H 01/16/21 06:37 Alkaline Phosphatase 83 U/L (45-117) 01/16/21 06:37 Triglycerides 61 mg/dL (<150) 01/15/21 05:01 Cholesterol 135 mg/dL (<200) 01/15/21 05:01 HDL Cholesterol 46 mg/dL (40-60) 01/15/21 05:01 Cholesterol/HDL Ratio 2.93 01/15/21 05:01 Lipase 86 U/L (73-393) 01/14/21 15:58 Home Medications: Atorvastatin Calcium [Lipitor*] 20 mg PO BEDTIME 04/24/20 Levocetirizine Dihydrochloride [Allergy Relief] 1 tab PO BEDTIME 04/24/20 Cholecalciferol (Vitamin D3) [Vitamin D 1000 Iu Tab*] 1,000 unit PO DAILY 07/07/20 Collagenase [Santyl Ointment*] 1 appl TOP DAILY #1 tube 07/07/20 Polyethylene Glycol 3350 [Miralax] 17 gm PO DAILY #30 powd.pack 07/07/20 Senosides [Senokot*] 2 tab PO BID #120 tab 07/07/20 Argin/Glut/Cahmb/Collag/Mv-Min [Jamie Packet] 1 packet PO BID 01/15/21 Fluconazole [Diflucan] 200 mg PO DAILY 10 Days #10 tablet 01/20/21 Levetiracetam [Keppra] 1,500 mg PO BID 30 Days #180 tablet 01/20/21 levoFLOXacin [Levaquin*] 750 mg PO DAILY 10 Days #10 tab 01/20/21 New Medications: Fluconazole [Diflucan] 200 mg PO DAILY 10 Days #10 tablet Levetiracetam [Keppra] 1,500 mg PO BID 30 Days #180 tablet levoFLOXacin [Levaquin*] 750 mg PO DAILY 10 Days #10 tab Diet: soft Followup: Rian Chong MD [ACTIVE - CAN ADMIT] - Mulugeta Grajeda [ACTIVE - CAN ADMIT] - Ricks,Miguel, [employer] MANAGER [Primary Care Provider] - Time spent managing pt's care (in minutes): 40
[2021-01-20 17:27] VITALS: BP 90/53; TEMP 99.2
== END 2021-01-20 18:14 | disposition home health service (06) | DRG 757 ==
LOC: ER 15:12 → ERHOLD 19:34 → 2ND 20:35
PROVIDERS: ADMIT Internal Medicine; ATTEND Internal Medicine
DX: B37.49 Other urogenital candidiasis (principal); L89.153 Pressure ulcer of sacral region, stage 3; R33.9 Retention of urine, unspecified; R56.9 Unspecified convulsions; K56.41 Fecal impaction; L08.89 Other specified local infections of the skin and subcutaneous tissue; B96.5 Pseudomonas (aeruginosa) (mallei) (pseudomallei) as the cause of diseases classified elsewhere; E03.9 Hypothyroidism, unspecified; Q90.9 Down syndrome, unspecified; Z20.822 Contact with and (suspected) exposure to COVID-19; Z86.73 Personal history of transient ischemic attack (TIA), and cerebral infarction without residual deficits; Z88.2 Allergy status to sulfonamides
CPT/HCPCS: 36415; 51702; 70450; 71045; 74018; 74177; 76770; 80048; 80053; 80061; 80076; 80177; 81003; 81015; 82607; 82746; 83605; 83690; 83735; 84100; 84439; 84443; 85025; 87040; 87070; 87077; 87086; 87088; 87186; 87205; 93005; 94760; 95816; 96374; 99284; J1650; J3475; J3480; J3590; J7030; Q9967; U0003

== ENCOUNTER 2021-03-13 22:22 | Inpatient (IN) | payer BC ==
--- OUTSIDE RECORDS SUMMARY | 2021-03-13 22:25 | XMS REPORT | Continuity of Care Document ---
:1970 Author Organization [facility] t Address [address] [place] [address] [address]. [address] [place] [address] Care Team Providers Name Role Phone EDWARDO DANIELSON Attending Clinician Unavailable EDWARDO DANIELSON Admitting Clinician Unavailable Problems Condition Condition Condition Status Onset Resolution Last Treating Co mments Source Name Details Category Date Date Treatment Clinician Date Down Down Disease [facility] [place] Seizure Seizure Disease [facility] [place] Cerebral Cerebral Disease [facility] Tamika kes - megaly megaly 00:00: Medical 00 [place] Acquired Acquired Disease [facility] hyp[facility]roi hyp[facility]roi [facility] Tamika kes - dism dism 00:00: Medical 00 [place] Allergies, Adverse Reactions, Alerts This patient has no known allergies or adverse reactions. Social History Social Habit Start Date Stop Date Quantity Comments Source Sex Assigned At [facility] Tobacco use and 2017-12-20 2017-12-20 Never used [facility] - exposure 00:00:00 00:00:00 [facility] Alcohol intake 2017-12-20 2017-12-20 Current [facility] es - 00:00:00 00:00:00 non-drinker of Medical Ce nter alcohol (finding) Smoking Status Start Date Stop Date Source Never smoker [facility] Medications Ordered Filled Start Stop Current [...] Description Test Time Test Comments Results Result [facility] e Comments MR, BRAIN, 2017-12-22 Reason for FINAL REPORT PATIENT WITHOUT CONTRAST 17:54:00 exam:->sseizures ID: [id number] MRI /hydrocephalusWh Brain without contrast at is [...] MDReport Verified Date/Time: 12/22/2017 17:54:57 Reading Location: [facility] Reading Room AWAKE AND 2017-12-21 Reason for Date(s) of EEG: DROWSY 13:47:00 exam:->seizuresS 12/21/17ACC: esa this be [id number] Number: performed at the Test Location: bedside?->Yes Inpatient RoomStart time: 08:38Stop time: 08:59ICD-10: R56.9CPT Code: 72004 HISTORY: 47 y.o. female who presented with [...] code = 368) 4.5 % 4.3-6.1 T4, [id number] 07:45:00 Test Item Value Reference Range Interpretation Comments FREE T4 (BEAKER) (test code = 655) 1.46 ng/dL 0.70-1.48 TSH/FREE T4 IF [id number] 06:53:00 Test Item Value Reference Range Interpretation Comments THYROID STIMULATING HORMONE 0.15 uIU/mL 0.35-4.94 L (BEAKER) (test code = 772) CALCIUM, [id number] 06:51:00 Test Item Value Reference Range Interpretation Comments CALCIUM IONIZED (BEAKER) (test 1.01 mmol/L 1.12-1.27 L code = 698) PH, BLOOD (BEAKER) (test code = 7.49 1810) [id number] 06:31:00 Test Item Value Reference Range Interpretation Comments PHOSPHORUS (BEAKER) (test code = 4.1 mg/dL 2.3-4.7 604) [id number] 06:31:00 Test Item Value Reference Range Interpretation Comments MAGNESIUM (BEAKER) (test code = 2.3 mg/dL 1.6-2.6 627) BASIC METABOLIC [id number] 06:31:00 Test Item Value Reference Range Interpretation [...] NOT APPLICABLE FOR DIALYSIS PATIEN TS. LIPID [id number] 06:31:00 Test Item Value Reference Range Interpretation [...] Very High >=190CBC W/PLT COUNT & AUTO [id number] 06:09:00 Test Item Value Reference Range Interpretation [...]
[2021-03-13] MEDS ORDERED: ACETAMINOPHEN 500 MG TAB ONE (23:12)
[2021-03-13] MEDS ORDERED: NA CHLORIDE 0.9% 1,000 ML ONE (23:53)
[2021-03-14 00:05] LABS: Protime INR 1.06
[2021-03-14 00:07] LABS: Absolute Lymphocytes (CBC) 1.5 K/uL (0.7-4.9); Basophils % 0.9 % (0-1.3); Hematocrit 34.8 % (36.0-45.0); Lymphocytes % 33.8 % (15.3-44.8); MPV 7.7 fL (7.6-11.3); RBC Red Blood Cell Count 3.38 M/uL (3.86-4.86)
[2021-03-14 00:18] LABS: ALT/SGPT 92 U/L (12-78); AST/SGOT 44 U/L (15-37); Albumin 2.5 g/dL (3.4-5.0); Alkaline Phosphatase 80 U/L (45-117); BUN Blood Urea Nitrogen 23 mg/dL (7-18); Bicarbonate 29 mmol/L (21-32); Bilirubin Direct 0.1 mg/dL (0-0.2); Bilirubin Total 0.3 mg/dL (0.2-1.0); Glucose Level 91 mg/dL (74-106); Magnesium 1.9 mg/dL (1.8-2.4); NT PRO-BNP 15 pg/mL (<125); Potassium 3.7 mmol/L (3.5-5.1); Protein, Total 6.1 g/dL (6.4-8.2); Sodium Level 142 mmol/L (136-145); Troponin (Emerg Dept Use Only) < 0.02 ng/mL (0.0-0.045)
[2021-03-14 02:24] LABS: Urine Blood Negative (Negative); Urine Glucose Negative (Negative); Urine Protein Negative (Negative)
--- NOTE | 2021-03-14 03:22 | ER ---
Nurse's Notes [facility] Name: Andie Castro Age: 50 yrs Sex: Female : 1970 Arrival Date: 03/13/2021 Time: 22:26 Bed 14 Private MD: Diagnosis: Dehydration;UTI/ Urinary tract infection, site not specified Presentation: 03/13 22:26 Chief complaint: EMS states: they were toned out for report of pt with low blood bb pressure all day on arrival pt SBP 84. Coronavirus screen: At this time, the client does not indicate any symptoms associated with coronavirus-19. Ebola Screen: No symptoms or risks identified at this time. Initial Sepsis Screen: Does the patient meet any 2 criteria? No. Patient's initial sepsis screen is negative. Does the patient have a suspected source of infection? No. Patient's initial sepsis screen is negative. Risk Assessment: Do you want to hurt yourself or someone else? Unable to obtain. Onset of symptoms was March 13, 2021. 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 N/A - bb Historical: - Allergies: 22:29 Bactrim; bb 22:29 Bees; bb 22:29 Erythromycin; bb 22:29 Nystatin powder; bb 22:29 Pediozole; bb 22:29 PENICILLINS; bb 22:29 Sulfa (Sulfonamide Antibiotics); bb 22:29 TRIMETHOPRIM; bb - Home Meds: 22:29 Jamie Oral [Active]; levetiracetam 500 mg Oral tab 3 tabs twice a day [Active]; Senokot bb Oral 2 tabs twice a day [Active]; Miralax 17 gram/dose oral powd once daily [Active]; levocetirizine 5 mg oral tab 1 tab once daily [Active]; atorvastatin 20 mg Oral tab [Active]; Santyl Topical [Active]; - PMHx: 22:29 down syndrome; Hypothyroidism; Seizures; bb - Immunization history:: Adult Immunizations unknown. - Social history:: Smoking status: unknown. Screenin:30 Abuse screen: Denies threats or abuse. Nutritional screening: No deficits noted. jb4 Tuberculosis screening: No symptoms or risk factors identified. Fall Risk None identified. Assessment: 22:30 General: Appears in no apparent distress. comfortable, Behavior is calm. Pain: Unable jb4 to use pain scale. FLACC scale score is 0 out of 10. non-verbal. Neuro: Level of Consciousness is awake, alert, Oriented to none. Cardiovascular: Patient's skin is warm and dry. Respiratory: Airway is patent Respiratory effort is even, unlabored, Respiratory pattern is regular, symmetrical. GI: No signs and/or symptoms were reported involving the gastrointestinal system. : No signs and/or symptoms were reported regarding the genitourinary system. EENT: No signs and/or symptoms were reported regarding the EENT system. Derm: Skin is pink, warm \T\ dry. Wound noted gluteal cleft. Musculoskeletal: Circulation, motion, and sensation intact. Range of motion: intact in all extremities. 23:30 Reassessment: Patient appears in no apparent distress at this time. No changes from jb4 previously documented assessment. Patient and/or family updated on plan of care and expected duration. Pain level reassessed. 03/14 01:00 Reassessment: Patient appears in no apparent distress at this time. No changes from jb4 previously documented assessment. Patient and/or family updated on plan of care and expected duration. Pain level reassessed. 02:00 Reassessment: Pt is resting in bed with eyes closed, respirations are even and jb4 unlabored with no s/s of pain or distress noted. 03:00 Reassessment: Patient appears in no apparent distress at this time. No changes from jb4 previously documented assessment. Patient and/or family updated on plan of care and expected duration. Pain level reassessed. 04:00 Reassessment: Pt is awake, respirations are even and unlabored, remains non verbal, jb4 continues to not follow commands. No s/s of pain or distress noted. Vital Signs: 03/13 22:26 BP 91 / 62; Pulse 69; Resp 16 S; Temp 97.2(TE); Pulse Ox 96% on R/A; Weight 36.29 kg bb (R); Height 5 ft. 0 in. (152.40 cm) (R); Pain 0/10; 23:30 BP 92 / 55; Pulse 72; Resp 16; Pulse Ox 100% on R/A; jb4 03/14 00:30 BP 102 / 72; Pulse 62; Resp 18; Pulse Ox 98% on R/A; jb4 02:00 BP 97 / 67; Pulse 64; Resp 16; Pulse Ox 98% on R/A; jb4 03:00 BP 103 / 65; Pulse 56; Resp 16; Pulse Ox 97% on R/A; jb4 04:00 BP 95 / 83; Pulse 59; Resp 16; Pulse Ox 99% on R/A; jb4 03/13 22:26 Body Mass Index 15.62 (36.29 kg, 152.40 cm) ED Course: 03/13 22:26 Patient arrived in ED. bb 22:29 Triage completed. bb 22:29 Arm band placed on Patient placed in an exam room, on a stretcher, on pulse oximetry. bb Family accompanied patient. 22:30 Patient has correct armband on for positive identification. Bed in low position. Call jb4 light in reach. Side rails up X 1. selector packer on. Pulse ox on. NIBP on. 22:45 Mauri Pepe MD is Attending Physician. [facility] 23:19 XRAY Chest (1 view) In Process Unspecified. [facility] 23:29 Alex Pena, CRISTINA is Primary Nurse. [facility] 03/14 03:22 Meek Lakhani is Hospitalizing Provider. [facility] 04:50 No provider procedures requiring assistance completed. Patient admitted, IV remains in jb4 place. Administered Medications: 03/13 23:37 Drug: NS 0.9% 1000 ml Route: IV; Rate: 1000 ml; Site: left antecubital; 4 03/14 04:09 Drug: LevaQUIN (levofloxacin) 500 mg Volume: 100 ml; Route: IVPB; Infused Over: 60 jb4 mins; Site: left antecubital; 05:09 Follow up: Response: No adverse reaction; IV Status: Completed infusion; IV Intake: jb4 100ml Intake: 05:09 IV: 100ml; Total: 100ml. [facility] Outcome: 03:22 Decision to Hospitalize by Provider. 7 04:50 Admitted to ER Hold. Please see [facility] for further documentation. 4 04:50 Condition: stable 04:50 Discharge instructions given to family, Instructed on the need for admit, Demonstrated understanding of instructions. 16:12 Patient left the ED. ss Signatures: Dispatcher Med[employer] EDMS Castellon, CRISTINA Shetty RN, Shelby, RN RN ss Bryson, James, RN RN jb4 Mauri Pepe MD MD mh7 Corrections: (The following items were deleted from the chart) 04:52 03/13 22:30 Derm: Skin is intact, Skin is pink, warm \T\ dry. jb4 jb4
--- NOTE | 2021-03-14 03:23 | EDPHYS ---
Physician Documentation [facility] Name: Andie Castro Age: 50 yrs Sex: Female : 1970 Arrival Date: 03/13/2021 Time: 22:26 Bed 14 Private MD: ED Physician Mauri Pepe HPI: 03/13 22:50 This 50 yrs old Female presents to ER via EMS with complaints of Low Blood mh7 Pressure. 22:50 . Low Blood Pressure. Onset: The symptoms/episode began/occurred today. Severity of mh7 symptoms: At their worst the symptoms were moderate today, in the emergency department the symptoms have improved moderately. Sent from care facility due to low blood pressure. Patient has Down's Syndrome and is baseline non verbal per family.. 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 N/A - bb Historical: - Allergies: 22:29 Bactrim; bb 22:29 Bees; bb 22:29 Erythromycin; bb 22:29 Nystatin powder; bb 22:29 Pediozole; bb 22:29 PENICILLINS; bb 22:29 Sulfa (Sulfonamide Antibiotics); bb 22:29 TRIMETHOPRIM; bb - Home Meds: 22:29 Jamie Oral [Active]; levetiracetam 500 mg Oral tab 3 tabs twice a day [Active]; Senokot bb Oral 2 tabs twice a day [Active]; Miralax 17 gram/dose oral powd once daily [Active]; levocetirizine 5 mg oral tab 1 tab once daily [Active]; atorvastatin 20 mg Oral tab [Active]; Santyl Topical [Active]; - PMHx: 22:29 down syndrome; Hypothyroidism; Seizures; bb - Immunization history:: Adult Immunizations unknown. - Social history:: Smoking status: unknown. ROS: 22:50 Unable to obtain ROS due to Down's Syndrome, non verbal. mh7 Exam: 22:50 Constitutional: This is a well developed, well nourished patient who is awake, alert, mh7 and in no acute distress. Head/Face: Normocephalic, atraumatic. Eyes: Pupils equal round and reactive to light, extra-ocular motions intact. Lids and lashes normal. Conjunctiva and sclera are non-icteric and not injected. Cornea within normal limits. Periorbital areas with no swelling, redness, or edema. Neck: Trachea midline, no thyromegaly or masses palpated, and no cervical lymphadenopathy. Supple, full range of motion without nuchal rigidity, or vertebral point tenderness. No Meningismus. Chest/axilla: Normal chest wall appearance and motion. Nontender with no deformity. No lesions are appreciated. Cardiovascular: Regular rate and rhythm with a normal S1 and S2. No gallops, murmurs, or rubs. Normal PMI, no JVD. No pulse deficits. Respiratory: Lungs have equal breath sounds bilaterally, clear to auscultation and percussion. No rales, rhonchi or wheezes noted. No increased work of breathing, no retractions or nasal flaring. Abdomen/GI: Soft, non-tender, with normal bowel sounds. No distension or tympany. No guarding or rebound. No evidence of tenderness throughout. Back: No spinal tenderness. No costovertebral tenderness. Full range of motion. Skin: Warm, dry with normal turgor. Normal color with no rashes, no lesions, and no evidence of cellulitis. MS/ Extremity: Pulses equal, no cyanosis. Neurovascular intact. Full, normal range of motion. 22:50 Neuro: Orientation: unable to test, the patient is developmentally delayed, Mentation: unable to test, the patient is developmentally delayed, Memory: unable to test, the patient is developmentally delayed, Cranial nerves: unable to test, the patient is developmentally delayed, Cerebellar function: unable to test, the patient is developmentally delayed, Motor: unable to test, the patient is developmentally delayed, Sensation: unable to test, the patient is developmentally delayed, Gait: not tested. seizure activity, is not displayed by the patient, Abnormal movements: there are no abnormal movements. Vital Signs: 22:26 BP 91 / 62; Pulse 69; Resp 16 S; Temp 97.2(TE); Pulse Ox 96% on R/A; Weight 36.29 kg bb (R); Height 5 ft. 0 in. (152.40 cm) (R); Pain 0/10; 23:30 BP 92 / 55; Pulse 72; Resp 16; Pulse Ox 100% on R/A; jb4 03/14 00:30 BP 102 / 72; Pulse 62; Resp 18; Pulse Ox 98% on R/A; jb4 02:00 BP 97 / 67; Pulse 64; Resp 16; Pulse Ox 98% on R/A; jb4 03:00 BP 103 / 65; Pulse 56; Resp 16; Pulse Ox 97% on R/A; jb4 04:00 BP 95 / 83; Pulse 59; Resp 16; Pulse Ox 99% on R/A; 4 03/13 22:26 Body Mass Index 15.62 (36.29 kg, 152.40 cm) bb MDM: 03:20 Differential Diagnosis sepsis, UTI, Dehydration. Data reviewed: vital signs, nurses [facility] notes, EMS record, assisted records, old medical records, lab test result(s), cardiac enzymes, CBC, electrolytes, urinalysis, EKG, radiologic studies, plain films. Data interpreted: Pulse oximetry: on room air is 98 %. Interpretation: normal. Counseling: I had a detailed discussion with the patient and/or guardian regarding: the historical points, exam findings, and any diagnostic results supporting the discharge/admit diagnosis, lab results, radiology results, the need for further work-up and treatment in the hospital. Response to treatment: the patient's symptoms have markedly improved after treatment. 03:22 Patient medically screened. [facility] 03/13 23:04 Order name: Basic Metabolic Panel [facility] 03/13 23:04 Order name: CBC with Diff [facility] 03/13 23:04 Order name: LFT's [facility] 03/13 23:04 Order name: Magnesium [facility] 03/13 23:04 Order name: NT PRO-BNP [facility] 03/13 23:04 Order name: PT-INR; Complete Time: 00:47 [facility] 03/13 23:04 Order name: Troponin (emerg Dept Use Only); Complete Time: 00:47 [facility] 03/13 23:04 Order name: Blood Culture Adult (2) [facility] 03/13 23:04 Order name: Lactate; Complete Time: 00:47 [facility] 03/13 23:04 Order name: Procalcitonin; Complete Time: 00:47 [facility] 03/13 23:05 Order name: Basic Metabolic Panel; Complete Time: 00:47 [facility] 03/13 23:05 Order name: CBC with Automated Diff; Complete Time: 00:47 [facility] 03/13 23:05 Order name: Liver (Hepatic) Function; Complete Time: 00:47 [facility] 03/13 23:05 Order name: Magnesium; Complete Time: 00:47 [facility] 03/13 23:04 Order name: XRAY Chest (1 view) [facility] 03/13 23:04 Order name: EKG; Complete Time: 23:05 [facility] 03/13 23:05 Order name: NT PRO-BNP; Complete Time: 00:47 [facility] 03/14 02:24 Order name: Urine Dipstick-Ancillary; Complete Time: 02:27 [facility] 03/14 02:26 Order name: UA MICROSCOPIC [facility] 03/14 02:26 Order name: Urine Culture [facility] 03/14 02:26 Order name: Urine Microscopic Only [facility] 03/14 02:44 Order name: Urine Microscopic Only [facility] 03/14 02:44 Order name: Urine Culture [facility] 03/14 04:09 Order name: COVID-19 : Document "Date of Symptom Onset" if Symptomatic. [facility] 03/14 05:38 Order name: SARS-COV-2 RT PCR [facility] 03/14 08:55 Order name: Comprehensive Metabolic Panel [facility] 03/14 08:55 Order name: Phosphorus [facility] 03/14 08:55 Order name: Magnesium [facility] 03/13 23:04 Order name: Cardiac monitoring; Complete Time: 00:06 [facility] 03/13 23:04 Order name: EKG - Nurse/Tech; Complete Time: 00:07 [facility] 03/13 23:04 Order name: IV Saline Lock; Complete Time: 23:32 [facility] 03/13 23:04 Order name: Labs collected and sent; Complete Time: 23:49 [facility] 03/13 23:04 Order name: O2 Per Protocol; Complete Time: 23:32 [facility] 03/13 23:04 Order name: O2 Sat Monitoring; Complete Time: 23:32 [facility] 03/13 23:04 Order name: Urine Dipstick-Ancillary (obtain specimen); Complete Time: 02:26 [facility] Administered Medications: 03/13 23:37 Drug: NS 0.9% 1000 ml Route: IV; Rate: 1000 ml; Site: left antecubital; jb4 03/14 04:09 Drug: LevaQUIN (levofloxacin) 500 mg Volume: 100 ml; Route: IVPB; Infused Over: 60 jb4 mins; Site: left antecubital; 05:09 Follow up: Response: No adverse reaction; IV Status: Completed infusion; IV Intake: jb4 100ml Disposition Summary: 03/14/21 03:22 Hospitalization Ordered Hospitalization Status: Inpatient Admission mh7 Provider: Meek Lakhani Condition: Stable mh Problem: an acute exacerbation mh7 Symptoms: have improved mh7 Bed/Room Type: Standard [facility] Location: Telemetry/MedSurg (Inpatient)(03/14/21 14:06) dw Room Assignment: [facility](03/14/21 14:06) Diagnosis - Dehydration mh7 - UTI/ Urinary tract infection, site not specified mh7 Forms: - Medication Reconciliation Form mh7 - SBAR form 7 Signatures: Dispatcher [employer] EDSmiley Claros RN RN dw Sena Castellon RN RN Radha Dela Cruz RN RN tl1 Alex Pena RN RN jb4 Mauri Pepe MD MD 7 Corrections: (The following items were deleted from the chart) 00:22 00:17 Low Blood Pressure. mh7 mh7 00:22 00:17 This 50 yrs old Female presents to ER via EMS with complaints of Low mh7 Blood Pressure. mh7 04:24 03:22 Telemetry/MedSurg (Inpatient) mh7 tl1 04:24 03:22 mh7 tl1 14:06 04:24 [facility] ER HOLD tl1 dw 14:06 04:24 ERHOLD- tl1 dw
[2021-03-14 03:38] LABS: Urine Volume 1 mL
[2021-03-14 03:39] LABS: Urine Bacteria 20-50 /HPF (<20); Urine RBC <5 /HPF (NONE SEEN); Urine Urothelial Cells <5 /HPF (NONE SEEN)
[2021-03-14] MEDS ORDERED: Levofloxacin500mg IV 500 MG/100 ML BAG IV ONE (04:26)
--- NOTE | 2021-03-14 05:02 | P.HP ---
Certification for Inpatient Patient admitted to: Inpatient With expected LOS: <2 Midnights Patient will require the following post-hospital care: None Practitioner: I am a practitioner with admitting privileges, knowledge of patient current condition, hospital course, and medical plan of care. Services: Services provided to patient in accordance with Admission requirements found in Title 42 Section 412.3 of the Code of Federal Regulations Patient History Date of Service: 03/14/21 Reason for admission: dehydration, UTI History of Present Illness: Ms. Leahy is a 50 yo F with Down Syndrome who was [facility] in from [facility] for low blood pressure. Blood pressure has been stable since presentation to the ED. Patient has a wound vac and is seen by wound care three times a week. She has a mandel that was placed on last admission two months ago. UA positive for nitrites and leukocyte esterase. Allergies erythromycin base Allergy (Verified 01/14/21 21:37) unknown Sulfa (Sulfonamide Antibiotics) Allergy (Verified 01/14/21 21:37) unknown sulfamethoxazole [From Bactrim] Allergy (Verified 01/14/21 21:37) eye swelling trimethoprim [From Bactrim] Allergy (Verified 01/14/21 21:37) eye swelling peliosole Allergy (Uncoded 07/07/20 04:20) unknown Home Medications: Atorvastatin Calcium [Lipitor*] 20 mg PO BEDTIME 04/24/20 Levocetirizine Dihydrochloride [Allergy Relief] 1 tab PO BEDTIME 04/24/20 Cholecalciferol (Vitamin D3) [Vitamin D 1000 Iu Tab*] 1,000 unit PO DAILY 07/07/20 Collagenase [Santyl Ointment*] 1 appl TOP DAILY #1 tube 07/07/20 Polyethylene Glycol 3350 [Miralax] 17 gm PO DAILY #30 powd.pack 07/07/20 Senosides [Senokot*] 2 tab PO BID #120 tab 07/07/20 Argin/Glut/Cahmb/Collag/Mv-Min [Jamie Packet] 1 packet PO BID 01/15/21 Fluconazole [Diflucan] 200 mg PO DAILY 10 Days #10 tablet 01/20/21 Levetiracetam [Keppra] 1,500 mg PO BID 30 Days #180 tablet 01/20/21 levoFLOXacin [Levaquin*] 750 mg PO DAILY 10 Days #10 tab 01/20/21 - Past Medical/Surgical History Diabetic: No -: History of seizures -: Down syndrome -: Bed ridden since 2016 -: Sacral pressure ulcer present on admission -: Hypothyroidism -: Debridement of decubitus ulcer 03/2020 Psychosocial/ Personal History: FPC - Social History Smoking Status: Never smoker Alcohol use: No CD- Drugs: No Caffeine use: No Place of Residence: [facility] Review of Systems is unable to be obtained Physical Examination - Physical Exam General: In no apparent distress, Cachectic HEENT: Atraumatic, PERRLA, Mucous membr. moist/pink, EOMI, Sclerae nonicteric Neck: Supple, 2+ carotid pulse no bruit, No LAD, Without JVD or thyroid abnormality Respiratory: Clear to auscultation bilaterally, Normal air movement Cardiovascular: Regular rate/rhythm, Normal S1 S2 Gastrointestinal: Normal bowel sounds, No tenderness Musculoskeletal: No tenderness Neurological: Abnormal affect Lymphatics: No axilla or inguinal lymphadenopathy Urinary: Mandel catheter - Studies Laboratory Data (last 24 hrs) 03/13/21 23:30: PT 12.2, INR 1.06 03/13/21 23:30: WBC 4.40, Hgb 11.6 L, Hct 34.8 L, Plt Count 154 03/13/21 23:30: Sodium 142, Potassium 3.7, BUN 23 H, Creatinine 0.48 L, Glucose 91, Magnesium 1.9, Total Bilirubin 0.3, AST 44 H, ALT 92 H, Alkaline Phosphatase 80 Assessment and Plan - Problems (Diagnosis) (1) Decubitus ulcer Current Visit: No Status: Chronic Qualifiers: Pressure injury location: sacral region Pressure injury stage: unspecified pressure injury stage Qualified Code(s): L89.159 - Pressure ulcer of sacral region, unspecified stage (2) Dehydration Current Visit: No Status: Acute (3) UTI (urinary tract infection) Current Visit: No Status: Acute Qualifiers: Urinary tract infection type: site unspecified Hematuria presence: without hematuria Qualified Code(s): N39.0 - Urinary tract infection, site not specified (4) Down syndrome Current Visit: No Status: Chronic (5) Seizures Current Visit: No Status: Chronic - Plan continue IVF hydration continue IV antibiotics reconcile and continue home medications consult wound care, continue wound vac goal to remove mandel during this admission DVT ppx Discharge Plan: [facility] Plan to discharge in: 24 Hours - Advance Directives Does patient have a Living Will: No Does patient have a Durable POA for Healthcare: No - Code Status/Comfort Care Code Status Assessed: Yes (full code ) Critical Care: No Time Spent Managing Pts Care (In Minutes): 70
[2021-03-14] MEDS: Levofloxacin 750mg IV 750 MG/150 ML BAG IV SCH (05:49)
[2021-03-14] MEDS: NA CHLORIDE 0.9% 1,000 ML IV SCH ×2 (05:49→16:34)
[2021-03-14] MEDS ORDERED: ONDANSETRON 4 MG/2 ML VIAL IV PRN (05:49)
[2021-03-14] MEDS ORDERED: ACETAMINOPHEN 500 MG TAB PO PRN (05:49)
[2021-03-14 05:55] VITALS: BMI 17.3
--- NOTE | 2021-03-14 06:29 | RAD REPORT ---
EXAM DESCRIPTION: RAD - Chest Single View - 03/13/2021 11:20 pm CLINICAL HISTORY: hypotension COMPARISON: Abdomen 1 View (KUB) dated 01/20/2021; Chest Single View dated 01/14/2021; Chest Single Vi ew dated 04/25/2020; Chest Single View dated 04/23/2020 FINDINGS: No evidence of edema or pneumonia. The heart size is within normal limits.No acute osseous abnormality. No significant pleural effusions or pneumothorax. IMPRESSION: No acute cardiopulmonary disease.
[2021-03-14] MEDS ORDERED: NA CHLORIDE 0.9% 1,000 ML ONE (06:43)
[2021-03-14] MEDS ORDERED: levETIRAcetam 500 MG TAB ONE (08:42)
[2021-03-14] MEDS ORDERED: ENOXAPARIN 40 MG/0.4 ML SQ ONE (08:43)
[2021-03-14 08:51] LABS: ALT/SGPT 93 U/L (12-78); Albumin 2.3 g/dL (3.4-5.0); Alkaline Phosphatase 78 U/L (45-117); BUN Blood Urea Nitrogen 14 mg/dL (7-18); Bicarbonate 26 mmol/L (21-32); Bilirubin Total 0.4 mg/dL (0.2-1.0); Glucose Level 81 mg/dL (74-106); Phosphorus 3.1 mg/dL (2.5-4.9); Protein, Total 5.9 g/dL (6.4-8.2); Sodium Level 141 mmol/L (136-145)
[2021-03-14 08:54] LABS: AST/SGOT 52 U/L (15-37); Magnesium 1.9 mg/dL (1.8-2.4); Potassium 4.4 mmol/L (3.5-5.1)
[2021-03-14] MEDS: levETIRAcetam 500 MG TAB PO SCH ×3 (09:00→22:16)
[2021-03-14] MEDS: ENOXAPARIN 40 MG/0.4 ML SQ SCH (09:00)
--- NOTE | 2021-03-14 09:02 | EKG ---
Test Date: 2021-03-13 Test Time: 23:59:25 Information Coordinator: RAQUEL MEASUREMENT RESULTS: Intervals: Rate: 69 VA: QRSD: 70 QT: 432 QTc: 462 [place]: P: VA: QRS: 96 T: 60 INTERPRETIVE STATEMENTS: artifact...cannot interpret...probably normal Rightward axis Abnormal ECG Compared to ECG 01/14/2021 16:09:15 Sinus rhythm no longer present Electronically Signed On 03-14-21 09:01:48 CDT by Harpreet Minor
--- NOTE | 2021-03-14 15:32 | P.PN ---
Date of Service: 03/14/21 No issues since admission. Patient has been afebrile. On examination patient lying comfortably in bed. Vitals are stable. Plan: Continue antibiotics. Follow urine culture. Patient is currently normotensive. Consider IV hydration. Wound VAC in place.
[2021-03-14] MEDS ORDERED: levETIRAcetam 500 MG TAB PO SCH (21:00)
[2021-03-14] MEDS: SENOSIDES 8.6 MG TAB PO SCH (22:03)
[2021-03-15] MEDS: NA CHLORIDE 0.9% 1,000 ML IV SCH ×3 (02:56→23:54)
[2021-03-15] MEDS: Levofloxacin 750mg IV 750 MG/150 ML BAG IV SCH (05:47)
[2021-03-15 06:11] LABS: ALT/SGPT 95 U/L (12-78); Albumin 2.3 g/dL (3.4-5.0); Alkaline Phosphatase 87 U/L (45-117); BUN Blood Urea Nitrogen 7 mg/dL (7-18); Bicarbonate 27 mmol/L (21-32); Bilirubin Total 0.3 mg/dL (0.2-1.0); Glucose Level 80 mg/dL (74-106); Phosphorus 3.4 mg/dL (2.5-4.9); Sodium Level 141 mmol/L (136-145)
[2021-03-15 06:12] LABS: AST/SGOT 45 U/L (15-37); Potassium 3.9 mmol/L (3.5-5.1)
[2021-03-15] MEDS ORDERED: POTASSIUM 25 MEQ EFFERV TAB PO ONE (08:00)
[2021-03-15] MEDS: ENOXAPARIN 40 MG/0.4 ML SQ SCH (09:28)
[2021-03-15] MEDS: SENOSIDES 8.6 MG TAB PO SCH ×2 (09:28→22:05)
[2021-03-15] MEDS: levETIRAcetam 500 MG TAB PO SCH ×2 (09:28→22:05)
--- NOTE | 2021-03-15 14:36 | P.PN ---
Subjective Date of Service: 03/15/21 Chief Complaint: dehydration, UTI Patient unable to give subjective complain.. No issues overnight. Urine looks clear. No drainage in the wound VAC. Physical Examination - Vital Signs Temperature: 97.9 F Blood Pressure: 143/85 Pulse: 76 Respirations: 18 Pulse Ox (%): 99 - Physical Exam General: In no apparent distress, Confused HEENT: Mucous membr. moist/pink Neck: JVD not distended Respiratory: Clear to auscultation bilaterally, Normal air movement Cardiovascular: No edema, Regular rate/rhythm Gastrointestinal: Soft and benign, Non-distended Musculoskeletal: No tenderness Integumentary: Other (Stage IV sacral decubitus ulcer) Neurological: Other (Moves all extremities spontaneous) Urinary: Turner catheter - Studies Microbiology Data (last 24 hrs): 03/14/21 01:00 Blood - Blood Anaerobic Blood Culture - Final 03/14/21 00:53 Blood - Blood Anaerobic Blood Culture - Final Assessment And Plan - Current Problems (Diagnosis) (1) UTI (urinary tract infection) Current Visit: No Status: Acute Qualifiers: Urinary tract infection type: site unspecified Hematuria presence: without hematuria Qualified Code(s): N39.0 - Urinary tract infection, site not specified (2) Decubitus ulcer Current Visit: No Status: Chronic Qualifiers: Pressure injury location: sacral region Pressure injury stage: unspecified pressure injury stage Qualified Code(s): L89.159 - Pressure ulcer of sacral region, unspecified stage (3) Down syndrome Current Visit: No Status: Chronic (4) Seizures Current Visit: No Status: Chronic - Plan Urine culture is growing Gram negative rods Continue current antibiotics Follow urine culture for organism identification and antibiotic sensitivity. Continue seizure medications. Continue other home medications. Blood pressure has improved. Will D/C to SNF pending urine culture final result.
[2021-03-16 06:17] LABS: BUN Blood Urea Nitrogen 8 mg/dL (7-18); Bicarbonate 28 mmol/L (21-32); Glucose Level 88 mg/dL (74-106); Potassium 3.5 mmol/L (3.5-5.1); Sodium Level 144 mmol/L (136-145)
[2021-03-16] MEDS: Levofloxacin 750mg IV 750 MG/150 ML BAG IV SCH (06:47)
[2021-03-16] MEDS ORDERED: KCL 20 MEQ/100 mL IVPB 20 MEQ/100 ML BAG IV SCH (08:00)
[2021-03-16] MEDS: levETIRAcetam 500 MG TAB PO SCH (09:55)
[2021-03-16] MEDS: ENOXAPARIN 40 MG/0.4 ML SQ SCH (09:55)
[2021-03-16] MEDS: SENOSIDES 8.6 MG TAB PO SCH (09:55)
--- NOTE | 2021-03-16 10:47 | P.DS ---
Admission Date: 03/14/21 Discharge Date: 03/16/21 Disposition: TRANSFER TO PRISON Discharge Condition: FAIR Reason for Admission: dehydration, UTI - Problems (1) UTI (urinary tract infection) Current Visit: No Status: Acute Qualifiers: Urinary tract infection type: site unspecified Hematuria presence: without hematuria Qualified Code(s): N39.0 - Urinary tract infection, site not specified (2) Decubitus ulcer Current Visit: No Status: Chronic Qualifiers: Pressure injury location: sacral region Pressure injury stage: unspecified pressure injury stage Qualified Code(s): L89.159 - Pressure ulcer of sacral region, unspecified stage (3) Down syndrome Current Visit: No Status: Chronic (4) Seizures Current Visit: No Status: Chronic Brief History of Present Illness: 50 yo woman with Down Syndrome was brought in from alf for low blood pressure. Blood pressure has been stable since presentation to the ED. Patient has a wound vac and is seen by wound care three times a week. She has a mandel that was placed on last admission two months ago. UA positive for nitrites and leukocyte esterase. Patient admitted for further management of UTI. Hospital Course: Patient admitted to the medical floor on IV Levaquin for UTI. Urine culture grew Enterobacter sensitive to multiple antibiotics including fluoroquinolones. Noted patient has chronic indwelling mandel. Mandel catheter was changed in the ER. Patient blood pressure was stable throughout the hospital stay and was at baseline. She was eating well. Blood cultures yielded no growth. No seizures. Patient is clinically stable for transfer to the alf. Vital Signs/Physical Exam: Temp Pulse Resp BP Pulse Ox 97.3 F 94 H 18 128/58 L 96 03/16/21 08:00 03/16/21 08:00 03/16/21 08:00 03/16/21 08:00 03/16/21 08:00 General: In no apparent distress, Other (Awake) HEENT: Mucous membr. moist/pink Neck: JVD not distended Respiratory: Clear to auscultation bilaterally, Normal air movement Cardiovascular: No edema, Regular rate/rhythm, Normal S1 S2 Gastrointestinal: Soft and benign, Non-distended, No tenderness Musculoskeletal: No swelling Integumentary: Other (Stage IV sacral decubitus ulcer) Neurological: Other (Moves all extremities spontaneously) Laboratory Data at Discharge: WBC 4.40 K/uL (4.3-10.9) 03/13/21 23:30 Hgb 11.6 g/dL (12.0-15.0) L 03/13/21 23:30 Hct 34.8 % (36.0-45.0) L 03/13/21 23:30 Plt Count 154 K/uL (152-406) 03/13/21 23:30 PT 12.2 SECONDS (9.5-12.5) 03/13/21 23:30 INR 1.06 03/13/21 23:30 Sodium 144 mmol/L (136-145) 03/16/21 05:41 Potassium 3.5 mmol/L (3.5-5.1) 03/16/21 05:41 BUN 8 mg/dL (7-18) 03/16/21 05:41 Creatinine 0.54 mg/dL (0.55-1.3) L 03/16/21 05:41 Glucose 88 mg/dL (74-106) 03/16/21 05:41 Phosphorus 3.4 mg/dL (2.5-4.9) 03/15/21 05:23 Magnesium 2.0 mg/dL (1.8-2.4) 03/15/21 05:23 Total Bilirubin 0.3 mg/dL (0.2-1.0) 03/15/21 05:23 AST 45 U/L (15-37) H 03/15/21 05:23 ALT 95 U/L (12-78) H 03/15/21 05:23 Alkaline Phosphatase 87 U/L (45-117) 03/15/21 05:23 Home Medications: Atorvastatin Calcium [Lipitor*] 20 mg PO BEDTIME 03/14/21 Cholecalciferol (Vitamin D3) [Vitamin D3] 25 mcg PO DAILY 03/14/21 Collagenase [Santyl Ointment*] 1 fidencio TOP SEECOM 03/14/21 Jamie [Jamie*] 1 packet PO BID 03/14/21 Levetiracetam [Keppra] 3 tab PO BID 03/14/21 Levocetirizine Dihydrochloride [Xyzal] 5 mg PO DAILY 03/14/21 Polyethylene Glycol 3350 [Miralax] 1 packet PO BEDTIME 03/14/21 Senosides [Senokot*] 2 tab PO BID 03/14/21 levoFLOXacin [Levaquin] 500 mg PO DAILY #7 tab 03/16/21 New Medications: levoFLOXacin [Levaquin] 500 mg PO DAILY #7 tab Diet: Regular Activity: Fall precautions Followup: NONE,NONE [Primary Care Provider] - Time spent managing pt's care (in minutes): 33
[2021-03-16 11:11] VITALS: O2SAT 93
[2021-03-16 12:21] VITALS: BP 125/57; TEMP 97.8
== END 2021-03-16 13:20 | disposition home health service (06) | DRG 689 ==
LOC: ER 22:22 → ERHOLD 03-14 04:02 → 2ND 03-14 15:50
PROVIDERS: ADMIT Internal Medicine; ATTEND Internal Medicine
DX: N39.0 Urinary tract infection, site not specified (principal); L89.154 Pressure ulcer of sacral region, stage 4; E43 Unspecified severe protein-calorie malnutrition; Z68.1 Body mass index [BMI] 19.9 or less, adult; E86.0 Dehydration; Q90.9 Down syndrome, unspecified; R56.9 Unspecified convulsions; B96.89 Other specified bacterial agents as the cause of diseases classified elsewhere; Z88.1 Allergy status to other antibiotic agents; Z88.0 Allergy status to penicillin; Z88.8 Allergy status to other drugs, medicaments and biological substances; Z91.030 Bee allergy status; Z79.899 Other long term (current) drug therapy; Z20.822 Contact with and (suspected) exposure to COVID-19
CPT/HCPCS: 36415; 71045; 80048; 80053; 80076; 81003; 81015; 83605; 83735; 83880; 84100; 84145; 84484; 85025; 85610; 87040; 87077; 87086; 87088; 87186; 93005; 94760; 96365; 99285; J1650; J3480; J7030; U0003

== ENCOUNTER 2023-02-08 16:07 | Emergency (ER) | payer OTHER ==
--- OUTSIDE RECORDS SUMMARY | 2023-02-08 16:53 | XMS REPORT | Continuity of Care Document ---
:1970 Author Organization [facility] t Address [address] [place] [address] Care Team Providers Name Role Phone YESSENIA DANIELSON Attending Clinician Unavailable YESSENIA DANIELSON Admitting Clinician Unavailable Problems Condition Condition Condition Status Onset Resolution Last Treating Co mments Source Name Details Category Date Date Treatment Clinician Date Seizure Seizure Disease [facility]ur[facility] Cerebral Cerebral Disease [facility] megaly megaly [facility]:00: Medical 00 [facility] Acquired Acquired Disease Active [facility] hyp[facility]roi hyp[facility]roi [facility]23 [facility] kes dism dism 00:00: Medical 00 [facility] Down Down Disease Active [facility] syndrome [facility] -[facility] Allergies, Adverse Reactions, Alerts This patient has no known allergies or adverse reactions. Social History Social Habit Start Date Stop Date Quantity Comments Source Tobacco use and 2017-12-20 2017-12-[address] [facility] Tamika kes exposure 00:00:00 00:00:00 [facility] Alcohol intake 2017-12-20 2017-12-[address] [facility] 00:00:00 00:00:00 non-drinker of Medical Ce nter alcohol (finding) Sex Assigned At [address] [facility] Tamika kes 00:00:00 00:00:00 [facility] Smoking Status Start Date Stop Date Source Never sm[facility] Medications Ordered Filled Start Stop Current Ordering Indication Dosage Frequency Signature Comments Components Source Medication Medication Date Date Medication? Clinician (SIG) Name Name levothyroxi 2018-0 Yes 125ug Take [address] ne 4-27 mcg [facility] (SYNTHROID, 14:14: mouth Medic al LEVOTHROID) 05 Every [facility] 125 MCG morning on tablet an empty stomach. levothyroxi 2018-0 Yes 125ug Take [address] ne 4-27 [facility] (SYNTHROID, 14:14: mouth Medic al LEVOTHROID) 05 [facility] 125 MCG morning on tablet an empty stomach. Procedures This patient has no known procedures. Results Test Description Test Time Test Comments Results Result [facility] e Comments MR, BRAIN, 2017-12-22 Reason for FINAL REPORT PATIENT WITHOUT CONTRAST 17:54:00 exam:->sseizures ID: [id number] MRI Brain /hydrocephalusWh without contrast at is the Clinical History: [...] MDReport Verified Date/Time: 12/22/2017 17:54:57 Reading Location: [facility] Radiology Reading Room AWAKE AND 2017-12-21 Reason for Date(s) of EEG: DROWSY 13:47:00 exam:->seizuresS 12/21/17ACC: hould this be [id number] Number: performed at the [facility] Location: bedside?->Yes Inpatient RoomStart time: 08:38Stop time: 08:59ICD-10: R56.9CPT Code: 75844 HISTORY: 47 y.o. female who presented with [...] code = 368) 4.5 % 4.3-6.1 T4, [id number] 07:45:00 Test Item Value Reference Range Interpretation Comments FREE T4 (BEAKER) (test code = 655) 1.46 ng/dL 0.70-1.48 TSH/FREE T4 IF [id number] 06:53:00 Test Item Value Reference Range Interpretation Comments THYROID STIMULATING HORMONE 0.15 uIU/mL 0.35-4.94 L (BEAKER) (test code = 772) CALCIUM, [id number] 06:51:00 Test Item Value Reference Range Interpretation Comments CALCIUM IONIZED (BEAKER) (test 1.01 mmol/L 1.12-1.27 L code = 698) PH, BLOOD (BEAKER) (test code = 7.49 1810) [id number] 06:31:00 Test Item Value Reference Range Interpretation Comments PHOSPHORUS (BEAKER) (test code = 4.1 mg/dL 2.3-4.7 604) [id number] 06:31:00 Test Item Value Reference Range Interpretation Comments MAGNESIUM (BEAKER) (test code = 2.3 mg/dL 1.6-2.6 627) BASIC METABOLIC [id number] 06:31:00 Test Item Value Reference Range Interpretation [...] NOT APPLICABLE FOR DIALYSIS PATIEN TS. LIPID [id number] 06:31:00 Test Item Value Reference Range Interpretation Comments TRIGLYCERIDES (BEAKER) (test code = 86 mg/dL 540) CHOLESTEROL (BEAKER) (test code = 246 mg/dL 631) HDL CHOLESTEROL (BEAKER) (test code 54 mg/dL = 976) LDL CHOLESTEROL CALCULATED (BEAKER) 175 mg/dL (test code = 633) Triglyceride Reference Range: Low Risk <150 Borderline 150-199 High Risk 200- 499 Very High Risk >=500Cholesterol Reference Range: Low Risk <200 Borderline 200-239 High Risk >240HDL Cholesterol Reference Range: Low Risk >=60 High Risk <40LDL Cholesterol Reference Range: Optimal <100 Near Optimal 100-129 Borderline 130-159 High 160-189 Very High >=190CBC W/PLT COUNT & AUTO [id number] 06:09:00 Test Item Value Reference Range Interpretation [...] % 0-1 PERCENT (BEAKER) (test code = 2802)
--- NOTE | 2023-02-08 18:21 | RAD REPORT ---
EXAM DESCRIPTION: RAD - ENTEROSTOMY TUBE CHECK W/CONTR - 02/08/2023 6:02 pm CLINICAL HISTORY: check peg placement COMPARISON: Renal Ultrasound-Complete dated 01/16/2021 TECHNIQUE: Single AP view of the abdomen. FINDINGS: Severe levoconvex scoliosis of the upper lumbar spine limits evaluation. Nonobstructive bowel gas pattern. Contrast injected through the percutaneous gastrostomy tube opacifi es the distal stomach and proximal small bowel. No evidence of extraluminal contrast. No suspicious calcifications. No significant bony abnormality. IMPRESSION: Satisfactory contrast opacification of the stomach and distal small bowel. No evidence o f extravasated contrast.
--- NOTE | 2023-02-08 18:30 | EDPHYS ---
Physician Documentation [facility] Name: Andie Castro Age: 52 yrs Sex: Female : 1970 Arrival Date: 02/08/2023 Time: 16:07 Bed 13 Private MD: ED Physician Shaun Bhatti HPI: 02/08 18:56 This 52 yrs old Female presents to ER via EMS with complaints of PEG tube removed. kb 18:56 EMS was called after PEG tube found to be removed. Onset: The symptoms/episode kb began/occurred just prior to arrival. The patient has not experienced similar symptoms in the past. The patient has not recently seen a physician. Historical: - Allergies: 16:17 Bactrim; kc6 16:17 Bees; kc6 16:17 Erythromycin; kc6 16:17 Nystatin powder; kc6 16:17 Pediozole; kc6 16:17 PENICILLINS; kc6 16:17 Sulfa (Sulfonamide Antibiotics); kc6 16:17 TRIMETHOPRIM; kc6 - PMHx: 16:17 down syndrome; Hypothyroidism; Seizures; kc6 - PSHx: 16:17 Unable to Obtain; kc6 - Immunization history:: Adult Immunizations unknown. - Social history:: Smoking status: unknown. ROS: 18:54 Constitutional: Negative for fever, chills, and weight loss. kb 18:54 All other systems are negative. Exam: 18:54 Constitutional: This is a well developed, well nourished patient who is awake, alert, kb and in no acute distress. Head/Face: Normocephalic, atraumatic. Cardiovascular: Regular rate and rhythm with a normal S1 and S2. No gallops, murmurs, or rubs. No pulse deficits. Respiratory: Respirations even and unlabored. No increased work of breathing. Talking in full sentences Skin: Warm, dry with normal turgor. Normal color. 18:54 Abdomen/GI: Inspection: ostomy noted to left side of abd without PEG tube in place, Bowel sounds: normal, Palpation: abdomen is soft and non-tender. 18:54 Neuro: Exam negative for acute changes. Vital Signs: 16:15 Pulse 56; Resp 18 S; Pulse Ox 96% on 2 lpm NC; Weight 36.29 kg (R); Height 4 ft. 9 in. kc6 (R); Pain 0/10; 16:20 BP 96 / 56; kc6 17:13 BP 94 / 60; Pulse 86; Resp 16 S; Pulse Ox 100% on R/A; kc6 16:15 Body Mass Index 17.31 (36.29 kg, 144.78 cm) kc6 16:15 Pain Scale: Adult kc6 MDM: 16:15 Patient medically screened. kb 18:55 Differential Diagnosis displaced PEG tube. Data reviewed: vital signs, nurses notes. kb Independent interpretation of the following test(s) in the Emergency Department X-Ray: My interpretation is PEG tube in place. Historians other than the Patient: EMS: [facility]. Counseling: I had a detailed discussion with the patient and/or guardian regarding: the historical points, exam findings, and any diagnostic results supporting the discharge/admit diagnosis, radiology results, the need for outpatient follow up, a family practitioner, to return to the emergency department if symptoms worsen or persist or if there are any questions or concerns that arise at home. 02/08 17:07 Order name: Enterostomy Tube Check w/contr; Complete Time: 18:31 kb 02/08 16:15 Order name: Misc. Order: call correction for tube size please; Complete Time: 16:43 kb Administered Medications: No medications were administered Disposition: 20:04 Co-signature as Attending Physician, Shaun Bhatti MD I reviewed the patient's care rn provided by the Advanced Practice Provider and agree with the diagnosis and treatment plan. Disposition Summary: 02/08/23 18:29 Discharge Ordered Location: Home kb Condition: Stable kb Diagnosis - Gastrostomy status - replacement kb Followup: kb - With: Emergency Department - When: As needed - Reason: Worsening of condition Followup: kb - With: Private Physician - When: 2 - 3 days - Reason: Recheck today's complaints, Continuance of care, Re-evaluation by your physician Discharge Instructions: - Discharge Summary Sheet kb - PEG Tube Home Guide, [id number] kb Forms: - Medication Reconciliation Form kb - Thank You Letter kb - Antibiotic Education kb - Prescription Opioid Use kb Signatures: Dispatcher [employer] EDEdel Peacock, MOBILE APPLICATION DEVELOPER-C MOBILE APPLICATION DEVELOPER-Shaun Mata MD MD rn Campbell, Kaitlyn, RN RN [facility]
--- NOTE | 2023-02-08 18:30 | ER ---
Nurse's Notes [facility] Name: Andie Castro Age: 52 yrs Sex: Female : 1970 Arrival Date: 02/08/2023 Time: 16:07 Bed 13 Private MD: Diagnosis: Gastrostomy status-replacement Presentation: 02/08 16:15 Chief complaint: EMS states: pt is from [facility], pulled her PEG tub out. kc6 Coronavirus screen: At this time, the client does not indicate any symptoms associated with coronavirus-19. Ebola Screen: No symptoms or risks identified at this time. Initial Sepsis Screen: Does the patient meet any 2 criteria? No. Patient's initial sepsis screen is negative. Does the patient have a suspected source of infection? No. Patient's initial sepsis screen is negative. Risk Assessment: Do you want to hurt yourself or someone else? Patient reports no desire to harm self or others. Onset of symptoms was February 08, 2023. 16:15 Method Of Arrival: EMS: [facility] kc6 16:15 Acuity: MARCEL 3 kc6 Triage Assessment: 16:17 General: Appears in no apparent distress. comfortable, Behavior is calm, cooperative, kc6 appropriate for age. Pain: Unable to use pain scale. Does not appear to understand pain scale. EENT: No signs and/or symptoms were reported regarding the EENT system. Neuro: Farris Agitation-Sedation Scale (RASS): 0 - Alert and Calm Level of Consciousness is awake, alert, obeys commands, Oriented to person, Appropriate for age. Cardiovascular: Capillary refill < 3 seconds. Respiratory: Airway is patent Trachea midline Respiratory effort is even, unlabored, Respiratory pattern is regular, symmetrical. GI: open area to the LUQ that appears to be site of previous PEG tube. area is pink and healthy. : Turner in place to gravity drainage clamped. Derm: No signs and/or symptoms reported regarding the dermatologic system. Skin is intact, Skin is pink, warm \T\ dry. Musculoskeletal: No signs and/or symptoms reported regarding the musculoskeletal system. Circulation, motion, and sensation intact. Capillary refill < 3 seconds, Range of motion: intact in all extremities. Historical: - Allergies: 16:17 Bactrim; kc6 16:17 Bees; kc6 16:17 Erythromycin; kc6 16:17 Nystatin powder; kc6 16:17 Pediozole; kc6 16:17 PENICILLINS; kc6 16:17 Sulfa (Sulfonamide Antibiotics); kc6 16:17 TRIMETHOPRIM; kc6 - PMHx: 16:17 down syndrome; Hypothyroidism; Seizures; kc6 - PSHx: 16:17 Unable to Obtain; kc6 - Immunization history:: Adult Immunizations unknown. - Social history:: Smoking status: unknown. Screenin:20 [facility] ED Fall Risk Assessment (Adult) History of falling in the last 3 months, kc6 including since admission No falls in past 3 months (0 pts) Confusion or Disorientation No (0 pts) Intoxicated or Sedated No (0 pts) Impaired Gait Yes (1 pt) Mobility Assist Device Used No (0 pt) Altered Elimination Yes (1 pt) Score/Fall Risk Level 0 - 2 = Low Risk Oriented to surroundings, Maintained a safe environment, Educated pt \T\ family on fall prevention, incl call for assistance when getting out of bed, Assessed \T\ reinforced patient's understanding of fall precautions, Hourly rounding (assess needs \T\ fall precautionary measures) done. Abuse screen: Denies threats or abuse. Denies injuries from another. Nutritional screening: No deficits noted. Tuberculosis screening: No symptoms or risk factors identified. Assessment: 16:20 Reassessment: called [facility] to obtain size of PEG tube, stated they will check kc6 with the nurse taking care of her and call me back. 17:09 Reassessment: Patient appears in no apparent distress at this time. No changes from kc6 previously documented assessment. Patient and/or family updated on plan of care and expected duration. Pain level reassessed. 18:09 Reassessment: Patient appears in no apparent distress at this time. No changes from kc6 previously documented assessment. Patient and/or family updated on plan of care and expected duration. Pain level reassessed. 18:35 Reassessment: Awaiting EMS for transport back to [facility]. 19:15 Reassessment: pt. leaving with ambulance. During report nurse hilary RN reported that ha1 report had already been given and pt. was ready to go. Vital Signs: 16:15 Pulse 56; Resp 18 S; Pulse Ox 96% on 2 lpm NC; Weight 36.29 kg (R); Height 4 ft. 9 in. kc6 (R); Pain 0/10; 16:20 BP 96 / 56; kc6 17:13 BP 94 / 60; Pulse 86; Resp 16 S; Pulse Ox 100% on R/A; kc6 16:15 Body Mass Index 17.31 (36.29 kg, 144.78 cm) kc6 16:15 Pain Scale: Adult kc6 ED Course: 16:13 Patient arrived in ED. ss 16:13 Edel Leo FNP-C [facility] kb 16:13 Shaun Bhatti MD is Attending Physician. kb 16:14 Hilary Burk, RN is Primary Nurse. kc6 16:17 Triage completed. kc6 16:17 Arm band placed on. kc6 16:20 Patient has correct armband on for positive identification. Bed in low position. Call kc6 light in reach. Side rails up X2. 18:04 Enterostomy Tube Check w/contr In Process Unspecified. EDMS 19:21 No provider procedures requiring assistance completed. Patient did not have IV access ha1 during this emergency room visit. Administered Medications: No medications were administered Medication: 19:23 VIS not applicable for this client. ha1 Outcome: 18:29 Discharge ordered by . kb 19:22 Discharged to group home. ha1 19:22 Condition: stable 19:22 Discharge instructions given to patient, group home, Instructed on discharge instructions, follow up and referral plans. Demonstrated understanding of instructions, follow-up care, Instructions were given by CRISTINA Richard 19:23 Patient left the ED. ha1 Signatures: Dispatcher [employer] EDMS Edel Leo FNP-C FNP-Ckb Blanchard, Shelby RN RN Radha Almeida RN RN ha1 Hilary Burk, CRISTINA RN kc
[2023-02-08 19:31] VITALS: BP 94/60; O2SAT 100
== END 2023-02-08 19:23 | disposition home or self-care (01) ==
LOC: ER 16:07
DX: Z46.59 Encounter for fitting and adjustment of other gastrointestinal appliance and device (principal)
CPT/HCPCS: 49465; 99283

== ENCOUNTER 2023-03-03 19:27 | Observation (INO) | payer OTHER ==
--- OUTSIDE RECORDS SUMMARY | 2023-03-03 19:31 | XMS REPORT | Continuity of Care Document ---
:1970 Author Organization [facility] t Address [address] [place] [address] Care Team Providers Name Role Phone YESSENIA DANIELSON Attending Clinician Unavailable YESSENIA DANIELSON Admitting Clinician Unavailable Problems Condition Condition Condition Status Onset Resolution Last Treating Co mments Source Name Details Category Date Date Treatment Clinician Date Seizure Seizure Disease [facility] [place] Cerebral Cerebral Disease [facility] kes megaly megaly 00:00: Medical 00 [place] Acquired Acquired Disease [facility] hyp[facility]roi hyp[facility]roi [facility]23 Tamika kes dism dism 00:00: Medical 00 [place] Down Down Disease Active [facility] [place] Allergies, Adverse Reactions, Alerts This patient has no known allergies or adverse reactions. Social History Social Habit Start Date Stop Date Quantity Comments Source Tobacco use and 2017-12-20 2017-12-20 Sm[address] [address] [facility] Alcohol intake 2017-12-20 2017-12-[address] [facility] 00:[facility]:00 00:00:00 non-drinker of Medical Ce nter alcohol (finding) Sex Assigned At [address] Tamika kes 00:00:00 00:00:00 [facility] Smoking Status Start Date Stop Date Source Never smoked tobacco [facility] Medications Ordered Filled Start Stop Current Ordering [...] Description Test Time Test Comments Results Result [facility] e Comments MR, BRAIN, 2017-12-22 Reason for FINAL REPORT PATIENT WITHOUT CONTRAST 17:54:00 exam:->sseizures ID: [id number] MRI Brain /hydrocephalusWh without contrast at is [...] of EEG: DROWSY 13:47:00 exam:->seizuresS 12/21/17ACC: esa wise be [id number] Number: performed at the 730Test Location: bedside?->Yes Inpatient RoomStart time: 08:38Stop time: 08:59ICD-10: R56.9CPT Code: 60287 HISTORY: 47 y.o. female who presented with [...] code = 368) 4.5 % 4.3-6.1 T4, [id number] 07:45:00 Test Item Value Reference Range Interpretation Comments FREE T4 (BEAKER) (test code = 655) 1.46 ng/dL 0.70-1.48 TSH/FREE T4 IF [id number] 06:53:00 Test Item Value Reference Range Interpretation Comments THYROID STIMULATING HORMONE 0.15 uIU/mL 0.35-4.94 L (BEAKER) (test code = 772) CALCIUM, [id number] 06:51:00 Test Item Value Reference Range Interpretation Comments CALCIUM IONIZED (BEAKER) (test 1.01 mmol/L 1.12-1.27 L code = 698) PH, BLOOD (BEAKER) (test code = 7.49 1810) [id number] 06:31:00 Test Item Value Reference Range Interpretation Comments PHOSPHORUS (BEAKER) (test code = 4.1 mg/dL 2.3-4.7 604) [id number] 06:31:00 Test Item Value Reference Range Interpretation Comments MAGNESIUM (BEAKER) (test code = 2.3 mg/dL 1.6-2.6 627) BASIC METABOLIC [id number] 06:31:00 Test Item Value Reference Range Interpretation [...] NOT APPLICABLE FOR DIALYSIS PATIEN TS. LIPID [id number] 06:31:00 Test Item Value Reference Range Interpretation [...] Very High >=190CBC W/PLT COUNT & AUTO [id number] 06:09:00 Test Item Value Reference Range Interpretation [...] % 0-1 PERCENT (BEAKER) (test code = 2942)
[2023-03-03] MEDS ORDERED: NA CHLORIDE 0.9% 1,000 ML ONE (20:28)
[2023-03-03] MEDS ORDERED: FAMOTIDINE 20 MG/2 ML VIAL IV ONE (20:28)
[2023-03-03] MEDS ORDERED: METOCLOPRAMIDE 10 MG/2mL INJ ONE (20:29)
[2023-03-03 20:53] LABS: Absolute Lymphocytes (CBC) 0.5 K/uL (0.7-4.9); Hematocrit 42.5 % (36.0-45.0); Lymphocytes % 10.4 % (15.3-44.8); MCV 108.2 fL (80-100); MPV 8.7 fL (7.6-11.3); RBC Red Blood Cell Count 3.93 M/uL (3.86-4.86)
[2023-03-03 20:56] LABS: Urine Bacteria <20 /HPF (<20); Urine Bilirubin NEGATIVE (Negative); Urine Blood Trace (Negative); Urine Clarity Clear (Clear); Urine Color Yellow (Yellow); Urine Crystals Unidentified Few /HPF (None Seen); Urine Glucose NEGATIVE (Negative); Urine Mucus Slight /HPF (None Seen); Urine Protein 2+ (Negative); Urine RBC 21-50 /HPF (None Seen); Urine Urobilinogen Normal (Normal); Urine WBC Clump Rare /HPF (None Seen); Urine pH 6.5 (5.0-7.0)
[2023-03-03 21:01] LABS: Albumin 2.5 g/dL (3.4-5.0); Bilirubin Total 0.4 mg/dL (0.2-1.0); Potassium 4.1 mEq/L (3.5-5.1); Protein, Total 7.3 g/dL (6.4-8.2)
--- NOTE | 2023-03-03 22:30 | RAD REPORT ---
EXAM DESCRIPTION: CT - Abdomen Pelvis W Contrast - 03/03/2023 10:06 pm CLINICAL HISTORY: ABD PAIN COMPARISON: Abdomen Pelvis W Contrast dated 01/14/2021; Abdomen Pelvis W Contrast dated 07/07/2018 ; ENTEROSTOMY TUBE CHECK W/CONTR dated 02/08/2023; Abdomen 1 View (KUB) dated 01/20/2021 TECHNIQUE: Thin cut axial CT imaging of the abdomen and pelvis was performed following intravenous a dministration of 98 Isovue 300. Multiplanar reformats were generated and reviewed. All CT scans are performed using dose optimization technique as appropriate and may include automated exposure control or mA/KV adjustment according to patient size. FINDINGS: No suspicious findings in the lung bases. The liver, spleen, and pancreas show no suspicious findings. Gallbladder and biliary tree are also wi thout suspicious finding. Symmetric renal function is seen with no hydronephrosis or suspicious renal mass. Percutaneous gastrostomy tube in place. The balloon was inflated probably beyond the pylorus in the f irst part of duodenum. No dilated bowel loops or bowel wall thickening. No free air, free fluid or in flammatory stranding. No hernia, mass or bulky lymphadenopathy. Turner catheter within the urinary bladder lumen, with pronounced bladder wall thickening. Diminutive appearance of the uterus. No suspicious bony findings. Severe levoconvex scoliosis at the thoracolumbar junction. IMPRESSION: Pronounced bladder wall thickening, likely related to cystitis. No other acute intra-abdominal process. Percutaneous gastrostomy tube in place, with the balloon likely inflated in the first part of duodenu m.
[2023-03-03] MEDS ORDERED: CEFTRIAXONE 1000 MG/VIAL ONE (22:56)
[2023-03-03] MEDS ORDERED: NA CHLORIDE 0.9% 50 ML ONE (22:56)
[2023-03-04] MEDS ORDERED: levETIRAcetam 500 MG TAB ONE ×3 (00:03→09:54)
--- NOTE | 2023-03-04 00:34 | ER ---
Nurse's Notes [facility] Name: Andie Castro Age: 52 yrs Sex: Female : 1970 Arrival Date: 03/03/2023 Time: 19:27 Bed 25 Private MD: Diagnosis: Vomiting, unspecified;Multidrug-resistant UTI, pyelonephritis Presentation: 03/03 19:59 Chief complaint: EMS states: called out for vomiting that started around 1830 today. as6 Coronavirus screen: At this time, the client does not indicate any symptoms associated with coronavirus-19. Ebola Screen: No symptoms or risks identified at this time. Initial Sepsis Screen: Does the patient meet any 2 criteria? No. Patient's initial sepsis screen is negative. Does the patient have a suspected source of infection? No. Patient's initial sepsis screen is negative. Risk Assessment: Do you want to hurt yourself or someone else? Patient reports no desire to harm self or others. Onset of symptoms was March 03, 2023. 19:59 Acuity: MARCEL 3 as6 19:59 Method Of Arrival: EMS: [facility] as6 20:02 Care prior to arrival: Medication(s) given: zofran 4 mg, IV initiated. 20 GA, in the as6 left hand. Triage Assessment: 19:55 General: Appears ill, slender, Behavior is quiet. Pain: Unable to use pain scale. FLACC as6 scale score is 1 out of 10. Neuro: pt non verbal. pt is at baseline . GI: Pt is actively vomiting dark brown emesis PEG tube Stools are reported to be normal. Parent/caregiver reports the patient having vomiting. : Turner in place Urine is cloudy. Derm: Decubitus located on sacrum approximately 2.6 cm to 7.5 cm is stage III is draining small amount serosanguinous. Historical: - Allergies: 19:59 Bactrim; as6 19:59 Bees; as6 19:59 Erythromycin; as6 19:59 Nystatin powder; as6 19:59 Pediozole; as6 19:59 PENICILLINS; as6 19:59 Sulfa (Sulfonamide Antibiotics); as6 19:59 TRIMETHOPRIM; as6 - PMHx: 19:59 down syndrome; Hypothyroidism; Seizures; as6 - Immunization history:: Adult Immunizations up to date. - Social history:: Smoking status: Patient denies any tobacco usage or history of. - Family history:: not pertinent. Screenin:02 [facility] ED Fall Risk Assessment (Adult) Score/Fall Risk Level 0 - 2 = Low Risk. Abuse as6 screen: Denies threats or abuse. Denies injuries from another. Nutritional screening: No deficits noted. Tuberculosis screening: No symptoms or risk factors identified. Vital Signs: 19:55 Pulse 64; Resp 18 S; Temp 97.7(A); Pulse Ox 100% on R/A; Weight 36.29 kg; Height 4 ft. as6 9 in. ; 19:59 BP 116 / 86; as6 22:17 BP 102 / 85; Pulse 71; Resp 20 S; Pulse Ox 100% on R/A; as6 03/04 00:13 BP 104 / 74; Pulse 74; Resp 18 S; Pulse Ox 97% on R/A; as6 00:59 BP 97 / 60; Pulse 74; Resp 18 S; Pulse Ox 100% on R/A; as6 02:26 BP 122 / 45; Pulse 75; Resp 18 S; Pulse Ox 96% on R/A; as6 03/03 19:55 Body Mass Index 17.31 (36.29 kg, 144.78 cm) as6 ED Course: 03/03 19:55 Patient arrived in ED. as6 19:55 Arm band placed on. as6 20:02 Triage completed. as6 20:02 Andrew Mcneil, RN is Primary Nurse. as6 20:02 Placed in gown. Bed in low position. Call light in reach. Side rails up X2. as6 20:11 Simón Zaragoza MD is Attending Physician. sp4 20:28 Radiology exam delayed due to lab results not completed at this time. (BUN/Creatinine) jg10 IV insertion attempt and/or patient not having appropriate IV at this time. 20:41 Inserted saline lock: 20 gauge in right antecubital area, using aseptic technique. as6 Blood collected. Maintain EMS IV. Dressing intact. Good blood return noted. Site clean \T\ dry. Gauge \T\ site: 20g left hand. 22:07 CT Abd/Pelvis - IV Contrast Only In Process Unspecified. EDMS 03/04 00:33 Jovanny Rodriguez MD is Hospitalizing Provider. sp4 02:26 No provider procedures requiring assistance completed. Patient admitted, IV remains in as6 place. Administered Medications: 03/03 20:30 Drug: Famotidine IVP 20 mg Route: IVP; Site: right antecubital; as6 03/04 02:27 Follow up: Response: No adverse reaction as6 03/03 20:30 Drug: metoCLOPramide IVP 10 mg Route: IVP; Site: right antecubital; as03/04 02:27 Follow up: Response: No adverse reaction as03/03 20:30 Drug: NS 0.9% IV 1000 ml Route: IV; Rate: 125 ml/hr; Site: right antecubital; as03/04 02:27 Follow up: Response: No adverse reaction; IV Status: Infusion continued upon admission; as6 IV Intake: 600ml 03/03 23:05 Drug: Rocephin - Rocephin (cefTRIAXone) IVPB 1 grams Route: IVPB; Infused Over: 30 cm10 mins; Site: right antecubital; 03/04 02:27 Follow up: Response: No adverse reaction; IV Status: Completed infusion; IV Intake: [id number] 00:12 Drug: flush 200 ml Route: G-Tube; as6 02:27 Follow up: Response: No adverse reaction as6 00:12 Drug: Keppra PO 1500 mg Route: PO; as6 02:26 Follow up: Response: No adverse reaction as6 00:39 CANCELLED (Other Intervention Used): vancoMYCIN IVPB 1 grams IVPB once over 2 hrs la1 00:39 CANCELLED (Other Intervention Used): LevaQUIN IVPB 750 mg IVPB once la1 Medication: 03/03 20:02 VIS not applicable for this client. as6 Intake: 03/04 02:27 IV: 50ml; Total: 50ml. as6 02:27 IV: 600ml; Total: 650ml. as6 Outcome: 00:34 Decision to Hospitalize by Provider. sp4 02:26 Admitted to ER Hold. Please see [facility] for further documentation. as6 02:26 Condition: stable 02:26 Instructed on the need for admit. 17:58 Patient left the ED. ll1 Signatures: [facility] EDKell Barroso RN RN ll1 Andrew Mcneil RN RN as6 Ellyn Steele jg10 Simón Zaragoza MD MD sp4 Leonila Templeton, CRISTINA RN cm10 Dain Maldonado [facility]
--- NOTE | 2023-03-04 00:34 | EDPHYS ---
Physician Documentation [facility] Name: Andie Castro Age: 52 yrs Sex: Female : 1970 Arrival Date: 03/03/2023 Time: 19:27 Bed 25 Private MD: ED Physician Simón Zaragoza HPI: 03/03 20:11 This 52 yrs old Female presents to ER via EMS with complaints of general sp4 complaint . 20:41 This EEG is a 52-year-old female with history of Down syndrome, physical debility, sp4 prolonged immobility, nonambulatory for the past 3 years, hypothyroidism, seizures, presents from custodial with EMS for acute onset of profuse vomiting since 3 episodes at the custodial and one episode here on arrival. Patient has a gastrostomy tube, indwelling Turner catheter, sacral decubitus ulcer, she is nonverbal not able to provide HPI, history collected from EMS and the caregiver.. Patient receives all of her nutrition via gastrostomy tube.. 20:41 EMS administered IV Zofran prior to arrival. . sp4 20:47 Patient's medications include Synthroid 75 mcg daily, midodrine 10 mg 2 tabs daily, sp4 Keppra 1500 mg twice a day, Senokot 2 tabs daily, MiraLAX 17 g daily, levocetirizine 1 tab daily, vitamin D3 1 tab daily, Santyl ointment, Jamie packet atorvastatin 20 mg every evening, MiraLAX as needed for this to patient. Historical: - Allergies: 19:59 Bactrim; as6 19:59 Bees; as6 19:59 Erythromycin; as6 19:59 Nystatin powder; as6 19:59 Pediozole; as6 19:59 PENICILLINS; as6 19:59 Sulfa (Sulfonamide Antibiotics); as6 19:59 TRIMETHOPRIM; as6 - PMHx: 19:59 down syndrome; Hypothyroidism; Seizures; as6 - Immunization history:: Adult Immunizations up to date. - Social history:: Smoking status: Patient denies any tobacco usage or history of. - Family history:: not pertinent. ROS: 20:41 Constitutional: ROS not available secondary to nonverbal status sp4 20:41 Unable to obtain ROS due to baseline dementia. Exam: 20:41 Constitutional: Patient is ill-appearing, physically debilitated female who is sp4 nonverbal, stigmata of Down syndrome, signs of prolonged immobility, diffuse muscular atrophy, contractures of upper and lower extremities, gastrostomy tube dependent, indwelling Turner catheter on arrival, incontinent of bowel, sacral decubitus ulcer stage II on arrival, and no active vomiting on my exam, patient is ill-appearing but nontoxic Head/Face: Normocephalic, atraumatic. Eyes: Pupils equal round and reactive to light, ENT: Nares patent. No nasal discharge, no septal abnormalities noted. Tympanic membranes are normal and external auditory canals are clear. Mucous membranes moist. Neck: Trachea midline, no thyromegaly or masses palpated, and no cervical lymphadenopathy. Supple, full range of motion without nuchal rigidity, or vertebral point tenderness. Chest/axilla: Normal chest wall appearance and motion. Nontender with no deformity. No lesions are appreciated. Cardiovascular: Regular rate and rhythm with a normal S1 and S2. No gallops, murmurs, or rubs. Normal PMI, no JVD. No pulse deficits. Respiratory: Lungs have equal breath sounds bilaterally, clear to auscultation and percussion. No rales, rhonchi or wheezes noted. No increased work of breathing, no retractions or nasal flaring. Abdomen/GI: Soft, non-tender, with normal bowel sounds. No distension or tympany. No guarding or rebound. No evidence of tenderness throughout. Positive gastrostomy tube left upper quadrant Back: No spinal tenderness. No deformities, sacral stage II decubitus ulcer Female : Normal external genitalia. Positive for indwelling Turner cath Skin: Warm, dry with normal turgor. Normal color with no rashes, no lesions, and no evidence of cellulitis. MS/ Extremity: Pulses equal, no cyanosis. Intact peripheral pulses, bilateral upper and lower extremities contractures and muscle wasting from prolonged immobility Neuro: Awake signs of advanced dementia, nonverbal patient, no new neurologic deficits reported, exam severely limited, secondary to immobility in diffuse muscle atrophy Vital Signs: 19:55 Pulse 64; Resp 18 S; Temp 97.7(A); Pulse Ox 100% on R/A; Weight 36.29 kg; Height 4 ft. as6 9 in. ; 19:59 BP 116 / 86; as6 22:17 BP 102 / 85; Pulse 71; Resp 20 S; Pulse Ox 100% on R/A; as6 03/04 00:13 BP 104 / 74; Pulse 74; Resp 18 S; Pulse Ox 97% on R/A; as6 00:59 BP 97 / 60; Pulse 74; Resp 18 S; Pulse Ox 100% on R/A; as6 02:26 BP 122 / 45; Pulse 75; Resp 18 S; Pulse Ox 96% on R/A; as6 03/03 19:55 Body Mass Index 17.31 (36.29 kg, 144.78 cm) as6 MDM: 03/03 20:17 Patient medically screened. 4 03/04 00:30 Differential Diagnosis altered mental status, sepsis, flu. Data reviewed: vital signs, sp4 nurses notes, EMS record, old medical records, lab test result(s), radiologic studies, CT scan. Consideration of Admission/Observation Patient was admitted/placed on observation. Escalation of care including admission/observation considered. ED course: Patient's CT reveals no sign of bowel obstruction, labs at this point reveal UTI, patient has history of multidrug-resistant UTI Klebsiella and also Pseudomonas . Patient remains unwell, and appears ill, will consider admission for observation for IV antibiotics and IV hydration. Also management of nausea. Will request admission team to admit for observation and reassess in the morning. . 03/03 20:17 Order name: CBC with Diff; Complete Time: 21:51 [facility] 03/03 20:17 Order name: CMP; Complete Time: 21:51 sp 03/03 20:17 Order name: Lipase; Complete Time: 21:51 [facility] 03/03 20:17 Order name: Urinalysis w/ reflexes; Complete Time: 21:51 sp4 03/03 20:34 Order name: Lactate w/ 2H reflex if indic.; Complete Time: 21:51 sp4 03/04 00:26 Order name: Blood Culture Adult (2) sp4 03/04 00:26 Order name: Procalcitonin; Complete Time: 05:27 sp4 03/04 00:39 Order name: Urine Culture la1 03/04 05:24 Order name: CBC with Automated Diff; Complete Time: 05:27 [facility] 03/04 05:41 Order name: Basic Metabolic Panel ED[facility] 03/04 14:51 Order name: Liver (Hepatic) Function ED[facility] 03/03 20:17 Order name: CT Abd/Pelvis - IV Contrast Only; Complete Time: 22:36 sp4 03/04 08:32 Order name: RAD EDMS 03/04 13:11 Order name: RAD EDMS 03/04 13:45 Order name: RAD EDMS 03/03 20:17 Order name: IV Saline Lock; Complete Time: 20:40 sp4 03/03 20:17 Order name: Labs collected and sent; Complete Time: 20:40 sp4 Administered Medications: 03/03 20:30 Drug: Famotidine IVP 20 mg Route: IVP; Site: right antecubital; as6 03/04 02:27 Follow up: Response: No adverse reaction as6 03/03 20:30 Drug: metoCLOPramide IVP 10 mg Route: IVP; Site: right antecubital; 03/04 02:27 Follow up: Response: No adverse reaction as6 03/03 20:30 Drug: NS 0.9% IV 1000 ml Route: IV; Rate: 125 ml/hr; Site: right antecubital; 03/04 02:27 Follow up: Response: No adverse reaction; IV Status: Infusion continued upon admission; as6 IV Intake: 600ml 03/03 23:05 Drug: Rocephin - Rocephin (cefTRIAXone) IVPB 1 grams Route: IVPB; Infused Over: 30 cm10 mins; Site: right antecubital; 03/04 02:27 Follow up: Response: No adverse reaction; IV Status: Completed infusion; IV Intake: [id number] 00:12 Drug: flush 200 ml Route: G-Tube; as6 02:27 Follow up: Response: No adverse reaction as6 00:12 Drug: Keppra PO 1500 mg Route: PO; as6 02:26 Follow up: Response: No adverse reaction as6 00:39 CANCELLED (Other Intervention Used): vancoMYCIN IVPB 1 grams IVPB once over 2 hrs la1 00:39 CANCELLED (Other Intervention Used): LevaQUIN IVPB 750 mg IVPB once la1 Disposition Summary: 03/04/23 00:34 Hospitalization Ordered Hospitalization Status: Observation sp4 Provider: Jovanny Rodriguez sp4 Condition: Stable sp4 Problem: new sp4 Symptoms: have improved sp4 Bed/Room Type: Standard sp4 Location: [facility] ER HOLD(03/04/23 01:23) cg Room Assignment: ERHOLD-(03/04/23 01:23) cg Diagnosis - Vomiting, unspecified sp4 - Multidrug-resistant UTI, pyelonephritis sp4 Forms: - Medication Reconciliation Form sp4 - SBAR form sp4 Signatures: Dispatcher [employer] Kaitlin Elena RN RN cg Andrew Mcneil RN RN as6 Simón Zaragoza MD MD sp4 Leonila Templeton RN RN cm10 Dain Maldonado [facility] Corrections: (The following items were deleted from the chart) 00:39 00:26 vancoMYCIN IVPB 1 grams IVPB once over 2 hrs ordered. sp4 la1 00:39 00:29 LevaQUIN IVPB 750 mg IVPB once ordered. sp4 la1 01:23 00:34 Telemetry/MedSurg (observation) sp4 cg 01: 00:34 sp4 cg
--- NOTE | 2023-03-04 01:12 | P.HP ---
Certification for Inpatient Patient admitted to: Observation Patient will require the following post-hospital care: None Practitioner: I am a practitioner with admitting privileges, knowledge of patient current condition, hospital course, and medical plan of care. Services: Services provided to patient in accordance with Admission requirements found in Title 42 Section 412.3 of the Code of Federal Regulations Patient History Date of Service: 03/04/23 Reason for admission: Vomiting, urinary tract infection History of Present Illness: 52-year-old female with history of Down syndrome, CVA who is nonverbal at baseline, bedbound as well as seizure disorder, hypothyroidism presents to the emergency department with chief complaint of vomiting. Patient is from [facility] per report from ER staff she had 3 episodes of vomiting prior to arrival to the hospital and additional single episode of vomiting during her stay in the emergency department. She has a PEG tube in place as during her last admission she was found to have aspiration pneumonia in late 2021. She was evaluated in the ER her labs were significant for MCV 108.2 MCH 36.4 platelets 97 AST 52 ALT 104 UA with some leuk esterase, red blood cells. Patient has chronic indwelling Turner catheter, this was exchanged in the emergency department. She does have a history of multidrug-resistant UTI, CT of the abdomen pelvis was performed which revealed bladder wall thickening consistent with cystitis, no obstructive findings, percutaneous gastrostomy tube in place the balloon was inflated probably beyond the pylorus and the first part of duodenum. Allergies erythromycin base Allergy (Verified 01/14/21 21:37) unknown Sulfa (Sulfonamide Antibiotics) Allergy (Verified 01/14/21 21:37) unknown sulfamethoxazole [From Bactrim] Allergy (Verified 01/14/21 21:37) eye swelling trimethoprim [From Bactrim] Allergy (Verified 01/14/21 21:37) eye swelling peliosole Allergy (Uncoded 07/07/20 04:20) unknown Home Medications: Atorvastatin Calcium [Lipitor*] 20 mg PO BEDTIME 03/14/21 Cholecalciferol (Vitamin D3) [Vitamin D3] 25 mcg PO DAILY 03/14/21 Collagenase [Santyl Ointment*] 1 fidencio TOP SEECOM 03/14/21 Jamie [Jamie*] 1 packet PO BID 03/14/21 Levocetirizine Dihydrochloride [Xyzal] 5 mg PO DAILY 03/14/21 Polyethylene Glycol 3350 [Miralax] 1 packet PO BEDTIME 03/14/21 Senosides [Senokot*] 2 tab PO BID 03/14/21 levETIRAcetam [Keppra] 3 tab PO BID 03/14/21 Cod Liver/Zinc Oint [Desitin Ointment*] 1 fidencio TOP DAILY PRN tube 08/21/22 Jevity 1.2 Mani Liquid 1 bot RTH CONT bot 08/21/22 Midodrine HCl [Proamatine*] 10 mg PO TID #180 tab 08/21/22 Scopolamine Hydrobromide [Transderm-Scop*] 1 pat TD Q3D@0900 #10 patch 08/21/22 - Past Medical/Surgical History Diabetic: No -: History of seizures -: Down syndrome -: Bed ridden since 2016 -: Sacral pressure ulcer present on admission -: Hypothyroidism -: CVA 2016 -: Debridement of decubitus ulcer 03/2020 -: PEG tube Psychosocial/ Personal History: [facility] - Social History Alcohol use: No CD- Drugs: No Caffeine use: No Place of Residence: [facility] Review of Systems is unable to be obtained Physical Examination - Physical Exam General: Alert, In no apparent distress, Other (Nonverbal) HEENT: Atraumatic, PERRLA, Other (Mucous membranes pale), EOMI, Sclerae nonicteric Neck: Supple, 2+ carotid pulse no bruit, No LAD, Without JVD or thyroid abnormal ity Respiratory: Clear to auscultation bilaterally, Normal air movement Cardiovascular: Regular rate/rhythm, Normal S1 S2 Capillary refill: <2 Seconds Gastrointestinal: Normal bowel sounds, No tenderness, Other (PEG tube in place) Musculoskeletal: No tenderness Integumentary: Pressure ulcer (Sacral decubitus ulcer present stage II), Other (Skin is pale) Neurological: Other (Nonverbal, bedbound at baseline) Urinary: Turner catheter (In place prior to arrival) - Studies Laboratory Data (last 24 hrs) 03/03/23 20:31: Sodium 137, Potassium 4.1, BUN 24 H, Creatinine 0.56, Glucose 115 H, Total Bilirubin 0.4, AST 52 H, ALT 104 H, Alkaline Phosphatase 102, Lipase 25 03/03/23 20:31: WBC 5.20, Hgb 14.3, Hct 42.5, Plt Count 97 L Assessment and Plan - Plan Assessment: Nausea vomiting S/P PEG tube placement Questionable urinary tract infection History of Down syndrome, CVA nonverbal and bedbound at baseline Hypothyroidism Seizure disorder Plan: Nausea vomiting S/P PEG tube placement CT scan shows balloon of PEG tube may be inflated in proximal duodenum, will obtain x-ray with contrast to evaluate tube placement, consult general surgery who placed the PEG tube as necessary, may need adjustment. We will hold tube feeds for now, continue IV fluids. Questionable urinary tract infection Patient with history of MDR UTIs, with leuk Estrace and RBCs present in UA, will obtain urine culture. CT does show bladder wall thickening, patient with chronic indwelling Turner catheter. History of Down syndrome, CVA nonverbal and bedbound at baseline Hypothyroidism Seizure disorder Home medications continued. DVT PPX: SCD Code status: Full Discharge Plan: Home Plan to discharge in: 24 Hours - Advance Directives Does patient have a Living Will: Yes Does patient have a Durable POA for Healthcare: No - Code Status/Comfort Care Code Status Assessed: Yes (Full code) Critical Care: No Time Spent Managing Pts Care (In Minutes): 55
[2023-03-04] MEDS ORDERED: ONDANSETRON 4 MG/2 ML VIAL IV PRN (02:44)
[2023-03-04] MEDS ORDERED: NA CHLORIDE 0.9% 1,000 ML IV SCH (02:44)
[2023-03-04] MEDS ORDERED: ONDANSETRON 4 MG/2 ML VIAL ONE (05:01)
[2023-03-04 05:22] LABS: Absolute Lymphocytes (CBC) 0.7 K/uL (0.7-4.9); Hematocrit 37.7 % (36.0-45.0); Lymphocytes % 9.8 % (15.3-44.8); MCV 107.9 fL (80-100); MPV 9.2 fL (7.6-11.3)
[2023-03-04 05:40] LABS: Potassium 3.9 mEq/L (3.5-5.1)
[2023-03-04 05:48] VITALS: O2SAT 99; BMI 17.2
[2023-03-04] MEDS ORDERED: MIDODRINE HCL 5 MG TABLET FT SCH (06:00)
[2023-03-04] MEDS ORDERED: NA CHLORIDE 0.9% 1,000 ML ONE (06:01)
--- NOTE | 2023-03-04 08:31 | RAD REPORT ---
EXAM DESCRIPTION: RAD - ENTEROSTOMY TUBE CHECK W/CONTR - 03/04/2023 8:20 am CLINICAL HISTORY: recheck tube placement COMPARISON: ENTEROSTOMY TUBE CHECK W/CONTR dated 03/04/2023; Abdomen Pelvis W Contrast dated 3 FINDINGS/IMPRESSION: Injection of contrast into the patient's gastrostomy tube confirms the tip of t he tube intraluminal. The ballloon is likely in the peripyloric/proximal duodenum region.
[2023-03-04] MEDS ORDERED: COLLAGENASE 30 GM OINTMENT TOP SCH (09:00)
[2023-03-04] MEDS ORDERED: levETIRAcetam 500 MG TAB FT SCH (09:00)
[2023-03-04] MEDS ORDERED: CEFEPIME 1 GM in NA CHLORIDE 0.9% 100 ML IV SCH (09:00)
[2023-03-04] MEDS ORDERED: NA CHLORIDE 0.9% 100 ML ONE (09:54)
[2023-03-04] MEDS ORDERED: CEFEPIME 1 GM/VIAL ONE (09:54)
--- NOTE | 2023-03-04 13:09 | RAD REPORT ---
EXAM DESCRIPTION: RAD - ENTEROSTOMY TUBE CHECK W/CONTR - 03/04/2023 1:53 am CLINICAL HISTORY: 52 years, Female, Evaluate tube position (prox duod vs stomach) COMPARISON: None FINDINGS: 2 X-ray view of the abdomen (supine) were performed before and after the administration o f contrast to a percutaneous gastrostomy tube. KUB demonstrate normal gas pattern with the mild fecal residue. There is opacification of the collect ing calyceal system and urinary bladder with a Turner catheter most likely related to previous iodine study. There is marked levoscoliosis of the lumbar spine. Noted is presence of a percutaneous tube wi th inflated balloon with the tip at the level of the duodenal C-loop/first portion of the duodenum wi th normal opacification of the second third fourth portion and proximal most jejunum. No evidence for leakage/or extravasation is identified. IMPRESSION: Percutaneous gastrostomy tube in place with the tip at the level of the proximal duodena l [id number] portion of the duodenum with no evidence for leakage/or extravasation. Electronically signed by: Quintin Hubbard MD 03/04/2023 3:28 AM CDT Due to temporary technical issues with the PACS/Fluency reporting system, reports are being signed by the in house radiologists without review as a courtesy to insure prompt reporting. The interpreting radiologist is fully responsible for the content of the report.
--- NOTE | 2023-03-04 13:44 | RAD REPORT ---
EXAM DESCRIPTION: RAD - ENTEROSTOMY TUBE CHECK W/CONTR - 03/04/2023 1:31 pm CLINICAL HISTORY: evaluate tube position COMPARISON: ENTEROSTOMY TUBE CHECK W/CONTR dated 03/04/2023; Abdomen Pelvis W Contrast dated 3; ENTEROSTOMY TUBE CHECK W/CONTR dated 03/04/2023 TECHNIQUE: Single AP view of the abdomen. FINDINGS: Residual contrast within the large bowel limits evaluation. Injected contrast through the percutaneous gastrostomy. Opacifies the stomach lumen. No evidence of extraluminal contrast. Tip is l ikely in the antrum/pylorus region. No suspicious calcifications. No significant bony abnormality. IMPRESSION: No extraluminal contrast extravasation. Tip of the percutaneous gastrostomy tube is like ly in the gastric antrum/ pylorus region.
[2023-03-04 14:48] LABS: Bilirubin Direct 0.2 mg/dL (0-0.2); Bilirubin Indirect, Calculated 0.2 mg/dL (0.2-0.8); Bilirubin Total 0.4 mg/dL (0.2-1.0); Protein, Total 5.6 g/dL (6.4-8.2)
--- NOTE | 2023-03-04 16:20 | P.DS ---
Admission Date: 03/04/23 Discharge Date: 03/04/23 Disposition: DC HOME/HOME HEALTH CARE Comment: Malik Ivy Discharge Condition: GOOD Reason for Admission: Vomiting, urinary tract infection Consultations: 1. General Surgery 2. Infectious Diseases Hospital Course: DIAGNOSES: # Nausea/Vomiting due to PEG Tube Displacement s/p Repositioning- resolved # Mild Thrombocytopenia # Elevated LFTs - improved # Microscopic Hematuria suspect due to Re-Insertion of Turner Catheter # Stage II Sacral Pressure Ulcer # Down's Syndrome # Seizure Disorder # History of Cerebrovascular Accident # Hypothyroidism HOSPITAL COURSE: Ms. Andie Leahy is a 52 year old female with a past medical history significant for Down syndrome with chronic indwelling Turner catheter, seizure disorder, and history of cerebrovascular accident who was admitted to the [facility] on 03/04/2023 for nausea and vomiting. She was admitted to the Medicine service. Upon further evaluation, her CT abdomen/pelvis revealed, "pronounced bladder wall thickening, likely related to cystitis. No other acute intra-abdominal process. Percutaneous gastrostomy tube in place, with the balloon likely inflated in the first part of duodenum." It was thought that her symptoms were secondary to displacement of her PEG-tube. General Surgery was consulted and she was evaluated by Dr. Chong. Repositioning of the PEG tube was performed and follow-up fluoroscopy revealed, "no extraluminal contrast extravasation. Tip of the percutaneous gastrostomy tub e is likely in the gastric antrum/ pylorus region." Following the repositioning the tube, her symptoms improved significantly. Dr. Chong has cleared her for discharge from his standpoint. In regards to the question of a urinary tract infection, her chronic indwelling Turner catheter was exchanged. Infectious Diseases was consulted and her case was reviewed by JUDY Magaña. Given that she had no leukocytosis and no urinary bacteria, WBC, or yeast, it was felt that she did not have a urinary tract infection. It was felt that antibiotics were not required. On 03/04/2023, she was seen on rounds and deemed medically stable for discharge. She was discharged with written instructions to schedule follow-up appointments with her PCP and with General Surgery (Dr. Chong). A copy of this discharge summary will be sent to the above providers to facilitate continuity of care. Today, I personally spent 25 minutes on her case, of which greater than 50% of the time was spent in patient education, counseling, and coordination of care as described above. - Physical Exam General: Alert, In no apparent distress HEENT: Atraumatic, Mucous membr. moist/pink, Sclerae nonicteric Cardiovascular: No edema, Regular rate/rhythm, No murmurs Pulmonary: Diminished, but clear to auscultation without wheezes, rhonchi, or rales. Gastrointestinal: PEG tube site is clean, dry, and intact. Normal bowel sounds, Soft, Non-distended, No tenderness Musculoskeletal: No clubbing Integumentary: No rashes, small stage II sacral pressure ulcer Neurological: Other (Nonverbal) Vital Signs/Physical Exam: Temp Pulse Resp BP Pulse Ox 98 F 64 16 124/76 99 03/04/23 12:00 03/04/23 12:00 03/04/23 12:00 03/04/23 12:00 03/04/23 12:00 Laboratory Data at Discharge: WBC 7.20 thou/uL (4.3-10.9) 03/04/23 04:34 Hgb 13.0 g/dL (12.0-15.0) D 03/04/23 04:34 Hct 37.7 % (36.0-45.0) 03/04/23 04:34 Plt Count 92 thou/uL (152-406) L 03/04/23 04:34 Sodium 139 mEq/L (136-145) 03/04/23 04:34 Potassium 3.9 mEq/L (3.5-5.1) 03/04/23 04:34 BUN 16 mg/dL (7-18) 03/04/23 04:34 Creatinine 0.48 mg/dL (0.55-1.02) L 03/04/23 04:34 Glucose 121 mg/dL (74-106) H 03/04/23 04:34 Total Bilirubin 0.4 mg/dL (0.2-1.0) 03/04/23 14:10 AST 27 U/L (15-37) 03/04/23 14:10 ALT 67 U/L (13-56) H 03/04/23 14:10 Alkaline Phosphatase 81 U/L (45-117) D 03/04/23 14:10 Lipase 25 U/L (13-75) 03/03/23 20:31 Home Medications: Atorvastatin Calcium [Lipitor*] 20 mg PO BEDTIME 03/14/21 Cholecalciferol (Vitamin D3) [Vitamin D3] 25 mcg PO DAILY 03/14/21 Collagenase [Santyl Ointment*] 1 fidencio TOP SEECOM 03/14/21 Jamie [Jamie*] 1 packet PO BID 03/14/21 Levocetirizine Dihydrochloride [Xyzal] 5 mg PO DAILY 03/14/21 Polyethylene Glycol 3350 [Miralax] 1 packet PO BEDTIME 03/14/21 Senosides [Senokot*] 2 tab PO BID 03/14/21 levETIRAcetam [Keppra] 3 tab PO BID 03/14/21 Cod Liver/Zinc Oint [Desitin Ointment*] 1 fidencio TOP DAILY PRN tube 08/21/22 Jevity 1.2 Mani Liquid 1 bot RTH CONT bot 08/21/22 Midodrine HCl [Proamatine*] 10 mg PO TID #180 tab 08/21/22 Scopolamine Hydrobromide [Transderm-Scop*] 1 pat TD Q3D@0900 #10 patch 08/21/22 Physician Discharge Instructions: 1. Please call and schedule a follow-up appointment with your PCP in 3-5 days - Your platelet count was low. Please have your PCP repeat this test at your next appointment - There was a small amount of blood in your urine, which may have been due to the insertion of a new Turner catheter. Please have your PCP repeat your urinalysis to further evaluate 2. Please call and schedule a follow-up appointment with general surgery (Dr. Chong) in 5-7 days Diet: tube feeds Activity: Fall precautions Followup: Rian Chong MD [ACTIVE - CAN ADMIT] - Time spent managing pt's care (in minutes): 25
[2023-03-04 16:25] VITALS: BP 138/78
[2023-03-04 16:26] VITALS: TEMP 98.1
[2023-03-04] MEDS ORDERED: ATORVASTATIN 20 MG TAB FT SCH (21:00)
== END 2023-03-04 18:00 | disposition home health service (06) ==
LOC: ER 19:27 → ERHOLD 03-04 00:54
PROVIDERS: ADMIT Internal Medicine; ATTEND Internal Medicine
DX: R11.2 Nausea with vomiting, unspecified (principal); Q90.9 Down syndrome, unspecified; E03.9 Hypothyroidism, unspecified; G40.909 Epilepsy, unspecified, not intractable, without status epilepticus; D69.6 Thrombocytopenia, unspecified; R79.89 Other specified abnormal findings of blood chemistry; R31.29 Other microscopic hematuria; L89.152 Pressure ulcer of sacral region, stage 2; Z86.73 Personal history of transient ischemic attack (TIA), and cerebral infarction without residual deficits; Z93.1 Gastrostomy status
CPT/HCPCS: 96365; 96361; 87040 ×2; 85025 ×2; 81001; 80048; 36415; 80076; 83605; 83690; 80053; 84145; 74177; 49465 ×3; 96375; 99285; 96366; Q9967; J3590; J2765; J2405; J7030 ×2; J0692; J0696; G0378

== ENCOUNTER 2023-03-25 10:19 | Emergency (ER) | payer OTHER, BC ==
--- OUTSIDE RECORDS SUMMARY | 2023-03-25 10:22 | XMS REPORT | Continuity of Care Document ---
:1970 Author Organization [facility] t Address [address] [place] [address] Care Team Providers Name Role Phone YESSENIA DANIELSON Attending Clinician Unavailable YESSENIA DANIELSON Admitting Clinician Unavailable Problems Condition Condition Condition Status Onset Resolution Last Treating Co mments Source Name Details Category Date Date Treatment Clinician Date Seizure Seizure Disease [facility]ur[facility] Cerebral Cerebral Disease [facility]ulo [facility] k[facility] megaly megaly 00:00: Medical 00 [facility] Acquired Acquired Disease [facility] hyp[facility]roi hypothyroi [facility]23 Tamika kes dism dism 00:00: Medical 00 [facility] Down Down Disease Active [facility] syndrome syndrome [facility] [address] [place] [address] Allergies, Adverse Reactions, Alerts This patient has no known allergies or adverse reactions. Social History Social Habit Start Date Stop Date Quantity Comments Source Tobacco use and 2017-12-20 2017-12-20 Smokeless [address] [facility]:00 non-user [facility] Alcohol intake 2017-12-20 2017-12-[address] [facility] 00:00:00 00:00:00 non-drinker of Medical nter alcohol (finding) Sex Assigned At [address] [facility]ika kes 00:00:00 [facility]00 [facility] Smoking Status Start Date Stop Date Source Never smoked tobacco [facility] Medications Ordered Filled Start Stop Current [...] Description Test Time Test Comments Results Result [facility] e Comments MR, BRAIN, 2017-12-22 Reason for FINAL REPORT PATIENT WITHOUT CONTRAST 17:54:00 exam:->sseizures ID: [id number] MRI Brain /hydrocephalusWh without contrast at is [...] 17:54:57 Reading Location: [facility] Radiology Reading Room AWAKE AND 2017-12-21 Reason for Date(s) of EEG: DROWSY 13:47:00 exam:->seizuresS 12/21/17ACC: hould this be [id number] Number: performed at the Test Location: bedside?->Yes Inpatient RoomStart time: 08:38Stop time: 08:59ICD-10: R56.9CPT Code: 45989 HISTORY: 47 y.o. female who presented with [...] code = 368) 4.5 % 4.3-6.1 T4, [id number] 07:45:00 Test Item Value Reference Range Interpretation Comments FREE T4 (BEAKER) (test code = 655) 1.46 ng/dL 0.70-1.48 TSH/FREE T4 IF [id number] 06:53:00 Test Item Value Reference Range Interpretation Comments THYROID STIMULATING HORMONE 0.15 uIU/mL 0.35-4.94 L (BEAKER) (test code = 772) CALCIUM, [id number] 06:51:00 Test Item Value Reference Range Interpretation Comments CALCIUM IONIZED (BEAKER) (test 1.01 mmol/L 1.12-1.27 L code = 698) PH, BLOOD (BEAKER) (test code = 7.49 1810) [id number] 06:31:00 Test Item Value Reference Range Interpretation Comments PHOSPHORUS (BEAKER) (test code = 4.1 mg/dL 2.3-4.7 604) [id number] 06:31:00 Test Item Value Reference Range Interpretation Comments MAGNESIUM (BEAKER) (test code = 2.3 mg/dL 1.6-2.6 627) BASIC METABOLIC [id number] 06:31:00 Test Item Value Reference Range Interpretation [...] NOT APPLICABLE FOR DIALYSIS PATIEN TS. LIPID [id number] 06:31:00 Test Item Value Reference Range Interpretation [...] Very High >=190CBC W/PLT COUNT & AUTO [id number] 06:09:00 Test Item Value Reference Range Interpretation [...] % 0-1 PERCENT (BEAKER) (test code = 0673)
[2023-03-25] MEDS ORDERED: WATER FOR INJ,STERILE 10 ML ONE (11:00)
[2023-03-25] MEDS ORDERED: NA CHLORIDE 0.9% 500 ML ONE (11:12)
--- NOTE | 2023-03-25 11:18 | RAD REPORT ---
EXAM DESCRIPTION: RAD - ENTEROSTOMY TUBE CHECK W/CONTR - 03/25/2023 11:10 am CLINICAL HISTORY: PEG TUBE CHECK COMPARISON: ENTEROSTOMY TUBE CHECK W/CONTR dated 03/04/2023 FINDINGS/IMPRESSION: Enteric contrast present within the stomach and small bowel which would indicat e the tip of the catheter is present within the gastric lumen, likely in the region of the antrum. No nobstructive bowel-gas pattern.
[2023-03-25 11:57] LABS: Absolute Lymphocytes (CBC) 1.1 K/uL (0.7-4.9); Hematocrit 41.7 % (36.0-45.0); Lymphocytes % 34.1 % (15.3-44.8); MCV 108.2 fL (80-100); MPV 8.8 fL (7.6-11.3); RBC Red Blood Cell Count 3.85 M/uL (3.86-4.86)
[2023-03-25 12:09] LABS: Albumin 2.5 g/dL (3.4-5.0); Bilirubin Total 0.5 mg/dL (0.2-1.0); Protein, Total 7.1 g/dL (6.4-8.2)
--- NOTE | 2023-03-25 12:37 | EDPHYS ---
Physician Documentation [facility] Name: Andie Castro Age: 52 yrs Sex: Female : 1970 Arrival Date: 03/25/2023 Time: 10:19 Bed 18 Private MD: LINA Physician Dipesh Kc HPI: 03/25 11:00 This 52 yrs old Female presents to ER via EMS with complaints of Problem With sreedhar Feeding Tube. 11:00 The patient presents with abdominal pain in the upper abdomen. Onset: The sreedhar symptoms/episode began/occurred just prior to arrival, this morning. The symptoms do not radiate. Associated signs and symptoms: Pertinent positives: none. The symptoms are described as achy. Modifying factors: The symptoms are alleviated by nothing. Severity of pain: At its worst the pain was mild in the emergency department the pain is unchanged. The patient has not experienced similar symptoms in the past. 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 N/A - Post-menopause eh3 Historical: - Allergies: 10:25 Bactrim; eh3 10:25 Bees; eh3 10:25 Erythromycin; eh3 10:25 Nystatin powder; eh3 10:25 Pediozole; eh3 10:25 PENICILLINS; eh3 10:25 Sulfa (Sulfonamide Antibiotics); eh3 10:25 TRIMETHOPRIM; eh3 - Home Meds: 10:29 atorvastatin 20 mg Oral tab [Active]; Jamie Oral 2 times per day [Active]; eh3 levetiracetam 750 mg oral tablet 2 tabs 2 times per day [Active]; levocetirizine 5 mg Oral tab 1 tab once daily [Active]; Miralax 17 gram/dose Oral powd once daily [Active]; Santyl Topical 1 application 3 times per day [Active]; Senokot Oral 2 tabs twice a day [Active]; midodrine 5 mg oral tablet 2 tabs 3 times per day [Active]; levothyroxine 75 mcg capsule 1 cap daily [Active]; - PMHx: 10:25 down syndrome; Hypothyroidism; Seizures; Stroke; eh3 - Immunization history:: Adult Immunizations up to date. - Social history:: Smoking status: unknown. ROS: 11:06 Constitutional: Negative for fever, chills, and weight loss, Eyes: Negative for injury, sreedhar pain, redness, and discharge, ENT: Negative for injury, pain, and discharge, Neck: Negative for injury, pain, and swelling, Cardiovascular: Negative for chest pain, palpitations, and edema, Respiratory: Negative for shortness of breath, cough, wheezing, and pleuritic chest pain, Back: Negative for injury and pain, : Negative for injury, bleeding, discharge, and swelling, MS/Extremity: Negative for injury and deformity, Neuro: Negative for headache, weakness, numbness, tingling, and seizure, Psych: Negative for depression, anxiety, suicide ideation, homicidal ideation, and hallucinations, Allergy/Immunology: Negative for hives, rash, and allergies, Endocrine: Negative for neck swelling, polydipsia, polyuria, polyphagia, and marked weight changes, Hematologic/Lymphatic: Negative for swollen nodes, abnormal bleeding, and unusual bruising. 11:06 Abdomen/GI: Positive for peg site patent. Exam: 11:06 Constitutional: This is a well developed, well nourished patient who is awake, alert, sreedhar and in no acute distress. Head/Face: Normocephalic, atraumatic. Eyes: Pupils equal round and reactive to light, extra-ocular motions intact. Lids and lashes normal. Conjunctiva and sclera are non-icteric and not injected. Cornea within normal limits. Periorbital areas with no swelling, redness, or edema. ENT: Nares patent. No nasal discharge, no septal abnormalities noted. Tympanic membranes are normal and external auditory canals are clear. Oropharynx with no redness, swelling, or masses, exudates, or evidence of obstruction, uvula midline. Mucous membranes moist. Neck: Trachea midline, no thyromegaly or masses palpated, and no cervical lymphadenopathy. Supple, full range of motion without nuchal rigidity, or vertebral point tenderness. No Meningismus. Chest/axilla: Normal chest wall appearance and motion. Nontender with no deformity. No lesions are appreciated. Cardiovascular: Regular rate and rhythm with a normal S1 and S2. No gallops, murmurs, or rubs. Normal PMI, no JVD. No pulse deficits. Respiratory: Lungs have equal breath sounds bilaterally, clear to auscultation and percussion. No rales, rhonchi or wheezes noted. No increased work of breathing, no retractions or nasal flaring. Back: No spinal tenderness. No costovertebral tenderness. Full range of motion. MS/ Extremity: Pulses equal, no cyanosis. Neurovascular intact. Full, normal range of motion. Neuro: Awake and alert, GCS 15, oriented to person, place, time, and situation. Cranial nerves II-XII grossly intact. Motor strength 5/5 in all extremities. Sensory grossly intact. Cerebellar exam normal. Normal gait. 11:06 Abdomen/GI: Inspection: abdomen appears normal, Bowel sounds: normal, Palpation: abdomen is soft and non-tender, Liver: no appreciated palpable abnormalities, Hernia: not appreciated. 11:06 Skin: Appearance: Color: pale. Vital Signs: 10:21 BP 86 / 50; Pulse 66; Resp 16; Temp 97.1(TE); Pulse Ox 100% ; Weight 36.29 kg; eh3 11:15 BP 84 / 63; Pulse 68; Resp 18; Pulse Ox 100% on R/A; eh3 12:15 BP 83 / 59; Pulse 71; Resp 16; Pulse Ox 97% on R/A; eh3 [place] Coma Score: 11:06 Eye Response: spontaneous(4). Motor Response: obeys commands(6). Verbal Response: sreedhar oriented(5). Total: 15. MDM: 10:22 Patient medically screened. sreedhar 11:17 Differential diagnosis: non-specific abd pain, pancreatitis, Perf. Gastric Ulcer, sreedhar Pylonephritis, urinary tract infection, cholecystitis, Mesenteric ischemia or infarction, non-specific abd pain, pancreatitis. Data reviewed: vital signs, nurses notes, EMS record, lab test result(s), radiologic studies, plain films. Consideration of Admission/Observation Escalation of care including admission/observation considered. I considered the following discharge prescriptions or medication management in the emergency department Medications were administered in the Emergency Department. See MAR. Test considered but Not performed: EKG: no ekg. Care significantly affected by the following chronic conditions: cva, downs,hypothyroid, seizure. 03/25 11:00 Order name: CBC with Diff [facility] 03/25 11:00 Order name: Comprehensive Metabolic Panel; Complete Time: 12:35 [facility] 03/25 12:14 Order name: CBC Smear Scan [facility] 03/25 10:42 Order name: ENTEROSTOMY TUBE CHECK W/CONTR; Complete Time: 12:35 [facility] 03/25 10:48 Order name: Misc. Order: 20ml sterile water; Complete Time: 11:05 snw Administered Medications: 11:25 Drug: NS 0.9% IV 500 ml Route: IV; Rate: bolus; Site: right antecubital; eh3 12:00 Follow up: IV Status: Completed infusion; IV Intake: 500ml eh3 Disposition Summary: 03/25/23 12:37 Discharge Ordered Location: Home sreedhar Problem: new sreedhar Symptoms: have improved sreedhar Condition: Stable sreedhar Diagnosis - Gastrostomy complications sreedhar - Gastrostomy complication, unspecified sreedhar - Encounter for attention to gastrostomy sreedhar Followup: sreedhar - With: Private Physician - When: 2 - 3 days - Reason: Recheck today's complaints, Continuance of care, Re-evaluation by your physician Discharge Instructions: - Discharge Summary Sheet sreedhar - Gastrostomy Tube Replacement sreedhar - Gastrostomy Tube Home Guide, Pediatric sreedhar - Gastrostomy Tube Home Guide, Adult sreedhar - Gastrostomy Tube Replacement, Care After sreedhar - PEG Tube Home Guide sreedhar Forms: - Medication Reconciliation Form sreedhar - Thank You Letter sreedhar - Antibiotic Education sreedhar - Prescription Opioid Use sreedhar - Patient Portal Instructions sreedhar Signatures: Dispatcher [employer] EDMS Dipesh Kc MD MD cha Waters, Shelly, FIREARMS MODEL MAKER-C FIREARMS MODEL MAKER-Csnw Chelly Luu RN RN 3 Corrections: (The following items were deleted from the chart) 10:42 10:24 Abdomen 1 View (KUB)+RAD.RAD.BRZ ordered. EDNV EDMS
--- NOTE | 2023-03-25 12:37 | ER ---
Nurse's Notes [facility] Name: Andie Castro Age: 52 yrs Sex: Female : 1970 Arrival Date: 03/25/2023 Time: 10:19 Bed 18 Private MD: Diagnosis: Gastrostomy complications;Gastrostomy complication, unspecified;Encounter for attention to gastrostomy Presentation: 03/25 10:21 Chief complaint: EMS states: toned out to [facility] [place] due to pt removing her PEG eh3 tube. Coronavirus screen: Vaccine status: Patient reports receiving the 2nd dose of the covid vaccine. Ebola Screen: No symptoms or risks identified at this time. Initial Sepsis Screen: Does the patient meet any 2 criteria? No. Patient's initial sepsis screen is negative. Does the patient have a suspected source of infection? No. Patient's initial sepsis screen is negative. Risk Assessment: Do you want to hurt yourself or someone else? Patient reports no desire to harm self or others. Onset of symptoms was March 25, 2023. 10:21 Method Of Arrival: EMS: [facility] 10:21 Acuity: MARCEL 4 eh3 Triage Assessment: 10:25 General: Appears in no apparent distress. Behavior is cooperative, flat. Pain: Denies eh3 pain. Neuro: Level of Consciousness is awake, alert, Oriented to nonverbal. Cardiovascular: Capillary refill < 3 seconds Patient's skin is warm and dry. Respiratory: Airway is patent Respiratory effort is even, unlabored, Respiratory pattern is regular, symmetrical. GI: Abdomen is round non-distended, PEG tube Site with drainage. Derm: Skin is pink, warm \T\ dry. Musculoskeletal: No signs and/or symptoms reported regarding the musculoskeletal system. 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 - Post-menopause eh3 Historical: - Allergies: 10:25 Bactrim; eh3 10:25 Bees; eh3 10:25 Erythromycin; eh3 10:25 Nystatin powder; eh3 10:25 Pediozole; eh3 10:25 PENICILLINS; eh3 10:25 Sulfa (Sulfonamide Antibiotics); eh3 10:25 TRIMETHOPRIM; eh3 - Home Meds: 10:29 atorvastatin 20 mg Oral tab [Active]; Jamie Oral 2 times per day [Active]; eh3 levetiracetam 750 mg oral tablet 2 tabs 2 times per day [Active]; levocetirizine 5 mg Oral tab 1 tab once daily [Active]; Miralax 17 gram/dose Oral powd once daily [Active]; Santyl Topical 1 application 3 times per day [Active]; Senokot Oral 2 tabs twice a day [Active]; midodrine 5 mg oral tablet 2 tabs 3 times per day [Active]; levothyroxine 75 mcg capsule 1 cap daily [Active]; - PMHx: 10:25 down syndrome; Hypothyroidism; Seizures; Stroke; eh3 - Immunization history:: Adult Immunizations up to date. - Social history:: Smoking status: unknown. Screenin:28 [facility] ED Fall Risk Assessment (Adult) Score/Fall Risk Level 0 - 2 = Low Risk. Abuse eh3 screen: Denies threats or abuse. Denies injuries from another. Nutritional screening: No deficits noted. Tuberculosis screening: No symptoms or risk factors identified. Assessment: 10:28 Reassessment: No changes from previously documented assessment. See triage assessment. 3 11:15 Reassessment: Patient appears in no apparent distress at this time. Patient and/or 3 family updated on plan of care and expected duration. Pain level reassessed. Patient is alert, oriented x 3, equal unlabored respirations, skin warm/dry/pink. 12:15 Reassessment: Patient appears in no apparent distress at this time. Patient and/or 3 family updated on plan of care and expected duration. Pain level reassessed. Patient is alert, oriented x 3, equal unlabored respirations, skin warm/dry/pink. 12:55 Reassessment: Report called to Kiko at [facility]. Pt awaiting EMS transportation. 3 Vital Signs: 10:21 BP 86 / 50; Pulse 66; Resp 16; Temp 97.1(TE); Pulse Ox 100% ; Weight 36.29 kg; eh3 11:15 BP 84 / 63; Pulse 68; Resp 18; Pulse Ox 100% on R/A; eh3 12:15 BP 83 / 59; Pulse 71; Resp 16; Pulse Ox 97% on R/A; eh3 [place] Coma Score: 11:06 Eye Response: spontaneous(4). Motor Response: obeys commands(6). Verbal Response: sreedhar oriented(5). Total: 15. ED Course: 10:20 Patient arrived in ED. eh3 10:20 Chelly Luu RN is Primary Nurse. eh3 10:22 Dipesh Kc MD is Attending Physician. [facility] 10:25 Triage completed. eh3 10:25 Arm band placed on. eh3 10:28 Patient has correct armband on for positive identification. Bed in low position. Call eh3 light in reach. Side rails up X2. Client placed on continuous cardiac and pulse oximetry monitoring. NIBP monitoring applied. 11:00 PEG tube placement. eh3 11:12 ENTEROSTOMY TUBE CHECK W/CONTR In Process Unspecified. EDMS 11:25 Inserted saline lock: 22 gauge in left antecubital area, using aseptic technique. Blood eh3 collected. 12:56 Provided Education on: N/A. 3 13:02 IV discontinued, intact, bleeding controlled, No redness/swelling at site. Pressure eh3 dressing applied. 13:09 Primary Nurse role handed off by Chelly Luu, CRISTINA eh3 Administered Medications: 11:25 Drug: NS 0.9% IV 500 ml Route: IV; Rate: bolus; Site: right antecubital; eh3 12:00 Follow up: IV Status: Completed infusion; IV Intake: 500ml eh3 Medication: 12:56 VIS not applicable for this client. eh3 Intake: 12:00 IV: 500ml; Total: 500ml. eh3 12:00 IV: 500ml; Total: 1000ml. eh3 Output: 12:00 Urine: 475ml (Turner); Total: 475ml. eh3 Outcome: 12:37 Discharge ordered by . [facility] 13:02 Discharged to [facility]way. [facility] 13:02 Condition: stable 14:45 Discharge instructions given to half-way, Instructed on discharge instructions, eh3 follow up and referral plans. Demonstrated understanding of instructions, follow-up care. 14:45 Patient left the ED. eh3 Signatures: Dispatcher [employer] EDCT Dipesh Kc MD MD cha Hall, Erin, RN RN 3 Corrections: (The following items were deleted from the chart) 11:48 11:30 Reassessment: Patient appears in no apparent distress at this time. Patient eh3 and/or family updated on plan of care and expected duration. Pain level reassessed. Patient is alert, oriented x 3, equal unlabored respirations, skin warm/dry/pink. 3 12: 10:28 Chelly Luu, CRISTINA is Primary Nurse. [facility] 12:20 12:14 Reassessment: Patient appears in no apparent distress at this time. Patient 3 and/or family updated on plan of care and expected duration. Pain level reassessed. Patient is alert, oriented x 3, equal unlabored respirations, skin warm/dry/pink. [facility] 13: 13:02 Discharge instructions given to half-way, Instructed on discharge [facility] instructions, follow up and referral plans. Demonstrated understanding of instructions, follow-up care, [facility] 13: 13:03 Patient left the ED. [place] [id number] 13: 13:02 Discharged to half-way. Report called to [facility] Transfer form completed. [facility]
[2023-03-25 13:08] VITALS: TEMP 97.1
[2023-03-25 13:16] LABS: Anisocytosis 2+; Blood Morphology Comment NOTED (NOT SEEN); Macrocytosis 2+; Platelet Estimate DECR; White Blood Cell Scan OK (OK)
[2023-03-25 14:52] VITALS: BP 83/59; O2SAT 97
== END 2023-03-25 14:45 | disposition home or self-care (01) ==
LOC: ER 10:19
DX: K94.20 Gastrostomy complication, unspecified (principal); Q90.9 Down syndrome, unspecified; Z88.0 Allergy status to penicillin; Z88.1 Allergy status to other antibiotic agents; Z88.2 Allergy status to sulfonamides; Z88.3 Allergy status to other anti-infective agents; Z88.8 Allergy status to other drugs, medicaments and biological substances; Z91.030 Bee allergy status
CPT/HCPCS: 85025; 36415; 80053; 49465; 96360; 99284; J7040

== ENCOUNTER 2023-04-03 17:35 | Emergency (ER) | payer OTHER, BC ==
--- OUTSIDE RECORDS SUMMARY | 2023-04-03 17:38 | XMS REPORT | Continuity of Care Document ---
:1970 Author Organization [facility] t Address [address] [place] [address] Care Team Providers Name Role Phone YESSENIA DANIELSON Attending Clinician Unavailable YESSENIA DANIELSON Admitting Clinician Unavailable Problems Condition Condition Condition Status Onset Resolution Last Treating Co mments Source Name Details Category Date Date Treatment Clinician Date Seizure Seizure Disease [facility] [address] [place] [address] Cerebral Cerebral Disease [facility] Tamika kes megaly megaly 00:00: Medical [address] [place] [address] Acquired Acquired Disease [facility] hyp[facility]roi hypothyroi [facility]23 Tamika kes dism dism 00:00: Medical [address] [place] [address] Down Down Disease Active [facility] syndrome -[facility]: Medical [address] [place] [address] Allergies, Adverse Reactions, Alerts This patient has no known allergies or adverse reactions. Social History Social Habit Start Date Stop Date Quantity Comments Source Tobacco use and 2017-12-20 2017-12-20 Smokeless [address] [facility] exposure [facility]:00:00 non-user [facility] Alcohol intake 2017-12-20 2017-12-[address] [facility] es 00:00:00 00:00:00 non-drinker of Medical Ce nter alcohol (finding) Sex Assigned At [address] Tamika kes 00:00:00 00:00:00 [facility] [place] Smoking Status Start Date Stop Date Source Never smoked tobacco [facility] Medications Ordered Filled Start Stop Current [...] Description Test Time Test Comments Results Result [facility] Comments MR, BRAIN, 2017-12-22 Reason for FINAL REPORT PATIENT WITHOUT CONTRAST 17:54:00 exam:->sseizures ID: [id number] MRI Brain /hydrocephalusWh without contrast at is [...] MDReport Verified Date/Time: 12/22/2017 17:54:57 Reading Location: [facility] Radiology Reading Room AWAKE AND 2017-12-21 Reason for Date(s) of EEG: DROWSY 13:47:00 exam:->seizuresS 12/21/17ACC: hould this be [id number] Number: performed at the 730Test Location: bedside?->Yes Inpatient RoomStart time: 08:38Stop time: 08:59ICD-10: R56.9CPT Code: 71216 HISTORY: 47 y.o. female who presented with [...] code = 368) 4.5 % 4.3-6.1 T4, [id number] 07:45:00 Test Item Value Reference Range Interpretation Comments FREE T4 (BEAKER) (test code = 655) 1.46 ng/dL 0.70-1.48 TSH/FREE T4 IF [id number] 06:53:00 Test Item Value Reference Range Interpretation Comments THYROID STIMULATING HORMONE 0.15 uIU/mL 0.35-4.94 L (BEAKER) (test code = 772) CALCIUM, [id number] 06:51:00 Test Item Value Reference Range Interpretation Comments CALCIUM IONIZED (BEAKER) (test 1.01 mmol/L 1.12-1.27 L code = 698) PH, BLOOD (BEAKER) (test code = 7.49 1810) [id number] 06:31:00 Test Item Value Reference Range Interpretation Comments PHOSPHORUS (BEAKER) (test code = 4.1 mg/dL 2.3-4.7 604) [id number] 06:31:00 Test Item Value Reference Range Interpretation Comments MAGNESIUM (BEAKER) (test code = 2.3 mg/dL 1.6-2.6 627) BASIC METABOLIC [id number] 06:31:00 Test Item Value Reference Range Interpretation [...] NOT APPLICABLE FOR DIALYSIS PATIEN TS. LIPID [id number] 06:31:00 Test Item Value Reference Range Interpretation [...] Very High >=190CBC W/PLT COUNT & AUTO [id number] 06:09:00 Test Item Value Reference Range Interpretation [...] % 0-1 PERCENT (BEAKER) (test code = 3594)
--- NOTE | 2023-04-03 17:47 | ER ---
Nurse's Notes [facility] Name: Andie Castro Age: 52 yrs Sex: Female : 1970 Arrival Date: 04/03/2023 Time: 17:35 Bed 15 Private MD: Diagnosis: Encounter for attention to gastrostomy Presentation: 04/03 17:45 Chief complaint: EMS states: feeding tube dislodges. Edel PUBLIC TRANSIT SPECIALIST at beside to replace iw tube, xray ordered. Coronavirus screen: At this time, the client does not indicate any symptoms associated with coronavirus-19. Ebola Screen: Patient negative for fever greater than or equal to 101.5 degrees Fahrenheit, and additional compatible Ebola Virus Disease symptoms Patient denies exposure to infectious person. Patient denies travel to an Ebola-affected area in the 21 days before illness onset. No symptoms or risks identified at this time. Initial Sepsis Screen: Does the patient meet any 2 criteria? No. Patient's initial sepsis screen is negative. Does the patient have a suspected source of infection? No. Patient's initial sepsis screen is negative. Risk Assessment: Do you want to hurt yourself or someone else? Patient reports no desire to harm self or others. Onset of symptoms was April 03, 2023. 17:45 Method Of Arrival: EMS: [facility] iw 17:45 Acuity: MARCEL 4 iw Historical: - Allergies: 17:50 Bactrim; iw 17:50 Bees; iw 17:50 Erythromycin; iw 17:50 Nystatin powder; iw 17:50 Pediozole; iw 17:50 PENICILLINS; iw 17:50 Sulfa (Sulfonamide Antibiotics); iw 17:50 TRIMETHOPRIM; iw - PMHx: 17:50 down syndrome; Seizures; stroke; Hypothyroidism; iw Screenin:52 [facility] ED Fall Risk Assessment (Adult) Score/Fall Risk Level 0 - 2 = Low Risk. Abuse iw screen: Denies threats or abuse. Denies injuries from another. Nutritional screening: On. Tuberculosis screening: No symptoms or risk factors identified. Vital Signs: 17:50 BP 112 / 58; Pulse 65; Resp 16; Temp 97.3; Pulse Ox 95% on R/A; iw ED Course: 17:38 Patient arrived in ED. kb 17:38 Edel Leo FNP-C is PHCP. kb 17:38 Micky Charles MD is Attending Physician. kb 17:46 Triage completed. iw 17:50 PEG Tube Check w/contrast In Process Unspecified. EDMS 17:51 Arm band placed on. iw 18:04 Ale Marquez, RN is Primary Nurse. iw Administered Medications: No medications were administered Outcome: 17:47 Discharge ordered by . kb 17:52 Discharged to [facility] iw 17:52 Condition: good 17:52 Instructed on 18:04 Patient left the ED. iw Signatures: Dispatcher [employer] EDMS Edel Leo, FILM PROCESSING SUPERVISOR-C FILM PROCESSING SUPERVISOR-Ckb Ale Marquez, RN RN iw
--- NOTE | 2023-04-03 17:47 | EDPHYS ---
Physician Documentation [facility] Name: Andie Castro Age: 52 yrs Sex: Female : 1970 Arrival Date: 04/03/2023 Time: 17:35 Bed 15 Private MD: ED Physician Micky Charles HPI: 04/03 18:04 This 52 yrs old Female presents to ER via EMS with complaints of Problem With Feeding kb Tube. 18:04 EMS reports they were called for PEG tube being pulled out. . Onset: The kb symptoms/episode began/occurred just prior to arrival. The patient has experienced similar episodes in the past. The patient has not recently seen a physician. Historical: - Allergies: 17:50 Bactrim; iw 17:50 Bees; iw 17:50 Erythromycin; iw 17:50 Nystatin powder; iw 17:50 Pediozole; iw 17:50 PENICILLINS; iw 17:50 Sulfa (Sulfonamide Antibiotics); iw 17:50 TRIMETHOPRIM; iw - PMHx: 17:50 down syndrome; Seizures; stroke; Hypothyroidism; iw ROS: 18:03 Constitutional: Negative for fever, chills, and weight loss. kb 18:03 Unable to obtain ROS due to baseline dementia. Exam: 18:03 Constitutional: This is a well developed, well nourished patient who is awake, alert, kb and in no acute distress. Head/Face: Normocephalic, atraumatic. ENT: Moist Mucous membranes Cardiovascular: Regular rate and rhythm with a normal S1 and S2. No gallops, murmurs, or rubs. No pulse deficits. Respiratory: Respirations even and unlabored. No increased work of breathing. Skin: Warm, dry with normal turgor. Normal color. 18:03 Abdomen/GI: gastrostomy site to RUQ without erythema, swelling, drainage or bleeding. Vital Signs: 17:50 BP 112 / 58; Pulse 65; Resp 16; Temp 97.3; Pulse Ox 95% on R/A; iw MDM: 17:38 Patient medically screened. kb 18:02 Data reviewed: vital signs, nurses notes. Independent interpretation of the following kb test(s) in the Emergency Department X-Ray: My interpretation is No extravasation of contrast on x-ray. PEG tube in place. Historians other than the Patient: EMS: [facility]. Counseling: I had a detailed discussion with the patient and/or guardian regarding: the historical points, exam findings, and any diagnostic results supporting the discharge/admit diagnosis, the need for outpatient follow up, a family practitioner, to return to the emergency department if symptoms worsen or persist or if there are any questions or concerns that arise at home. 18:08 ED course: Size 20F PEG tube inserted with ease. kb 04/03 17:38 Order name: PEG Tube Check w/contrast; Complete Time: 18:56 kb Administered Medications: No medications were administered Disposition: 19:03 Co-signature as Attending Physician, Micky Charles MD I reviewed the patient's care rt provided by the Advanced Practice Provider and agree with the diagnosis and treatment plan. Disposition Summary: 04/03/23 17:47 Discharge Ordered Location: Home kb Condition: Stable kb Diagnosis - Encounter for attention to gastrostomy kb Followup: kb - With: Emergency Department - When: As needed - Reason: Worsening of condition Followup: kb - With: Private Physician - When: 2 - 3 days - Reason: Recheck today's complaints, Continuance of care, Re-evaluation by your physician Discharge Instructions: - Discharge Summary Sheet kb - PEG Tube Home Guide, [id number] kb Forms: - Medication Reconciliation Form kb - Thank You Letter kb - Antibiotic Education kb - Prescription Opioid Use kb - Patient Portal Instructions kb Signatures: Dispatcher [employer] Edel Plata, DONOVAN FAIR-Ale Luis, Micky Rivera RN, MD MD rt
--- NOTE | 2023-04-03 18:10 | RAD REPORT ---
EXAM DESCRIPTION: RAD - ENTEROSTOMY TUBE CHECK W/CONTR - 04/03/2023 5:49 pm CLINICAL HISTORY: Gastrostomy tube placement FINDINGS: Contrast was administered into the percutaneous gastrostomy tube. The gastric body is opac ified. Contrast enters the duodenum. No extravasation contrast Zero fluoroscopy performed. Zero fluoroscopic spot images obtained
[2023-04-03 18:27] VITALS: BP 112/58; TEMP 97.3; O2SAT 95
== END 2023-04-03 18:04 | disposition home or self-care (01) ==
LOC: ER 17:35
DX: Z43.1 Encounter for attention to gastrostomy (principal)
CPT/HCPCS: 49465; 99283

== ENCOUNTER 2023-04-06 21:53 | Inpatient (IN) | payer BC, OTHER ==
--- OUTSIDE RECORDS SUMMARY | 2023-04-06 21:57 | XMS REPORT | Continuity of Care Document ---
:1970 Author Organization [facility] t Address [address] [place] [address] Care Team Providers Name Role Phone YESSENIA DANIELSON Attending Clinician Unavailable YESSENIA DANIELSON Admitting Clinician Unavailable Problems Condition Condition Condition Status Onset Resolution Last Treating Co mments Source Name Details Category Date Date Treatment Clinician Date Seizure Seizure Disease [facility] 00 [place] Cerebral Cerebral Disease [facility] kes megaly megaly 00:00: Medical 00 [place] Acquired Acquired Disease [facility] hyp[facility]roi hypothyroi [facility]23 Tamika kes dism dism 00:00: Medical 00 [place] Down Down Disease Active [facility] [address] [place] [address] Allergies, Adverse Reactions, Alerts This patient has no known allergies or adverse reactions. Social History Social Habit Start Date Stop Date Quantity Comments Source Tobacco use and 2017-12-20 2017-12-20 Smokeless [address] [facility] exposure [facility]:00 non-user [facility] Alcohol intake 2017-12-20 2017-12-[address] [facility] 00:[facility]00 00:00:00 non-drinker of Medical nter alcohol (finding) Sex Assigned At [address] [facility] kes 00:[facility]00 [facility] Smoking Status Start Date Stop Date Source Never smoked tobacco [facility] Medications Ordered Filled Start Stop Current [...] Description Test Time Test Comments Results Result [facility] e Comments MR, BRAIN, 2017-12-22 Reason for FINAL REPORT PATIENT WITHOUT CONTRAST 17:54:00 exam:->sseizures ID: [id number] MRI Brain /hydrocephalusWh without contrast at is [...] 17:54:57 Reading Location: [facility] Radiology Reading Room AWAKE AND 2017-12-21 Reason for Date(s) of EEG: DROWSY 13:47:00 exam:->seizuresS 12/21/17ACC: hotom this be [id number] Number: performed at the 2017-730Test Location: bedside?->Yes Inpatient RoomStart time: 08:38Stop time: 08:59ICD-10: R56.9CPT Code: 08009 HISTORY: 47 y.o. female who presented with [...] code = 368) 4.5 % 4.3-6.1 T4, [id number] 07:45:00 Test Item Value Reference Range Interpretation Comments FREE T4 (BEAKER) (test code = 655) 1.46 ng/dL 0.70-1.48 TSH/FREE T4 IF [id number] 06:53:00 Test Item Value Reference Range Interpretation Comments THYROID STIMULATING HORMONE 0.15 uIU/mL 0.35-4.94 L (BEAKER) (test code = 772) CALCIUM, [id number] 06:51:00 Test Item Value Reference Range Interpretation Comments CALCIUM IONIZED (BEAKER) (test 1.01 mmol/L 1.12-1.27 L code = 698) PH, BLOOD (BEAKER) (test code = 7.49 1810) [id number] 06:31:00 Test Item Value Reference Range Interpretation Comments PHOSPHORUS (BEAKER) (test code = 4.1 mg/dL 2.3-4.7 604) [id number] 06:31:00 Test Item Value Reference Range Interpretation Comments MAGNESIUM (BEAKER) (test code = 2.3 mg/dL 1.6-2.6 627) BASIC METABOLIC [id number] 06:31:00 Test Item Value Reference Range Interpretation [...] NOT APPLICABLE FOR DIALYSIS PATIEN TS. LIPID [id number] 06:31:00 Test Item Value Reference Range Interpretation [...] Very High >=190CBC W/PLT COUNT & AUTO [id number] 06:09:00 Test Item Value Reference Range Interpretation [...] % 0-1 PERCENT (BEAKER) (test code = 7626)
[2023-04-07 00:16] LABS: Absolute Lymphocytes (CBC) 1.6 K/uL (0.7-4.9); Hematocrit 46.4 % (36.0-45.0); Lymphocytes % 20.1 % (15.3-44.8); MCV 108.4 fL (80-100); MPV 9.6 fL (7.6-11.3); Platelets 120 thou/uL (152-406); Protime INR 1.01; RBC Red Blood Cell Count 4.28 M/uL (3.86-4.86)
[2023-04-07 00:27] LABS: Albumin 2.8 g/dL (3.4-5.0); Bilirubin Direct 0.2 mg/dL (0-0.2); Bilirubin Indirect, Calculated 0.3 mg/dL (0.2-0.8); Bilirubin Total 0.5 mg/dL (0.2-1.0); Magnesium 2.3 mg/dL (1.6-2.4); Protein, Total 7.8 g/dL (6.4-8.2); Troponin High Sensitivity 5.4 pg/mL (<58.9)
[2023-04-07] MEDS ORDERED: LEVETIRACETAM 500 MG/5 ML VIAL IV ONE (00:33)
[2023-04-07] MEDS ORDERED: PANTOPRAZOLE 40 MG INJ ONE ×3 (00:33→02:48)
[2023-04-07] MEDS ORDERED: NA CHLORIDE 0.9% 1,000 ML ONE (00:33)
[2023-04-07] MEDS ORDERED: NA CHLORIDE 0.9% 100 ML ONE ×2 (00:40→03:01)
[2023-04-07 00:54] LABS: Blood Morphology Comment NOTED (NOT SEEN); Macrocytosis 1+; Platelet Estimate ADEQ; White Blood Cell Scan OK (OK)
--- NOTE | 2023-04-07 00:59 | ER ---
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 EMS stated used non-rebreather on patient due to patient's 02 sat's in the 80's. 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 Patient from [facility]. 22:00 Coronavirus screen: Vaccine status: Client denies travel out of the [place] in the last 14 pf1 days. At this time, the client does not indicate any symptoms associated with coronavirus-19. Ebola Screen: Patient negative for fever greater than or equal to 101.5 degrees Fahrenheit, and additional compatible Ebola Virus Disease symptoms. Initial Sepsis Screen: Does the patient meet any 2 criteria? No. Patient's initial sepsis screen is negative. Does the patient have a suspected source of infection? No. Patient's initial sepsis screen is negative. Risk Assessment: Do you want to hurt yourself or someone else? Unable to obtain. 22:00 Method Of Arrival: EMS: [facility] pf1 22:00 Acuity: MARCEL 3 pf1 Historical: - Allergies: 04/07 05:38 Bactrim; pf1 05:38 Bees; pf1 05:38 Erythromycin; pf1 05:38 Nystatin powder; pf1 05:38 Pediozole; pf1 05:38 PENICILLINS; pf1 05:38 Sulfa (Sulfonamide Antibiotics); pf1 05:38 TRIMETHOPRIM; pf1 - PMHx: 05:38 down syndrome; Hypothyroidism; Seizures; stroke; pf1 - PSHx: 05:38 gastric tube; pf1 - Immunization history:: Adult Immunizations unknown. - Social history:: Smoking status: Patient denies any tobacco usage or history of. - Family history:: not pertinent. Screenin/09 22:00 [facility] Fall Risk Assessment (Adult) History of falling in the last 3 months, pf1 including since admission No falls in past 3 months (0 pts) Confusion or Disorientation Yes (5 pts) Intoxicated or Sedated No (0 pts) Impaired Gait Yes (1 pt) Mobility Assist Device Used Yes (1 pt) Altered Elimination Yes (1 pt) Score/Fall Risk Level 3 or more points = High Risk Oriented to surroundings, Maintained a safe environment, Educated pt \T\ family on fall prevention, incl call for assistance when getting out of bed, Assessed \T\ reinforced patient's understanding of fall precautions, Provided non-skid footwear, Hourly rounding (assess needs \T\ fall precautionary measures) done, Used ambulatory aids as needed (educated on \T\ assisted with), Used gait belt as appropriate Implemented a Fall Risk Plan of Care, Offered frequent toileting (1:1 observation), Remained with patient while ambulating, Utilized family, sitter, or virtual production stage manager as indicated. 22:00 Abuse screen: Denies threats or abuse. Nutritional screening: No deficits noted. pf1 Tuberculosis screening: No symptoms or risk factors identified. Assessment: 22:00 General: Appears in no apparent distress. comfortable, Behavior is calm, cooperative, pf1 appropriate for age. 22:00 Pain: Unable to use pain scale. does not verbalize pain. Neuro: Level of Consciousness pf1 is awake, alert, Oriented to unable to verbalize. Cardiovascular: Capillary refill < 3 seconds Patient's skin is warm and dry. Respiratory: No deficits noted. Airway is patent Respiratory effort is even, unlabored, Respiratory pattern is regular, symmetrical. 22:00 Respiratory: Breath sounds are clear bilaterally. pf1 22:00 GI: Patient has coffee ground emesis noted from mouth and naris. 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 EENT: No deficits noted. No signs and/or symptoms were reported regarding the EENT system. 23:00 Reassessment: Patient appears in no apparent distress at this time. Patient and/or pf1 family updated on plan of care and expected duration. Pain level reassessed. 04/07 00:00 Reassessment: Patient appears in no apparent distress at this time. Patient and/or pf1 family updated on plan of care and expected duration. Pain level reassessed. 01:00 Reassessment: Patient appears in no apparent distress at this time. Patient and/or pf1 family updated on plan of care and expected duration. Pain level reassessed. Patient states feeling better. Patient states symptoms have improved. 02:00 Reassessment: Patient appears in no apparent distress at this time. Patient and/or pf1 family updated on plan of care and expected duration. Pain level reassessed. Patient states feeling better. Patient states symptoms have improved. 03:00 Reassessment: Patient appears in no apparent distress at this time. Patient and/or pf1 family updated on plan of care and expected duration. Pain level reassessed. Patient states feeling better. Patient states symptoms have improved. 04:00 Reassessment: Patient appears in no apparent distress at this time. Patient and/or pf1 family updated on plan of care and expected duration. Pain level reassessed. Patient states symptoms have improved. 05:40 Reassessment: attempted report, nurse to call back. pf1 Vital Signs: 04/06 22:00 BP 131 / 86; Pulse 98; Resp 20; Temp 98.4; Pulse Ox 98% on R/A; Weight 38.56 kg; Height pf1 4 ft. 11 in. ; Pain 0/10; 23:00 BP 107 / 75; Pulse 100; Resp 17; Pulse Ox 100% on 3 lpm NC; pf1 04/07 00:00 BP 109 / 78; Pulse 95; Resp 18; Pulse Ox 95% on 3 lpm NC; pf1 01:00 BP 123 / 97; Pulse 103; Resp 15; Pulse Ox 99% on 3 lpm NC; pf1 02:00 BP 106 / 82; Pulse 93; Resp 19; Pulse Ox 100% on 2 lpm NC; pf1 03:00 BP 117 / 82; Pulse 94; Resp 16; Pulse Ox 97% on 3 lpm NC; pf1 04:00 BP 137 / 83; Pulse 95; Resp 18; Pulse Ox 95% on 2 lpm NC; pf1 05:00 BP 108 / 85; Pulse 94; Resp 15; Temp 98.2; Pulse Ox 97% on 2 lpm NC; pf1 04/06 22:00 Body Mass Index 17.17 (38.56 kg, 149.86 cm) pf1 04/06 22:00 Pain Scale: Adult pf1 ED Course: 04/06 21:56 Patient arrived in ED. 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 22:00 Patient has correct armband on for positive identification. Bed in low position. Call pf1 light in reach. Side rails up X2. 22:53 Dipesh Kc MD is Attending Physician. sreedhar 23:51 XRAY Chest (1 view) In Process Unspecified. EDMS 23:54 Initial lab(s) drawn, by tn, sent to lab. T\T\S collected, blood band applied to patient. pf1 Inserted saline lock: 22 gauge in right forearm, using aseptic technique. Blood collected. 04/07 00:14 CT Chest Abdomen Pelvis W/O Contrast In Process Unspecified. EDMS 00:19 Basic Metabolic Panel Sent. pf1 00:19 CBC with Diff Sent. pf1 00:19 LFT's Sent. pf1 00:19 Magnesium Sent. pf1 00:19 NT PRO-BNP Sent. pf1 00:19 Troponin HS Sent. pf1 00:21 Type And Screen Sent. pf1 00:21 Lipase Sent. pf1 00:46 Urinalysis w/ reflexes Sent. pf1 00:50 Meek Lakhani is Hospitalizing Provider. sreedhar 01:40 Triage completed. pf1 01:50 NGT: inserted 16 Fr. via right nare. verified return of gastric contents, Placement pf1 verified by X-ray, to intermittent suction. Returned gastric contents. Patient tolerated well. 01:50 No provider procedures requiring assistance completed. pf1 02:02 Abdomen 1 View (KUB) XRAY In Process Unspecified. EDMS 02:47 Urinalysis w/ reflexes Sent. pf1 02:47 ABO/RH typing Sent. pf1 02:47 Antibody Screen Sent. pf1 03:15 Inserted saline lock: 20 gauge in left hand, using aseptic technique. pf1 04:30 Inserted saline lock: 22 gauge in right antecubital area, using aseptic technique. pf1 Blood collected. 05:44 Provided Education on: family education on patient need for admission. pf1 06:27 Patient admitted, IV remains in place. pf1 Administered Medications: 00:36 Drug: Pantoprazole IVP 40 mg Route: IVP; Site: right forearm; pf1 01:30 Follow up: Response: No adverse reaction; Marked relief of symptoms pf1 00:36 Drug: Keppra IV 1000 mg Route: IV; Rate: per protocol; Site: right forearm; pf1 00:50 Follow up: Response: No adverse reaction; Marked relief of symptoms; IV Status: pf1 Completed infusion; IV Intake: 100ml 00:36 Drug: NS 0.9% IV 1000 ml Route: IV; Rate: 125 ml/hr; Site: right forearm; pf1 05:46 Follow up: Response: No adverse reaction; Marked relief of symptoms; IV Status: pf1 Infusion continued upon admission 02:30 Drug: Pantoprazole IV 8 mg/hr Route: IV; Rate: 25 ml/hr; Site: right forearm; pf1 03:30 Follow up: Response: No adverse reaction; Marked relief of symptoms; IV Status: pf1 Infusion continued upon admission 02:38 Drug: Pantoprazole IVP 40 mg Route: IVP; Site: right forearm; pf1 03:30 Follow up: Response: No adverse reaction; Marked relief of symptoms pf1 03:15 Drug: Piperacillin-Tazobactam IVPB 3.375 grams Route: IVPB; Infused Over: 60 mins; pf1 Site: left hand; 04:15 Follow up: Response: No adverse reaction; Marked relief of symptoms; IV Status: pf1 Completed infusion; IV Intake: 100ml Medication: 05:45 VIS not applicable for this client. pf1 Intake: 00:50 IV: 100ml; Total: 100ml. pf1 04:15 IV: 100ml; Total: 200ml. pf1 Output: 06:11 Gastric: 340ml (NGT); Total: 340ml. pf1 Outcome: 00:58 Decision to Hospitalize by Provider. sreedhar 06:18 Admitted to Tele accompanied by tech, via stretcher, room 430, with chart, Report pf1 called to CRISTINA Nevarez 06:18 Condition: stable 06:18 Instructed on the need for admit, to family Demonstrated understanding of instructions. 06:27 Patient left the ED. pf1 Signatures: Dispatcher [employer] Dipesh Gill MD MD cha Finley, Pamala, RN RN pf1 Corry Jalloh rv1 Corrections: (The following items were deleted from the chart) 07:28 01:50 NGT: inserted 16 Fr. via left nare. verified return of gastric contents, pf1 Placement verified by X-ray, to intermittent suction. Returned gastric contents. Patient tolerated well. pf1
--- NOTE | 2023-04-07 00:59 | EDPHYS ---
Physician Documentation [facility] Name: Andie Castro Age: 52 yrs Sex: Female : 1970 Arrival Date: 04/06/2023 Time: 21:53 Bed 15 Private MD: ED Physician Dipesh Kc HPI: 04/06 23:47 This 52 yrs old Female presents to ER via Unassigned with complaints of PEG sreedhar TUBE ISSUE, UPPER GI BLEED. 23:47 The patient presents to the emergency department with nausea, vomiting, that is sreedhar intermittent. Onset: The symptoms/episode began/occurred yesterday. Possible causes: unknown. The symptoms are aggravated by nothing. The symptoms are alleviated by nothing. The patient presents to the emergency department vomiting blood, a small amount. Abdominal pain: none is appreciated. Modifying factors: The symptoms are alleviated by nothing, the symptoms are aggravated by nothing. Associated signs and symptoms: Pertinent positives: shortness of breath. Severity of symptoms: At their worst the symptoms were mild moderate in the emergency department the symptoms are unchanged. Historical: - Allergies: 04/07 05:38 Bactrim; pf1 05:38 Bees; pf1 05:38 Erythromycin; pf1 05:38 Nystatin powder; pf1 05:38 Pediozole; pf1 05:38 PENICILLINS; pf1 05:38 Sulfa (Sulfonamide Antibiotics); pf1 05:38 TRIMETHOPRIM; pf1 - PMHx: 05:38 down syndrome; Hypothyroidism; Seizures; stroke; pf1 - PSHx: 05:38 gastric tube; pf1 - Immunization history:: Adult Immunizations unknown. - Social history:: Smoking status: Patient denies any tobacco usage or history of. - Family history:: not pertinent. ROS: 04/06 23:47 Constitutional: Negative for fever, chills, and weight loss, Eyes: Negative for injury, sreedhar pain, redness, and discharge, ENT: Negative for injury, pain, and discharge, Neck: Negative for injury, pain, and swelling, Cardiovascular: Negative for chest pain, palpitations, and edema, Respiratory: Negative for shortness of breath, cough, wheezing, and pleuritic chest pain, Back: Negative for injury and pain, : Negative for injury, bleeding, discharge, and swelling, MS/Extremity: Negative for injury and deformity, Neuro: Negative for headache, weakness, numbness, tingling, and seizure, Psych: Negative for depression, anxiety, suicide ideation, homicidal ideation, and hallucinations, Allergy/Immunology: Negative for hives, rash, and allergies, Endocrine: Negative for neck swelling, polydipsia, polyuria, polyphagia, and marked weight changes, Hematologic/Lymphatic: Negative for swollen nodes, abnormal bleeding, and unusual bruising. Abdomen/GI: Positive for nausea and vomiting, of the left upper quadrant, PEG IN PLACE. Skin: Positive for pallor. Exam: 23:50 Constitutional: This is a well developed, well nourished patient who is awake, alert, sreedhar and in no acute distress. Head/Face: Normocephalic, atraumatic. Eyes: Pupils equal round and reactive to light, extra-ocular motions intact. Lids and lashes normal. Conjunctiva and sclera are non-icteric and not injected. Cornea within normal limits. Periorbital areas with no swelling, redness, or edema. ENT: Nares patent. No nasal discharge, no septal abnormalities noted. Tympanic membranes are normal and external auditory canals are clear. Oropharynx with no redness, swelling, or masses, exudates, or evidence of obstruction, uvula midline. Mucous membranes moist. Neck: Trachea midline, no thyromegaly or masses palpated, and no cervical lymphadenopathy. Supple, full range of motion without nuchal rigidity, or vertebral point tenderness. No Meningismus. Chest/axilla: Normal chest wall appearance and motion. Nontender with no deformity. No lesions are appreciated. Cardiovascular: Regular rate and rhythm with a normal S1 and S2. No gallops, murmurs, or rubs. Normal PMI, no JVD. No pulse deficits. Respiratory: Lungs have equal breath sounds bilaterally, clear to auscultation and percussion. No rales, rhonchi or wheezes noted. No increased work of breathing, no retractions or nasal flaring. Back: No spinal tenderness. No costovertebral tenderness. Full range of motion. Skin: Warm, dry with normal turgor. Normal color with no rashes, no lesions, and no evidence of cellulitis. MS/ Extremity: Pulses equal, no cyanosis. Neurovascular intact. Full, normal range of motion. Neuro: Awake and alert, GCS 15, oriented to person, place, time, and situation. Cranial nerves II-XII grossly intact. Motor strength 5/5 in all extremities. Sensory grossly intact. Cerebellar exam normal. Normal gait. Psych: Awake, alert, with orientation to person, place and time. Behavior, mood, and affect are within normal limits. 23:50 Abdomen/GI: Inspection: abdomen appears normal, Bowel sounds: normal, Palpation: mild abdominal tenderness, in the right upper quadrant and left upper quadrant, Liver: no appreciated palpable abnormalities, Hernia: not appreciated. 23:50 Skin: Appearance: Color: pale. 04/07 01:40 ECG was reviewed by the Attending Physician. [facility] Vital Signs: 04/06 22:00 BP 131 / 86; Pulse 98; Resp 20; Temp 98.4; Pulse Ox 98% on R/A; Weight 38.56 kg; Height pf1 4 ft. 11 in. ; Pain 0/10; 23:00 BP 107 / 75; Pulse 100; Resp 17; Pulse Ox 100% on 3 lpm NC; pf1 04/07 00:00 BP 109 / 78; Pulse 95; Resp 18; Pulse Ox 95% on 3 lpm NC; pf1 01:00 BP 123 / 97; Pulse 103; Resp 15; Pulse Ox 99% on 3 lpm NC; pf1 02:00 BP 106 / 82; Pulse 93; Resp 19; Pulse Ox 100% on 2 lpm NC; pf1 03:00 BP 117 / 82; Pulse 94; Resp 16; Pulse Ox 97% on 3 lpm NC; pf1 04:00 BP 137 / 83; Pulse 95; Resp 18; Pulse Ox 95% on 2 lpm NC; pf1 05:00 BP 108 / 85; Pulse 94; Resp 15; Temp 98.2; Pulse Ox 97% on 2 lpm NC; pf1 04/06 22:00 Body Mass Index 17.17 (38.56 kg, 149.86 cm) pf1 04/06 22:00 Pain Scale: Adult pf1 MDM: 04/06 22:53 Patient medically screened. [facility] 23:51 Differential diagnosis: Nonspecific abd pain, gastritis, pancreatitis, viral sreedhar gastroenteritis, gastroenteritis, gastritis, diverticulitis. Data reviewed: vital signs, nurses notes, lab test result(s), EKG, radiologic studies, CT scan, plain films. Consideration of Admission/Observation Escalation of care including admission/observation considered. Management of patient was discussed with the following: Hse Manager: SERA. I considered the following discharge prescriptions or medication management in the emergency department Medications were administered in the Emergency Department. See MAR. Independent interpretation of the following test(s) in the Emergency Department EKG: See my EKG interpretation above. Test considered but Not performed: Ultrasound NO ABD USG. Care significantly affected by the following chronic conditions: DOWNS, SEIZURES, PEG TUBE. 04/06 23:24 Order name: Basic Metabolic Panel; Complete Time: 00:44 [facility] 04/06 23:24 Order name: CBC with Diff [facility] 04/06 23:24 Order name: LFT's; Complete Time: 00:44 [facility] 04/06 23:24 Order name: Magnesium; Complete Time: 00:44 [facility] 04/06 23:24 Order name: NT PRO-BNP; Complete Time: 00:44 [facility] 04/06 23:24 Order name: PT-INR; Complete Time: 00:44 [facility] 04/06 23:24 Order name: Troponin HS; Complete Time: 00:44 [facility] 04/06 23:24 Order name: Lipase; Complete Time: 00:44 [facility] 04/06 23:24 Order name: Urinalysis w/ reflexes [facility] 04/06 23:24 Order name: Type And Screen [facility] 04/07 00:28 Order name: CBC Smear Scan EDAL 04/07 01:46 Order name: Urine Culture [facility] 04/07 02:02 Order name: Packed RBC Leukored EDAL 04/07 02:02 Order name: Hematocrit EDAL 04/07 02:02 Order name: Hemoglobin EDAL 04/07 02:03 Order name: Urinalysis w/ reflexes EDAL 04/07 02:03 Order name: CBC with Automated Diff EDMS 04/07 02:03 Order name: CBC with Automated Diff EDMS 04/07 02:03 Order name: CBC with Automated Diff EDMS 04/07 02:03 Order name: CBC with Automated Diff EDMS 04/07 02:03 Order name: Comprehensive Metabolic Panel EDAL 04/07 02:03 Order name: Comprehensive Metabolic Panel EDMS 04/07 02:03 Order name: Comprehensive Metabolic Panel EDMS 04/07 02:03 Order name: Comprehensive Metabolic Panel EDMS 04/07 02:03 Order name: Magnesium EDMS 04/07 02:03 Order name: Magnesium EDMS 04/07 02:03 Order name: Magnesium EDMS 04/07 02:03 Order name: Magnesium EDAL 04/07 02:03 Order name: Hematocrit [facility] 04/07 02:03 Order name: Hematocrit EDAL 04/07 02:03 Order name: Hematocrit EDAL 04/07 02:03 Order name: Hematocrit EDAL 04/07 02:03 Order name: Hematocrit [facility] 04/07 02:03 Order name: Hemoglobin [facility] 04/07 02:03 Order name: Hemoglobin [facility] 04/07 02:03 Order name: Hemoglobin [facility] 04/07 02:03 Order name: Hemoglobin [facility] 04/07 02:03 Order name: ABO/RH typing [facility] 04/07 02:03 Order name: Antibody Screen [facility] 04/06 23:24 Order name: XRAY Chest (1 view) [facility] 04/06 23:24 Order name: CT Chest Abdomen Pelvis W/O Contrast [facility] 04/07 01:37 Order name: Abdomen 1 View (KUB) XRAY [facility] 04/06 23:24 Order name: EKG; Complete Time: 23:24 [facility] 04/07 01:57 Order name: CONS Physician Consult [facility] 04/07 02:03 Order name: NPO; Complete Time: 02:24 [facility] 04/06 23:24 Order name: Cardiac monitoring; Complete Time: 00:46 [facility] 04/06 23:24 Order name: EKG - Nurse/Tech; Complete Time: 01:07 [facility] 04/06 23:24 Order name: IV Saline Lock; Complete Time: 00:19 [facility] 04/06 23:24 Order name: Labs collected and sent; Complete Time: 00:19 [facility] 04/06 23:24 Order name: O2 Per Protocol; Complete Time: 00:19 [facility] 04/06 23:24 Order name: O2 Sat Monitoring; Complete Time: 00:19 [facility] 04/07 01:37 Order name: Nasogastric Tube; Complete Time: 02:31 [facility] 04/07 01:39 Order name: IV Saline Lock - Large Bore; Complete Time: 03:14 [facility] 04/07 02:00 Order name: Misc. Order: hob 60; Complete Time: 02:31 [facility] EC/10 01:40 Rate is 89 beats/min. Rhythm is regular. QRS [place]ra[place] is Normal. MD interval is normal. QRS sreedhar interval is normal. QT interval is normal. No Q waves. T waves are Normal. No ST changes noted. Clinical impression: NSR w/ Non-specific ST/T Changes and No evidence of ischemia. Interpreted by me. Reviewed by me. Administered Medications: 00:36 Drug: Pantoprazole IVP 40 mg Route: IVP; Site: right forearm; pf1 01:30 Follow up: Response: No adverse reaction; Marked relief of symptoms pf1 00:36 Drug: Keppra IV 1000 mg Route: IV; Rate: per protocol; Site: right forearm; pf1 00:50 Follow up: Response: No adverse reaction; Marked relief of symptoms; IV Status: pf1 Completed infusion; IV Intake: 100ml 00:36 Drug: NS 0.9% IV 1000 ml Route: IV; Rate: 125 ml/hr; Site: right forearm; pf1 05:46 Follow up: Response: No adverse reaction; Marked relief of symptoms; IV Status: pf1 Infusion continued upon admission 02:30 Drug: Pantoprazole IV 8 mg/hr Route: IV; Rate: 25 ml/hr; Site: right forearm; pf1 03:30 Follow up: Response: No adverse reaction; Marked relief of symptoms; IV Status: pf1 Infusion continued upon admission 02:38 Drug: Pantoprazole IVP 40 mg Route: IVP; Site: right forearm; pf1 03:30 Follow up: Response: No adverse reaction; Marked relief of symptoms pf1 03:15 Drug: Piperacillin-Tazobactam IVPB 3.375 grams Route: IVPB; Infused Over: 60 mins; pf1 Site: left hand; 04:15 Follow up: Response: No adverse reaction; Marked relief of symptoms; IV Status: pf1 Completed infusion; IV Intake: 100ml Disposition Summary: 04/07/23 00:58 Hospitalization Ordered Hospitalization Status: Observation sreedhar Provider: Meek Lakhani cha Condition: Fair sreedhar Problem: an ongoing problem sreedhar Symptoms: have improved sreedhar Bed/Room Type: Standard sreedhar Location: Telemetry/MedSurg (observation)(04/07/23 05:21) cg Room Assignment: 430(04/07/23 05:21) cg Diagnosis - Acute gastritis sreedhar - Encounter for attention to gastrostomy sreedhar - Vomiting sreedhar - Gastrostomy complications - gastric outlet obstruction(04/07/23 01:56) sreedhar - GI Bleed/ Gastrointestinal hemorrhage, unspecified - upper sreedhar Forms: - Medication Reconciliation Form sreedhar - SBAR form sreedhar Signatures: Dispatcher [employer] Dipesh Gill MD MD cha Garcia, Cindy, RN RN cg Carmen Stephens RN RN pf1 Corrections: (The following items were deleted from the chart) 01:56 00:58 Gastrostomy complications sreedhar sreedhar 04:17 00:58 Telemetry/MedSurg (observation) sreedhar cg 04:17 00:58 sreedhar cg 05:21 04:17 [facility] ER HOLD cg cg 05:21 04:17 ERHOLD- cg cg
[2023-04-07 01:44] LABS: Specific Gravity 1.029 (1.005-1.030); Urine Bacteria >50 /HPF (<20); Urine Bilirubin NEGATIVE (Negative); Urine Blood Negative (Negative); Urine Clarity Extremely Turbid (Clear); Urine Color Yellow (Yellow); Urine Glucose NEGATIVE (Negative); Urine Mucus 1+ /HPF (None Seen); Urine Protein TRACE (Negative); Urine RBC <5 /HPF (None Seen); Urine Urobilinogen Normal (Normal); Urine WBC Clump Rare /HPF (None Seen); Urine pH 5.5 (5.0-7.0)
[2023-04-07] MEDS ORDERED: NA CHLORIDE 0.9% 250 ML IV SCH (02:00)
[2023-04-07] MEDS: NA CHLORIDE 0.9% 1,000 ML IV SCH ×4 (02:00→20:14)
[2023-04-07] MEDS ORDERED: ONDANSETRON 4 MG/2 ML VIAL IV PRN (02:00)
--- NOTE | 2023-04-07 02:11 | P.HP ---
Certification for Inpatient Patient admitted to: Inpatient With expected LOS: <2 Midnights Practitioner: I am a practitioner with admitting privileges, knowledge of patient current condition, hospital course, and medical plan of care. Services: Services provided to patient in accordance with Admission requirements found in Title 42 Section 412.3 of the Code of Federal Regulations Patient History Date of Service: 04/07/23 Reason for admission: GI bleed History of Present Illness: 52-year-old female with history of Down syndrome, CVA who is nonverbal at baseline, bedbound as well as seizure disorder, hypothyroidism presents to the emergency department with chief complaint of vomiting. Patient is from halfway, Her Brother is primary caregiver is at bedside. she had 2 episodes of vomiting prior to arrival to the hospital and additional single episode of vomiting during her stay in the emergency department. He reports similar admission for [place] last week. She has a PEG tube in place as during her last admission she was found to have aspiration pneumonia in late 2021. NG tube placed in the emergency room, 200 cc dark-colored, bloodtinged vomitus obtained. plan to admit for GI bleed, Dr. Chong, notified patient will need EGD in the a.m. . Allergies erythromycin base Allergy (Verified 03/04/23 06:23) unknown Sulfa (Sulfonamide Antibiotics) Allergy (Verified 03/04/23 06:23) unknown sulfamethoxazole [From Bactrim] Allergy (Verified 03/04/23 06:23) eye swelling trimethoprim [From Bactrim] Allergy (Verified 03/04/23 06:23) eye swelling peliosole Allergy (Uncoded 03/04/23 06:23) unknown Home Medications: Atorvastatin Calcium [Lipitor*] 20 mg PO BEDTIME 03/14/21 Cholecalciferol (Vitamin D3) [Vitamin D3] 25 mcg PO DAILY 03/14/21 Collagenase [Santyl Ointment*] 1 fidencio TOP SEECOM 03/14/21 Jamie [Jamie*] 1 packet PO BID 03/14/21 Levocetirizine Dihydrochloride [Xyzal] 5 mg PO DAILY 03/14/21 Polyethylene Glycol 3350 [Miralax] 1 packet PO BEDTIME 03/14/21 Senosides [Senokot*] 2 tab PO BID 03/14/21 levETIRAcetam [Keppra] 3 tab PO BID 03/14/21 Cod Liver/Zinc Oint [Desitin Ointment*] 1 fidencio TOP DAILY PRN tube 08/21/22 Jevity 1.2 Mani Liquid 1 bot RTH CONT bot 08/21/22 Midodrine HCl [Proamatine*] 10 mg PO TID #180 tab 08/21/22 Scopolamine Hydrobromide [Transderm-Scop*] 1 pat TD Q3D@0900 #10 patch 08/21/22 - Past Medical/Surgical History Diabetic: No -: History of seizures -: Down syndrome -: Bed ridden since 2017 -: Sacral pressure ulcer Stage 2 -: Hypothyroidism -: CVA 2016 -: Debridement of decubitus ulcer 03/2020 -: PEG tube Psychosocial/ Personal History: penitentiary - Social History Smoking Status: Never smoker Alcohol use: No CD- Drugs: No Caffeine use: No Review of Systems 10-point ROS is otherwise unremarkable Physical Examination - Physical Exam General: Alert, In no apparent distress, Other (nonverbal) HEENT: Atraumatic, Normocephalic, PERRLA Neck: Supple, 2+ carotid pulse no bruit, JVD not distended Respiratory: Clear to auscultation bilaterally, Normal air movement Cardiovascular: No edema, Normal pulses, Regular rate/rhythm Capillary refill: <2 Seconds Gastrointestinal: Normal bowel sounds, Other (Peg tube) Musculoskeletal: No clubbing, No swelling Integumentary: Other (stage II sacral. skin pale) - Studies Laboratory Data (last 24 hrs) 04/06/23 04/06/23 04/06/23 23:51 23:51 23:51 WBC 7.80 Hgb 15.3 H Hct 46.4 H Plt Count 120 L PT 11.1 INR 1.01 Sodium 142 Potassium 4.0 BUN 31 H Creatinine 0.65 Glucose 123 H Magnesium 2.3 Total Bilirubin 0.5 AST 40 H ALT 73 H Alkaline Phosphatase 130 H Lipase 27 Assessment and Plan - Plan Assessment/Plan GIBleeding Surg to EGD eval in AM protonix gtt, IV zosyn KUB ordered KUB ordered TC, transfuse HH <7 Nausea vomiting S/P PEG tube placement NG-tube to intermittent suction PEG, flushing, no obstruction mild Acute kidney injury chemistry BUN 31, creatinine 0.65 Stage II sacral ulcer Wound care consult transaminitis Transaminitis AST 40 ALT 73 Macrocytic anemia microcytic anemia 15.3, 46.4, Questionable urinary tract infection Patient with history of MDR UTIs, with leuk Estrace and RBCs present in UA, will obtain urine culture. CT does show bladder wall thickening, patient with chronic indwelling Turner catheter. History of Down syndrome, CVA nonverbal and bedbound at baseline Hypothyroidism Seizure disorder Home medications continued. Diet n.p.o. Full code DVT SCDs Discharge Plan: Half-Way Plan to discharge in: 48 Hours - Advance Directives Does patient have a Living Will: No Does patient have a Durable POA for Healthcare: No - Code Status/Comfort Care Code Status: Full Code Physician Review: Patient Assessed, Agree with Above Assessment and Plan Critical Care: No Time Spent Managing Pts Care (In Minutes): 50
[2023-04-07] MEDS ORDERED: NA CHLORIDE 0.9% 250 ML ONE (02:38)
[2023-04-07] MEDS: PANTOPRAZOLE INJ 80 MG in NA CHLORIDE 0.9% 250 ML IV SCH ×3 (03:00→23:37)
[2023-04-07] MEDS ORDERED: PIPERACIL/TAZO 3.375 GM VIAL IV ONE (03:01)
[2023-04-07 05:14] LABS: Hematocrit 40.5 % (36.0-45.0)
[2023-04-07 08:15] LABS: Hematocrit 44.9 % (36.0-45.0)
[2023-04-07] MEDS ORDERED: levETIRAcetam 500 MG TAB FT SCH (09:30)
[2023-04-07] MEDS: PIPER TAZO 3.375 GM in NA CHLORIDE 0.9% 100 ML IV SCH ×2 (10:36→19:59)
[2023-04-07] MEDS ORDERED: levETIRAcetam 500 MG TAB FT ONE (11:00)
[2023-04-07 11:07] LABS: Hematocrit 38.8 % (36.0-45.0)
[2023-04-07] MEDS ORDERED: ACETAMINOPHEN 650MG/RECT SUPP PR ONE (12:15)
[2023-04-07] MEDS ORDERED: propofoL 200 MG/20 ML VIAL IV ONE ×2 (13:56→13:58)
[2023-04-07] MEDS ORDERED: MIDAZOLAM HCL 2 MG/2 ML INJ ONE (13:57)
--- NOTE | 2023-04-07 14:11 | EKG ---
Test Date: 2023-04-07 Test Time: 01:04:14 Cashier Or Checker Stock Clerk: HAYDE MEASUREMENT RESULTS: Intervals: Rate: 89 TX: 142 QRSD: 68 QT: 374 QTc: 455 [place]: P: 88 TX: 142 QRS: 99 T: 86 INTERPRETIVE STATEMENTS: Normal sinus rhythm Right atrial enlargement Borderline ECG Compared to ECG 07/26/2022 16:52:39 Atrial abnormality now present Sinus tachycardia no longer present Atrial premature complex(es) no longer present Aberrant conduction of supraventricular beat(s) no longer present Myocardial infarct finding no longer present Electronically Signed On 04-07-23 14:10:21 CDT by Bunny Galdamez
--- NOTE | 2023-04-07 18:37 | RAD REPORT ---
EXAM DESCRIPTION: XR Chest, 1 View CLINICAL HISTORY: The patient is 52 years old and is Female; DYSPNEA TECHNIQUE: Frontal view of the chest. COMPARISON: No relevant prior studies available. FINDINGS: Lungs: Unremarkable. No consolidation. Pleural space: Unremarkable. No pneumothorax. Heart: Unremarkable. Mediastinum: Unremarkable. Bones/joints: Dextrocurvature of the spine. IMPRESSION: No acute findings in the chest. Electronically signed by: Nithin Vital MD 04/07/2023 12:03 AM CDT Due to temporary technical issues with the PACS/Fluency reporting system, reports are being signed by the in house radiologists without review as a courtesy to insure prompt reporting. The interpreting radiologist is fully responsible for the content of the report.
--- NOTE | 2023-04-07 18:39 | RAD REPORT ---
EXAM DESCRIPTION: CT Chest, Abdomen and Pelvis Without Intravenous Contrast CLINICAL HISTORY: The patient is 52 years old and is Female; ABDOMINAL DISTENTION TECHNIQUE: Axial computed tomography images of the chest, abdomen and pelvis without intravenous con trast. Sagittal and coronal reformatted images were created and reviewed. This CT exam was perfor med using one or more of the following dose reduction techniques: automated exposure control, adjus tment of the mA and/or kV according to patient size, and/or use of iterative reconstruction technique . COMPARISON: CT abdomen pelvis March 03, 2023 FINDINGS: ARTIFACTS: The exam is suboptimal secondary to motion artifact. CHEST: LUNGS: Subtle scattered areas of atelectasis within the visualized lungs is noted. There is no lo bar consolidation or mass. PLEURAL SPACE: Unremarkable. No significant effusion. No pneumothorax. HEART: No cardiomegaly. No pericardial effusion. ABDOMEN: LIVER: Homogeneous without focal mass. GALLBLADDER AND BILE DUCTS: The gallbladder is distended. No calcified gallstones or ductal dilat ation is seen. PANCREAS: Unremarkable. No ductal dilation. SPLEEN: Unremarkable. ADRENALS: Unremarkable. No mass. KIDNEYS AND URETERS: No obstructing stones. No hydronephrosis. No perinephric fluid. STOMACH AND BOWEL: The stomach is distended with fluid. A gastrostomy tube is present. The balloo n is inflated and in the region of the gastric antrum. The majority the small bowel appears to be dec ompressed. Contrast is present within the left colon to level the rectum which is filled with a moder ate stool ball. Minimal stool is noted throughout the remainder of the colon. There is no evidence to suggest obstruction. PELVIS: APPENDIX: No findings to suggest acute appendicitis. BLADDER: A Turner catheter is in place within a decompressed urinary bladder present. No stones. REPRODUCTIVE: Unremarkable as visualized. CHEST, ABDOMEN and PELVIS: INTRAPERITONEAL SPACE: Unremarkable. No significant fluid collection. No free air. BONES/JOINTS: Scoliotic curvature of the spine is present. Mild multilevel degenerative changes s pine is noted. SOFT TISSUES: The soft tissues are normal. VASCULATURE: Unremarkable. No aortic aneurysm. LYMPH NODES: Unremarkable. No enlarged lymph nodes. IMPRESSION: 1. Distended stomach with fluid and air. A gastrostomy tube is noted with the balloon located in the region of the gastric antrum/pylorus. The appearance is unchanged from prior exam. The possibility of obstruction at this level is raised. 2. Moderate stool burden specifically of the rectosigmoid region with associated contrast present. No evidence to suggest obstruction. Electronically signed by: Adriane Davis MD 04/07/2023 12:47 AM CDT Due to temporary technical issues with the PACS/Fluency reporting system, reports are being signed by the in house radiologists without review as a courtesy to insure prompt reporting. The interpreting radiologist is fully responsible for the content of the report.
--- NOTE | 2023-04-07 18:42 | RAD REPORT ---
EXAM DESCRIPTION: XR Abdomen, 1 View CLINICAL HISTORY: The patient is 52 years old and is Female; ABDOMINAL DISTENTION TECHNIQUE: Frontal supine view of the abdomen/pelvis. COMPARISON: CT chest, abdomen pelvis April 06, 2023. FINDINGS: LOWER THORAX: The visualized lungs are clear. GASTROINTESTINAL TRACT: Stool present within the colon specifically the distal colon to level the rectum. No dilated loops of bowel are seen. There is no bowel obstruction. BONES/JOINTS: Severe scoliotic curvature of the spine is present. TUBES, LINES AND DEVICES: An enteric tube is noted looped within the stomach. IMPRESSION: Moderate stool burden without obstruction. Electronically signed by: Adriane Davis MD 04/07/2023 2:27 AM CDT Due to temporary technical issues with the PACS/Fluency reporting system, reports are being signed by the in house radiologists without review as a courtesy to insure prompt reporting. The interpreting radiologist is fully responsible for the content of the report.
[2023-04-07] MEDS: levETIRAcetam 500 MG TAB FT SCH (20:30)
[2023-04-08] MEDS: PIPER TAZO 3.375 GM in NA CHLORIDE 0.9% 100 ML IV SCH ×3 (01:33→16:43)
[2023-04-08] MEDS ORDERED: PIPERACIL/TAZO 3.375 GM VIAL IV ONE ×2 (01:33→08:17)
[2023-04-08] MEDS ORDERED: NA CHLORIDE 0.9% 100 ML ONE ×2 (01:34→08:21)
[2023-04-08 06:31] VITALS: BMI 17.2
[2023-04-08] MEDS ORDERED: PANTOPRAZOLE 40 MG INJ ONE (08:16)
[2023-04-08] MEDS: NA CHLORIDE 0.9% 1,000 ML IV SCH (08:31)
[2023-04-08] MEDS: PANTOPRAZOLE INJ 80 MG in NA CHLORIDE 0.9% 250 ML IV SCH (08:32)
[2023-04-08] MEDS: levETIRAcetam 500 MG TAB FT SCH ×2 (08:33→17:38)
[2023-04-08 09:28] LABS: Albumin 1.9 g/dL (3.4-5.0); Magnesium 2.1 mg/dL (1.6-2.4); Potassium 3.4 mEq/L (3.5-5.1); Protein, Total 5.5 g/dL (6.4-8.2)
[2023-04-08] MEDS ORDERED: SCOPOLAMINE HYDROBROMIDE PATCH TD ONE (09:44)
[2023-04-08] MEDS: JEVITY 1.5 CAL LIQUID 1,000 ML BOT FT SCH ×2 (10:00→11:00)
[2023-04-08 10:48] LABS: Absolute Lymphocytes (CBC) 1.2 K/uL (0.7-4.9); Hematocrit 36.3 % (36.0-45.0); MCV 110.6 fL (80-100); MPV 9.3 fL (7.6-11.3); Platelets 57 thou/uL (152-406); RBC Red Blood Cell Count 3.28 M/uL (3.86-4.86)
[2023-04-08 11:15] LABS: Blood Morphology Comment NOTED (NOT SEEN); Platelet Estimate DECR; White Blood Cell Scan OK (OK)
[2023-04-08 11:16] LABS: Anisocytosis 2+; Macrocytosis 2+
[2023-04-08] MEDS ORDERED: JEVITY 1.2 CAL LIQUID 1,000 ML BOT RTH SCH (12:00)
[2023-04-08] MEDS: JUVEN PACKET PO SCH (21:00)
[2023-04-08] MEDS: Pantoprazole (granules) 40 MG/BLIST PACKET PO SCH (22:27)
[2023-04-09 00:19] VITALS: O2SAT 97
[2023-04-09] MEDS: PIPER TAZO 3.375 GM in NA CHLORIDE 0.9% 100 ML IV SCH ×2 (01:33→08:44)
[2023-04-09 03:32] LABS: Absolute Lymphocytes (CBC) 1.4 K/uL (0.7-4.9); Hematocrit 35.8 % (36.0-45.0); Lymphocytes % 24.3 % (15.3-44.8); MCV 107.9 fL (80-100); MPV 9.7 fL (7.6-11.3); RBC Red Blood Cell Count 3.32 M/uL (3.86-4.86)
[2023-04-09 03:36] LABS: Platelets 65 thou/uL (152-406)
[2023-04-09 03:43] LABS: Bilirubin Total 0.8 mg/dL (0.2-1.0); Magnesium 2.2 mg/dL (1.6-2.4); Potassium 3.8 mEq/L (3.5-5.1); Protein, Total 5.8 g/dL (6.4-8.2)
[2023-04-09] MEDS: levETIRAcetam 500 MG TAB FT SCH (08:43)
[2023-04-09] MEDS: Pantoprazole (granules) 40 MG/BLIST PACKET PO SCH (08:46)
[2023-04-09] MEDS: JUVEN PACKET PO SCH (08:47)
[2023-04-09] MEDS ORDERED: POTASSIUM 25 MEQ EFFERV TAB PO ONE (09:00)
[2023-04-09] MEDS ORDERED: JEVITY 1.2 CAL LIQUID 1,000 ML BOT RTH SCH (10:00)
--- NOTE | 2023-04-09 12:00 | P.PN ---
Date of Service: 04/08/23 Subjective Doing well with no new complaints. Clinical symptoms are stable. Tolerating tube feeds. We will advance to goal. Physical Examination -Vitals Reviewed -Physical Exam General: Alert, In no apparent distress, Other (nonverbal) Respiratory: Clear to auscultation bilaterally, Normal air movement Cardiovascular: Regular rate/rhythm Gastrointestinal: Normal bowel sounds, Other (Peg tube) Musculoskeletal: No clubbing, No swelling Integumentary: stage II sacral. Assessment and Plan -Assessment Assessment 1. GI bleeding 2. Status post PEG tube revision 3. Renal insufficiency 4. Stage II sacral decubitus 5. Urinary tract infection 6. Macrocytic anemia 7. History of trisomy 21 8. History of CVA 9. History of seizure disorder 10. History of hypothyroidism -Plan Plan GI Bleeding Continue with IV hydration and PPI drip; replace PEG tube Monitor H&H Hold Tube feeds until we know H&H is stable Nausea vomiting S/P PEG tube placement Monitor H&H and will start tube feeds in a.m. Acute kidney injury Monitor renal function closely Stage II sacral ulcer Continue with wound care Macrocytic anemia Monitor H&H Questionable urinary tract infection Continue with antibiotic therapy History of Down syndrome, CVA nonverbal and bedbound at baseline Hypothyroidism Seizure disorder Home medications continued.
--- NOTE | 2023-04-09 12:01 | P.DS ---
Discharge Date: 04/09/23 Disposition: TRANSFER TO LONG TERM Discharge Condition: GOOD Reason for Admission: GI bleed Brief History of Present Illness: Pt is a 52-year-old female with history of Down syndrome, CVA who is nonverbal at baseline, bedbound as well as seizure disorder, hypothyroidism presents to the emergency department with chief complaint of vomiting. [facility] is [facility], Her Brother is primary caregiver is at bedside. she had 2 episodes of vomiting prior to arrival to the hospital and additional single episode of vomiting during her stay in the emergency department. He reports similar admission for [place] last week. She has a PEG tube in place as during her last admission she was found to have aspiration pneumonia in late 2021. NG tube placed in the emergency room, 200 cc dark-colored, bloodtinged vomitus obtained. plan to admit for GI bleed, Dr. Chong, notified patient will need EGD in the a.m. Hospital Course: Patient had the PEG tube replaced per general surgery. Patient is tolerating tube feedings. Patient doing well clinically. Patient will wear a scopolamine patch. Patient is clinically doing well and patient is stable for discharge back to [facility] Vital Signs/Physical Exam: Temp Pulse Resp BP Pulse Ox 100.6 F 75 15 129/67 97 04/09/23 08:00 04/09/23 08:00 04/09/23 08:00 04/09/23 08:00 04/09/23 08:00 General: Demented Laboratory Data at Discharge: WBC 5.80 thou/uL (4.3-10.9) 04/09/23 03:14 Hgb 11.8 g/dL (12.0-15.0) L 04/09/23 03:14 Hct 35.8 % (36.0-45.0) L 04/09/23 03:14 Plt Count 65 thou/uL (152-406) L 04/09/23 03:14 PT 11.1 SECONDS (9.5-12.5) 04/06/23 23:51 INR 1.01 04/06/23 23:51 Sodium 142 mEq/L (136-145) 04/09/23 03:14 Potassium 3.8 mEq/L (3.5-5.1) 04/09/23 03:14 BUN 19 mg/dL (7-18) H 04/09/23 03:14 Creatinine 0.56 mg/dL (0.55-1.02) 04/09/23 03:14 Glucose 85 mg/dL (74-106) 04/09/23 03:14 Magnesium 2.2 mg/dL (1.6-2.4) 04/09/23 03:14 Total Bilirubin 0.8 mg/dL (0.2-1.0) 04/09/23 03:14 AST 26 U/L (15-37) 04/09/23 03:14 ALT 37 U/L (13-56) 04/09/23 03:14 Alkaline Phosphatase 86 U/L (45-117) 04/09/23 03:14 Lipase 27 U/L (13-75) 04/06/23 23:51 Home Medications: Atorvastatin Calcium [Lipitor*] 20 mg FT BEDTIME 04/07/23 Cholecalciferol (Vitamin D3) [Vitamin D3] 1,000 unit FT DAILY 04/07/23 Collagenase [Santyl Ointment*] 1 fidencio TOP SEECOM 04/07/23 Levetiracetam [Keppra] 1,500 mg FT BID 04/07/23 Levocetirizine Dihydrochloride [24Hr Allergy Relief] 5 mg FT DAILY 04/07/23 Levothyroxine Sodium 75 mcg FT DAILY 04/07/23 Midodrine HCl 10 mg FT TID 04/07/23 Polyethylene Glycol 3350 [Miralax] 1 packet FT BEDTIME 04/07/23 Sennosides [Senokot] 2 tab FT BID 04/07/23 Amox/K Clav [Augmentin 600 MG/5 ML Susp] 5 ml PO BID #100 ml 04/09/23 Jevity 1.2 Mani Liquid 35 ml FT CONT #1 bot 04/09/23 Jamie [Jamie*] 1 pkt PO BID #60 packet 04/09/23 Pantoprazole Granules [Protonix Granules*] 40 mg PO BID #30 packet 04/09/23 Scopolamine [Transderm-Scop] 1 each TD Q72H #10 pat 04/09/23 New Medications: Amox/K Clav [Augmentin 600 MG/5 ML Susp] 5 ml PO BID #100 ml Jevity 1.2 Mani Liquid 35 ml FT CONT #1 bot Jamie [Jamie*] 1 pkt PO BID #60 packet Pantoprazole Granules [Protonix Granules*] 40 mg PO BID #30 packet Scopolamine [Transderm-Scop] 1 each TD Q72H #10 pat Physician Discharge Instructions: -DC IV and DC home -Follow-up with NH PCP in 1 to 2 days -Please call Dr. Newberry at [phone] if any questions regarding hospital stay -Please call nursing station at [phone] if any nursing or medication questions -Return to the emergency room if symptoms worsen Diet: Tube feeds Activity: Fall precautions Followup: Unknown,U [Primary Care Provider] - Time spent managing pt's care (in minutes): 35
[2023-04-09 16:12] VITALS: BP 127/65; TEMP 98.9
== END 2023-04-09 16:59 | DRG 378 ==
LOC: ER 21:53 → ERHOLD 04-07 02:22 → 4TH 04-07 05:38
PROVIDERS: ADMIT Hospitalist; ATTEND Hospitalist
PROC: 0DW68UZ Revision of Feeding Device in Stomach, Via Natural or Artificial Opening Endoscopic (ICD-10-PCS; 2023-04-07)
PROC: 0DB68ZX Excision of Stomach, Via Natural or Artificial Opening Endoscopic, Diagnostic (ICD-10-PCS; principal; 2023-04-07 14:15)
DX: K29.01 Acute gastritis with bleeding (principal); N17.9 Acute kidney failure, unspecified; N39.0 Urinary tract infection, site not specified; E03.9 Hypothyroidism, unspecified; D53.9 Nutritional anemia, unspecified; Q90.9 Down syndrome, unspecified; G40.909 Epilepsy, unspecified, not intractable, without status epilepticus; L89.152 Pressure ulcer of sacral region, stage 2; F03.90 Unspecified dementia, unspecified severity, without behavioral disturbance, psychotic disturbance, mood disturbance, and anxiety; R74.01 Elevation of levels of liver transaminase levels; Z88.0 Allergy status to penicillin; Z93.1 Gastrostomy status; Z88.2 Allergy status to sulfonamides; Z88.1 Allergy status to other antibiotic agents; Z88.8 Allergy status to other drugs, medicaments and biological substances; Z86.73 Personal history of transient ischemic attack (TIA), and cerebral infarction without residual deficits; Z74.01 Bed confinement status; Z91.030 Bee allergy status; Z79.899 Other long term (current) drug therapy; Z79.890 Hormone replacement therapy
CPT/HCPCS: 36415; 51702; 71045; 71250; 74018; 74176; 80048; 80053; 80076; 81001; 82947; 83690; 83735; 83880; 84484; 85014; 85018; 85025; 85610; 86850; 86900; 86901; 86920; 87070; 87077; 87086; 87088; 87186; 87205; 88305; 88312; 93005; 99285; C9113; J1953; J2250; J2543; J2704; J7030; J7050

== ENCOUNTER 2023-06-22 08:22 | Emergency (ER) | payer BC, OTHER ==
--- OUTSIDE RECORDS SUMMARY | 2023-06-22 08:26 | XMS REPORT | Continuity of Care Document ---
:1970 Author Organization [facility] t Address [address] [place] [address] Care Team Providers Name Role Phone YESSENIA DANIELSON Attending Clinician Unavailable YESSENIA DANIELSON Admitting Clinician Unavailable Problems Condition Condition Condition Status Onset Resolution Last Treating Co mments Source Name Details Category Date Date Treatment Clinician Date Seizure Seizure Disease [facility]ur[facility] Cerebral Cerebral Disease [facility] kes megaly megaly [facility]:00: Medical 00 [facility] Acquired Acquired Disease [facility] hyp[facility]roi hypothyroi [facility]23 Tamika kes dism dism 00:00: Medical 00 [facility] Down Down Disease Active [facility] syndrome syndrome [facility] [address] [place] [address] Allergies, Adverse Reactions, Alerts This patient has no known allergies or adverse reactions. Social History Social Habit Start Date Stop Date Quantity Comments Source Tobacco use and 2017-12-20 2017-12-20 Smokeless tobacco [facility] exposure [facility]:00 non-user [facility] Alcohol intake 2017-12-20 2017-12-[address] [facility] 00:00:00 00:00:00 non-drinker of Medical nter alcohol (finding) Sex Assigned At [address] [address] Tamika kes 00:00[facility]00 [facility] Smoking Status Start Date Stop Date Source Never smoked tobacco [facility] Medications Ordered Filled Start Stop Current [...] Description Test Time Test Comments Results Result [facility] e Comments MR, BRAIN, 2017-12-22 Reason for FINAL REPORT PATIENT WITHOUT CONTRAST 17:54:00 exam:->sseizures ID: [id number] MRI Brain /hydrocephalusWh without contrast at is [...] MDReport Verified Date/Time: 12/22/2017 17:54:57 Reading Location: [facility] Radiology Reading Room AWAKE AND 2017-12-21 Reason for Date(s) of EEG: DROWSY 13:47:00 exam:->seizuresS 12/21/17ACC: hould this be [id number] Number: performed at the 2017-730Test Location: bedside?->Yes Inpatient RoomStart time: 08:38Stop time: 08:59ICD-10: R56.9CPT Code: 54313 HISTORY: 47 y.o. female who presented with [...] code = 368) 4.5 % 4.3-6.1 T4, [id number] 07:45:00 Test Item Value Reference Range Interpretation Comments FREE T4 (BEAKER) (test code = 655) 1.46 ng/dL 0.70-1.48 TSH/FREE T4 IF [id number] 06:53:00 Test Item Value Reference Range Interpretation Comments THYROID STIMULATING HORMONE 0.15 uIU/mL 0.35-4.94 L (BEAKER) (test code = 772) CALCIUM, [id number] 06:51:00 Test Item Value Reference Range Interpretation Comments CALCIUM IONIZED (BEAKER) (test 1.01 mmol/L 1.12-1.27 L code = 698) PH, BLOOD (BEAKER) (test code = 7.49 1810) [id number] 06:31:00 Test Item Value Reference Range Interpretation Comments PHOSPHORUS (BEAKER) (test code = 4.1 mg/dL 2.3-4.7 604) [id number] 06:31:00 Test Item Value Reference Range Interpretation Comments MAGNESIUM (BEAKER) (test code = 2.3 mg/dL 1.6-2.6 627) BASIC METABOLIC [id number] 06:31:00 Test Item Value Reference Range Interpretation [...] NOT APPLICABLE FOR DIALYSIS PATIEN TS. LIPID [id number] 06:31:00 Test Item Value Reference Range Interpretation [...] Very High >=190CBC W/PLT COUNT & AUTO [id number] 06:09:00 Test Item Value Reference Range Interpretation [...] % 0-1 PERCENT (BEAKER) (test code = 3012)
--- NOTE | 2023-06-22 09:05 | EDPHYS ---
Physician Documentation [facility] Name: Andie Castro Age: 52 yrs Sex: Female : 1970 Arrival Date: 06/22/2023 Time: 08:22 Bed 7 Private MD: LINA Physician Dipesh Kc HPI: 06/22 08:59 This 52 yrs old Female presents to ER via EMS with complaints of Problem With sreedhar Feeding Tube. 08:59 The patient presents with abdominal pain in the upper abdomen. Onset: The sreedhar symptoms/episode began/occurred this morning, today. The symptoms do not radiate. Associated signs and symptoms: none. The symptoms are described as peg out. Modifying factors: The symptoms are alleviated by nothing, the symptoms are aggravated by nothing. Severity of pain: At its worst the pain was very mild in the emergency department the pain is unchanged. The patient has experienced similar episodes in the past, multiple times. Historical: - Allergies: 08:30 Bactrim; tm6 08:30 Bees; tm6 08:30 Erythromycin; tm6 08:30 Nystatin powder; tm6 08:30 Pediozole; tm6 08:30 PENICILLINS; tm6 08:30 Sulfa (Sulfonamide Antibiotics); tm6 08:30 TRIMETHOPRIM; tm6 - PMHx: 08:30 down syndrome; Hypothyroidism; Seizures; stroke; tm6 - PSHx: 08:30 gastric tube; tm6 - Immunization history:: Adult Immunizations up to date. - Social history:: Smoking status: Patient denies any tobacco usage or history of. - Family history:: not pertinent. ROS: 08:59 Constitutional: Negative for fever, chills, and weight loss, Eyes: Negative for injury, sreedhar pain, redness, and discharge, ENT: Negative for injury, pain, and discharge, Neck: Negative for injury, pain, and swelling, Cardiovascular: Negative for chest pain, palpitations, and edema, Respiratory: Negative for shortness of breath, cough, wheezing, and pleuritic chest pain, Back: Negative for injury and pain, : Negative for injury, bleeding, discharge, and swelling, MS/Extremity: Negative for injury and deformity, Skin: Negative for injury, rash, and discoloration, Neuro: Negative for headache, weakness, numbness, tingling, and seizure, Psych: Negative for depression, anxiety, suicide ideation, homicidal ideation, and hallucinations, Allergy/Immunology: Negative for hives, rash, and allergies, Endocrine: Negative for neck swelling, polydipsia, polyuria, polyphagia, and marked weight changes, Hematologic/Lymphatic: Negative for swollen nodes, abnormal bleeding, and unusual bruising, 08:59 Abdomen/GI: Positive for abdominal pain, of the left upper quadrant, Exam: 08:59 Constitutional: This is a well developed, well nourished patient who is awake, alert, sreedhar and in no acute distress. Head/Face: Normocephalic, atraumatic. Eyes: Pupils equal round and reactive to light, extra-ocular motions intact. Lids and lashes normal. Conjunctiva and sclera are non-icteric and not injected. Cornea within normal limits. Periorbital areas with no swelling, redness, or edema. ENT: Nares patent. No nasal discharge, no septal abnormalities noted. Tympanic membranes are normal and external auditory canals are clear. Oropharynx with no redness, swelling, or masses, exudates, or evidence of obstruction, uvula midline. Mucous membranes moist. Neck: Trachea midline, no thyromegaly or masses palpated, and no cervical lymphadenopathy. Supple, full range of motion without nuchal rigidity, or vertebral point tenderness. No Meningismus. Chest/axilla: Normal chest wall appearance and motion. Nontender with no deformity. No lesions are appreciated. Cardiovascular: Regular rate and rhythm with a normal S1 and S2. No gallops, murmurs, or rubs. Normal PMI, no JVD. No pulse deficits. Respiratory: Lungs have equal breath sounds bilaterally, clear to auscultation and percussion. No rales, rhonchi or wheezes noted. No increased work of breathing, no retractions or nasal flaring. Abdomen/GI: Soft, non-tender, with normal bowel sounds. No distension or tympany. No guarding or rebound. No evidence of tenderness throughout. Back: No spinal tenderness. No costovertebral tenderness. Full range of motion. Skin: Warm, dry with normal turgor. Normal color with no rashes, no lesions, and no evidence of cellulitis. MS/ Extremity: Pulses equal, no cyanosis. Neurovascular intact. Full, normal range of motion. Neuro: Awake and alert, GCS 15, oriented to person, place, time, and situation. Cranial nerves II-XII grossly intact. Motor strength 5/5 in all extremities. Sensory grossly intact. Cerebellar exam normal. Normal gait. Psych: Awake, alert, with orientation to person, place and time. Behavior, mood, and affect are within normal limits. 08:59 Abdomen/GI: Inspection: abdomen appears normal, Bowel sounds: normal, Palpation: abdomen is soft and non-tender, Liver: no appreciated palpable abnormalities, Hernia: not appreciated, Vital Signs: 08:27 BP 119 / 99; Pulse 66; Resp 19; Temp 97.6(TE); Pulse Ox 98% on R/A; Weight 49.44 kg; tm6 Height 5 ft. 3 in. ; 08:27 Body Mass Index 19.31 (49.44 kg, 160.02 cm) tm6 Procedures: 09:04 G-tube placement: a 18 Uzbek catheter was placed, by the ED physician, Dipesh Kc cha, MD. MDM: 08:28 Patient medically screened. [facility] 09:02 Differential diagnosis: bowel obstruction, gastritis, non-specific abd pain. Data sreedhar reviewed: vital signs, nurses notes, radiologic studies, plain films. Consideration of Admission/Observation Escalation of care including admission/observation considered. I considered the following discharge prescriptions or medication management in the emergency department Medications were administered in the Emergency Department. See OCT. 06/22 08:54 Order name: ENTEROSTOMY TUBE CHECK W/CONTR EDMS Administered Medications: No medications were administered Disposition Summary: 06/22/23 09:04 Discharge Ordered Notes: Location: Home sreedhar Problem: new sreedhar Symptoms: have improved sreedhar Condition: Stable sreedhar Diagnosis - Gastrostomy complications sreedhar - Encounter for attention to gastrostomy sreedhar - Gastrostomy complication, unspecified sreedhar Followup: sreedhar - With: Private Physician - When: 2 - 3 days - Reason: Recheck today's complaints, Continuance of care, Re-evaluation by your physician Followup: sreedhar - With: Deejay Nowak MD - When: 2 - 3 days - Reason: Recheck today's complaints, Re-evaluation by your physician Discharge Instructions: - Discharge Summary Sheet sreedhar - Gastrostomy Tube Replacement sreedhar - PEG Tube Home Guide, Uiqg-ic-Tmvh sreedhar - Gastrostomy Tube Replacement, Care After sreedhar - PEG Tube Home Guide sreedhar Forms: - Medication Reconciliation Form sreedhar - Thank You Letter sreedhar - Antibiotic Education sreedhar - Prescription Opioid Use sreedhar - Patient Portal Instructions sreedhar - Leadership Thank You Letter sreedhar Signatures: Dispatcher [employer] EDMS Dipesh Kc MD MD cha Masterson, Tawney RN RN tm6 Corrections: (The following items were deleted from the chart) 08:54 08:48 Abdomen 1 View (KUB)+RAD.RAD.BRZ ordered. EDMS EDMS
--- NOTE | 2023-06-22 09:05 | ER ---
Nurse's Notes [facility] Name: Andie Castro Age: 52 yrs Sex: Female : 1970 Arrival Date: 06/22/2023 Time: 08:22 Bed 7 Private MD: Diagnosis: Gastrostomy complications;Encounter for attention to gastrostomy;Gastrostomy complication, unspecified Presentation: 06/22 08:27 Chief complaint: EMS states: toned out for patient feeding tube pulled out. Coronavirus tm6 screen: Vaccine status: Patient reports receiving the 2nd dose of the covid vaccine. Ebola Screen: Patient negative for fever greater than or equal to 101.5 degrees Fahrenheit, and additional compatible Ebola Virus Disease symptoms Patient denies exposure to infectious person. Patient denies travel to an Ebola-affected area in the 21 days before illness onset. No symptoms or risks identified at this time. Initial Sepsis Screen: Does the patient meet any 2 criteria? No. Patient's initial sepsis screen is negative. Initial Sepsis Screen: Does the patient have a suspected source of infection? No. Patient's initial sepsis screen is negative. Risk Assessment: Do you want to hurt yourself or someone else? Patient reports no desire to harm self or others. Onset of symptoms was June 22, 2023. 08:27 Method Of Arrival: EMS: [facility] tm6 08:27 Acuity: MARCEL 3 tm6 Triage Assessment: 08:30 General: Appears in no apparent distress. comfortable, Behavior is calm, cooperative, tm6 appropriate for age. Pain: Denies pain. EENT: No signs and/or symptoms were reported regarding the EENT system. Neuro: Level of Consciousness is awake, alert, Oriented to patient nonverbal with down syndrome. Cardiovascular: Capillary refill < 3 seconds Patient's skin is warm and dry. Respiratory: Airway is patent Respiratory effort is even, unlabored, Respiratory pattern is regular, symmetrical. GI: Abdomen is round non-distended, PEG tube tube removed prior to arrival. : Turner in place. Derm: No signs and/or symptoms reported regarding the dermatologic system. Musculoskeletal: No signs and/or symptoms reported regarding the musculoskeletal system. Historical: - Allergies: 08:30 Bactrim; tm6 08:30 Bees; tm6 08:30 Erythromycin; tm6 08:30 Nystatin powder; tm6 08:30 Pediozole; tm6 08:30 PENICILLINS; tm6 08:30 Sulfa (Sulfonamide Antibiotics); tm6 08:30 TRIMETHOPRIM; tm6 - PMHx: 08:30 down syndrome; Hypothyroidism; Seizures; stroke; tm6 - PSHx: 08:30 gastric tube; tm6 - Immunization history:: Adult Immunizations up to date. - Social history:: Smoking status: Patient denies any tobacco usage or history of. - Family history:: not pertinent. Screenin:33 [facility] ED Fall Risk Assessment (Adult) History of falling in the last 3 months, tm6 including since admission No falls in past 3 months (0 pts). Abuse screen: Denies threats or abuse. Denies injuries from another. Nutritional screening: on tube feeds; feeding tube removed prior to arrival. Tuberculosis screening: No symptoms or risk factors identified. Assessment: 08:33 Reassessment: see triage assessment. tm6 Vital Signs: 08:27 BP 119 / 99; Pulse 66; Resp 19; Temp 97.6(TE); Pulse Ox 98% on R/A; Weight 49.44 kg; tm6 Height 5 ft. 3 in. ; 08:27 Body Mass Index 19.31 (49.44 kg, 160.02 cm) tm6 ED Course: 08:27 Patient arrived in ED. tm6 08:28 Dipesh Kc MD is Attending Physician. sreedhar 08:29 Triage completed. tm6 08:30 Arm band placed on right wrist. tm6 08:33 Patient has correct armband on for positive identification. Bed in low position. Call tm6 light in reach. Side rails up X2. 08:33 Client placed on continuous cardiac and pulse oximetry monitoring. NIBP monitoring tm6 applied. Warm blanket given. Pillow given. 08:39 Maryse Field RN is Primary Nurse. tm6 09:03 Deejay Nowak MD is Referral Physician. sreedhar 09:37 ENTEROSTOMY TUBE CHECK W/CONTR In Process Unspecified. EDMS 10:07 No provider procedures requiring assistance completed. Patient did not have IV access ld1 during this emergency room visit. Administered Medications: No medications were administered Medication: 08:33 VIS not applicable for this client. tm6 Outcome: 09:04 Discharge ordered by . sreedhar 10:08 Discharged to home ambulatory, ld1 10:08 Condition: stable 10:08 Discharge instructions given to patient, Instructed on discharge instructions, follow up and referral plans. Demonstrated understanding of instructions, follow-up care, 10:08 Patient left the ED. ld1 Signatures: Dispatcher [employer] Dipesh Gill MD MD cha Sims, Lauren RN RN ld1 Maryse Field RN RN tm6
[2023-06-22] MEDS ORDERED: WATER FOR INJ,STERILE 20 ML ONE (09:06)
--- NOTE | 2023-06-22 09:48 | RAD REPORT ---
EXAM DESCRIPTION: RAD - ENTEROSTOMY TUBE CHECK W/CONTR - 06/22/2023 9:35 am CLINICAL HISTORY: peg placement COMPARISON: ENTEROSTOMY TUBE CHECK W/CONTR dated 05/05/2023; Chest Abd Pelvis Wo Con dated 04/06/2023 FINDINGS/IMPRESSION: Enteric contrast opacifies the small bowel consistent with an intraluminal posi tioning. The tip may be within the proximal duodenum rather than the stomach as no contrast identifie d in the stomach.
[2023-06-23 15:45] VITALS: BP 119/99; TEMP 97.6; O2SAT 98
== END 2023-06-22 10:08 | disposition home or self-care (01) ==
LOC: ER 08:22
DX: K94.29 Other complications of gastrostomy (principal)
CPT/HCPCS: 49465

== ENCOUNTER → 2023-11-23 | Emergency (ER) | payer OTHER, SELFPAY ==
[~2023-11-23] MED LIST: ACETAMINOPHEN 650MG/RECT SUPP PR ONE; DIPHENHYDRAMINE 50 MG/ML VIAL ONE; NA CHLORIDE 0.9% 1,000 ML ONE; NA CHLORIDE 0.9% 100 ML ONE; NA CHLORIDE 0.9% 250 ML ONE; NOREPINEPHRINE BITARTRATE/D5W 4 MG/250 ML BAG IV ONE; PIPERACIL/TAZO 3.375 GM VIAL IV ONE; VANCOMYCIN 1 GM/VIAL ONE
[2023-11-23 05:20] LABS: Arterial Blood Carboxyhemoglob 1.3 % (0-1.5); Blood Gas Oxyhemoglobin 91.9 % (94-97); Blood Gas THB 12.1 g/dl (12-18); Blood O2 Saturation 94.4 % (92-98.5)
[2023-11-23 05:23] LABS: Absolute Lymphocytes (CBC) 0.1 K/uL (0.7-4.9); Absolute Monocytes 0.3 K/uL (0.1-1.3); Lymphocytes % 2.1 % (15.3-44.8); MCH 36.8 pg (27.0-35.0); Monocytes % 5.2 % (3.3-12.3); Neutrophils % 92.7 % (41.7-73.7)
[2023-11-23 05:35] LABS: SARS-CoV-2 Antigen CONTROL BLUE LINE VIS/BG OK; SARS-CoV-2 Antigen Rapid Res Negative (Negative)
[2023-11-23 05:39] LABS: Specific Gravity 1.015 (1.005-1.030); Sqamous Epithelial <5 /HPF (None Seen); Urine Bacteria >50 /HPF (<20); Urine Bilirubin NEGATIVE (Negative); Urine Blood 2+ (Negative); Urine Clarity Extremely Turbid (Clear); Urine Color Light-Orange (Yellow); Urine Culture Reflex Order REFLEXED; Urine Glucose NEGATIVE (Negative); Urine Ketones NEGATIVE (Negative); Urine Microscopic Reflex YN ORDER UMIC; Urine Mucus Slight /HPF (None Seen); Urine Nitrite 2+ (Negative); Urine Protein 2+ (Negative); Urine RBC 21-50 /HPF (None Seen); Urine Urobilinogen Normal (Normal); Urine WBC >50 /HPF (<5); Urine WBC Clump Moderate /HPF (None Seen)
[2023-11-23 06:09] LABS: Hemoglobin 11.7 g/dL (12.0-15.0); RBC Red Blood Cell Count 3.17 M/uL (3.86-4.86)
[2023-11-23 06:10] LABS: Hematocrit 34.3 % (36.0-45.0); MCHC 34.1 g/dL (32.0-36.0); MCV 108.2 fL (80-100)
[2023-11-23 06:11] LABS: MPV 9.8 fL (7.6-11.3); Platelets 65 thou/uL (152-406); Red Cell Distribution Width 9.8 % (12.1-15.2)
[2023-11-23 06:20] LABS: Albumin 1.8 g/dL (3.4-5.0); Albumin/Globulin Ratio 0.5 (1.1-1.8); Anion Gap 10.2 mEq/L (5.0-15.0); Bilirubin Total 0.5 mg/dL (0.2-1.0); Globulin 3.7 g/dL (2.3-3.5); Potassium 3.2 mEq/L (3.5-5.1); Protein, Total 5.5 g/dL (6.4-8.2)
[2023-11-23 06:55] LABS: PTT, Activated Partial Thromb 32.9 SECONDS (24.3-36.9); Protime INR 1.38
--- NOTE | 2023-11-23 08:34 | RAD REPORT ---
EXAM DESCRIPTION: CT - Chest Abd Pelvis Wo Con - 11/23/2023 7:42 am CLINICAL HISTORY: eval for pneumonia COMPARISON: Chest Abd Pelvis Wo Con dated 04/06/2023; Thorax Wo Con dated 08/02/2022; Chest Single View dated 11/23/2023 TECHNIQUE: Thin axial CT images of the chest, abdomen, and pelvis, performed without IV contrast. Mu ltiplanar reformats were generated and reviewed. All CT scans are performed using dose optimization technique as appropriate and may include automated exposure control or mA/KV adjustment according to patient size. FINDINGS: Beam hardening artifact limits evaluation. Streaky bilateral central airspace opacities, showing some interval progression in the left more than right lower lobes. Underlying interstitial thickening is also suspected.No pleural or pericardial ef fusion.No intrathoracic adenopathy. The liver, spleen, pancreas, adrenal glands and kidneys are within normal limits. No bowel obstruction, free air, free fluid or abscess. Wall thickening along the rectum. Turner cathet er within the bladder which is somewhat decompressed but demonstrates some wall thickening as well. M ild fat stranding in the pericystic and mesorectal fat. Percutaneous gastrostomy tube in unchanged po sition. No pathologic lymphadenopathy in the abdomen or pelvis. No acute osseous abnormalities. Severe levoconvex scoliosis again seen. IMPRESSION: Progressive bilateral central airspace opacities particularly in the left lower lobe, wi th underlying interstitial thickening. Findings suggest pulmonary edema although superimposed pneumon ia cannot be entirely excluded. Findings suggesting proctitis and cystitis, likely of infectious/ inflammatory nature.
--- NOTE | 2023-11-23 08:43 | RAD REPORT ---
EXAM DESCRIPTION: CT - Head Brain Wo Cont - 11/23/2023 7:42 am CLINICAL HISTORY: tremors, AMS COMPARISON: Head Brain Wo Cont dated 01/15/2021; Head Brain Wo Cont dated 02/06/2019 TECHNIQUE: Noncontrast head CT images were obtained without IV contrast. Multiplanar reformats were generated and reviewed. All CT scans are performed using dose optimization technique as appropriate and may include automated exposure control or mA/KV adjustment according to patient size. FINDINGS: Since the prior CT, there is a new right frontal convexity hypodense subdural collection, measuring 5 mm in thickness, with minimal mass effect. No parenchymal hyper dense hemorrhage, mass, or edema. Midline structures are unremarkable. Marked ventriculomegaly with diffuse white matter pronounced volume loss again seen. Ventricular alem fareed is stable. Strickland-white matter differentiation is preserved, without evidence of acute infarct. Mastoid air cells and visualized portions of the paranasal sinuses are clear. No acute bony findings. IMPRESSION: Small hypodense right frontal convexity extra-axial collection measuring 5 mm in thickne ss, new since the prior CT, suggesting a subacute or chronic subdural hemorrhage. Minimal underlying mass effect. Stable pronounced ventriculomegaly with diffuse white matter volume loss. The findings were communicated to Shaun Bhatti on 11/23/2023 at 08:40 hours.
--- NOTE | 2023-11-23 08:49 | EDPHYS ---
Physician Documentation [facility] Name: Andie Castro Age: 53 yrs Sex: Female : 1970 Arrival Date: 11/23/2023 Time: 04:39 Bed 3 Private MD: ED Physician Shaun Bhatti HPI: 11/22 04:46 This 53 yrs old Female presents to ER via Unassigned with complaints of sp4 HYPOTENSION. 05:13 Patient is 53-year-old female with history of Down syndrome, prior CVA nonverbal at sp4 baseline also seizure disorder hypothyroidism and prolonged immobility with decubitus ulceration. Patient presents from senior care with tremors, hypotensive episode as well. EMS reported patient has had a fever prior to arrival. ROS in HPI not available. Patient has history of indwelling Turner catheter, gastrostomy tube, and decubitus sacral ulcer patient also has history of GI bleed. Patient was admitted last time 04/09/2023. Gastrointestinal bleed. Patient's medications include atorvastatin, cholecalciferol, collagenase, Keppra 1500 mg twice daily, levo cetirizine, levothyroxine, midodrine, polyethylene glycol, sennosides, Jevity, Jamie, pantoprazole, scopolamine. There is ROS not available secondary to nonverbal status. . COURT RECORDING MONITOR: 04:40 LMP N/A - Post-menopause, Not km8 Historical: - Allergies: 04:58 Bactrim; km8 04:58 Bees; km8 04:58 Erythromycin; km8 04:58 Nystatin powder; km8 04:58 Pediozole; km8 04:58 PENICILLINS; km8 04:58 Sulfa (Sulfonamide Antibiotics); km8 04:58 TRIMETHOPRIM; km8 - PMHx: 04:58 stroke; Seizures; Hypothyroidism; down syndrome; km8 - PSHx: 04:58 gastric tube; km8 - Immunization history:: Adult Immunizations unknown. - Social history:: Smoking status: unknown. - Family history:: not pertinent. ROS: 05:13 Constitutional: ROS not available secondary to nonverbal status sp4 05:13 All other systems are negative, 05:13 Unable to obtain ROS due to baseline dementia, Exam: 07:29 Constitutional: Patient is physically debilitated female who is nonverbal , signs of sp4 advanced mental noted , stigmata of Down syndrome. Toxic appearing pale appearing female, moderate to severe physical deconditioning Head/Face: Normocephalic, atraumatic. Eyes: Pupils equal round and reactive to light, extra-ocular motions intact. Eyes appear sunken indicative of dehydration ENT: Nares patent. No nasal discharge, no septal abnormalities noted. Tympanic membranes are normal and external auditory canals are clear. Oropharynx with no redness, swelling, or masses, exudates, or evidence of obstruction, uvula midline. Mucous membranes moist. Neck: Trachea midline, no thyromegaly or masses palpated, and no cervical lymphadenopathy. Supple, full range of motion without nuchal rigidity, or vertebral point tenderness. Chest/axilla: Normal chest wall appearance and motion. Nontender with no deformity. No lesions are appreciated. Cardiovascular: Regular rate and rhythm with a normal S1 and S2. No gallops, murmurs, or rubs. Normal PMI, no JVD. No pulse deficits. Respiratory: Lungs have equal breath sounds bilaterally, clear to auscultation and percussion. No rales, rhonchi or wheezes noted. No increased work of breathing, no retractions or nasal flaring. Abdomen/GI: Soft, with normal bowel sounds. No distension or tympany. No guarding or rebound. No evidence of tenderness throughout. Gastrostomy tube present Back: No spinal tenderness. No costovertebral tenderness. Positive for sacral decubitus ulcer Pelvic Exam: Normal external genitalia. Indwelling Turner catheter present Female : Normal external genitalia. Skin: Warm, dry with normal turgor. Generalized pallor, no rashes MS/ Extremity: Pulses equal, no cyanosis. Advanced muscle atrophy from immobility. Neuro: Awake , generalized tremors on exam, patient is nonverbal, moderate to severe physical debility from immobility. 07:32 ECG was reviewed by the Attending Physician. EKG at 0 455 , EKG reveals sinus sp4 tachycardia rate 104 Vital Signs: 04:40 BP 163 / 145; Pulse 95; Resp 16; Pulse Ox 98% on R/A; km8 05:00 BP 132 / 95; Pulse 94; Resp 16; Pulse Ox 98% on R/A; km8 05:10 Temp 99.2(Ca); km8 05:22 BP 60 / 41; Pulse 92; Resp 17; Temp 99.2; Pulse Ox 97% on R/A; km8 05:25 Weight 46.72 kg (M); km8 05:25 BP 61 / 41; Pulse 90; Resp 24; Temp 99.4(Ca); Pulse Ox 97% on R/A; km8 05:38 BP 113 / 71; Pulse 82; Resp 16; Temp 99.3; Pulse Ox 95% on R/A; km8 05:40 BP 103 / 71; Pulse 79; Resp 17; Temp 99.2; km8 05:50 BP 105 / 74; Pulse 81; Resp 16; Temp 98.9(Ca); Pulse Ox 95% on R/A; km8 06:00 BP 105 / 71; Pulse 78; Resp 16; Temp 98.7(Ca); Pulse Ox 96% on R/A; km8 06:15 BP 108 / 72; Pulse 77; Resp 16; Temp 98.1(Ca); Pulse Ox 94% on R/A; km8 07:00 BP 109 / 74; Pulse 78; Resp 14; Pulse Ox 97% on 3 lpm NC; hb 07:15 BP 105 / 68; Pulse 75; Resp 14; Pulse Ox 97% on 3 lpm NC; hb 07:30 BP 112 / 68; Pulse 74; Resp 15; Pulse Ox 98% on 3 lpm NC; hb 07:45 BP 108 / 68; Pulse 72; Resp 17; Pulse Ox 99% on 3 lpm NC; hb 08:00 BP 109 / 74; Pulse 70; Resp 17; Pulse Ox 100% on 3 lpm NC; hb 08:15 BP 113 / 71; Pulse 70; Resp 15; Pulse Ox 97% on 3 lpm NC; hb 08:30 BP 114 / 76; Pulse 69; Resp 18; Pulse Ox 000% on 3 lpm NC; hb 08:45 BP 116 / 73; Pulse 69; Resp 15; Pulse Ox 97% on 3 lpm NC; hb 09:00 BP 115 / 74; Pulse 69; Resp 17; Pulse Ox 98% on 3 lpm NC; hb 09:15 BP 117 / 73; Pulse 69; Resp 21; Pulse Ox 97% on 3 lpm NC; hb 09:45 BP 118 / 75; Pulse 68; Resp 14; Temp 97.6(Ca); Pulse Ox 100% on 3 lpm NC; MAP 87 mmHg; hb 10:15 BP 111 / 73; Pulse 65; Resp 14; Temp 97.6(Ca); Pulse Ox 100% on 3 lpm NC; nj1 10:30 BP 115 / 75; Pulse 66; Resp 14; Temp 97.6(Ca); Pulse Ox 100% ; nj1 10:45 BP 114 / 71; Pulse 65; Resp 14; Temp 97.6(Ca); Pulse Ox 100% on 3 lpm NC; MAP 83 mmHg; nj1 Procedures: 06:04 Central Line: the site was prepped with in sterile fashion, Chlorhexidine prep, a sp4 triple lumen catheter was inserted, in the right internal jugular vein, in 1 attempts. placement was verified, by CXR, by blood return, the site was dressed with Tegaderm, using sterile technique, the patient tolerated the procedure, well, Right internal jugular ultrasound-guided triple-lumen CVL 7 Mont[place] placed for resuscitation. MDM: 04:49 Patient medically screened. sp4 07:28 Data reviewed: vital signs, nurses notes, EMS record, lab test result(s), EKG, sp4 radiologic studies, CT scan, plain films. ED course: EXAM DESCRIPTION: Chest Single View CLINICAL HISTORY: CHEST PAIN COMPARISON: CXR 04/06/2023. FINDINGS: Cardiac silhouette is within normal limits. Patient is rotated. Right infusion catheter ends at the level of the atrial caval junction. EKG leads project over the chest. There is no focal parenchymal or pleural disease. There is no acute osseous process visualized. IMPRESSION: No evidence of acute cardiopulmonary disease. . 07:40 ED course: Sepsis reevaluation complete. rn 08:46 Differential Diagnosis UTI, pneumonia, sepsis, severe sepsis, severe sepsis with septic rn shock. Consideration of Admission/Observation Patient was admitted/placed on observation. Escalation of care including admission/observation considered. Counseling: I had a detailed discussion with the patient and/or guardian regarding the historical points, exam findings, and any diagnostic results supporting the discharge/admit diagnosis, lab results, radiology results, the need to transfer to another facility, for higher level of care, No ICU bed available here.. Response to treatment: the patient's symptoms have mildly improved after treatment, and as a result, I will admit patient. ED course: Patient with subacute to chronic subdural hematoma. Also with urosepsis with septic shock. Responding to 30/kg bolus as well as Levophed. Blood pressure currently 109/74. Sepsis reevaluation completed. Told by hospital that there are no ICU beds and we need to transfer. Will initiate transfer for higher level of care.. 09:04 ED course: I personally spent 35 minutes engaged in work directly related to the rn individual patient's care. This does not include any time spent performing procedures. The patient has been deemed critically ill because of urosepsis with septic shock, requiring central line, IV fluid resuscitation, pressor, chart review.. 09:16 ED course: Accepted for transfer to [facility]. rn 11/22 04:47 Order name: Blood Culture Adult (2) [facility] 11/22 04:47 Order name: CBC with Diff [facility] 11/22 04:47 Order name: CMP; Complete Time: 07:09 [facility] 11/22 04:47 Order name: Lactate w/ 2H reflex if indic.; Complete Time: 07:28 [facility] 11/22 04:47 Order name: Protime (+inr); Complete Time: 07:09 [facility] 11/22 04:47 Order name: Ptt, Activated; Complete Time: 07:09 [facility] 11/22 04:47 Order name: Urinalysis w/ reflexes; Complete Time: 06:03 [facility] 11/22 04:47 Order name: ABG; Complete Time: 06:03 [facility] 11/22 04:47 Order name: SARS RAPID; Complete Time: 06:03 [facility] 11/22 04:47 Order name: Influenza Screen (a \T\ B); Complete Time: 06:18 [facility] 11/22 05:26 Order name: Glucose, Ancillary Testing; Complete Time: 05:29 [facility] 11/22 05:27 Order name: Type And Screen; Complete Time: 07:28 [facility] 11/22 05:30 Order name: Manual Differential [facility] 11/22 05:56 Order name: Urine Culture [facility] 11/22 06:03 Order name: CBC with Manual Differential [facility] 11/22 10:21 Order name: Lactate Sepsis 2 HR Follow-up [facility] 11/22 04:47 Order name: Chest Single View XRAY [facility] 11/22 05:10 Order name: CT Chest Abdomen Pelvis W/O Contrast; Complete Time: 08:45 sp4 11/22 05:11 Order name: CT Head Brain wo Cont; Complete Time: 08:45 11/22 04:47 Order name: EKG; Complete Time: 04:48 11/22 04:47 Order name: Accucheck; Complete Time: 05:12 11/22 04:47 Order name: Cardiac monitoring; Complete Time: 05:00 11/22 04:47 Order name: Cath; Complete Time: 05:00 11/22 04:47 Order name: EKG - Nurse/Tech; Complete Time: 05:12 11/22 04:47 Order name: IV Saline Lock - Large Bore; Complete Time: 05:00 11/22 04:47 Order name: Labs collected and sent; Complete Time: 05:00 11/22 04:47 Order name: O2 Per Protocol; Complete Time: 05:00 11/22 04:47 Order name: O2 Sat Monitoring; Complete Time: 05:00 11/22 04:47 Order name: VS Recheck; Complete Time: 05:00 11/22 04:47 Order name: Vital Signs; Complete Time: 05:00 4 EC:32 Rate is 104 beats/min. Rhythm is regular, Sinus tachycardia. Right axis deviation sp4 noted. NH interval is normal. QRS interval is normal. QT interval is normal. No Q waves. T waves are Normal. No ST changes noted. Clinical impression: No evidence of ischemia. Interpreted by me. Reviewed by me. Administered Medications: 05:00 Drug: NS 0.9% IV (30 ml/kg) 30 ml/kg IV at bolus once; Sepsis Protocol Route: IV; Rate: km8 bolus; Site: right hand; 05:05 CANCELLED (Physician Discretion): ibuprofensuspension 600 mg/kg PO once; via jb4 GAstrostomy tube 05:39 Drug: Norepinephrine IV 0.1 mcg/kg/min IV at calculated rate See Administration km8 Instructions; (Standard concentration 4 mg / 250 mL D5W); Recommended max rate 3 mcg/kg/min; Titrate 0.05 mcg/kg/min as often as every 5 minutes to achieve goal (see titration policy); Goal parameter MAP greater than 65 mmHg. Route: IV; Rate: calculated rate; Site: right hand; 05:41 Follow up: Rate change 20 mcg/min km8 05:43 Follow up: Rate change 25 mcg/min km8 05:45 Follow up: Rate change 30 mcg/min km8 06:18 Not Given (Hemodynamic Parameters): [id number] mg IVP once km8 06:18 Not Given (Physician Discretion): [id number] grams 100 ml IVPB once; (Note: Albumin 25% km8 concentration) 06:18 Not Given (Hemodynamic Parameters): tranexamic acid 1000 mg IV at bolus once; km8 administer at a rate not to exceed 100 mg per min 06:19 Not Given (no fever ): ibuprofensuspension 600 mg PO once; via G-tube km8 07:14 Drug: vancoMYCIN IVPB 1 grams IVPB once over 2 hrs Route: IVPB; Infused Over: 2 hrs; km8 Site: right jugular; 07:14 Drug: Piperacillin-Tazobactam IVPB 3.375 grams IVPB once over 60 mins; (mix in NS 100 km8 mL) Route: IVPB; Infused Over: 60 mins; Site: right jugular; Disposition Summary: 11/23/23 08:48 Transfer Ordered Notes: Transfer Location: [facility] rn Reason: Higher level of care rn Condition: Fair rn Problem: new rn Symptoms: have improved rn Accepting Physician: (11/23/23 11:07) nj1 Diagnosis - Severe sepsis with septic shock rn - UTI/ Urinary tract infection, site not specified rn - Pneumonia, unspecified organism 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 Total time: 35 rn minutes Signatures: Dispatcher [employer] EDShaun Paredes MD MD rn Attema, Lee, POULTRY HUSBANDRY TEACHER-C POULTRY HUSBANDRY TEACHER-Cla1 Alex Pena, RN RN Simón Hudson MD MD sp4 Kait Alfaro RN RN nj1 Abena Blakely, CRISTINA RN km8 Corrections: (The following items were deleted from the chart) 05:05 04:48 Ibuprofen PO Suspension 600 mg/kg PO once; via GAstrostomy tube ordered. spJulio nunez 06:28 05:28 PACKED RBC LEUKORED+BB.LAB.BRZ ordered. EDMS EDMS 05:30 ABO/RH typing ordered. EDMS EDMS 05:30 Antibody Screen ordered. EDMS EDMS :07 08:48 Dr. andrade nj1
--- NOTE | 2023-11-23 08:49 | ER ---
Nurse's Notes [facility] Name: Andie Castro Age: 53 yrs Sex: Female : 1970 Arrival Date: 11/23/2023 Time: 04:39 Bed 3 Private MD: Diagnosis: Severe sepsis with septic shock;UTI/ Urinary tract infection, site not specified;Pneumonia, unspecified organism Presentation: 11/22 04:40 Chief complaint: EMS states: toned out for vomiting blood, fever, and seizure and km8 fever; EMS did not find blood on the towel, they noted pt had a SBP in the 60's, upon arrival pt's SBP is 163; pt baseline is non-verbal and has hx of seizures. Coronavirus screen: Client denies travel out of the [place] in the last 14 days. Ebola Screen: No symptoms or risks identified at this time. Initial Sepsis Screen: Does the patient meet any 2 criteria? HR > 90 bpm. Does the patient have a suspected source of infection? No. Patient's initial sepsis screen is negative. Risk Assessment: Do you want to hurt yourself or someone else? Patient reports no desire to harm self or others. Onset of symptoms was November 22, 2023 at 20:00. 04:40 Method Of Arrival: EMS: [facility] km8 04:40 Acuity: MARCEL 2 km8 04:40 Care prior to arrival: Medication(s) given: Normal saline infusion, 200 ml IV km8 initiated. 20 GA, in the right hand, Glucose check: 115. Triage Assessment: 04:40 General: Appears uncomfortable, malnourished, Behavior is anxious, restless. Pain: km8 Unable to use pain scale. Does not appear to understand pain scale. EENT: Oral mucosa is dry. Neuro: Level of Consciousness is awake, Oriented to unable to assess due to non-verbal status. Cardiovascular: Rhythm is sinus tachycardia. Respiratory: Airway is patent Respiratory effort is even, unlabored, Respiratory pattern is regular, symmetrical. GI: PEG tube in place, clamped. : Turner in place to gravity drainage. Derm: Skin is healthy with good turgor, Skin is dry, Skin is pale, Skin temperature is cool. Musculoskeletal: Range of motion: rigid. 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 - Social history:: Smoking status: unknown. - Family history:: not pertinent. Screenin:40 [facility] ED Fall Risk Assessment (Adult) History of falling in the last 3 months, km8 including since admission No falls in past 3 months (0 pts) Confusion or Disorientation Yes (5 pts) Intoxicated or Sedated No (0 pts) Impaired Gait Yes (1 pt) Mobility Assist Device Used No (0 pt) Altered Elimination Yes (1 pt) Score/Fall Risk Level 3 or more points = High Risk Oriented to surroundings, Maintained a safe environment, Educated pt \T\ family on fall prevention, incl call for assistance when getting out of bed, Assessed \T\ reinforced patient's understanding of fall precautions, Provided non-skid footwear, Hourly rounding (assess needs \T\ fall precautionary measures) done, Apply high fall risk patient identification: yellow non skid footwear/ fall signage, Remained w/in arm's length of patient and in sight while toileting, Offered frequent toileting (1:1 observation). Abuse screen: Denies threats or abuse. Denies injuries from another. Nutritional screening: On NPO diet, tube feeds. Tuberculosis screening: No symptoms or risk factors identified. Assessment: 04:40 Reassessment: see triage assessment. km8 05:56 Reassessment: pt's SBP dropped back to 60's Dr. Zaragoza notified; central line set up km8 and see new orders. 06:10 Reassessment: Patient appears in no apparent distress at this time. BP improved. km8 07:05 General: Appears in no apparent distress. comfortable, Behavior is calm. rs5 07:05 Pain: Unable to use pain scale. Does not appear to understand pain scale. Neuro: Level rs5 of Consciousness is awake, alert, Oriented to to none. Cardiovascular: Rhythm is regular. Respiratory: Airway is patent Respiratory effort is even, unlabored, Respiratory pattern is regular, symmetrical. GI: Abdomen is flat, non-distended, Abd is soft and non tender X 4 quads. : 3-way catheter in place 100 ml clear yellow urine noted in catheter bag. EENT: No signs and/or symptoms were reported regarding the EENT system. Derm: Skin is intact, Skin is pink, warm \T\ dry. Musculoskeletal: 08:21 General: Appears in no apparent distress. Behavior is flat. Neuro: Level of hb Consciousness is awake, responsive to pain only. Oriented to none. Cardiovascular: Patient's skin is warm and dry. Rhythm is regular. Respiratory: Respiratory effort is even, unlabored, Respiratory pattern is regular, symmetrical, Breath sounds are clear. GI: Abdomen is non-distended. : Turner in place to gravity drainage Urine is clear. EENT: No signs and/or symptoms were reported regarding the EENT system. Derm: Skin is dry, Skin is pale, Skin temperature is warm. Musculoskeletal: No signs and/or symptoms reported regarding the musculoskeletal system. 09:03 Reassessment: Patient appears in no apparent distress at this time. No changes from hb previously documented assessment. Vital Signs: 04:40 BP 163 / 145; Pulse 95; Resp 16; Pulse Ox 98% on R/A; km8 05:00 BP 132 / 95; Pulse 94; Resp 16; Pulse Ox 98% on R/A; 8 05:10 Temp 99.2(Ca); 05:22 BP 60 / 41; Pulse 92; Resp 17; Temp 99.2; Pulse Ox 97% on R/A; 8 05:25 Weight 46.72 kg (M); 8 05:25 BP 61 / 41; Pulse 90; Resp 24; Temp 99.4(Ca); Pulse Ox 97% on R/A; km8 05:38 BP 113 / 71; Pulse 82; Resp 16; Temp 99.3; Pulse Ox 95% on R/A; 8 05:40 BP 103 / 71; Pulse 79; Resp 17; Temp 99.2; 8 05:50 BP 105 / 74; Pulse 81; Resp 16; Temp 98.9(Ca); Pulse Ox 95% on R/A; km8 06:00 BP 105 / 71; Pulse 78; Resp 16; Temp 98.7(Ca); Pulse Ox 96% on R/A; km8 06:15 BP 108 / 72; Pulse 77; Resp 16; Temp 98.1(Ca); Pulse Ox 94% on R/A; km8 07:00 BP 109 / 74; Pulse 78; Resp 14; Pulse Ox 97% on 3 lpm NC; hb 07:15 BP 105 / 68; Pulse 75; Resp 14; Pulse Ox 97% on 3 lpm NC; hb 07:30 BP 112 / 68; Pulse 74; Resp 15; Pulse Ox 98% on 3 lpm NC; hb 07:45 BP 108 / 68; Pulse 72; Resp 17; Pulse Ox 99% on 3 lpm NC; hb 08:00 BP 109 / 74; Pulse 70; Resp 17; Pulse Ox 100% on 3 lpm NC; hb 08:15 BP 113 / 71; Pulse 70; Resp 15; Pulse Ox 97% on 3 lpm NC; hb 08:30 BP 114 / 76; Pulse 69; Resp 18; Pulse Ox 000% on 3 lpm NC; hb 08:45 BP 116 / 73; Pulse 69; Resp 15; Pulse Ox 97% on 3 lpm NC; hb 09:00 BP 115 / 74; Pulse 69; Resp 17; Pulse Ox 98% on 3 lpm NC; hb 09:15 BP 117 / 73; Pulse 69; Resp 21; Pulse Ox 97% on 3 lpm NC; hb 09:45 BP 118 / 75; Pulse 68; Resp 14; Temp 97.6(Ca); Pulse Ox 100% on 3 lpm NC; MAP 87 mmHg; hb 10:15 BP 111 / 73; Pulse 65; Resp 14; Temp 97.6(Ca); Pulse Ox 100% on 3 lpm NC; nj1 10:30 BP 115 / 75; Pulse 66; Resp 14; Temp 97.6(Ca); Pulse Ox 100% ; nj1 10:45 BP 114 / 71; Pulse 65; Resp 14; Temp 97.6(Ca); Pulse Ox 100% on 3 lpm NC; MAP 83 mmHg; nj1 ED Course: 04:40 Patient arrived in ED. jj6 04:40 Arm band placed on right wrist. km8 04:40 Patient has correct armband on for positive identification. Placed in gown. Bed in low km8 position. Call light in reach. Side rails up X2. hospital monitor on. Pulse ox on. NIBP on. Warm blanket given. 04:40 Patient maintains SpO2 saturation greater than 95% on room air. km8 04:40 Maintain EMS IV. Dressing intact. Good blood return noted. Site clean \T\ dry. Gauge \T\ 8 site: 20 gauge right hand. 04:46 Simón Zaragoza MD is Attending Physician. sp4 04:47 Abena Blakely RN is Primary Nurse. [facility] 04:49 Triage completed. [facility] 04:55 Initial lab(s) drawn, by ED staff, sent to lab. First set of blood cultures drawn by ED [facility] staff. Inserted saline lock: 20 gauge in right antecubital area, using aseptic technique. Blood collected. 04:57 Turner cath removed intact, balloon deflated. [facility] 05:00 Turner cath inserted, using sterile technique, 16 Fr., by ED staff, balloon inflated, to [facility] gravity drainage, urine specimen collected. returned cloudy urine. Patient tolerated well. 05:12 Influenza Screen (a \T\ B) Sent. [facility] 05:12 SARS RAPID Sent. [facility] 05:12 CBC with Diff Sent. [facility] 05:12 CMP Sent. [facility] 05:12 Lactate w/ 2H reflex if indic. Sent. [facility] 05:12 Protime (+inr) Sent. [facility] 05:12 Ptt, Activated Sent. [facility] 05:12 Urinalysis w/ reflexes Sent. [facility] 05:12 Blood Culture Adult (2) Sent. [facility] 05:51 Lab(s) recollected, by ED staff, sent to lab. First set of blood cultures drawn by [facility] physician. 05:55 Assisted provider with central line placement. Set up central line tray. Triple lumen [facility] line placed in right internal jugular. Line placed by Simón Zaragoza MD Placement verified by CXR, blood return, Dressed with Tegaderm, Blood was collected. Patient tolerated well. Patient \T\ family education about procedure, CLABSI prevention and S/S of infection? Yes. Was handwashing/sanitizing done immediately prior to procedure? Yes. Was patient positioned to in a way to prevent air embolism? Yes. Was procedure site sterilized? Yes, with chlorhexidine. Was the site allowed to dry? Yes. Was local anesthetic and/or sedation utilized? Yes. During the procedure, did the Practitioner(s) maintain a sterile field? Yes. Were unused ports clamped during insertion? Yes. Was a 2nd qualified MD obtained after 3 unsuccessful insertion attempts? N/A. Was blood aspirated from each lumen? Yes. After the procedure, did the Practitioner(s) clean the site and apply a sterile dressing? Yes. 05:59 Manual Differential Sent. km8 05:59 Type And Screen Sent. km8 06:03 Urine Culture Sent. km8 06:09 Chest Single View XRAY In Process Unspecified. EDMS 07:40 Attending Physician role handed off by Simón Zaragoza MD rn 07:40 Shaun Bhatti MD is Attending Physician. rn 07:44 CT Chest Abdomen Pelvis W/O Contrast In Process Unspecified. EDMS 07:44 CT Head Brain wo Cont In Process Unspecified. EDMS 09:[address] [facility]. bd 10:20 Notified ED physician of a critical lab result(s). lactate 3.5. iw 10:52 Report given to [facility], EMS. nj1 10:58 Patient transferred, IV remains in place. nj1 22:01 Akin at [facility] called and made aware that patient's preliminary blood cm10 culture results showed gram negative rods in all four bottles. Administered Medications: 05:00 Drug: NS 0.9% IV (30 ml/kg) 30 ml/kg IV at bolus once; Sepsis Protocol Route: IV; Rate: km8 bolus; Site: right hand; 05:05 CANCELLED (Physician Discretion): ibuprofensuspension 600 mg/kg PO once; via jb4 GAstrostomy tube 05:39 Drug: Norepinephrine IV 0.1 mcg/kg/min IV at calculated rate See Administration km8 Instructions; (Standard concentration 4 mg / 250 mL D5W); Recommended max rate 3 mcg/kg/min; Titrate 0.05 mcg/kg/min as often as every 5 minutes to achieve goal (see titration policy); Goal parameter MAP greater than 65 mmHg. Route: IV; Rate: calculated rate; Site: right hand; 05:41 Follow up: Rate change 20 mcg/min km8 05:43 Follow up: Rate change 25 mcg/min km8 05:45 Follow up: Rate change 30 mcg/min km8 06:18 Not Given (Hemodynamic Parameters): [id number] mg IVP once km 06:18 Not Given (Physician Discretion): [id number] grams 100 ml IVPB once; (Note: Albumin 25% km8 concentration) 06:18 Not Given (Hemodynamic Parameters): tranexamic acid 1000 mg IV at bolus once; km8 administer at a rate not to exceed 100 mg per min 06:19 Not Given (no fever ): ibuprofensuspension 600 mg PO once; via G-tube km 07:14 Drug: vancoMYCIN IVPB 1 grams IVPB once over 2 hrs Route: IVPB; Infused Over: 2 hrs; km8 Site: right jugular; 07:14 Drug: Piperacillin-Tazobactam IVPB 3.375 grams IVPB once over 60 mins; (mix in NS 100 km8 mL) Route: IVPB; Infused Over: 60 mins; Site: right jugular; Medication: 08:00 VIS not applicable for this client. hb Output: 09:55 Urine: 650ml (Turner); Total: 650ml. hb Outcome: 08:48 ER care complete, transfer ordered by . rn 10:52 Transferred by ground EMS to [facility], Transfer form completed. nj1 Note: Report called by Yahaira Crain RN to [facility] at 1004. 10:52 Condition: stable nj1 10:52 Instructed on the need for transfer, 11:07 Patient left the ED. nj1 Signatures: Dispatcher [employer] EDMS Tram Johnson Irene, RN Shaun Sawant MD MD rn Baxter, Heather, RN RN Jessica Graf jj6 Elver Matthews RN RN rs5 Simón Zaragoza MD MD sp4 Kait Alfaro RN RN nj1 Leonila Templeton RN RN cm10 Abena Blakely RN RN km8 Alex Pena RN jb4 Corrections: (The following items were deleted from the chart) 04:58 04:40 BP 163 / 145; Pulse 95bpm; Resp 16bpm; Pulse Ox 98% RA; [facility] 05:10 04:40 Chief complaint: EMS states: toned out for seizure and fever; pt baseline is [facility] non-verbal and has hx of seizures [facility] 06: 05:59 ABO/RH typing drawn and sent. [address] 06: 05:59 Antibody Screen drawn and sent. [address] 08:12 08:10 General: Appears rs5 rs5
[2023-11-23 10:01] LABS: Band Neutrophils 18 % (0-1); Blood Morphology Comment NOT SEEN (NOT SEEN); Differential Total Cells Count 100; Lymphocytes 3 % (15-42); Monocytes 4 % (0-10); Platelet Estimate DECR; Segmented Neutrophils 75 % (40-80); Toxic Granulation PRESENT
[2023-11-23 10:04] LABS: Absolute Lymphocytes (CBC) 0.7 K/uL (0.7-4.9); Absolute Monocytes 1.4 K/uL (0.1-1.3); Absolute Neutrophil 31.2 K/uL (1.8-8.0); Basophils % 0.1 % (0-1.3); Hematocrit 37.2 % (36.0-45.0); Hemoglobin 12.6 g/dL (12.0-15.0); MCH 36.8 pg (27.0-35.0); MCHC 33.9 g/dL (32.0-36.0); MCV 108.4 fL (80-100); MPV 10.3 fL (7.6-11.3); Monocytes % 4.2 % (3.3-12.3); Neutrophils % 93.7 % (41.7-73.7); Nucleated Red Blood Cells % 0.1 % (0-0); Platelets 74 thou/uL (152-406); RBC Red Blood Cell Count 3.43 M/uL (3.86-4.86); Red Cell Distribution Width 14.6 % (12.1-15.2)
--- NOTE | 2023-11-23 10:11 | RAD REPORT ---
EXAM DESCRIPTION: RAD - Chest Single View - 11/23/2023 6:06 am CLINICAL HISTORY: CHEST PAIN COMPARISON: CXR 04/06/2023. FINDINGS: Cardiac silhouette is within normal limits. Patient is rotated. Right infusion catheter en ds at the level of the atrial caval junction. EKG leads project over the chest. There is no focal par enchymal or pleural disease. There is no acute osseous process visualized. IMPRESSION: No evidence of acute cardiopulmonary disease. Electronically signed by: Shane Maher MD 11/23/2023 06:36 AM CDT Due to temporary technical issues with the PACS/Fluency reporting system, reports are being signed by the in house radiologist without review as a courtesy to ensure prompt reporting. The interpreting r adiologist is fully responsible for the content of the report.
[2023-11-23 10:41] LABS: Band Neutrophils 30 % (0-1); Blood Morphology Comment NOT SEEN (NOT SEEN); Differential Total Cells Count 100; Dohle Bodies PRESENT; Lymphocytes 2 % (15-42); Monocytes 8 % (0-10); Platelet Estimate DECR; Segmented Neutrophils 60 % (40-80); Toxic Granulation PRESENT
[2023-11-23 12:15] VITALS: BP 114/71; TEMP 97.6; O2SAT 100
--- NOTE | 2023-11-23 12:46 | EKG ---
Test Date: 2023-11-23 Test Time: 04:55:12 Liquefier: MEASUREMENT RESULTS: Intervals: Rate: 104 NJ: 140 QRSD: 64 QT: 324 QTc: 426 Endeavor: P: 86 NJ: 140 QRS: 96 T: 85 INTERPRETIVE STATEMENTS: Sinus tachycardia with premature atrial complexes Rightward axis Borderline ECG Compared to ECG 04/07/2023 01:04:14 Atrial premature complex(es) now present Right-axis deviation now present Sinus rhythm no longer present Atrial abnormality no longer present Electronically Signed On 11-23-23 12:45:10 CDT by Bunny Galdamez
== END ==
LOC: ER 04:39
PROC: 05HM33Z Insertion of Infusion Device into Right Internal Jugular Vein, Percutaneous Approach (ICD-10-PCS; principal; 2023-11-23)
DX: N39.0 Urinary tract infection, site not specified (principal); R65.21 Severe sepsis with septic shock; J18.9 Pneumonia, unspecified organism; Q90.9 Down syndrome, unspecified; Z11.52 Encounter for screening for COVID-19; Z88.0 Allergy status to penicillin; Z88.1 Allergy status to other antibiotic agents; Z88.2 Allergy status to sulfonamides; Z88.3 Allergy status to other anti-infective agents; Z88.8 Allergy status to other drugs, medicaments and biological substances; Z91.030 Bee allergy status
CPT/HCPCS: 93005; 87040 ×2; 87088; 85025 ×2; 81001; 87086; 36415; 86900; 86850; 87205 ×4; 85610; 86901; 82947; 83605 ×2; 85730; 80053; 87804 ×2; 70450; 71250; 74176; 71045; 82805; 87811; 36600; 36556; J2543; P9016; J7050; J7030; J1200

== ENCOUNTER 2023-12-16 12:35 | Emergency (ER) | payer OTHER ==
[2023-12-16 13:48] LABS: Absolute Lymphocytes (CBC) 1.3 K/uL (0.7-4.9); Absolute Monocytes 0.5 K/uL (0.1-1.3); Absolute Neutrophil 0.9 K/uL (1.8-8.0); Eosinophils % 1.6 % (0-4.4); Hematocrit 36.3 % (36.0-45.0); Hemoglobin 12.3 g/dL (12.0-15.0); Lymphocytes % 48.4 % (15.3-44.8); MCH 36.6 pg (27.0-35.0); MCV 107.8 fL (80-100); MPV 9.5 fL (7.6-11.3); Monocytes % 16.7 % (3.3-12.3); Neutrophils % 32.3 % (41.7-73.7); Nucleated Red Blood Cells % 0.3 % (0-0); Platelets 113 thou/uL (152-406); RBC Red Blood Cell Count 3.37 M/uL (3.86-4.86); Red Cell Distribution Width 15.2 % (12.1-15.2)
[2023-12-16 13:56] LABS: Anion Gap 4.2 mEq/L (5.0-15.0); Potassium 4.2 mEq/L (3.5-5.1); Troponin High Sensitivity 4.5 pg/mL (<58.9)
--- NOTE | 2023-12-16 13:58 | RAD REPORT ---
EXAM DESCRIPTION: Efrain Single View12/16/2023 1:39 pm CLINICAL HISTORY: cough COMPARISON: October 2022 FINDINGS: Lungs are mildly hazy Heart is normal size IMPRESSION: Lungs are mildly hazy without significant change prior exam. This could indicate a mild pneumonitis/pneumonia
[2023-12-16 14:17] LABS: INFLUENZA A NAA NEGATIVE (NEGATIVE); RESPIRATORY SYNCYTIAL VIR NAA NEGATIVE (NEGATIVE); SARS-COV-2 RT PCR NEGATIVE (NEGATIVE)
[2023-12-16 14:23] LABS: Anisocytosis 1+; Blood Morphology Comment NOTED (NOT SEEN); Platelet Estimate DECR; White Blood Cell Scan OK (OK)
--- NOTE | 2023-12-16 14:23 | ER ---
Nurse's Notes [facility] Name: Andie Castro Age: 53 yrs Sex: Female : 1970 Arrival Date: 12/16/2023 Time: 12:35 Bed 8 Private MD: Diagnosis: Encounter for general adult medical examination without abnormal findings Presentation: 12/15 12:47 Chief complaint: EMS states: snf toned out EMS for low oxygenation, pt was rs5 recently for sepsis. Coronavirus screen: At this time, the client does not indicate any symptoms associated with coronavirus-19. Ebola Screen: No symptoms or risks identified at this time. Initial Sepsis Screen: Does the patient meet any 2 criteria? No. Patient's initial sepsis screen is negative. Does the patient have a suspected source of infection? No. Patient's initial sepsis screen is negative. Risk Assessment: Do you want to hurt yourself or someone else? Patient reports no desire to harm self or others. Onset of symptoms was December 16, 2023. 12:47 Method Of Arrival: EMS: [facility] rs5 12:47 Acuity: MARCEL 3 rs5 Historical: - Allergies: 12:50 Bactrim; rs5 12:50 Bees; rs5 12:50 Erythromycin; rs5 12:50 Nystatin powder; rs5 12:50 Pediozole; rs5 12:50 PENICILLINS; rs5 12:50 Sulfa (Sulfonamide Antibiotics); rs5 12:50 TRIMETHOPRIM; rs5 - PMHx: 12:50 down syndrome; Hypothyroidism; Seizures; stroke; rs5 - PSHx: 12:50 gastric tube; rs5 - Immunization history:: Adult Immunizations up to date. - Infectious Disease History:: Denies. - Social history:: Smoking status: Patient denies any tobacco usage or history of. Screenin:50 [facility] ED Fall Risk Assessment (Adult) History of falling in the last 3 months, rs5 including since admission No falls in past 3 months (0 pts) Confusion or Disorientation No (0 pts) Intoxicated or Sedated No (0 pts) Impaired Gait No (0 pts) Mobility Assist Device Used No (0 pt) Altered Elimination No (0 pt) Score/Fall Risk Level 0 - 2 = Low Risk Oriented to surroundings, Maintained a safe environment. 12:50 Abuse screen: Denies threats or abuse. Nutritional screening: No deficits noted. rs5 Tuberculosis screening: No symptoms or risk factors identified. Assessment: 12:50 General: Appears in no apparent distress. comfortable, Behavior is calm, cooperative. rs5 Pain: Unable to use pain scale. Does not appear to understand pain scale. Neuro: Level of Consciousness is awake, Oriented to none father at bedside states "mentally jameson she is at her baseline" pt not oriented to person, place, time or situation.. 12:50 Cardiovascular: Patient's skin is warm and dry. Rhythm is regular. Respiratory: Airway rs5 is patent Respiratory effort is even, unlabored, Respiratory pattern is regular, symmetrical. GI: Abdomen is round non-distended, Abd is soft and non tender X 4 quads. GI: Enteral feeding tube in place, clamped. Site clean. :. : 3-way catheter in place Turner in place to gravity drainage 200 ml clear, yellow urine noted in urine bag. EENT: No signs and/or symptoms were reported regarding the EENT system. Derm: Skin is intact, Skin is pink, warm \\T\\ dry. Musculoskeletal: Range of motion: intact in all extremities. 14:01 Reassessment: Patient and/or family updated on plan of care and expected duration. Pain rs5 level reassessed. Cardiovascular: Patient's skin is warm and dry. Rhythm is regular. Respiratory: Respiratory effort is even, unlabored, Respiratory pattern is regular, symmetrical. 15:00 Reassessment: No changes from previously documented assessment. rs5 Vital Signs: 12:47 BP 110 / 70; Pulse 67; Resp 18; Temp 97.7(A); Pulse Ox 98% on R/A; rs5 14:23 Pulse Ox 100% on R/A; sb4 14:45 BP 103 / 53; Pulse 61; Resp 16; Pulse Ox 100% on R/A; iw ED Course: 12:47 Patient arrived in ED. rs5 12:50 Triage completed. rs5 12:50 Patient has correct armband on for positive identification. Placed in gown. Bed in low rs5 position. Call light in reach. Side rails up X2. 12:50 Client placed on continuous cardiac and pulse oximetry monitoring. NIBP monitoring iw applied. monitoring engineer on. 12:50 Arm band placed on. iw 12:50 Maintain EMS IV. Dressing intact. Good blood return noted. Site clean \\T\\ dry. Gauge \\T\\ iw site: 20 left hand. 12:58 [facility] Hendrix [facility] sb4 12:58 Manju Lanier MD is Attending Physician. sb4 13:11 Elver Matthews, RN is Primary Nurse. rs5 13:41 XRAY CXR (1 view) In Process Unspecified. EDMS 14:21 No provider procedures requiring assistance completed. rs5 15:05 IV discontinued, intact, bleeding controlled, No redness/swelling at site. Pressure iw dressing applied. Administered Medications: No medications were administered Medication: 12:51 VIS not applicable for this client. rs5 Outcome: 14:22 Discharge ordered by . sb4 15:03 Discharged to correction. Report called to oneyda collins iw 15:03 Condition: stable 15:03 Instructed on 15:04 Patient left the ED. iw Signatures: Dispatcher [employer] Ale Villafuerte, CRISTINA RN iw Madiha Hendrix PA-C PA-C sb4 Elver Matthews, RN RN rs5
--- NOTE | 2023-12-16 14:23 | EDPHYS ---
Physician Documentation [facility] Name: Andie Castro Age: 53 yrs Sex: Female : 1970 Arrival Date: 12/16/2023 Time: 12:35 Bed 8 Private MD: ED Physician Manju Lanier HPI: 12/15 13:05 This 53 yrs old Female presents to ER via EMS with complaints of hypoxia. sb4 13:05 patient with history of down syndrome and CVA, nonverbal was sent to ED from nursing sb4 home for reported O2 levels in the 80s. she was recently discharged from another hospital after undergoing treatment of pneumonia. patient is in no distress upon arrival, saturating 98% on room air. Historical: - Allergies: 12:50 Bactrim; rs5 12:50 Bees; rs5 12:50 Erythromycin; rs5 12:50 Nystatin powder; rs5 12:50 Pediozole; rs5 12:50 PENICILLINS; rs5 12:50 Sulfa (Sulfonamide Antibiotics); rs5 12:50 TRIMETHOPRIM; rs5 - PMHx: 12:50 down syndrome; Hypothyroidism; Seizures; stroke; rs5 - PSHx: 12:50 gastric tube; rs5 - Immunization history:: Adult Immunizations up to date. - Infectious Disease History:: Denies. - Social history:: Smoking status: Patient denies any tobacco usage or history of. ROS: 13:05 Unable to obtain ROS due to patient is in a persistent vegetative state, sb4 Exam: 13:05 Head/Face: Normocephalic, atraumatic. Cardiovascular: Regular rate and rhythm with a sb4 normal S1 and S2. Respiratory: Lungs have equal breath sounds bilaterally, clear to auscultation and percussion. No rales, rhonchi or wheezes noted. No increased work of breathing, no retractions or nasal flaring. Abdomen/GI: Soft, non-tender, no distension. 13:05 Constitutional: The patient appears alert, awake, obviously ill, pale, 13:05 Eyes: Pupils: equal, round, and reactive to light and accomodation, 13:05 : a mandel is noted, 13:10 Abdomen/GI: Inspection: PEG, sb4 13:30 ECG was reviewed by the Attending Physician. sb4 Vital Signs: 12:47 BP 110 / 70; Pulse 67; Resp 18; Temp 97.7(A); Pulse Ox 98% on R/A; rs5 14:23 Pulse Ox 100% on R/A; sb4 14:45 BP 103 / 53; Pulse 61; Resp 16; Pulse Ox 100% on R/A; iw MDM: 12:59 Patient medically screened. sb4 14:21 Data reviewed: vital signs, nurses notes, lab test result(s), EKG, radiologic studies, sb4 I have discussed the patient's presentation/case with the attending Emergency Department Physician; and as a result, I will discharge patient. Counseling: I had a detailed discussion with the patient and/or guardian regarding the historical points, exam findings, and any diagnostic results supporting the discharge/admit diagnosis, lab results, radiology results, to return to the emergency department if symptoms worsen or persist or if there are any questions or concerns that arise at home. ED course: patient is in no respiratory distress, saturating 100% on room air, normal labs, chest xray unchanged from prior, will discharge back to ID . 12/15 13:04 Order name: BMP; Complete Time: 14:02 [facility] 12/15 13:04 Order name: CBC with Diff; Complete Time: 14:24 [facility] 12/15 13:04 Order name: NT PRO-BNP; Complete Time: 14:02 [facility] 12/15 13:04 Order name: Troponin HS; Complete Time: 14:02 [facility] 12/15 13:04 Order name: COVID-19/FLU A+B/RSV; Complete Time: 14:19 [facility] 12/15 14:00 Order name: CBC Smear Scan; Complete Time: 14:24 [facility] 12/15 13:04 Order name: XRAY CXR (1 view); Complete Time: 14:02 [facility] 12/15 13:04 Order name: EKG; Complete Time: 13:04 [facility] 12/15 13:04 Order name: Cardiac monitoring; Complete Time: 13:10 [facility] 12/15 13:04 Order name: EKG - Nurse/Tech; Complete Time: 13:33 4 12/15 13:04 Order name: IV Saline Lock; Complete Time: 13:33 [facility] 12/15 13:04 Order name: Labs collected and sent; Complete Time: 13:33 [facility] 12/15 13:04 Order name: O2 Per Protocol; Complete Time: 13:33 sb4 12/15 13:04 Order name: O2 Sat Monitoring; Complete Time: 13:33 sb4 EC:30 Rate is 64 beats/min. Rhythm is regular, Normal Sinus Rhythm with Occasional PVCs. [place] sb4 interval is normal at 136 msec. QRS interval is normal at 66 msec. QT interval is normal at 430 msec. Clinical impression: No evidence of ischemia. Administered Medications: No medications were administered Disposition: 14:23 Chart complete. sb4 Disposition Summary: 12/16/23 14:22 Discharge Ordered Notes: Location: Home sb4 Problem: new sb4 Symptoms: are unchanged sb4 Condition: Stable sb4 Diagnosis - Encounter for general adult medical examination without abnormal findings sb4 Followup: sb4 - With: Emergency Department - When: As needed - Reason: Trouble breathing, Worsening of condition Discharge Instructions: - Discharge Summary Sheet sb4 Forms: - Thank You Letter sb4 - Patient Portal Instructions sb4 - Leadership Thank You Letter sb4 Signatures: Dispatcher [employer] EDMadiha Valero PA-C PA-C sb4 Elver Matthews, RN RN rs5 Corrections: (The following items were deleted from the chart) 13:04 13:04 BASIC METABOLIC PANEL+C.LAB.BRZ ordered. EDMS EDMS 13:04 13:04 CBC+H.LAB.BRZ ordered. EDMS EDMS 13:04 13:04 PROBNP+C.LAB.BRZ ordered. EDMS EDMS 13:04 13:04 Troponin High Sensitivity+C.LAB.BRZ ordered. EDMS EDMS 13:04 13:04 COVID-19/FLU A+B/RSV+MOL.LAB.BRZ ordered. EDMS EDMS
[2023-12-16 15:35] VITALS: BP 103/53; TEMP 97.7; O2SAT 100
== END 2023-12-16 15:04 | disposition home or self-care (01) ==
LOC: ER 12:35
DX: Z71.1 Person with feared health complaint in whom no diagnosis is made (principal); Q90.9 Down syndrome, unspecified; Z11.52 Encounter for screening for COVID-19; Z86.73 Personal history of transient ischemic attack (TIA), and cerebral infarction without residual deficits; Z88.0 Allergy status to penicillin; Z88.1 Allergy status to other antibiotic agents; Z88.2 Allergy status to sulfonamides; Z88.3 Allergy status to other anti-infective agents; Z88.8 Allergy status to other drugs, medicaments and biological substances; Z91.030 Bee allergy status
CPT/HCPCS: 85025; 80048; 36415; 84484; 83880; 0241U; 71045; 99284; 93005

== ENCOUNTER 2023-12-23 01:58 | Emergency (ER) | payer OTHER ==
[2023-12-23] MEDS ORDERED: CEFEPIME 1 GM/VIAL ONE (02:30)
[2023-12-23] MEDS ORDERED: NA CHLORIDE 0.9% 1,000 ML ONE (02:30)
[2023-12-23] MEDS ORDERED: NA CHLORIDE 0.9% 500 ML ONE (02:30)
[2023-12-23] MEDS ORDERED: NA CHLORIDE 0.9% 100 ML ONE ×2 (02:30→04:46)
[2023-12-23 02:44] LABS: Absolute Basophils 0.1 K/uL (0-0.5); Absolute Lymphocytes (CBC) 1.5 K/uL (0.7-4.9); Absolute Monocytes 0.4 K/uL (0.1-1.3); Absolute Neutrophil 0.8 K/uL (1.8-8.0); Basophils % 1.9 % (0-1.3); Eosinophils % 1.1 % (0-4.4); Hematocrit 34.3 % (36.0-45.0); Hemoglobin 11.9 g/dL (12.0-15.0); Lymphocytes % 54.4 % (15.3-44.8); MCH 37.1 pg (27.0-35.0); MCHC 34.6 g/dL (32.0-36.0); MCV 107.2 fL (80-100); MPV 9.1 fL (7.6-11.3); Monocytes % 13.7 % (3.3-12.3); Neutrophils % 28.9 % (41.7-73.7); Nucleated Red Blood Cells % 0.1 % (0-0); Platelets 122 thou/uL (152-406); Red Cell Distribution Width 15.1 % (12.1-15.2)
[2023-12-23 02:46] LABS: Specific Gravity 1.027 (1.005-1.030); Sqamous Epithelial <5 /HPF (None Seen); Urine Bacteria None Seen /HPF (<20); Urine Bilirubin NEGATIVE (Negative); Urine Blood Negative (Negative); Urine Clarity Clear (Clear); Urine Color Yellow (Yellow); Urine Culture Reflex Order NOT NEEDED; Urine Glucose NEGATIVE (Negative); Urine Ketones NEGATIVE (Negative); Urine Microscopic Reflex YN ORDER UMIC; Urine Mucus Slight /HPF (None Seen); Urine Nitrite NEGATIVE (Negative); Urine Protein NEGATIVE (Negative); Urine RBC <5 /HPF (None Seen); Urine Urobilinogen Normal (Normal); Urine Yeast (Budding) Occasional /HPF (None Seen); Urine pH 5.5 (5.0-7.0)
[2023-12-23 03:00] LABS: PT Prothrombin Time 11.7 SECONDS (9.5-12.5); Protime INR 1.07
[2023-12-23 03:02] LABS: SARS-CoV-2 Antigen CONTROL BLUE LINE VIS/BG OK; SARS-CoV-2 Antigen Rapid Res Negative (Negative)
[2023-12-23 03:08] LABS: Albumin 2.4 g/dL (3.4-5.0); Albumin/Globulin Ratio 0.5 (1.1-1.8); Anion Gap 7.9 mEq/L (5.0-15.0); Bilirubin Direct 0.1 mg/dL (0-0.2); Bilirubin Indirect, Calculated 0.3 mg/dL (0.2-0.8); Bilirubin Total 0.4 mg/dL (0.2-1.0); Globulin 4.7 g/dL (2.3-3.5); Magnesium 2.1 mg/dL (1.6-2.4); Potassium 3.9 mEq/L (3.5-5.1); Protein, Total 7.1 g/dL (6.4-8.2); Troponin High Sensitivity 5.6 pg/mL (<58.9)
[2023-12-23] MEDS ORDERED: LEVETIRACETAM 500 MG/5 ML VIAL IV ONE (04:41)
--- NOTE | 2023-12-23 05:11 | ER ---
Nurse's Notes [facility] Name: Andie Castro Age: 53 yrs Sex: Female : 1970 Arrival Date: 12/23/2023 Time: 01:58 Bed 4 Private MD: Diagnosis: Altered mental status, unspecified;UTI/ Urinary tract infection, site not specified;Trisomy 21, translocation-DOWNS;Do not resuscitate;Pneumonia due to other specified bacteria-left base Presentation: 12/22 02:18 Chief complaint: EMS states: toned out by nursing facility for patient barely tm6 breathing. When EMS arrived, patient had RR of 4-6. EMS performed sternal rub, which caused patient to become more alert. En route to ER, patient began to have tremors. EMS gave 2mg of ativan. Coronavirus screen: Vaccine status: Patient reports receiving the 2nd dose of the covid vaccine. Ebola Screen: Patient negative for fever greater than or equal to 101.5 degrees Fahrenheit, and additional compatible Ebola Virus Disease symptoms Patient denies exposure to infectious person. Patient denies travel to an Ebola-affected area in the 21 days before illness onset. No symptoms or risks identified at this time. Initial Sepsis Screen: Does the patient meet any 2 criteria? No. Patient's initial sepsis screen is negative. Does the patient have a suspected source of infection? No. Patient's initial sepsis screen is negative. Risk Assessment: Do you want to hurt yourself or someone else? Unable to obtain. Onset of symptoms was December 23, 2023. Care prior to arrival: Medication(s) given: ativan 2mg IVP. 02:18 Method Of Arrival: EMS: [facility] tm6 02:18 Acuity: MARCEL 3 tm6 Triage Assessment: 02:21 General: Appears in no apparent distress. Behavior is listless, quiet. Pain: Unable to tm6 use pain scale. Does not appear to understand pain scale. non-verbal. EENT: No signs and/or symptoms were reported regarding the EENT system. Neuro: Level of Consciousness is awake, Oriented to down syndrome, non-verbal. Unable to assess orientation. Reports EMS reports possible seizure activity, as patient had tremors on truck. Cardiovascular: No deficits noted. Patient's skin is warm and dry. Respiratory: Airway is patent Respiratory effort is even, shallow, Respiratory pattern is regular, symmetrical, Breath sounds are diminished. GI: Abdomen is flat, non-distended, PEG tube in place, clamped. Site clean. : No signs and/or symptoms were reported regarding the genitourinary system. Turner in place. Derm: No signs and/or symptoms reported regarding the dermatologic system. Musculoskeletal: No signs and/or symptoms reported regarding the musculoskeletal system. ACCOUNT MANAGER: 02:21 unknown tm6 Historical: - Allergies: 02:21 Bactrim; tm6 02:21 Bees; tm6 02:21 Erythromycin; tm6 02:21 Nystatin powder; tm6 02:21 Pediozole; tm6 02:21 PENICILLINS; tm6 02:21 Sulfa (Sulfonamide Antibiotics); tm6 02:21 TRIMETHOPRIM; tm6 - PMHx: 02:21 down syndrome; Hypothyroidism; Seizures; stroke; tm6 - PSHx: 02:21 gastric tube; tm6 - Immunization history:: Adult Immunizations up to date. - Infectious Disease History:: Denies. - Social history:: Smoking status: Patient denies any tobacco usage or history of. Screenin:26 [facility] ED Fall Risk Assessment (Adult) History of falling in the last 3 months, tm6 including since admission No falls in past 3 months (0 pts) Confusion or Disorientation Yes (5 pts) Intoxicated or Sedated No (0 pts) Impaired Gait Yes (1 pt) Mobility Assist Device Used No (0 pt) Altered Elimination Yes (1 pt) Score/Fall Risk Level 3 or more points = High Risk Oriented to surroundings, Maintained a safe environment. Abuse screen: Denies threats or abuse. Denies injuries from another. Nutritional screening: No deficits noted. Tuberculosis screening: No symptoms or risk factors identified. Assessment: 02:26 Reassessment: see triage assessment. Pain: Unable to use pain scale. non-verbal. tm6 03:29 Reassessment: Patient appears in no apparent distress at this time. Patient and/or tm6 family updated on plan of care and expected duration. Pain level reassessed. 04:06 Reassessment: No changes from previously documented assessment. tm6 05:36 Reassessment: Patient appears in no apparent distress at this time. No changes from tm6 previously documented assessment. discharge pending completion of IV antibiotics. 05:52 Reassessment: Gave patient report to Adie Townsend at [facility]. pf1 Vital Signs: 02:18 BP 129 / 85; Pulse 68; Resp 12; Temp 97.5(TE); Pulse Ox 100% on R/A; Weight 47.63 kg; tm6 Height 4 ft. 0 in. ; Pain 0/10; 03:29 BP 153 / 99; Pulse 87; Resp 17; Pulse Ox 100% on 2 lpm NC; tm6 04:05 BP 109 / 67; Pulse 78; Resp 20; Pulse Ox 99% on R/A; tm6 05:00 BP 120 / 83; Pulse 85; Resp 22; Pulse Ox 100% on R/A; tm6 06:26 BP 119 / 98; Pulse 85; Resp 20; Temp 97.8(TE); Pulse Ox 100% on R/A; tm6 02:18 Body Mass Index 32.04 (47.63 kg, 121.92 cm) tm6 02:18 Pain Scale: Non-Verbal tm6 ED Course: 02:05 Patient arrived in ED. wm 02:06 Dipesh Kc MD is Attending Physician. sreedhar 02:18 Maryse Field, CRISTINA is Primary Nurse. tm6 02:21 Triage completed. tm6 02:21 Arm band placed on right wrist. tm6 02:26 Patient has correct armband on for positive identification. Placed in gown. Bed in low tm6 position. Call light in reach. Side rails up X2. Seizure precautions initiated. Provided Education on: plan of care. Client placed on continuous cardiac and pulse oximetry monitoring. NIBP monitoring applied. personnel monitor on. Pulse ox on. NIBP on. Noise minimized. Warm blanket given. 02:27 XRAY Chest (1 view) In Process Unspecified. EDMS 03:02 EKG done, by ED staff, reviewed by Dipesh Kc MD. tm6 03:03 Lactate w/ 2H reflex if indic. Sent. tm6 03:03 Blood Culture Adult (2) Sent. tm6 03:03 Lipase Sent. tm6 03:03 Basic Metabolic Panel Sent. tm6 03:03 LFT's Sent. tm6 03:03 Magnesium Sent. tm6 03:03 NT PRO-BNP Sent. tm6 03:03 Troponin HS Sent. tm6 03:03 Inserted saline lock: 22 gauge in right hand, using aseptic technique. tm6 03:10 Turner cath removed intact, balloon deflated. tm6 03:24 Turner cath inserted, using sterile technique, 16 Fr., by ED staff, balloon inflated, to tm6 gravity drainage, clamped. Patient tolerated well. 03:30 One-on-one care X 60 minutes. tm6 04:06 CT Head Brain wo Cont In Process Unspecified. EDMS 04:06 CT Abd/Pelvis - Without Contrast In Process Unspecified. EDMS 06:23 No provider procedures requiring assistance completed. IV discontinued, intact, pf1 bleeding controlled, No redness/swelling at site. Pressure dressing applied. Administered Medications: 03:01 Drug: NS 0.9% IV 1000 ml IV at 125 ml/hr continuous Route: IV; Rate: 125 ml/hr; Site: [facility] left hand; 06:22 Follow up: Response: No adverse reaction; IV Status: Completed infusion; IV Intake: pf1 500ml 03:01 Drug: Cefepime IVPB 1 grams IVPB at 200 ml/hr once over 30 mins; (mix in NS 100 mL) tm6 Route: IVPB; Rate: 200 ml/hr; Infused Over: 30 mins; Site: left hand; 03:35 Follow up: Response: No adverse reaction; IV Status: Completed infusion; IV Intake: pf1 100ml 03:02 Drug: NS 0.9% IV 500 ml IV at bolus once Route: IV; Rate: bolus; Site: left hand; tm6 04:00 Follow up: Response: No adverse reaction; IV Status: Completed infusion; IV Intake: pf1 500ml 04:51 Drug: Keppra IV 500 mg IV at per protocol once Route: IV; Rate: per protocol; Site: [facility] left hand; 05:30 Follow up: Response: No adverse reaction; Marked relief of symptoms; IV Status: pf1 Completed infusion; IV Intake: 100ml 05:17 Drug: levofloxacin IVPB 250 mg 50 ml IVPB once over 60 mins Volume: 50 ml; Route: IVPB; rv Infused Over: 60 mins; Site: left hand; 06:17 Follow up: Response: No adverse reaction; IV Status: Completed infusion pf1 Medication: 02:26 VIS not applicable for this client. tm6 Intake: 03:35 IV: 100ml; Total: 100ml. pf1 04:00 IV: 500ml; Total: 600ml. pf1 05:30 IV: 100ml; Total: 700ml. pf1 06:22 IV: 500ml; Total: 1200ml. pf1 Outcome: 05:10 Discharge ordered by . sreedhar 06:25 Discharged to intermediate. tm6 06:25 Condition: stable 06:25 Discharge instructions given to family, intermediate, Instructed on discharge instructions, follow up and referral plans. medication usage, Demonstrated understanding of instructions, follow-up care, medications, Prescriptions given X 1, 06:26 Patient left the ED. tm6 Signatures: Dispatcher [employer] EDWV Dipesh Kc MD MD cha Vicente, Ronaldo, RN RN rv Raysa To Pamala, RN RN pf1 Maryse Field RN RN tm6 Corrections: (The following items were deleted from the chart) 03:29 03:29 Reassessment: Patient and/or family updated on plan of care and expected tm6 duration. Pain level reassessed. Patient is alert, oriented x 3, equal unlabored respirations, skin warm/dry/pink. tm6
--- NOTE | 2023-12-23 05:11 | EDPHYS ---
Physician Documentation [facility] Name: Andie Castro Age: 53 yrs Sex: Female : 1970 Arrival Date: 12/23/2023 Time: 01:58 Bed 4 Private MD: ED Physician Dipesh Kc HPI: 12/22 02:32 This 53 yrs old Female presents to ER via EMS with complaints of found sreedhar unresponsive. 02:32 The patient has shortness of breath at rest. Onset: The symptoms/episode began/occurred sreedhar just prior to arrival, this morning. Duration: The symptoms are continuous, and are steadily getting worse. 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 - Infectious Disease History:: Denies. - Social history:: Smoking status: Patient denies any tobacco usage or history of. ROS: 02:52 Constitutional: Negative for fever, chills, and weight loss, Eyes: Negative for injury, sreedhar pain, redness, and discharge, ENT: Negative for injury, pain, and discharge, Neck: Negative for injury, pain, and swelling, Cardiovascular: Negative for chest pain, palpitations, and edema, Abdomen/GI: Negative for abdominal pain, nausea, vomiting, diarrhea, and constipation, Back: Negative for injury and pain, : Negative for injury, bleeding, discharge, and swelling, MS/Extremity: Negative for injury and deformity, Skin: Negative for injury, rash, and discoloration, Psych: Negative for depression, anxiety, suicide ideation, homicidal ideation, and hallucinations, Allergy/Immunology: Negative for hives, rash, and allergies, Endocrine: Negative for neck swelling, polydipsia, polyuria, polyphagia, and marked weight changes, Hematologic/Lymphatic: Negative for swollen nodes, abnormal bleeding, and unusual bruising, 02:52 Respiratory: Positive for cough, with no reported sputum, 02:52 Neuro: Positive for altered mental status, weakness, Exam: 02:52 Constitutional: This is a well developed, well nourished patient who is awake, alert, sreedhar and in no acute distress. Head/Face: Normocephalic, atraumatic. Eyes: Pupils equal round and reactive to light, extra-ocular motions intact. Lids and lashes normal. Conjunctiva and sclera are non-icteric and not injected. Cornea within normal limits. Periorbital areas with no swelling, redness, or edema. ENT: Nares patent. No nasal discharge, no septal abnormalities noted. Tympanic membranes are normal and external auditory canals are clear. Oropharynx with no redness, swelling, or masses, exudates, or evidence of obstruction, uvula midline. Mucous membranes moist. Neck: Trachea midline, no thyromegaly or masses palpated, and no cervical lymphadenopathy. Supple, full range of motion without nuchal rigidity, or vertebral point tenderness. No Meningismus. Chest/axilla: Normal chest wall appearance and motion. Nontender with no deformity. No lesions are appreciated. Cardiovascular: Regular rate and rhythm with a normal S1 and S2. No gallops, murmurs, or rubs. Normal PMI, no JVD. No pulse deficits. Respiratory: Lungs have equal breath sounds bilaterally, clear to auscultation and percussion. No rales, rhonchi or wheezes noted. No increased work of breathing, no retractions or nasal flaring. Abdomen/GI: Soft, non-tender, with normal bowel sounds. No distension or tympany. No guarding or rebound. No evidence of tenderness throughout. Back: No spinal tenderness. No costovertebral tenderness. Full range of motion. Skin: Warm, dry with normal turgor. Normal color with no rashes, no lesions, and no evidence of cellulitis. MS/ Extremity: Pulses equal, no cyanosis. Neurovascular intact. Full, normal range of motion. Neuro: Awake and alert, GCS 15, oriented to person, place, time, and situation. Cranial nerves II-XII grossly intact. Motor strength 5/5 in all extremities. Sensory grossly intact. Cerebellar exam normal. Normal gait. Psych: Awake, alert, with orientation to person, place and time. Behavior, mood, and affect are within normal limits. 02:52 ECG was reviewed by the Attending Physician. Vital Signs: 02:18 BP 129 / 85; Pulse 68; Resp 12; Temp 97.5(TE); Pulse Ox 100% on R/A; Weight 47.63 kg; tm6 Height 4 ft. 0 in. ; Pain 0/10; 03:29 BP 153 / 99; Pulse 87; Resp 17; Pulse Ox 100% on 2 lpm NC; tm6 04:05 BP 109 / 67; Pulse 78; Resp 20; Pulse Ox 99% on R/A; tm6 05:00 BP 120 / 83; Pulse 85; Resp 22; Pulse Ox 100% on R/A; tm6 06:26 BP 119 / 98; Pulse 85; Resp 20; Temp 97.8(TE); Pulse Ox 100% on R/A; tm6 02:18 Body Mass Index 32.04 (47.63 kg, 121.92 cm) tm6 02:18 Pain Scale: Non-Verbal tm6 MDM: 02:06 Patient medically screened. [facility] 02:54 Differential diagnosis: CHF exacerbation, pneumonia, reactive airway disease, Sepsis. sreedhar Antibiotic administration: maxipime. Differential Diagnosis altered mental status, sepsis, flu. Differential Diagnosis: CVA, electrolyte abnormality, hypoglycemia, intracranial bleed, pneumonia, seizure, sepsis, volume depletion. Immunization status: Influenza vaccine: within last 5 years. Data reviewed: vital signs, nurses notes, lab test result(s), EKG, radiologic studies, plain films. Consideration of Admission/Observation Patient was admitted/placed on observation. Escalation of care including admission/observation considered. I considered the following discharge prescriptions or medication management in the emergency department Medications were administered in the Emergency Department. See MAR. Test considered but Not performed: MRI: no mri brain. Care significantly affected by the following chronic conditions: seizure, down syndrome, cva. 05:09 ED course: dw pt care, labs , ct , meds , will dc pt brother , return if worse. [facility] 12/22 02:14 Order name: Basic Metabolic Panel; Complete Time: 03:31 [facility] 12/22 02:14 Order name: CBC with Diff; Complete Time: 02:57 [facility] 12/22 02:14 Order name: LFT's; Complete Time: 03: [facility] 12/22 02:14 Order name: Magnesium; Complete Time: 03:31 [facility] 12/22 02:14 Order name: NT PRO-BNP; Complete Time: 03:31 [facility] 12/22 02:14 Order name: PT-INR; Complete Time: 03: [facility] 12/22 02:14 Order name: Troponin HS; Complete Time: 03: [facility] 12/22 02:14 Order name: Lipase; Complete Time: 03:31 [facility] 12/22 02:14 Order name: Urinalysis w/ reflexes; Complete Time: 02:57 [facility] 12/22 02:14 Order name: Blood Culture Adult (2) 12/22 02:14 Order name: Lactate w/ 2H reflex if indic.; Complete Time: 03:31 [facility] 12/22 02:14 Order name: SARS RAPID; Complete Time: 03: [facility] 12/22 02:14 Order name: Flu; Complete Time: 03: [facility] 12/22 02:14 Order name: XRAY Chest (1 view) 12/22 02:57 Order name: CT Head Brain wo Cont 12/22 03:36 Order name: CT Abd/Pelvis - Without Contrast 12/22 02:14 Order name: EKG; Complete Time: 02:15 [facility] 12/22 02:14 Order name: Cardiac monitoring; Complete Time: 02:18 [facility] 12/22 02:14 Order name: EKG - Nurse/Tech; Complete Time: 03:02 [facility] 12/22 02:14 Order name: IV Saline Lock; Complete Time: 02:18 [facility] 12/22 02:14 Order name: Labs collected and sent; Complete Time: 03:03 [facility] 12/22 02:14 Order name: O2 Per Protocol; Complete Time: 02:18 [facility] 12/22 02:14 Order name: O2 Sat Monitoring; Complete Time: 02:18 [facility] 12/22 03:02 Order name: Turner: exchange; Complete Time: 03:18 [facility] EC:52 Rate is 72 beats/min. Rhythm is regular. QRS [place] is Normal. CT interval is normal. QRS sreedhar interval is normal. QT interval is normal. No Q waves. T waves are Normal. No ST changes noted. Clinical impression: NSR w/ Non-specific ST/T Changes and No evidence of ischemia. Interpreted by me. Reviewed by me. Administered Medications: 03:01 Drug: NS 0.9% IV 1000 ml IV at 125 ml/hr continuous Route: IV; Rate: 125 ml/hr; Site: [facility] left hand; 06:22 Follow up: Response: No adverse reaction; IV Status: Completed infusion; IV Intake: pf1 500ml 03:01 Drug: Cefepime IVPB 1 grams IVPB at 200 ml/hr once over 30 mins; (mix in NS 100 mL) tm6 Route: IVPB; Rate: 200 ml/hr; Infused Over: 30 mins; Site: left hand; 03:35 Follow up: Response: No adverse reaction; IV Status: Completed infusion; IV Intake: pf1 100ml 03:02 Drug: NS 0.9% IV 500 ml IV at bolus once Route: IV; Rate: bolus; Site: left hand; 6 04:00 Follow up: Response: No adverse reaction; IV Status: Completed infusion; IV Intake: pf1 500ml 04:51 Drug: Keppra IV 500 mg IV at per protocol once Route: IV; Rate: per protocol; Site: [facility] left hand; 05:30 Follow up: Response: No adverse reaction; Marked relief of symptoms; IV Status: pf1 Completed infusion; IV Intake: 100ml 05:17 Drug: levofloxacin IVPB 250 mg 50 ml IVPB once over 60 mins Volume: 50 ml; Route: IVPB; rv Infused Over: 60 mins; Site: left hand; 06:17 Follow up: Response: No adverse reaction; IV Status: Completed infusion pf1 Disposition Summary: 12/23/23 05:10 Discharge Ordered Notes: Location: Home sreedhar Problem: new sreedhar Symptoms: have improved sreedhar Condition: Stable sreedhar Diagnosis - Altered mental status, unspecified sreedhar - UTI/ Urinary tract infection, site not specified sreedhar - Trisomy 21, translocation - DOWNS sreedhar - Do not resuscitate sreedhar - Pneumonia due to other specified bacteria - left base sreedhar Followup: sreedhar - With: Private Physician - When: 2 - 3 days - Reason: Recheck today's complaints, Continuance of care, Re-evaluation by your physician Discharge Instructions: - Discharge Summary Sheet sreedhar - Urinary Tract Infection, Adult sreedhar - Weakness sreedhar - Urinary Tract Infection, Adult, [id number] sreedhar - Weakness, [id number] sreedhar - Aspiration Pneumonia, Adult sreedhar - Hospital-Acquired Pneumonia sreedhar Forms: - Medication Reconciliation Form sreedhar - Antibiotic Education sreedhar - Prescription Opioid Use sreedhar - Patient Portal Instructions sreedhar - Leadership Thank You Letter sreedhar Prescriptions: - levofloxacin 250 mg Oral tablet - take 1 tablet ORAL route once daily; 7 tablet; Refills: 0, Product Selection sreedhar Permitted Signatures: Dispatcher [employer] EDMS Dipesh Kc MD MD cha Vicente, Ronaldo, RN RN rv Maryse Field RN RN tm6 Carmen Stephens RN pf1 Corrections: (The following items were deleted from the chart) 02:15 02:15 BASIC METABOLIC PANEL+C.LAB.BRZ ordered. EDMS EDMS 02:15 02:15 CBC+H.LAB.BRZ ordered. EDMS EDMS 02:15 02:15 HEPATIC FUNCTION+C.LAB.BRZ ordered. EDMS EDMS 02:15 02:15 MAGNESIUM+C.LAB.BRZ ordered. EDMS EDMS 02:15 02:15 PROBNP+C.LAB.BRZ ordered. EDMS EDMS 02:15 02:15 PROTIME (+INR)+COAG.LAB.BRZ ordered. EDMS EDMS 02:15 02:15 Troponin High Sensitivity+C.LAB.BRZ ordered. EDMS EDMS 02:15 02:15 LIPASE+C.LAB.BRZ ordered. EDMS EDMS 02:15 02:15 Urinalysis+U.LAB.BRZ ordered. EDMS EDMS 02:15 02:15 BLOOD CULTURE*+BA.LAB.BRZ ordered. EDMS EDMS 02:15 02:15 LACTATE+C.LAB.BRZ ordered. EDMS EDMS 02:15 02:15 SARS-COV-2 Antigen Rapid+I.LAB.BRZ ordered. EDMS EDMS 02:15 02:15 Influenza Screen (A \T\ B)+BA.LAB.BRZ ordered. EDMS EDMS
[2023-12-23] MEDS ORDERED: Levofloxacin500mg IV 500 MG/100 ML BAG IV ONE (05:14)
[2023-12-23 06:36] VITALS: BP 119/98; TEMP 97.8; O2SAT 100
--- NOTE | 2023-12-23 11:55 | RAD REPORT ---
EXAM DESCRIPTION: CT ABDOMEN PELVIS WITHOUT IV CONTRAST CLINICAL HISTORY: ABD PAIN COMPARISON: 11/23/2023. TECHNIQUE: CT ABDOMEN PELVIS WITHOUT IV CONTRAST on 12/23/2023 3:36 AM CDT This exam was performed according to our departmental dose-optimization program, which includes autom ated exposure control, adjustment of the mA and/or kV according to patient size and/or use of iterati ve reconstruction technique. FINDINGS: There is mild left basilar airspace disease. Abdomen: The liver is normal in appearance. There is no biliary dilatation. Gallbladder is normal in appearance. Gastrostomy is present. The pancreas and spleen are normal in appearance. The adrenal gla nds and kidneys are unremarkable. Abdominal aorta is normal in course and caliber without aneurysm. There is no free air. There is no r etroperitoneal adenopathy. Pelvis: There is large amount of stool throughout the colon. Urinary bladder contains a Turner cathete r. There is no free fluid. Uterus is not seen. Appendix is not seen. Skeleton: There are no acute osseous findings. No suspicious bony lesions. IMPRESSION: No definite acute inflammatory process. Possible left basilar pneumonia. Electronically signed by: Keo Manzano MD 12/23/2023 04:45 AM CDT Due to temporary technical issues with the PACS/Fluency reporting system, reports are being signed by the in house radiologists without review as a courtesy to insure prompt reporting. The interpreting radiologist is fully responsible for the content of the report
--- NOTE | 2023-12-23 12:02 | RAD REPORT ---
EXAM DESCRIPTION: CT HEAD WITHOUT IV CONTRAST CLINICAL HISTORY: DECLINING STATE COMPARISON: 11/23/2023. TECHNIQUE: CT HEAD WITHOUT IV CONTRAST on 12/23/2023 2:57 AM CDT This exam was performed according to our departmental dose-optimization program, which includes autom ated exposure control, adjustment of the mA and/or kV according to patient size and/or use of iterati ve reconstruction technique. FINDINGS: There is no acute hemorrhage, mass effect or midline shift. Strickland-white differentiation is preserved. There is severe dilatation of the lateral ventricles. There is diffuse cerebral atrophy. The calvarium is intact. Orbits and globes are unremarkable. The paranasal sinuses are clear. Mastoid air cells are clear. IMPRESSION: Continued extensive ventricular dilatation, unchanged. Electronically signed by: Keo Manzano MD 12/23/2023 04:41 AM CDT Due to temporary technical issues with the PACS/Fluency reporting system, reports are being signed by the in house radiologists without review as a courtesy to insure prompt reporting. The interpreting radiologist is fully responsible for the content of the report
--- NOTE | 2023-12-23 12:09 | RAD REPORT ---
EXAM DESCRIPTION: XR CHEST 1 VIEW CLINICAL HISTORY: DYSPNEA COMPARISON: 11/23/2023. TECHNIQUE: XR CHEST 1 VIEW 12/23/2023 2:14 AM CDT FINDINGS: Cardiac silhouette is normal in size. There is a minimal focus of airspace disease in the left lung base. There is no pleural effusion. There is no pneumothorax. There are no acute osseous fi ndings. IMPRESSION: Possible left basilar pneumonia. Electronically signed by: Keo Manzano MD 12/23/2023 03:03 AM CDT Due to temporary technical issues with the PACS/Fluency reporting system, reports are being signed by the in house radiologists without review as a courtesy to insure prompt reporting. The interpreting radiologist is fully responsible for the content of the report
--- NOTE | 2023-12-26 13:07 | EKG ---
Test Date: 2023-12-23 Test Time: 02:38:25 Director Of Diversity And Inclusion: [facility] MEASUREMENT RESULTS: Intervals: Rate: 72 RI: 150 QRSD: 66 QT: 418 QTc: 457 [place]: P: 69 RI: 150 QRS: 96 T: 65 INTERPRETIVE STATEMENTS: Normal sinus rhythm Normal ECG Compared to ECG 12/16/2023 13:24:27 Ventricular premature complex(es) no longer present ST (T wave) deviation no longer present Myocardial infarct finding no longer present Electronically Signed On 12-26-23 12:58:35 CDT by Bunny Galdamez
== END 2023-12-23 06:26 | disposition home or self-care (01) ==
LOC: ER 01:58
DX: N39.0 Urinary tract infection, site not specified (principal); J15.8 Pneumonia due to other specified bacteria; Q90.2 Trisomy 21, translocation; Z11.52 Encounter for screening for COVID-19; Z66 Do not resuscitate; Z88.0 Allergy status to penicillin; Z88.1 Allergy status to other antibiotic agents; Z88.2 Allergy status to sulfonamides; Z88.3 Allergy status to other anti-infective agents; Z88.8 Allergy status to other drugs, medicaments and biological substances; Z91.030 Bee allergy status
CPT/HCPCS: 93005; 87040 ×2; 85025; 81001; 80048; 36415; 83735; 85610; 80076; 83605; 84484; 83690; 83880; 87804 ×2; 70450; 74176; 71045; 87811; J1953; J7040; J7030; J0692